=== PATIENT | male | born 1960 | race Caucasian/White ===

== ENCOUNTER → 2017-07-11 | Day surgery (SDC) | payer BC ==
[~2017-07-11] VITALS: Ht 180.3 cm; Wt 152.0 kg
[~2017-07-11] MED LIST: CALC0.25 PO; CALC667T PO; DESFLURANE 61 TO 120 MINUTES IH ONE; DEXAMETHASONE SOD PHOS 20 MG/5 ML VIAL. ONE; FURO40TA4 PO; GLYCOPYRROLATE 1 MG/5 ML VIAL. ONE; HEPARIN SODIUM 1,000 UNIT in IV NORMAL SALINE 100ML 100 ML IRR ONE; HYDROcodone/APAP 5/325MG 1 TAB TABLET PO ONE; HYDROmorphone 2 MG/ML VIAL IV PRN; IV NORMAL SALINE 1000ML BAG 1,000 ML IV SCH; LANS15CA78 PO; LIDOCAINE 1% 1 ML SYRINGE. ID PRN; LIDOCAINE 2% PF Vial for OR 5 ML VIAL. ONE; LISI-334 PO; MORPHINE SULFATE 2 MG/ML DISP.SYRIN. ONE; NEOSTIGMINE 10 MG/10 ML VIAL. ONE; ONDANSETRON PF 4 MG/2 ML VIAL. IV PRN; ONDANSETRON PF 4 MG/2 ML VIAL. ONE; PHENYLEPHRINE in 0.9% NACL PF 1 MG/10 ML DISP.SYRIN. IV ONE; PROAIR HFA8.5 GM INH; PROCHLORPERAZINE 10 MG/2 ML VIAL. IV PRN; PROPOFOL 20 ML IV ONE; SUCCINYLCHOLINE 200 MG/10 ML VIAL. ONE; VIT1TABL57 PO; ePHEDrine PF IN SALINE 50 MG/5 ML DISP.SYRIN IV ONE; fentaNYL PF VIAL 100 MCG/2 ML VIAL IV PRN; fentaNYL PF VIAL 100 MCG/2 ML VIAL ONE
--- NOTE | 2017-07-11 11:00 | PDOC4 ---
Operative Note Operative Note OPERATIVE NOTE: PREOPERATIVE DIAGNOSIS: Renal failure. POSTOPERATIVE DIAGNOSIS: Renal failure. PROCEDURE: Laparoscopic peritoneal dialysis catheter placement. SURGEON: Damon Amin MD ANESTHESIA: General. ESTIMATED BLOOD LOSS: 10 mL. SPECIMENS: None. DRAINS: None. COMPLICATIONS: None. INDICATIONS: The patient is a 56-year-old male who was referred for placement of a peritoneal dialysis catheter due to progressive renal failure. The details and risks of surgery were discussed with the patient. The risks of surgery include bleeding, infection, visceral injury, pain, anesthetic risk, potential need for additional surgery or procedure. In addition, the patient is aware of the potential for catheter malfunction or dysfunction and possibility of needing revision, replacement, or removal of the catheter. The patient understands all this and would like to proceed. DESCRIPTION OF PROCEDURE: The patient was brought to the operating room and placed supine on the operating table. General anesthesia was performed. The abdomen was prepped with ChloraPrep and draped in a standard surgical manner. The abdomen was marked using the placement templates for a planned exit site in the left upper quadrant. A small incision was made in the patient's right upper quadrant through which a visualized 5-mm trocar was inserted. A pneumoperitoneum was then created and the laparoscope was introduced. Initial inspection showed no significant adhesions or any other gross abnormalities. A small incision was made to the left of the patient's midline at the marked location for the exit site of the cuff. An 8-mm trocar was inserted through this location. The coiled portion of the lower catheter was then inserted into the pelvis under direct visualization. The cuff was positioned in the rectus musculature. The coiled portion rested well in the inferior mid pelvis. The pneumoperitoneum was then relieved. The lower and upper catheters were then marked according to the planned dimensions. The catheters were then cut and connected using the metal adapter. 2-0 prolene sutures were used to secure the catheters to the adapter and to each other. A counter incision was made in the left upper quadrant. The combined catheters were then tunnelled just superficial to the facia to the upper incision site. The catheter exit site incision was made in the left upper quadrant. The catheter was then brought out through this incision and the proximal cuff remained in the subcutaneous tissue a few cm away from the exit site. The catheter was then assembled to IV tubing and tested by infusing a liter of saline. The saline passed easily into the abdomen and the bag was placed on the floor. Nearly all of the saline readily was retrieved with prompt flow. The abdominal cavity was then reinsufflated and the laparoscope was reintroduced showing no change in the catheter position and the cuff remained in the rectus. The pneumoperitoneum was relieved and the ports were removed. The catheter was then assembled to the connector tubing as per the dialysis center instructions. All the incision sites were closed with 4-0 Monocryl. Steri-Strips and sterile dressing were then applied. The patient tolerated procedure well and was sent to the recovery room in stable condition. At the end of the case all counts were correct. DAMON AMIN MD Jul 11, 2017 11:00
[2017-07-11] MEDS: fentaNYL PF VIAL 100 MCG/2 ML VIAL IV PRN ×2 (11:02→11:08)
--- NOTE | 2017-07-11 11:03 | DISCH ---
DISCHARGE INSTRUCTIONS Condition on Discharge Condition on Discharge: Stable Activity After Discharge Activity Instructions for Disc: Other, see below (no lifting over 20 lbs X 2 weeks) Diet after Discharge Diet after Discharge: Regular Wound Incision Care Wound/Incision Care: Other, see below (per dialysis center instructions) Follow-Up Follow up with: Dialysis Center MAK AMIN MD Jul 11, 2017 11:02
[2017-07-11] MEDS: MORPHINE SULFATE 2 MG/ML DISP.SYRIN. IV PRN ×2 (11:21→11:31)
[2017-07-11 11:55] VITALS: BP 161/58
== END | disposition home or self-care (01) ==
LOC: SURG 07:47
PROVIDERS: ATTEND Surgery
DX: N19 Unspecified kidney failure (principal); I10 Essential (primary) hypertension; J45.909 Unspecified asthma, uncomplicated; E66.9 Obesity, unspecified; Z68.43 Body mass index [BMI] 50.0-59.9, adult; K21.9 Gastro-esophageal reflux disease without esophagitis; F17.200 Nicotine dependence, unspecified, uncomplicated; Z72.89 Other problems related to lifestyle; Z87.442 Personal history of urinary calculi
CPT/HCPCS: 49324; C1752; J0690; J0780; J1100; J1644; J2270; J2370; J2405; J2704; J2710; J3010; J3490; J7030; J0330; J2001

== ENCOUNTER → 2017-07-11 | Outpatient (CLI) | payer BC ==
[~2017-07-11] MED LIST changes: -DESFLURANE 61 TO 120 MINUTES IH ONE; -DEXAMETHASONE SOD PHOS 20 MG/5 ML VIAL. ONE; -GLYCOPYRROLATE 1 MG/5 ML VIAL. ONE; -HEPARIN SODIUM 1,000 UNIT in IV NORMAL SALINE 100ML 100 ML IRR ONE; -HYDROcodone/APAP 5/325MG 1 TAB TABLET PO ONE; -HYDROmorphone 2 MG/ML VIAL IV PRN; -IV NORMAL SALINE 1000ML BAG 1,000 ML IV SCH; -LIDOCAINE 1% 1 ML SYRINGE. ID PRN; -LIDOCAINE 2% PF Vial for OR 5 ML VIAL. ONE; -MORPHINE SULFATE 2 MG/ML DISP.SYRIN. ONE; -NEOSTIGMINE 10 MG/10 ML VIAL. ONE; -ONDANSETRON PF 4 MG/2 ML VIAL. IV PRN; -ONDANSETRON PF 4 MG/2 ML VIAL. ONE; -PHENYLEPHRINE in 0.9% NACL PF 1 MG/10 ML DISP.SYRIN. IV ONE; -PROCHLORPERAZINE 10 MG/2 ML VIAL. IV PRN; -PROPOFOL 20 ML IV ONE; -SUCCINYLCHOLINE 200 MG/10 ML VIAL. ONE; -ePHEDrine PF IN SALINE 50 MG/5 ML DISP.SYRIN IV ONE; -fentaNYL PF VIAL 100 MCG/2 ML VIAL IV PRN; -fentaNYL PF VIAL 100 MCG/2 ML VIAL ONE
--- NOTE | 2017-07-11 09:34 | RAD ---
Exam performed: 2 views of the chest. Indication: CHRONIC KIDNEY DISEASE. Date of Service:07/11/2017 2:00 AM . Comparison : None available Findings: PA and lateral radiographs of the chest reveal a normal cardiomediastinal contour. The lungs are clear. No pleural fluid is seen. The visualized osseous structures are unremarkable. Impression: Radiographically normal chest.
== END | disposition home or self-care (01) ==
LOC: LAB 07:55
PROVIDERS: ATTEND Internal Medicine Nephrology
DX: N18.9 Chronic kidney disease, unspecified (principal)
CPT/HCPCS: 36415; 71020; 86704; 87340; 87341

== ENCOUNTER → 2018-09-18 | Outpatient (CLI) | payer BC ==
--- NOTE | 2018-09-18 13:49 | CARD ---
MR#: [id number] Date of Study: 09/18/2018 Ordering Physician: EMERITA BARR, Referring Physician: EMERITA BARR, Tech: Arleth Rowell [facility] APPROVED REPORT EXAM: Two-dimensional and M-mode echocardiogram with Doppler and color Doppler. Other Information Quality : Technically LimitedHR: 94bpm Rhythm : NSRTechnically limited study due to body habitus. INDICATION Dyspnea LEFT VENTRICLE The left ventricle is normal size. There is mild to moderate concentric left ventricular hypertrophy. The left ventricular systolic function is normal and the ejection fraction is within normal range. T he Ejection Fraction is 65-70%. There is normal LV segmental wall motion. Transmitral Doppler flow pa ttern is Grade I-abnormal relaxation pattern. RIGHT VENTRICLE The right ventricle is normal size. There is normal right ventricular wall thickness. The right ventr icular systolic function is normal. ATRIA The left atrium is borderline dilated. The right atrium size is normal. The interatrial septum is int act with no evidence for an atrial septal defect or patent foramen ovale as noted on 2-D or Doppler i rylan. AORTIC VALVE The aortic valve is trileaflet. The aortic valve is normal in structure and function. Doppler and Col or Flow revealed no significant aortic regurgitation. There is no significant aortic valvular stenosi s. MITRAL VALVE The mitral valve is normal in structure and function. There is no evidence of mitral valve prolapse. There is no mitral valve stenosis. Doppler and Color Flow revealed no mitral valve regurgitation note d. TRICUSPID VALVE The tricuspid valve is normal in structure and function. Doppler and Color Flow revealed no tricuspid valve regurgitation noted. There is no tricuspid valve prolapse or vegetation. There is no tricuspid valve stenosis. PULMONIC VALVE Pulmonic valve not well visualized. Doppler and Color Flow revealed no pulmonic valvular regurgitatio n. There is no pulmonic valvular stenosis. GREAT VESSELS The aortic root is mildly enlarged. The ascending aorta is Mildly dilated. PERICARDIAL EFFUSION There is no evidence of significant pericardial effusion. Fat pad noted. Critical Notification Critical Value: No <Conclusion> The left ventricular systolic function is normal and the ejection fraction is within normal range. Th e Ejection Fraction is 65-70%. There is normal LV segmental wall motion. Mild diastolic dysfunction. No signficant valvular disease. Signed by : Donte Gutiérrez, Electronically Approved : 09/18/2018 13:48:43
== END | disposition home or self-care (01) ==
LOC: ECHO 13:00
DX: I13.0 Hypertensive heart and chronic kidney disease with heart failure and stage 1 through stage 4 chronic kidney disease, or unspecified chronic kidney disease (principal); I50.31 Acute diastolic (congestive) heart failure; N18.9 Chronic kidney disease, unspecified
CPT/HCPCS: 93306

== ENCOUNTER 2018-11-16 09:11 | Outpatient (CLI) | payer BC ==
[2018-11-16] VITALS (10 sets, daily range): BP systolic 124–167; BP diastolic 72–92
[~2018-11-16] VITALS: Ht 180.3 cm; Wt 158.8 kg
[~2018-11-16 09:11] MED LIST changes: +ALBU2.5V8 INH; -PROAIR HFA8.5 GM INH
[2018-11-16] MEDS ORDERED: GUAI400T63 PO (09:35)
[2018-11-16] MEDS ORDERED: TORS20TA2 PO (09:35)
[2018-11-16] MEDS ORDERED: DOCU-109 PO (09:38)
[2018-11-16] MEDS ORDERED: ASPI-630 PO (09:38)
[2018-11-16] MEDS ORDERED: TAMS0.4C2 PO (09:38)
[2018-11-16] MEDS ORDERED: TRAZ-85 PO (09:38)
[2018-11-16 09:55] LABS: BASO # 0.1 x10^3/uL (0.0-0.2); BASO % 1 % (0-3); EOS # 0.2 x10^3/uL (0.0-0.7); EOS % 2 % (0-3); HEMATOCRIT 34.2 % (39.0-53.0); HEMOGLOBIN 11.7 g/dL (13.0-17.5); LYMPH # 1.3 x10^3/uL (1.0-4.8); LYMPH % 13 % (24-48); MEAN CORPUSCULAR HEMOGLOBIN 32 pg (25-35); MEAN CORPUSCULAR HGB CONC 34 g/dL (31-37); MEAN CORPUSCULAR VOLUME 94 fL (79-100); MONO # 0.7 x10^3/uL (0.0-1.1); MONO % 8 % (0-9); NEUT # 7.5 x10^3uL (1.8-7.7); NEUT % 77 % (31-73); PLATELET COUNT 187 x10^3/uL (140-400); RED BLOOD COUNT 3.62 x10^6/uL (4.30-5.70); RED CELL DISTRIBUTION WIDTH 13.7 % (11.5-14.5); WHITE BLOOD COUNT 9.7 x10^3/uL (4.0-11.0)
[2018-11-16 10:05] LABS: PROTHROMBIN TIME PATIENT 13.6 SEC (11.7-14.0)
[2018-11-16] MEDS ORDERED: IODIXANOL 320 MG/ML 100 ML VIAL. ONE (10:40)
[2018-11-16] MEDS ORDERED: LIDOCAINE 1% PF 2 ML VIAL. ONE (10:40)
[2018-11-16] MEDS ORDERED: HEPARIN for ARTERIAL LINE 1,500 ML ONE (10:40)
[2018-11-16 11:05] LABS: CALCIUM 8.7 mg/dL (8.5-10.1); CREATININE 7.1 mg/dL (0.7-1.3); GFR 8.1; POTASSIUM 3.8 mmol/L (3.5-5.1)
[2018-11-16] MEDS ORDERED: fentaNYL PF VIAL 100 MCG/2 ML VIAL ONE (11:18)
[2018-11-16] MEDS ORDERED: HEPARIN for IV BOLUS 10,000 UNIT/10 ML VIAL. ONE (11:19)
[2018-11-16] MEDS ORDERED: NITROGLYCERIN 200 MCG/2 ML SYRINGE FOR CATH/VASC LAB. ONE (11:19)
[2018-11-16] MEDS ORDERED: VERAPAMIL 5 MG/2 ML VIAL. ONE (11:19)
[2018-11-16] MEDS ORDERED: MIDAZOLAM HCL/PF 2 MG/2 ML VIAL. ONE (11:19)
[2018-11-16] MEDS ORDERED: IODIXANOL 320 MG/ML 100 ML VIAL. IART ONE (12:00)
[2018-11-16] MEDS ORDERED: VERAPAMIL 5 MG/2 ML VIAL. IART ONE (12:00)
[2018-11-16] MEDS ORDERED: LIDOCAINE 1% PF 2 ML VIAL. INJ ONE (12:00)
[2018-11-16] MEDS ORDERED: NITROGLYCERIN 200 MCG/2 ML SYRINGE FOR CATH/VASC LAB. IART ONE (12:00)
[2018-11-16] MEDS ORDERED: MIDAZOLAM HCL/PF 2 MG/2 ML VIAL. IV ONE (12:00)
[2018-11-16] MEDS ORDERED: HEPARIN for IV BOLUS 10,000 UNIT/10 ML VIAL. IART ONE (12:00)
[2018-11-16] MEDS ORDERED: fentaNYL PF VIAL 100 MCG/2 ML VIAL IV ONE (12:00)
[2018-11-16] MEDS ORDERED: ATOR20TA58 PO (12:13)
--- NOTE | 2018-11-16 12:21 | NUR ---
Prescription for Atorvastatin 20 mg 1 tab PO QHS #90 given to pt.
[2018-11-16 12:48] LABS: CHOLESTEROL/HDL RATIO 4.5
--- NOTE | 2018-11-16 12:50 | CARD ---
MR#: [id number] Date of Study: 11/16/2018 Ordering Physician: ELENA GUTIÉRREZ, Referring Physician: ELENA GUTIÉRREZ, Tech: RT Suri (R) SIMEON APPROVED REPORT Technologist: RT Suri (R) SIMEON Nurse: Pretty Drew R.N. Procedure(s) performed: 33 minutes sedation [facility], Coronary angiography, Left ventriculography HISTORY The patient is a 57 year-old male with a history of : hypertension, dyslipidemia. INDICATION The indication(s) include : dyspnea. PROCEDURE NARRATIVE INFORMED CONSENT: After explaining the risks and benefits of the procedure and alternatives, informed consent was obtained. The patient was brought electively to the cardiac catheterization lab. A timeout was performed confi rming the patient's name, date of , procedure, and site of procedure. All necessary personnel w ere wearing the appropriate protective equipment and radiation monitor devices. (See nursing notes for medications administered). ACCESS: The right wrist was sterilely prepped and draped in the usual fashion. The right wrist was infiltrat ed with 1 mL of 2% lidocaine for subcutaneous anesthesia. A 6 Serbian Terumo glide sheath was inserte d into the right radial artery without difficulty. CORONARY ANGIOGRAPHY: Right and left coronary angiography was performed using a 6Fr TIG 4.0 catheter. Left ventricular en d diastolic pressure was obtained with a pigtail catheter and pullback was performed after left ventr iculography. All catheter exchanges and advancements were performed over a guidewire. CLOSURE: At case completion the right radial sheath was removed and a Terumo radial band was applied with 13 m l of air. COMPLICATIONS: The patient tolerated the procedure well and there were no immediate complications. FINDINGS: HEMODYNAMICS: LVEDP 22 mm Hg No gradient on LV to aortic pullback. AO: 128/78 LEFT VENTRICULOGRAM: EF 55% Anterobasal: Normal. Anterolateral: Normal Apical: Normal Diaphragmatic: Normal Posterobasal: Normal CORONARY ANGIOGRAPHY: LM is a large caliber vessel with normal angiographic appearance. LAD is a large caliber vessel with normal angiographic appearance. D1 is a moderate caliber vessel with normal angiographic apeparance. D2 is a large caliber vessel with normal angiographc appearance. LCx is a moderate caliber non-dominant vessel with normal angiographic appearance. OM1 is a moderate caliber vessel with normal angiographic appearance. RCA is a large caliber dominant vessel with proximal 10-20% stenosis. RPDA and RPL are moderate caliber vessels with normal angiographic appearance. *Mild ectatic appearance of the RCA is noted with vessel size greater than 5 mm. Conclusion 1. No significant coronary disease with mild ectasia of the proximal RCA 2. Normal LV systolic function. 3. Mildly elevated left sided filling pressures. Recommendations No clear cardiac source of dyspnea Consider increase in peritoneal dialysis time to help reduce LVEDP and improve dyspnea Weight loss program Start low dose statin therapy. Signed by : Elena Gutiérrez, Electronically Approved : 11/16/2018 12:49:16
--- NOTE | 2018-11-16 14:50 | NUR ---
Discharge Note: [facility] Discharge instructions and discharge home medications reviewed with Patient and a copy given. All questions have been answered and understanding verbalized. The following instructions and handouts were given: radial site care, do not take arm board off for 24 hours and limit right hand use. Discontinued lines and drains: Peripheral IV intact. Patient discharged to Home or Self Care with Spouse via Wheelchair
== END 2018-11-16 14:52 | disposition home or self-care (01) ==
LOC: CCL 09:11
PROVIDERS: ATTEND Internal Medicine Cardiovascular Disease
DX: I25.10 Atherosclerotic heart disease of native coronary artery without angina pectoris (principal); I10 Essential (primary) hypertension; E78.5 Hyperlipidemia, unspecified; Z79.899 Other long term (current) drug therapy
CPT/HCPCS: 36415; 80048; 80061; 85025; 85610; 93458; 99152; 99153; C1769; C1892; J1644; J2250; J3010; J3490; Q9967

== ENCOUNTER → 2019-01-01 | Outpatient (CLI) | payer BC ==
[2018-11-16 14:20] VITALS: BP 138/83
[~2019-01-01] MED LIST changes: +ASPI-630 PO; +ATOR20TA58 PO; -CALC667T PO; +CALC667T4 PO; +DOCU-109 PO; +GUAI400T63 PO; +TAMS0.4C2 PO; +TORS20TA2 PO; +TRAZ-118 PO
--- NOTE | 2019-01-02 11:00 | SLEEP ---
DATE OF STUDY: REFERRING PROVIDER: PATRICK Levy The patient is 58-year-old who weighs 350 pounds with a BMI of 49. The patient underwent sleep study at [facility]. During the night study, the patient spent 423 minutes in bed and slept for 311 minutes with a sleep efficiency of 73%. Sleep latency was prolonged at 42 minutes with a REM latency of 188 minutes. Overall, sleep architecture showed normal stage 1 sleep, increased stage 2 sleep, absent slow wave and normal REM sleep. During the night of the study, the patient had 13 obstructive apneas, 1 mixed apnea and no central apneas and 133 hypopneas. The patient's apnea-hypopnea index was 28 per hour, which worsened to 62 per hour during REM sleep. Supine AHI was 22 per hour. PLMS were seen at index of 6 per hour and none caused EEG arousals. EKG monitoring revealed an average heart rate of 75 beats per minute and no sustained arrhythmias observed. He was in normal sinus rhythm. Nocturnal oximetry study revealed a mean oxygen saturation of 92% with the lowest of 65%. 50% of time oxygen saturation remained between 80% and 89% and 14% of time between 70% and 79%. Nocturnal hypoxia was severe during REM sleep. The patient met the criteria for CPAP initiation; however, he refused all forms of CPAP devices. The patient told the night tar processing technician that he would never wear CPAP. As a result, CPAP was not initiated. IMPRESSION: 1. Moderate sleep apnea-hypopnea syndrome with worsening during REM sleep. Total AHI 28 per hour with a REM AHI of 62 per hour. 2. Tipjrfog-mm-dyeuoo nocturnal hypoxia, especially in REM sleep, related to obstructive sleep apnea. 3. No clinically significant PLMS. RECOMMENDATIONS: 1. The patient met the criteria for CPAP initiation; however, he refused all forms of CPAP devices. If the patient agrees to try CPAP in future, he could be desensitized to the devices. Alternate treatment option would include consideration of an oral appliance as recommended by the dentist. The patient would not be a candidate for hypoglossal nerve stimulation due to high BMI. 2. Weight loss is strongly emphasized. 3. Avoid FORKLIFT WHEEL [employer]ADER depressants. 4. Caution regarding driving until symptoms of sleep apnea has resolved with above recommendations. JULIAN U. TURPIN, MD DR: SATYA/tesfaye JOB#: [id number] / [id number] [facility] EMERITA SANTIAGO
== END | disposition home or self-care (01) ==
LOC: SLPLAB 18:59
PROVIDERS: ATTEND Internal Medicine Critical Care Medicine
DX: G47.33 Obstructive sleep apnea (adult) (pediatric) (principal); G47.34 Idiopathic sleep related nonobstructive alveolar hypoventilation
CPT/HCPCS: 95810

== ENCOUNTER → 2019-07-03 | Outpatient (CLI) | payer BC ==
[2018-11-16 14:20] VITALS: BP 138/83
[~2019-07-03] MED LIST changes: +CONTRAST GIVEN. MC PRN; +IOHEXOL 240 MG/ML 50ML VIAL. PO ONE; +IOHEXOL 300 MG/ML 100ML VIAL. IV ONE
--- NOTE | 2019-07-03 11:25 | RAD ---
PQRS Compliance statement: One or more of the following individualized dose reduction techniques were utilized for this examination: 1. Automated exposure control. 2. Adjustment of the mA and/or kV according to patient size. 3. Use of iterative reconstruction technique. Indication:Polycystic kidney disease. Enlarged prostate. TECHNIQUE: CT abdomen and pelvis with IV contrast with multiplanar reformats. COMPARISON: None FINDINGS: Heart is normal in size. No pericardial or pleural effusion. Consolidation is seen in the left lung base. Liver, spleen, gallbladder, pancreas, adrenals within normal limits. Small amount of perihepatic and perisplenic ascites. Bilateral kidneys are enlarged with multiple low attenuating and high attenuating lesions. The represented to lesion in the right kidney measures 6.8 x 5.5 cm and the employment representative lesion in the left kidney measures 9.2 x 7.5 cm. Partially exophytic enhancing lesion in the left kidney seen measuring 1.5 centimeter (series 2 image 55). No hydronephrosis. Small amount of free pelvic fluid is seen. Peritoneal dialysis catheter is seen with its tip in the left lower quadrant. Small bilateral fat-containing inguinal hernia. No enlarged retroperitoneal or pelvic adenopathy. No bowel obstruction. Trace amount of air in the peritoneum likely from peritoneal dialysis. Prostate is nonenlarged. Urinary bladder demonstrates no radiopaque stones. No suspicious bony lesion. IMPRESSION: 1. Findings of polycystic kidney disease. Evaluation for renal cell carcinoma is difficult on this exam due to single phase contrast CT. The apparently high attenuating lesions may represent minimally complicated cyst although RCC is not entirely ruled out. Triple phase CT abdomen with kidney mass protocol is recommended. 2. Trace volume ascites. 3. Consolidation in the left lung base may be secondary to atelectasis although underlying pneumonia not ruled out. Electronically signed by: Kvng Kiran DO (07/03/2019 11:22 AM) [facility]
== END | disposition home or self-care (01) ==
LOC: CT 08:22
PROVIDERS: ATTEND Internal Medicine Nephrology
DX: K40.90 Unilateral inguinal hernia, without obstruction or gangrene, not specified as recurrent (principal); N40.1 Benign prostatic hyperplasia with lower urinary tract symptoms; Q61.2 Polycystic kidney, adult type; R18.8 Other ascites; N28.9 Disorder of kidney and ureter, unspecified; J45.909 Unspecified asthma, uncomplicated; I10 Essential (primary) hypertension; Z99.2 Dependence on renal dialysis
CPT/HCPCS: 74177; Q9966; Q9967

== ENCOUNTER 2019-09-11 16:29 | Inpatient (IN) | payer BC ==
[~2019-09-11] VITALS: Ht 180.3 cm; Wt 160.3 kg
[~2019-09-11 16:29] MED LIST changes: -CONTRAST GIVEN. MC PRN; -IOHEXOL 240 MG/ML 50ML VIAL. PO ONE; -IOHEXOL 300 MG/ML 100ML VIAL. IV ONE
[2019-09-11 17:16] LABS: BASO # 0.1 x10^3/uL (0.0-0.2); BASO % 1 % (0-3); EOS # 0.4 x10^3/uL (0.0-0.7); EOS % 2 % (0-3); LYMPH # 2.2 x10^3/uL (1.0-4.8); LYMPH % 11 % (24-48); MEAN CORPUSCULAR HEMOGLOBIN 30 pg (25-35); MEAN CORPUSCULAR HGB CONC 33 g/dL (31-37); MEAN CORPUSCULAR VOLUME 93 fL (79-100); MONO # 1.2 x10^3/uL (0.0-1.1); MONO % 6 % (0-9); NEUT # 15.7 x10^3/uL (1.8-7.7); NEUT % 80 % (31-73); PLATELET COUNT 297 x10^3/uL (140-400); RED BLOOD COUNT 4.28 x10^6/uL (4.30-5.70); RED CELL DISTRIBUTION WIDTH 15.3 % (11.5-14.5); WHITE BLOOD COUNT 19.6 x10^3/uL (4.0-11.0)
--- NOTE | 2019-09-11 17:18 | PHYS DOC ---
Adult General Chief Complaint Chief Complaint: DIZZY/LIGHT HEADED HPI HPI Patient is a 58 year old male who presents with dizziness when he stands up from every day today. Patient states he fell face first when he passed out today. Patient lost consciousness but states he remembers hitting the floor and got back up. Patient states he has been worked up for this and recently got a echo, But no stents and a stress test. Patient denies becoming diaphoretic, clammy, shortness of air, chest pain, vision changes, numbness or tingling, weaknesses, headache, nausea, vomiting, diarrhea. Patient states today he did have a frontal lobe headache right before the incident occurred. Patient states he no longer has any pain. Patient does peritoneal dialysis nightly. Patient states he still makes a small amount of urine. Patient's history is renal failure, asthma, hypertension. Review of Systems Review of Systems Neurologic: Dizziness, syncope. Denies headache, focal weakness or sensory changes [] All other systems were reviewed and found to be within normal limits, except as documented in this note. Current Medications Current Medications Current Medications Medications (Trade) Dose Ordered Sig/Tao Start Time Stop Time Status Last Admin Dose Admin Acetaminophen/ Hydrocodone Bitart (Lortab 5/325) 1 tab PRN Q4HRS PRN 09/11/19 18:30 Albuterol Sulfate (Ventolin Neb Soln) 2.5 mg PRN Q4HRS PRN 09/11/19 18:30 Aspirin (Children'S Aspirin) 81 mg DAILY 09/12/19 09:00 UNV Atorvastatin Calcium (Lipitor) 20 mg HS 09/11/19 21:00 UNV Calcium Carbonate/ Glycine (Tums) 500 mg PRN AFTMEALHC PRN 09/11/19 18:30 UNV Clonidine HCl (Catapres) 0.1 mg PRN Q1HR PRN 09/11/19 18:30 UNV Docusate Sodium (Colace) 100 mg DAILY 09/12/19 09:00 UNV Guaifenesin (Robitussin Dm) 10 ml PRN Q6HRS PRN 09/11/19 18:30 UNV Lorazepam (Ativan Inj) 2 mg PRN Q4HRS PRN 09/11/19 18:45 UNV Morphine Sulfate (Morphine Sulfate) 2 mg PRN Q2HR PRN 09/11/19 18:30 Non-Formulary Medication (Calcium Acetate ) 3 cap TIDWMEALS 09/12/19 08:00 UNV Non-Formulary Medication (Guaifenesin ) 400 mg DAILY 09/12/19 09:00 UNV Non-Formulary Medication (Lansoprazole (Prevacid)) 1 cap DAILY 09/12/19 09:00 UNV Ondansetron HCl (Zofran) 4 mg PRN Q6HRS PRN 09/11/19 18:30 Tamsulosin HCl (Flomax) 0.4 mg DAILY 09/12/19 09:00 UNV Torsemide (Demadex) 20 mg DAILY 09/12/19 09:00 UNV Trazodone HCl (Desyrel) 50 mg HS 09/11/19 21:00 UNV Allergies Allergies Allergies Coded Allergies Type Severity Reaction Last Updated Verified No Known Drug Allergies 07/11/17 No Physical Exam Physical Exam Constitutional: Well developed, well nourished, no acute distress, non-toxic appearance. [] HENT: Normocephalic, atraumatic, bilateral external ears normal, oropharynx moist, no oral exudates, nose normal. [] Eyes: PERRLA, EOMI, conjunctiva normal, no discharge. [] Neck: Normal range of motion, no tenderness, supple, no stridor. [] Cardiovascular:Heart rate regular rhythm, no murmur [] Lungs & Thorax: Bilateral breath sounds clear to auscultation [] Abdomen: Bowel sounds normal, soft, no tenderness, no masses, no pulsatile masses. [] Skin: Warm, dry, no erythema, no rash. [] Back: No tenderness, no CVA tenderness. [] Extremities: No tenderness, no cyanosis, no clubbing, ROM intact, no edema. [] Neurologic: Alert and oriented X 3, normal motor function, normal sensory function, no focal deficits noted. [] Psychologic: Affect normal, judgement normal, mood normal. [] Current Patient Data Vital Signs Vital Signs Date Time Temp Pulse Resp B/P (MAP) Pulse Ox O2 Delivery O2 Flow Rate FiO2 09/11/19 17:28 94 18 95 09/11/19 16:38 98.1 142/82 (102) Room Air 98.1 Lab Values Laboratory Tests Test 09/11/19 16:50 White Blood Count 19.6 x10^3/uL (4.0-11.0) H Red Blood Count 4.28 x10^6/uL (4.30-5.70) L Hemoglobin 13.0 g/dL (13.0-17.5) Hematocrit 40.0 % (39.0-53.0) Mean Corpuscular Volume 93 fL (79-100) Mean Corpuscular Hemoglobin 30 pg (25-35) Mean Corpuscular Hemoglobin Concent 33 g/dL (31-37) Red Cell Distribution Width 15.3 % (11.5-14.5) H Platelet Count 297 x10^3/uL (140-400) Neutrophils (%) (Auto) 80 % (31-73) H Lymphocytes (%) (Auto) 11 % (24-48) L Monocytes (%) (Auto) 6 % (0-9) Eosinophils (%) (Auto) 2 % (0-3) Basophils (%) (Auto) 1 % (0-3) Neutrophils # (Auto) 15.7 x10^3/uL (1.8-7.7) H Lymphocytes # (Auto) 2.2 x10^3/uL (1.0-4.8) Monocytes # (Auto) 1.2 x10^3/uL (0.0-1.1) H Eosinophils # (Auto) 0.4 x10^3/uL (0.0-0.7) Basophils # (Auto) 0.1 x10^3/uL (0.0-0.2) Segmented Neutrophils % 78 % (35-66) H Band Neutrophils % 1 % (0-9) Lymphocytes % 12 % (24-48) L Monocytes % 7 % (0-10) Eosinophils % 1 % (0-5) Myelocytes % 1 % (0-0) H Toxic Granulation Slight Platelet Estimate Adequate (ADEQUATE) Platelet Clumps, EDTA Present Sodium Level 139 mmol/L (136-145) Potassium Level 3.4 mmol/L (3.5-5.1) L Chloride Level 96 mmol/L (98-107) L Carbon Dioxide Level 27 mmol/L (21-32) Anion Gap 16 (6-14) H Blood Urea Nitrogen 95 mg/dL (8-26) H Creatinine 13.6 mg/dL (0.7-1.3) H Estimated GFR (Cockcroft-Gault) 3.8 BUN/Creatinine Ratio 7 (6-20) Glucose Level 82 mg/dL (70-99) Calcium Level 9.1 mg/dL (8.5-10.1) Magnesium Level 2.4 mg/dL (1.8-2.4) Total Bilirubin 0.4 mg/dL (0.2-1.0) Aspartate Amino Transferase (AST) 12 U/L (15-37) L Alanine Aminotransferase (ALT) 14 U/L (16-63) L Alkaline Phosphatase 64 U/L (46-116) Troponin I Quantitative < 0.017 ng/mL (0.000-0.055) Total Protein 6.6 g/dL (6.4-8.2) Albumin 2.9 g/dL (3.4-5.0) L Albumin/Globulin Ratio 0.8 (1.0-1.7) L Laboratory Tests 09/11/19 16:50 Laboratory Tests 09/11/19 16:50 EKG EKG Sinus Rhythm and no STEMI[] Interpretation Time: [address] Wong Radiology/Procedures Radiology/Procedures [] Impressions: [address] [address] IMAGING REPORT Signed PATIENT: KURTIS COLLINS LACCOUNT: [id number] : 1960 LOCATION: ER AGE: 58 SEX: M EXAM STATUS: REG ER ORD. PHYSICIAN: TIFFANI PAYTON APRN REASON: syncope PROCEDURE: PORTABLE CHEST 1V Exam: Chest one view INDICATION: Syncope TECHNIQUE: Dental view of the chest Comparisons: 07/11/2017 FINDINGS: The cardiomediastinal silhouette and pulmonary vessels are within normal limits. Linear bandlike opacities noted within the left lower lung. No pleural effusion. IMPRESSION: Left basilar atelectasis. Electronically signed by: Judah West MD (09/11/2019 5:19 PM) [facility] DICTATED and SIGNED BY: JUDAH WEST MD DATE: 09/11/[id number] [address] IMAGING REPORT Signed PATIENT: KURTIS COLLINS LACCOUNT: [id number] : 1960 LOCATION: ER AGE: 58 SEX: M EXAM STATUS: REG ER ORD. PHYSICIAN: TIFFANI PAYTON APRN REASON: DIZZINESS X 1 YEAR, WORST FOR 2 WEEKS. PROCEDURE: CT HEAD WO CONTRAST EXAM: CT HEAD WITHOUT CONTRAST. HISTORY: Dizziness. TECHNIQUE: Computed tomography of the head was performed without intravenous contrast. One or more of the following individualized dose reduction techniques were utilized for this examination: 1. Automated exposure control. 2. Adjustment of the mA and/or kV according to patient size. 3. Use of iterative reconstruction technique. COMPARISON: None. FINDINGS: There is no intracranial hemorrhage. Baig-white differentiation is preserved. The ventricles are normal in size and position. The visualized paranasal sinuses appear clear. There are changes of bilateral cataract surgery. The temporal bones are unremarkable. The calvarium reveals no suspicious lesions. IMPRESSION: 1. No acute intracranial findings. Electronically signed by: Marva Banerjee MD (09/11/2019 5:35 PM) [facility] DICTATED and SIGNED BY: YESSY BANERJEE MD DATE: 09/11/191734 Course & Med Decision Making Course & Med Decision Making Patient denies neck pain, back pain. Patient has no tenderness to the neck or back with palpation. No bruising to the patient's body is seen. No tenderness to the face and head and there are no bruising or bumps. Patient can move all extremities with strong strengths. NIH is 0. PERRLA. Upper Lungs are clear to auscultation and lower are diminished. Alert and oriented. Speaks in full clear sentences. 1+ lower extremity edema. Patient states that redness is incision bend his daughter took his blood pressure and it was normal. Orthostatics are as the following: Laying 140/87, 92; sitting 142/82, 93; standing 139/68, 104. She has not done peritoneal dialysis at this time, but has been doing it daily. Chest xray shows: IMPRESSION: Left basilar atelectasis. I have spoken to Dr Curry concerning patients renal labs and his symptoms. He states to consult him and they will come and do Dialysis. I have spoken to Dr Morales for admission. I have discussed this with the patient and the patients family also. Dragon Disclaimer Dragon Disclaimer This electronic medical record was generated, in whole or in part, using a voice recognition dictation system. NIHSS Stroke Scale NIH Stroke Scale: NIH Stroke Scale Response (Comments) Value Level of Consciousness: 0 Alert/Responsive 0 LOC Questions: 0 Answers both correctly 0 LOC Commands: 0 Performs both tasks 0 Best Gaze: 0 Normal 0 Visual: 0 No visual loss 0 Facial Palsy: 0 Normal, symmetrical 0 Motor - Left Arm 0 No drift 0 Motor - Right Arm 0 No drift 0 Motor - Left Leg 0 No drift 0 Motor: Right Leg 0 No drift 0 Limb Ataxia: 0 Absent 0 Sensory: 0 No loss 0 Best Language: 0 Normal 0 Dysathria: 0 Normal 0 Extinction and Inattention: 0 Normal 0 Total 0 The HEART Score for CP Pts HEART Score for Chest Pain: HEART Score for Chest Pain Response (Comments) Value History Slighlty/Non-Suspicious 0 ECG Normal 0 Age >45 - < 65 1 Risk Factors 1 or 2 Risk Factors 1 Troponin < Normal Limit 0 Total 2 Risk Factors: Risk Factors: DM, Current or recent (<one month) smoker, HTN, HLP, family history of CAD, obesity. Risk Scores: Score 0 - 3: 2.5% MACE over next 6 weeks - Discharge Home Score 4 - 6: 20.3% MACE over next 6 weeks - Admit for Clinical Observation Score 7 - 10: 72.7% MACE over next 6 weeks - Early Invasive Strategies Departure Departure Impression: Primary Impression: Syncopal episodes Disposition: 09 ADMITTED INPATIENT Admitting Physician: MONTRELL Condition: STABLE Referrals: EMERITA BARR (PCP) Problem Qualifiers Primary Impression: Syncopal episodes Syncope type: unspecified Qualified Codes: R55 - Syncope and collapse TIFFANI PAYTON PL SQL PROGRAMMER Sep 11, 2019 17:18
--- NOTE | 2019-09-11 17:21 | RAD ---
Exam: Chest one view INDICATION: Syncope TECHNIQUE: Dental view of the chest Comparisons: 07/11/2017 FINDINGS: The cardiomediastinal silhouette and pulmonary vessels are within normal limits. Linear bandlike opacities noted within the left lower lung. No pleural effusion. IMPRESSION: Left basilar atelectasis. Electronically signed by: Judah Solomon MD (09/11/2019 5:19 PM) [facility]
[2019-09-11 17:26] LABS: CALCIUM 9.1 mg/dL (8.5-10.1); CREATININE 13.6 mg/dL (0.7-1.3); GFR 3.8; POTASSIUM 3.4 mmol/L (3.5-5.1)
[2019-09-11 17:33] LABS: ALBUMIN 2.9 g/dL (3.4-5.0); ALBUMIN/GLOBULIN RATIO 0.8 (1.0-1.7); MAGNESIUM 2.4 mg/dL (1.8-2.4); TOTAL BILIRUBIN 0.4 mg/dL (0.2-1.0); TOTAL PROTEIN 6.6 g/dL (6.4-8.2)
[2019-09-11 17:38] LABS: % BANDS 1 % (0-9); % EOS 1 % (0-5); % LYMPHS 12 % (24-48); % MONOS 7 % (0-10); % MYELOS 1 % (0-0); % SEGS 78 % (35-66); PLATELET CLUMP PRESENT; PLT ESTIMATE ADEQUATE (ADEQUATE)
--- NOTE | 2019-09-11 17:38 | RAD ---
EXAM: CT HEAD WITHOUT CONTRAST. HISTORY: Dizziness. TECHNIQUE: Computed tomography of the head was performed without intravenous contrast. One or more of the following individualized dose reduction techniques were utilized for this examination: 1. Automated exposure control. 2. Adjustment of the mA and/or kV according to patient size. 3. Use of iterative reconstruction technique. COMPARISON: None. FINDINGS: There is no intracranial hemorrhage. Baig-white differentiation is preserved. The ventricles are normal in size and position. The visualized paranasal sinuses appear clear. There are changes of bilateral cataract surgery. The temporal bones are unremarkable. The calvarium reveals no suspicious lesions. IMPRESSION: 1. No acute intracranial findings. Electronically signed by: Marva Banerjee MD (09/11/2019 5:35 PM) [facility]
[2019-09-11 17:39] LABS: TOXIC GRANULATION SLIGHT
[2019-09-11] MEDS ORDERED: cloNIDine HCL 0.1 MG TABLET PO PRN (18:30)
[2019-09-11] MEDS ORDERED: guaiFENesin DM 200MG/20MG 10 ML SYRUP PO PRN (18:30)
[2019-09-11] MEDS ORDERED: MORPHINE SULFATE 2 MG/ML VIAL. IV PRN (18:30)
--- NOTE | 2019-09-11 18:47 | PDOC1 ---
History and Physical Date of Admission Date of Admission DATE: 09/11/19 TIME: 18:40 Identification/Chief Complaint Chief Complaint passed out today x 2 secs Source Source: Caregiver, Chart review, Patient History of Present Illness History of Present Illness 58 heavy set male, hx ESRD on PD, still makes urine, passed out today, NO LOC, HE was fully aware, HE relays an aura to me, knew something "was odd", then whole body felt numb and collapsed with full knowledge he was down but could not do anything about it. LAsted only 2 secs., says he was mildly shaking, no drooling, upward rolling eyeballs or loss of bladder or bowel fcn, He apparently has been worked up before by our cardiology group for "syncope" with echo and LHC with normal results., HE IS NOT orthostatic as checked in ER, HE is watching tv and back to baseline - I see him at ER, FULL CODE., He is compliant with meds His WBC is 19 but he was just on pred for acute bronchitis and his cxr only shows atelectasis and CT head neg, He finished his course abx Betzaida dmit to 6S and neuro consult agreeable to my plan, SZ PREC! Past Medical History Cardiovascular: HTN, Hyperlipidemia Renal/: Chronic renal insuff Past Surgical History Past Surgical History: Other (PD cath) Family History Family History: High Cholestrol, Hypertension Social History Smoke: No ALCOHOL: none Drugs: None Current Medications Current Medications Current Medications Aspirin (Children'S Aspirin) 81 mg DAILY PO ; Start 09/12/19 at 09:00; Status UNV Atorvastatin Calcium (Lipitor) 20 mg HS PO ; Start 09/11/19 at 21:00; Status UNV Docusate Sodium (Colace) 100 mg DAILY PO ; Start 09/12/19 at 09:00; Status UNV Tamsulosin HCl (Flomax) 0.4 mg DAILY PO ; Start 09/12/19 at 09:00; Status UNV Torsemide (Demadex) 20 mg DAILY PO ; Start 09/12/19 at 09:00; Status UNV Trazodone HCl (Desyrel) 50 mg HS PO ; Start 09/11/19 at 21:00; Status UNV Non-Formulary Medication (Calcium Acetate ) 3 cap TIDWMEALS PO ; Start 09/12/19 at 08:00; Status UNV Non-Formulary Medication (Guaifenesin ) 400 mg DAILY PO ; Start 09/12/19 at 09:00; Status UNV Non-Formulary Medication (Lansoprazole (Prevacid)) 1 cap DAILY PO ; Start 09/12/19 at 09:00; Status UNV Acetaminophen/ Hydrocodone Bitart (Lortab 5/325) 1 tab PRN Q4HRS PRN PO PAIN; Start 09/11/19 at 18:30 Morphine Sulfate (Morphine Sulfate) 2 mg PRN Q2HR PRN IV PAIN; Start 09/11/19 at 18:30 Ondansetron HCl (Zofran) 4 mg PRN Q6HRS PRN IVP NAUSEA/VOMITING; Start 09/11/19 at 18:30 Clonidine HCl (Catapres) 0.1 mg PRN Q1HR PRN PO HYPERTENSION; Start 09/11/19 at 18:30; Status UNV Calcium Carbonate/ Glycine (Tums) 500 mg PRN AFTMEALHC PRN PO INDIGESTION; Start 09/11/19 at 18:30; Status UNV Guaifenesin (Robitussin Dm) 10 ml PRN Q6HRS PRN PO COUGH; Start 09/11/19 at 18:30; Status UNV Albuterol Sulfate (Ventolin Neb Soln) 2.5 mg PRN Q4HRS PRN NEB SHORTNESS OF BREATH; Start 09/11/19 at 18:30 Active Scripts Active Reported Atorvastatin Calcium 20 Mg Tablet 20 Mg PO HS Colace (Docusate Sodium) 100 Mg Capsule 100 Mg PO DAILY Aspirin 81 Mg Tab.chew 81 Mg PO DAILY Tamsulosin Hcl 0.4 Mg Cap.er.24h 0.4 Mg PO DAILY Trazodone Hcl 50 Mg Tablet 1-2 Tab PO HS Guaifenesin 400 Mg Tablet 400 Mg PO DAILY Torsemide 20 Mg Tablet 20 Mg PO DAILY Calcium Acetate 667 Mg Tablet 3 Cap PO TIDWMEALS Prevacid (Lansoprazole) 15 Mg Capsule.dr 1 Cap PO DAILY Allergies Allergies: Coded Allergies: No Known Drug Allergies (Unverified , 07/11/17) ROS Review of System as per hpi, otherwise rest 14 pt neg Physical Exam General: Alert, Oriented X3, Cooperative, No acute distress HEENT: Atraumatic, PERRLA, EOMI Lungs: Clear to auscultation, Normal air movement Heart: S1S2, RRR, no thrills, no rubs, no gallops, no murmurs Cardiovascular: S1, S2 Abdomen: Normal bowel sounds, Soft, No tenderness, No hepatosplenomegaly, No masses, Other (obese abdomen with PD cath) Male Genitals Exam: normal genitalia, normal prostate Rectal Exam: not examined PELVIC: Nml ext genitalia Extremities: No clubbing, No cyanosis, No edema, Normal pulses, No tenderness/swelling Skin: No rashes, No breakdown, No significant lesion Neuro: Normal gait, Normal speech, Strength at 5/5 X4 ext, Normal tone, Sensation intact, Cranial nerves 3-12 NL, Reflexes 2+ Psych/Mental Status: Mental status NL, Mood NL Vitals Vitals Vital Signs Date Time Temp Pulse Resp B/P (MAP) Pulse Ox O2 Delivery O2 Flow Rate FiO2 09/11/19 16:38 98.1 93 18 142/82 (102) 96 Room Air 98.1 Labs Labs Laboratory Tests Test 09/11/19 16:50 White Blood Count 19.6 x10^3/uL (4.0-11.0) Red Blood Count 4.28 x10^6/uL (4.30-5.70) Hemoglobin 13.0 g/dL (13.0-17.5) Hematocrit 40.0 % (39.0-53.0) Mean Corpuscular Volume 93 fL (79-100) Mean Corpuscular Hemoglobin 30 pg (25-35) Mean Corpuscular Hemoglobin Concent 33 g/dL (31-37) Red Cell Distribution Width 15.3 % (11.5-14.5) Platelet Count 297 x10^3/uL (140-400) Neutrophils (%) (Auto) 80 % (31-73) Lymphocytes (%) (Auto) 11 % (24-48) Monocytes (%) (Auto) 6 % (0-9) Eosinophils (%) (Auto) 2 % (0-3) Basophils (%) (Auto) 1 % (0-3) Neutrophils # (Auto) 15.7 x10^3/uL (1.8-7.7) Lymphocytes # (Auto) 2.2 x10^3/uL (1.0-4.8) Monocytes # (Auto) 1.2 x10^3/uL (0.0-1.1) Eosinophils # (Auto) 0.4 x10^3/uL (0.0-0.7) Basophils # (Auto) 0.1 x10^3/uL (0.0-0.2) Segmented Neutrophils % 78 % (35-66) Band Neutrophils % 1 % (0-9) Lymphocytes % 12 % (24-48) Monocytes % 7 % (0-10) Eosinophils % 1 % (0-5) Myelocytes % 1 % (0-0) Toxic Granulation Slight Platelet Estimate Adequate (ADEQUATE) Platelet Clumps, EDTA Present Sodium Level 139 mmol/L (136-145) Potassium Level 3.4 mmol/L (3.5-5.1) Chloride Level 96 mmol/L (98-107) Carbon Dioxide Level 27 mmol/L (21-32) Anion Gap 16 (6-14) Blood Urea Nitrogen 95 mg/dL (8-26) Creatinine 13.6 mg/dL (0.7-1.3) Estimated GFR (Cockcroft-Gault) 3.8 BUN/Creatinine Ratio 7 (6-20) Glucose Level 82 mg/dL (70-99) Calcium Level 9.1 mg/dL (8.5-10.1) Magnesium Level 2.4 mg/dL (1.8-2.4) Total Bilirubin 0.4 mg/dL (0.2-1.0) Aspartate Amino Transf (AST/SGOT) 12 U/L (15-37) Alanine Aminotransferase (ALT/SGPT) 14 U/L (16-63) Alkaline Phosphatase 64 U/L (46-116) Troponin I Quantitative < 0.017 ng/mL (0.000-0.055) Total Protein 6.6 g/dL (6.4-8.2) Albumin 2.9 g/dL (3.4-5.0) Albumin/Globulin Ratio 0.8 (1.0-1.7) Laboratory Tests Test 09/11/19 16:50 White Blood Count 19.6 x10^3/uL (4.0-11.0) Red Blood Count 4.28 x10^6/uL (4.30-5.70) Hemoglobin 13.0 g/dL (13.0-17.5) Hematocrit 40.0 % (39.0-53.0) Mean Corpuscular Volume 93 fL (79-100) Mean Corpuscular Hemoglobin 30 pg (25-35) Mean Corpuscular Hemoglobin Concent 33 g/dL (31-37) Red Cell Distribution Width 15.3 % (11.5-14.5) Platelet Count 297 x10^3/uL (140-400) Neutrophils (%) (Auto) 80 % (31-73) Lymphocytes (%) (Auto) 11 % (24-48) Monocytes (%) (Auto) 6 % (0-9) Eosinophils (%) (Auto) 2 % (0-3) Basophils (%) (Auto) 1 % (0-3) Neutrophils # (Auto) 15.7 x10^3/uL (1.8-7.7) Lymphocytes # (Auto) 2.2 x10^3/uL (1.0-4.8) Monocytes # (Auto) 1.2 x10^3/uL (0.0-1.1) Eosinophils # (Auto) 0.4 x10^3/uL (0.0-0.7) Basophils # (Auto) 0.1 x10^3/uL (0.0-0.2) Segmented Neutrophils % 78 % (35-66) Band Neutrophils % 1 % (0-9) Lymphocytes % 12 % (24-48) Monocytes % 7 % (0-10) Eosinophils % 1 % (0-5) Myelocytes % 1 % (0-0) Toxic Granulation Slight Platelet Estimate Adequate (ADEQUATE) Platelet Clumps, EDTA Present Sodium Level 139 mmol/L (136-145) Potassium Level 3.4 mmol/L (3.5-5.1) Chloride Level 96 mmol/L (98-107) Carbon Dioxide Level 27 mmol/L (21-32) Anion Gap 16 (6-14) Blood Urea Nitrogen 95 mg/dL (8-26) Creatinine 13.6 mg/dL (0.7-1.3) Estimated GFR (Cockcroft-Gault) 3.8 BUN/Creatinine Ratio 7 (6-20) Glucose Level 82 mg/dL (70-99) Calcium Level 9.1 mg/dL (8.5-10.1) Magnesium Level 2.4 mg/dL (1.8-2.4) Total Bilirubin 0.4 mg/dL (0.2-1.0) Aspartate Amino Transf (AST/SGOT) 12 U/L (15-37) Alanine Aminotransferase (ALT/SGPT) 14 U/L (16-63) Alkaline Phosphatase 64 U/L (46-116) Troponin I Quantitative < 0.017 ng/mL (0.000-0.055) Total Protein 6.6 g/dL (6.4-8.2) Albumin 2.9 g/dL (3.4-5.0) Albumin/Globulin Ratio 0.8 (1.0-1.7) VTE Prophylaxis Ordered VTE Prophylaxis Devices: Yes VTE Pharmacological Prophylaxi: Yes Assessment/Plan Assessment/Plan SEIZURE like activity based on history, maybe of the complex partial type vs absence? - there is NO LOC but he had loss of muscle tone, there is also an aura, no headache or sxs after the 2 second episode "Syncope" with NEG cardiac work up (normal LHC, echo BY Dr Polk) ESRD on PD Obesity bMI 47.[address]: DOMINICK wells, ativan prn Neuro consult, 6th floor ok to eat renal diet PD daily Renal consult for ESRD 2 MN admit I have recocniled home meds, ok to cont all FUll code SEEn at ER NO NEED FOR CARDS CONSULT dw JAM BRINK MD Sep 11, 2019 18:47
[2019-09-11 19:25] VITALS: BP 126/99
--- NOTE | 2019-09-11 19:25 | NUR ---
The patient, KURTIS COLLINS, 58 y/o, M admitted by JAM BRINK MD, was given written information regarding hospital policies, unit procedures and contact persons. Valuables were checked and left with him.
[2019-09-11 21:25] VITALS: BP 148/82
[2019-09-11] MEDS: ALBUTEROL SULFATE 2.5 MG/3 ML NEBU. NEB PRN (21:53)
[2019-09-11] MEDS: traZODone 50 MG TABLET. PO SCH (23:09)
[2019-09-11] MEDS: ATORVASTATIN CALCIUM 20 MG TABLET PO SCH (23:09)
[2019-09-11 23:56] VITALS: BP 119/75
[2019-09-12] VITALS (11 sets, daily range): BP systolic 101–157; BP diastolic 64–89
[2019-09-12 04:36] LABS: BASO % 0 % (0-3); EOS # 0.3 x10^3/uL (0.0-0.7); EOS % 2 % (0-3); HEMATOCRIT 37.6 % (39.0-53.0); HEMOGLOBIN 12.3 g/dL (13.0-17.5); LYMPH # 1.7 x10^3/uL (1.0-4.8); LYMPH % 11 % (24-48); MEAN CORPUSCULAR HEMOGLOBIN 31 pg (25-35); MEAN CORPUSCULAR HGB CONC 33 g/dL (31-37); MEAN CORPUSCULAR VOLUME 94 fL (79-100); MONO % 6 % (0-9); NEUT # 12.3 x10^3/uL (1.8-7.7); NEUT % 80 % (31-73); PLATELET COUNT 262 x10^3/uL (140-400); RED BLOOD COUNT 4.01 x10^6/uL (4.30-5.70); WHITE BLOOD COUNT 15.4 x10^3/uL (4.0-11.0)
[2019-09-12 04:52] LABS: CALCIUM 8.7 mg/dL (8.5-10.1); CREATININE 14.5 mg/dL (0.7-1.3); GFR 3.5
[2019-09-12 04:53] LABS: POTASSIUM 2.8 mmol/L (3.5-5.1)
[2019-09-12] MEDS ORDERED: POTASSIUM CHLORIDE 20 MEQ TABLET.ER. PO ONE (05:30)
--- NOTE | 2019-09-12 06:46 | EKG ---
[facility] [address] [place] [address] Test Date: 2019-09-11 Test Time: 17:39:39 Pat Name: KURTIS COLLINS Department: Room: Gender: M Collections Rep: : 1960 Requested By: TIFFANI PAYTON Order Number: [id number] Reading MD: Measurements Intervals [place] Rate: 92 P: 59 MO: 188 QRS: -15 QRSD: 78 T: 19 QT: 324 QTc: 405 Interpretive Statements SINUS RHYTHM LEFTWARD AXIS QRS(T) CONTOUR ABNORMALITY CONSISTENT WITH INFERIOR INFARCT PROBABLY OLD ABNORMAL ECG RI6.01 No previous ECG available for comparison
[2019-09-12] MEDS ORDERED: TORSEMIDE 20 MG TABLET. PO SCH (09:00)
[2019-09-12] MEDS: PANTOPRAZOLE 40 MG TABLET.DR. PO SCH (09:45)
[2019-09-12] MEDS: TAMSULOSIN 0.4 MG CAP.ER.24H. PO SCH (09:46)
[2019-09-12] MEDS: ASPIRIN CHEWABLE 81 MG TABLET. PO SCH (09:46)
[2019-09-12] MEDS: CALCIUM ACETATE 667 MG CAPSULE PO SCH ×3 (09:46→18:26)
[2019-09-12] MEDS: DOCUSATE SODIUM 100 MG CAPSULE. PO SCH (09:46)
--- NOTE | 2019-09-12 10:17 | PDOC2 ---
NEUROLOGY CONSULT Date of Admission Date of Admission DATE: 09/12/19 TIME: 10:08 Reason for Consult Reason for Consult: Syncope Referring Physician Referring Physician: Dr. Morales PCP: Mr. Hector Source Source: Caregiver (), Chart review, Patient History of Present Illness History of Present Illness The patient is a 58-year-old right-handed male admitted with presyncope. He describes episodes of feeling lightheaded and tremulous along with shortness of breath whenever he stands up and walks. This does not always happen of course. He never has lost consciousness. There is no tongue biting or incontinence. He is not describing any type of convulsive activity, but rather tremulousness. He has fallen at times. He does have polycystic kidney disease on peritoneal dialysis. He denies diabetes. He denies other autonomic symptoms such as indigestion, trouble with micturition although he is oliguric, lack of sweating, salivation, or lacrimation. There is no history of stroke, seizure, or head injury. He has seen cardiology and pulmonology as outpatient. Past Medical History Cardiovascular: HTN Pulmonary: Bronchitis Renal/: Chronic renal failure (Polycystic kidney disease on peritoneal dialysis) Past Surgical History Past Surgical History: Cataract Removal, Other ( placement of pins and left wrist, then removal, laser eye surgery) Family History Family History: Cancer, CAD, Other ( kidney disease) Social History Social History , lewis, quit smoking 10 years ago, rare alcohol Current Medications Current Medications Current Medications Aspirin (Children'S Aspirin) 81 mg DAILY PO Last administered on 09/12/19at 09:46; Start 09/12/19 at 09:00 Atorvastatin Calcium (Lipitor) 20 mg HS PO Last administered on 09/11/19at 23:0 9; Start 09/11/19 at 21:00 Docusate Sodium (Colace) 100 mg DAILY PO Last administered on 09/12/19at 09:46; Start 09/12/19 at 09:00 Tamsulosin HCl (Flomax) 0.4 mg DAILY PO Last administered on 09/12/19at 09:46; Start 09/12/19 at 09:00 Torsemide (Demadex) 20 mg DAILY PO Last administered on 09/12/19at 09:46; Start 09/12/19 at 09:00 Trazodone HCl (Desyrel) 50 mg HS PO Last administered on 09/11/19at 23:09; Start 09/11/19 at 21:00 Calcium Acetate (Phoslo) 2,001 mg TIDWMEALS PO Last administered on 09/12/19at 09:46; Start 09/12/19 at 08:00 Guaifenesin (Mucinex) 600 mg DAILY PO Last administered on 09/12/19at 09:46; Start 09/12/19 at 09:00 Pantoprazole Sodium (Protonix) 40 mg DAILYAC PO Last administered on 09/12/19at 09:45; Start 09/12/19 at 07:30 Acetaminophen/ Hydrocodone Bitart (Lortab 5/325) 1 tab PRN Q4HRS PRN PO PAIN; Start 09/11/19 at 18:30 Morphine Sulfate (Morphine Sulfate) 2 mg PRN Q2HR PRN IV PAIN; Start 09/11/19 at 18:30 Ondansetron HCl (Zofran) 4 mg PRN Q6HRS PRN IVP NAUSEA/VOMITING; Start 09/11/19 at 18:30 Clonidine HCl (Catapres) 0.1 mg PRN Q1HR PRN PO HYPERTENSION; Start 09/11/19 at 18:30 Calcium Carbonate/ Glycine (Tums) 500 mg PRN AFTMEALHC PRN PO INDIGESTION; Start 09/11/19 at 18:30 Guaifenesin (Robitussin Dm) 10 ml PRN Q6HRS PRN PO COUGH; Start 09/11/19 at 18:30 Albuterol Sulfate (Ventolin Neb Soln) 2.5 mg PRN Q4HRS PRN NEB SHORTNESS OF BREATH Last administered on 09/11/19at 21:53; Start 09/11/19 at 18:30 Lorazepam (Ativan Inj) 2 mg PRN Q4HRS PRN IVP SEIZURE; Start 09/11/19 at 18:45 Potassium Chloride (Klor-Con) 40 meq 1X ONCE PO Last administered on 09/12/19at 05:13; Start 09/12/19 at 05:30; Stop 09/12/19 at 05:31; Status DC Active Scripts Active Reported Atorvastatin Calcium 20 Mg Tablet 20 Mg PO HS Colace (Docusate Sodium) 100 Mg Capsule 100 Mg PO DAILY Aspirin 81 Mg Tab.chew 81 Mg PO DAILY Tamsulosin Hcl 0.4 Mg Cap.er.24h 0.4 Mg PO DAILY Trazodone Hcl 50 Mg Tablet 1-2 Tab PO HS Guaifenesin 400 Mg Tablet 400 Mg PO DAILY Torsemide 20 Mg Tablet 20 Mg PO DAILY Calcium Acetate 667 Mg Tablet 3 Cap PO TIDWMEALS Prevacid (Lansoprazole) 15 Mg Capsule. 1 Cap PO DAILY Allergies Allergies: Coded Allergies: No Known Drug Allergies (Unverified , 07/11/17) ROS Review of System Negative for fever, chills, weight loss, shortness of breath, chest pain, indigestion, hematochezia, melena, and dysuria. Full 14-point review of systems is negative. Physical Exam Physical Examination General: Well-developed, well-nourished white male in no acute distress HEENT: Normocephalic andatraumatic. Temporal arteriespulsatile and nontender. Neck: Supple without bruit, no meningismus Musculoskeletal: Stability:see neurologic. Gait exam:see neurologic. Tone:see neurologic.Strength:see neurologic. Neurological: Mental Status:intact, orientation, memory, attention span/concentration, language, fund of knowledge normal. Cranial Nerves:Pupils equal and reactive to light, extraocular movements areintact, visual hansen are full to confrontation. Facial sensation is normal. There is no facial asymmetry. Vestibulo-ocular reflex is intact. Palate elevates and tongue protrudes in midline. All other cranial related problems are negative except as mentioned before.Reflexes:1+ and symmetric with flexor plantar responses. Motor:5/5 strength with normal tone and bulk. Coordination:Finger-nose finger and mlsx-bl-adem testing are normal. Rapid alternating movements and fine finger movements are intact. Gait: not tested, he was hooked up to his dialysis. Sensory: stocking loss Vitals VITALS Vital Signs Date Time Temp Pulse Resp B/P (MAP) Pulse Ox O2 Delivery O2 Flow Rate FiO2 09/12/19 09:00 105 108/87 (94) 09/12/19 07:00 97.7 18 96 Room Air 97.7 Labs Labs Laboratory Tests Test 09/11/19 16:50 09/11/19 21:20 09/12/19 03:30 09/12/19 09:20 White Blood Count 19.6 x10^3/uL (4.0-11.0) 15.4 x10^3/uL (4.0-11.0) Red Blood Count 4.28 x10^6/uL (4.30-5.70) 4.01 x10^6/uL (4.30-5.70) Hemoglobin 13.0 g/dL (13.0-17.5) 12.3 g/dL (13.0-17.5) Hematocrit 40.0 % (39.0-53.0) 37.6 % (39.0-53.0) Mean Corpuscular Volume 93 fL (79-100) 94 fL (79-100) Mean Corpuscular Hemoglobin 30 pg (25-35) 31 pg (25-35) Mean Corpuscular Hemoglobin Concent 33 g/dL (31-37) 33 g/dL (31-37) Red Cell Distribution Width 15.3 % (11.5-14.5) 15.0 % (11.5-14.5) Platelet Count 297 x10^3/uL (140-400) 262 x10^3/uL (140-400) Neutrophils (%) (Auto) 80 % (31-73) 80 % (31-73) Lymphocytes (%) (Auto) 11 % (24-48) 11 % (24-48) Monocytes (%) (Auto) 6 % (0-9) 6 % (0-9) Eosinophils (%) (Auto) 2 % (0-3) 2 % (0-3) Basophils (%) (Auto) 1 % (0-3) 0 % (0-3) Neutrophils # (Auto) 15.7 x10^3/uL (1.8-7.7) 12.3 x10^3/uL (1.8-7.7) Lymphocytes # (Auto) 2.2 x10^3/uL (1.0-4.8) 1.7 x10^3/uL (1.0-4.8) Monocytes # (Auto) 1.2 x10^3/uL (0.0-1.1) 1.0 x10^3/uL (0.0-1.1) Eosinophils # (Auto) 0.4 x10^3/uL (0.0-0.7) 0.3 x10^3/uL (0.0-0.7) Basophils # (Auto) 0.1 x10^3/uL (0.0-0.2) 0.0 x10^3/uL (0.0-0.2) Segmented Neutrophils % 78 % (35-66) Band Neutrophils % 1 % (0-9) Lymphocytes % 12 % (24-48) Monocytes % 7 % (0-10) Eosinophils % 1 % (0-5) Myelocytes % 1 % (0-0) Toxic Granulation Slight Platelet Estimate Adequate (ADEQUATE) Platelet Clumps, EDTA Present Sodium Level 139 mmol/L (136-145) 139 mmol/L (136-145) Potassium Level 3.4 mmol/L (3.5-5.1) 2.8 mmol/L (3.5-5.1) 3.4 mmol/L (3.5-5.1) Chloride Level 96 mmol/L (98-107) 95 mmol/L (98-107) Carbon Dioxide Level 27 mmol/L (21-32) 27 mmol/L (21-32) Anion Gap 16 (6-14) 17 (6-14) Blood Urea Nitrogen 95 mg/dL (8-26) 96 mg/dL (8-26) Creatinine 13.6 mg/dL (0.7-1.3) 14.5 mg/dL (0.7-1.3) Estimated GFR (Cockcroft-Gault) 3.8 3.5 BUN/Creatinine Ratio 7 (6-20) Glucose Level 82 mg/dL (70-99) 153 mg/dL (70-99) Calcium Level 9.1 mg/dL (8.5-10.1) 8.7 mg/dL (8.5-10.1) Magnesium Level 2.4 mg/dL (1.8-2.4) Total Bilirubin 0.4 mg/dL (0.2-1.0) Aspartate Amino Transf (AST/SGOT) 12 U/L (15-37) Alanine Aminotransferase (ALT/SGPT) 14 U/L (16-63) Alkaline Phosphatase 64 U/L (46-116) Troponin I Quantitative < 0.017 ng/mL (0.000-0.055) < 0.017 ng/mL (0.000-0.055) Total Protein 6.6 g/dL (6.4-8.2) Albumin 2.9 g/dL (3.4-5.0) Albumin/Globulin Ratio 0.8 (1.0-1.7) Thyroid Stimulating Hormone (TSH) 0.821 uIU/mL (0.358-3.74) Laboratory Tests Test 09/11/19 16:50 09/11/19 21:20 09/12/19 03:30 09/12/19 09:20 White Blood Count 19.6 x10^3/uL (4.0-11.0) 15.4 x10^3/uL (4.0-11.0) Red Blood Count 4.28 x10^6/uL (4.30-5.70) 4.01 x10^6/uL (4.30-5.70) Hemoglobin 13.0 g/dL (13.0-17.5) 12.3 g/dL (13.0-17.5) Hematocrit 40.0 % (39.0-53.0) 37.6 % (39.0-53.0) Mean Corpuscular Volume 93 fL (79-100) 94 fL (79-100) Mean Corpuscular Hemoglobin 30 pg (25-35) 31 pg (25-35) Mean Corpuscular Hemoglobin Concent 33 g/dL (31-37) 33 g/dL (31-37) Red Cell Distribution Width 15.3 % (11.5-14.5) 15.0 % (11.5-14.5) Platelet Count 297 x10^3/uL (140-400) 262 x10^3/uL (140-400) Neutrophils (%) (Auto) 80 % (31-73) 80 % (31-73) Lymphocytes (%) (Auto) 11 % (24-48) 11 % (24-48) Monocytes (%) (Auto) 6 % (0-9) 6 % (0-9) Eosinophils (%) (Auto) 2 % (0-3) 2 % (0-3) Basophils (%) (Auto) 1 % (0-3) 0 % (0-3) Neutrophils # (Auto) 15.7 x10^3/uL (1.8-7.7) 12.3 x10^3/uL (1.8-7.7) Lymphocytes # (Auto) 2.2 x10^3/uL (1.0-4.8) 1.7 x10^3/uL (1.0-4.8) Monocytes # (Auto) 1.2 x10^3/uL (0.0-1.1) 1.0 x10^3/uL (0.0-1.1) Eosinophils # (Auto) 0.4 x10^3/uL (0.0-0.7) 0.3 x10^3/uL (0.0-0.7) Basophils # (Auto) 0.1 x10^3/uL (0.0-0.2) 0.0 x10^3/uL (0.0-0.2) Segmented Neutrophils % 78 % (35-66) Band Neutrophils % 1 % (0-9) Lymphocytes % 12 % (24-48) Monocytes % 7 % (0-10) Eosinophils % 1 % (0-5) Myelocytes % 1 % (0-0) Toxic Granulation Slight Platelet Estimate Adequate (ADEQUATE) Platelet Clumps, EDTA Present Sodium Level 139 mmol/L (136-145) 139 mmol/L (136-145) Potassium Level 3.4 mmol/L (3.5-5.1) 2.8 mmol/L (3.5-5.1) 3.4 mmol/L (3.5-5.1) Chloride Level 96 mmol/L (98-107) 95 mmol/L (98-107) Carbon Dioxide Level 27 mmol/L (21-32) 27 mmol/L (21-32) Anion Gap 16 (6-14) 17 (6-14) Blood Urea Nitrogen 95 mg/dL (8-26) 96 mg/dL (8-26) Creatinine 13.6 mg/dL (0.7-1.3) 14.5 mg/dL (0.7-1.3) Estimated GFR (Cockcroft-Gault) 3.8 3.5 BUN/Creatinine Ratio 7 (6-20) Glucose Level 82 mg/dL (70-99) 153 mg/dL (70-99) Calcium Level 9.1 mg/dL (8.5-10.1) 8.7 mg/dL (8.5-10.1) Magnesium Level 2.4 mg/dL (1.8-2.4) Total Bilirubin 0.4 mg/dL (0.2-1.0) Aspartate Amino Transf (AST/SGOT) 12 U/L (15-37) Alanine Aminotransferase (ALT/SGPT) 14 U/L (16-63) Alkaline Phosphatase 64 U/L (46-116) Troponin I Quantitative < 0.017 ng/mL (0.000-0.055) < 0.017 ng/mL (0.000-0.055) Total Protein 6.6 g/dL (6.4-8.2) Albumin 2.9 g/dL (3.4-5.0) Albumin/Globulin Ratio 0.8 (1.0-1.7) Thyroid Stimulating Hormone (TSH) 0.821 uIU/mL (0.358-3.74) Images Images CT HEAD WITHOUT CONTRAST. There is no intracranial hemorrhage. Baig-white differentiation is preserved. The ventricles are normal in size and position. The visualized paranasal sinuses appear clear. There are changes of bilateral cataract surgery. The temporal bones are unremarkable. The calvarium reveals no suspicious lesions. IMPRESSION: 1. No acute intracranial findings. Assessment/Plan Assessment/Plan Impression: Autonomic dysfunction with orthostatic tremor and presyncope, exam does show evidence of peripheral neuropathy as well, cause unknown. He does not have pandysautonomia. I am not getting any flavor for seizures. He does not lose consciousness. There is bilateral tremor. It would be impossible to have bilateral partial seizures without altered consciousness. Consider primary cardiac or pulmonary disease, also consider anxiety attack. Recommendations: I discussed with Dr. Gutiérrez, he will see if patient is not too heavy for a tilt table test. Otherwise check orthostatics Bloodwork regarding common causes of neuropathy Outpatient EMG Consider referral to autonomic neuropathy laboratory at [place], for instance Rehabilitation modalities. Thank you for letting me help with the patient's care. CECI RASHEED MD Sep 12, 2019 10:17
--- NOTE | 2019-09-12 10:30 | PDOC2 ---
ARIA REECE MANAGER RETAIL 09/12/19 1030: CARDIAC CONSULT DATE OF CONSULT Date of Consult DATE: 09/12/19 TIME: 10:10 REASON FOR CONSULT Reason for Consult: Syncope REFERRING PHYSICIAN Referring Physician: Andrew SOURCE Source: Chart review, Patient HISTORY OF PRESENT ILLNESS HISTORY OF PRESENT ILLNESS This is a pleasant 58 yo male admitted for complains of lightheadedness. Reports that this has been his ongoing problem in the last yr and just got worse in the last week and this is mainly with positional changes. He also just getting over bronchitis and his last dose of Zithromax was 3 days ago. He has asthma and untreated DORIS due to CPAP intolerance but has been taking advair and albuterol. Reports that he came home yesterday got out of the vehicle then walked 25 ft when he started feeling dizzy. He then rested and then tried to open the door and he felt lightheaded with no focal symptoms. He just tried to bring himself down but eventually fell but no injuries. Again no focal neuro symptoms. He did not completely lose consciousness and he was aware that he fell. Denies convulsions or any seizure like activity. No chest pain, palpitations, SOA. He does not take any BP meds nor diuretics due to to his low BP. He has been complaint with his PD but admits he has not been hydrating self well. PAST MEDICAL HISTORY Cardiovascular: CAD (mild), HTN, Hyperlipidemia Pulmonary: Asthma, Other (DORIS) Musculoskeletal: Osteoarthritis Renal/: Chronic renal failure, Other (PKD) PAST SURGICAL HISTORY Past Surgical History: Arthroscopy (left wrist repair), Cataract Removal, Other (PD cath placement) FAMILY HISTORY Family History: Heart Disease (father) SOCIAL HISTORY Smoke: Quit ALCOHOL: none Drugs: None Lives: with Family CURRENT MEDICATIONS CURRENT MEDICATIONS Current Medications Medications (Trade) Dose Ordered Sig/Tao Route PRN Reason Start Time Stop Time Status Last Admin Dose Admin Aspirin (Children'S Aspirin) 81 mg DAILY PO 09/12/19 09:00 09/12/19 09:46 Atorvastatin Calcium (Lipitor) 20 mg HS PO 09/11/19 21:00 09/11/19 23:09 Docusate Sodium (Colace) 100 mg DAILY PO 09/12/19 09:00 09/12/19 09:46 Tamsulosin HCl (Flomax) 0.4 mg DAILY PO 09/12/19 09:00 09/12/19 09:46 Torsemide (Demadex) 20 mg DAILY PO 09/12/19 09:00 09/12/19 09:46 Trazodone HCl (Desyrel) 50 mg HS PO 09/11/19 21:00 09/11/19 23:09 Calcium Acetate (Phoslo) 2,001 mg TIDWMEALS PO 09/12/19 08:00 09/12/19 09:46 Guaifenesin (Mucinex) 600 mg DAILY PO 09/12/19 09:00 09/12/19 09:46 Pantoprazole Sodium (Protonix) 40 mg DAILYAC PO 09/12/19 07:30 09/12/19 09:45 Albuterol Sulfate (Ventolin Neb Soln) 2.5 mg PRN Q4HRS PRN NEB SHORTNESS OF BREATH 09/11/19 18:30 09/11/19 21:53 Potassium Chloride (Klor-Con) 40 meq 1X ONCE PO 09/12/19 05:30 09/12/19 05:31 DC 09/12/19 05:13 ALLERGIES ALLERGIES: Coded Allergies: No Known Drug Allergies (Unverified , 07/11/17) ROS Review of System 14 point ROS evaluated with pertinent positives noted per HPI PHYSICAL EXAM General: Alert, Oriented X3, Cooperative, No acute distress HEENT: Atraumatic, Mucous membr. moist/pink Lungs: Clear to auscultation, Normal air movement Heart: Regular rate Abdomen: Soft, Other (obese) Extremities: No cyanosis, Other (2+ bilateral LE pitting edema) Skin: No breakdown, Other (venous dermatitis) Neuro: Normal speech, Sensation intact Psych/Mental Status: Mental status NL, Mood NL MUSCULOSKELETAL: Osteoarthritic changes both hands VITALS/I&O VITALS/I&O: Vital Signs Date Time Temp Pulse Resp B/P (MAP) Pulse Ox O2 Delivery O2 Flow Rate FiO2 09/12/19 09:00 105 108/87 (94) 09/12/19 07:00 97.7 18 96 Room Air 97.7 I & O 09/11/19 09/11/19 09/12/19 15:00 23:00 07:00 Intake Total 100 ml 480 ml Output Total 100 ml Balance 100 ml 380 ml LABS Lab: Laboratory Tests Test 09/11/19 16:50 09/11/19 21:20 09/12/19 03:30 09/12/19 09:20 White Blood Count 19.6 x10^3/uL (4.0-11.0) H 15.4 x10^3/uL (4.0-11.0) H Red Blood Count 4.28 x10^6/uL (4.30-5.70) L 4.01 x10^6/uL (4.30-5.70) L Hemoglobin 13.0 g/dL (13.0-17.5) 12.3 g/dL (13.0-17.5) L Hematocrit 40.0 % (39.0-53.0) 37.6 % (39.0-53.0) L Mean Corpuscular Volume 93 fL (79-100) 94 fL (79-100) Mean Corpuscular Hemoglobin 30 pg (25-35) 31 pg (25-35) Mean Corpuscular Hemoglobin Concent 33 g/dL (31-37) 33 g/dL (31-37) Red Cell Distribution Width 15.3 % (11.5-14.5) H 15.0 % (11.5-14.5) H Platelet Count 297 x10^3/uL (140-400) 262 x10^3/uL (140-400) Neutrophils (%) (Auto) 80 % (31-73) H 80 % (31-73) H Lymphocytes (%) (Auto) 11 % (24-48) L 11 % (24-48) L Monocytes (%) (Auto) 6 % (0-9) 6 % (0-9) Eosinophils (%) (Auto) 2 % (0-3) 2 % (0-3) Basophils (%) (Auto) 1 % (0-3) 0 % (0-3) Neutrophils # (Auto) 15.7 x10^3/uL (1.8-7.7) H 12.3 x10^3/uL (1.8-7.7) H Lymphocytes # (Auto) 2.2 x10^3/uL (1.0-4.8) 1.7 x10^3/uL (1.0-4.8) Monocytes # (Auto) 1.2 x10^3/uL (0.0-1.1) H 1.0 x10^3/uL (0.0-1.1) Eosinophils # (Auto) 0.4 x10^3/uL (0.0-0.7) 0.3 x10^3/uL (0.0-0.7) Basophils # (Auto) 0.1 x10^3/uL (0.0-0.2) 0.0 x10^3/uL (0.0-0.2) Segmented Neutrophils % 78 % (35-66) H Band Neutrophils % 1 % (0-9) Lymphocytes % 12 % (24-48) L Monocytes % 7 % (0-10) Eosinophils % 1 % (0-5) Myelocytes % 1 % (0-0) H Toxic Granulation Slight Platelet Estimate Adequate (ADEQUATE) Platelet Clumps, EDTA Present Sodium Level 139 mmol/L (136-145) 139 mmol/L (136-145) Potassium Level 3.4 mmol/L (3.5-5.1) L 2.8 mmol/L (3.5-5.1) *L 3.4 mmol/L (3.5-5.1) L Chloride Level 96 mmol/L (98-107) L 95 mmol/L (98-107) L Carbon Dioxide Level 27 mmol/L (21-32) 27 mmol/L (21-32) Anion Gap 16 (6-14) H 17 (6-14) H Blood Urea Nitrogen 95 mg/dL (8-26) H 96 mg/dL (8-26) H Creatinine 13.6 mg/dL (0.7-1.3) H 14.5 mg/dL (0.7-1.3) H Estimated GFR (Cockcroft-Gault) 3.8 3.5 BUN/Creatinine Ratio 7 (6-20) Glucose Level 82 mg/dL (70-99) 153 mg/dL (70-99) H Calcium Level 9.1 mg/dL (8.5-10.1) 8.7 mg/dL (8.5-10.1) Magnesium Level 2.4 mg/dL (1.8-2.4) Total Bilirubin 0.4 mg/dL (0.2-1.0) Aspartate Amino Transferase (AST) 12 U/L (15-37) L Alanine Aminotransferase (ALT) 14 U/L (16-63) L Alkaline Phosphatase 64 U/L (46-116) Troponin I Quantitative < 0.017 ng/mL (0.000-0.055) < 0.017 ng/mL (0.000-0.055) Total Protein 6.6 g/dL (6.4-8.2) Albumin 2.9 g/dL (3.4-5.0) L Albumin/Globulin Ratio 0.8 (1.0-1.7) L Thyroid Stimulating Hormone (TSH) 0.821 uIU/mL (0.358-3.74) Laboratory Tests 09/11/19 16:50 09/12/19 03:30 Laboratory Tests 09/11/19 16:50 09/12/19 03:30 09/12/19 09:20 ASSESSMENT/PLAN ASSESSMENT/PLAN 1. Near syncope: due to orthostasis/uremia and potentially from arrhythmia 2. PSVT: in the setting of uremia and hypokalemia 3. ESRD: Utilizes PD 4. DORIS: CPAP intolarant 5. Asthma with recently treated acute bronchitis 6. Hyperglycemia 7. Morbid obesity Recommendations 1. TTE, A1C 2. Discussed hydration adequacy 3. Fluid off loading per PD 4. Replace K. DC torsemide 5. Flomax could be contributing as well. Start midodrine. 6. Will consider for MCOT if none done recently. 7. Continue ASA and home statin ELENA WHITTAKER MD 09/12/19 1709: CARDIAC CONSULT ASSESSMENT/PLAN ASSESSMENT/PLAN Pt. seen and examined. Agree with above MECHANICAL DEVELOPER PROVER note. Discussed with family and pt and neurology service He has orthostatic hypotension. No need for tilt table at this time. Supportive care. Will start midodrine.Thanks ARIA REECE APRN Sep 12, 2019 10:30 ELENA WHITTAKER MD Sep 12, 2019 17:09
[2019-09-12 10:43] LABS: CHOLESTEROL/HDL RATIO 6.9
--- NOTE | 2019-09-12 11:27 | NUR ---
SS following for discharge planning. SS reviewed pt chart. Pt is from home with spouse and is currently on room air. PT/OT ordered. SS will continue to follow for discharge planning.
--- NOTE | 2019-09-12 12:02 | NUR ---
Wound Consult: Consult to eval and treat for abdominal wound. Wound healed on inspection. No other open areas noted on head to toe inspection. No further follow up required at this time. Contact wound care if condition of area changes.
[2019-09-12] MEDS: MIDODRINE 2.5 MG TABLET PO SCH ×2 (12:27→18:26)
--- NOTE | 2019-09-12 12:55 | PDOC2 ---
CONSULT Date of Consult Date of Consult DATE: 09/12/19 TIME: 12:28 Reason for Consult Reason for Consult: ESRD on PD Source Source: Chart review, Patient History of Present Illness Reason for Visit: Pt is 58 yo CM ESRD on PD admitted with c/o chronic dizziness but passed out yesterday- lasted only 2 secs., says he was mildly shaking, no drooling, upward rolling eyeballs or loss of bladder or bowel fcn, He apparently has been worked up before by our cardiology for "syncope" with echo and LHC with normal results. He follows with Pul as well . He was not orthostatic in ER He has been on PD for 2 years under the care of Dr. Varghese . His UOP has declined but has some RRF . His BUN/Cr has been high for some time, changes has been made to PD prescription recently. He has LBF and does manual exchange at home PD fluid is clear, denies any abdominal pain .No Urinary complaints His WBC was 19 at presentation, Pt and report that he has been on prednisone and Zpak and just completed the last dose yesterday Past Medical History Cardiovascular: CAD (mild), HTN, Hyperlipidemia Pulmonary: Asthma, Other (DORIS) Musculoskeletal: Osteoarthritis Renal/: Chronic renal failure, Other (PKD) Past Surgical History Past Surgical History: Arthroscopy (left wrist repair), Cataract Removal, Other (PD cath placement) Family History Family History: Heart Disease (father) Social History Quit ALCOHOL: none Drugs: None Lives: with Family Current Problem List Problem List Problems Medical Problems: (1) Syncopal episodes Status: Acute Current Medications Current Medications Current Medications Aspirin (Children'S Aspirin) 81 mg DAILY PO Last administered on 09/12/19at 09:46; Start 09/12/19 at 09:00 Atorvastatin Calcium (Lipitor) 20 mg HS PO Last administered on 09/11/19at 23:09; Start 09/11/19 at 21:00 Docusate Sodium (Colace) 100 mg DAILY PO Last administered on 09/12/19at 09:46; Start 09/12/19 at 09:00 Tamsulosin HCl (Flomax) 0.4 mg DAILY PO Last administered on 09/12/19at 09:46; Start 09/12/19 at 09:00 Torsemide (Demadex) 20 mg DAILY PO Last administered on 09/12/19at 09:46; Start 09/12/19 at 09:00; Stop 09/12/19 at 10:15; Status DC Trazodone HCl (Desyrel) 50 mg HS PO Last administered on 09/11/19at 23:09; Start 09/11/19 at 21:00 Calcium Acetate (Phoslo) 2,001 mg TIDWMEALS PO Last administered on 09/12/19 09:46; Start 09/12/19 at 08:00 Guaifenesin (Mucinex) 600 mg DAILY PO Last administered on 09/12/19at 09:46; Start 09/12/19 at 09:00 Pantoprazole Sodium (Protonix) 40 mg DAILYAC PO Last administered on 09/12/19at 09:45; Start 09/12/19 at 07:30 Acetaminophen/ Hydrocodone Bitart (Lortab 5/325) 1 tab PRN Q4HRS PRN PO PAIN; Start 09/11/19 at 18:30 Morphine Sulfate (Morphine Sulfate) 2 mg PRN Q2HR PRN IV PAIN; Start 09/11/19 at 18:30 Ondansetron HCl (Zofran) 4 mg PRN Q6HRS PRN IVP NAUSEA/VOMITING; Start 09/11/19 at 18:30 Clonidine HCl (Catapres) 0.1 mg PRN Q1HR PRN PO HYPERTENSION; Start 09/11/19 at 18:30 Calcium Carbonate/ Glycine (Tums) 500 mg PRN AFTMEALHC PRN PO INDIGESTION; Start 09/11/19 at 18:30 Guaifenesin (Robitussin Dm) 10 ml PRN Q6HRS PRN PO COUGH; Start 09/11/19 at 18:30 Albuterol Sulfate (Ventolin Neb Soln) 2.5 mg PRN Q4HRS PRN NEB SHORTNESS OF BREATH Last administered on 09/11/19at 21:53; Start 09/11/19 at 18:30 Lorazepam (Ativan Inj) 2 mg PRN Q4HRS PRN IVP SEIZURE; Start 09/11/19 at 18:45 Potassium Chloride (Klor-Con) 40 meq 1X ONCE PO Last administered on 09/12/19at 05:13; Start 09/12/19 at 05:30; Stop 09/12/19 at 05:31; Status DC Midodrine (Proamatine) 2.5 mg [id number] PO ; Start 09/12/19 at 11:00 Active Scripts Active Reported Atorvastatin Calcium 20 Mg Tablet 20 Mg PO HS Colace (Docusate Sodium) 100 Mg Capsule 100 Mg PO DAILY Aspirin 81 Mg Tab.chew 81 Mg PO DAILY Tamsulosin Hcl 0.4 Mg Cap.er.24h 0.4 Mg PO DAILY Trazodone Hcl 50 Mg Tablet 1-2 Tab PO HS Guaifenesin 400 Mg Tablet 400 Mg PO DAILY Torsemide 20 Mg Tablet 20 Mg PO DAILY Calcium Acetate 667 Mg Tablet 3 Cap PO TIDWMEALS Prevacid (Lansoprazole) 15 Mg Capsule. 1 Cap PO DAILY Allergies Allergies: Coded Allergies: No Known Drug Allergies (Unverified , 07/11/17) ROS Review of System Per HPI Physical Exam Physical Exam General: No acute distress HEENT:OM moist, On RA Neck Supple Lungs: Clear to auscultation, Non labored Cardiovascular: S1, S2 Abdomen: Soft, No tenderness, obese , PD cath prsent, no e/o infection Extremities: No edema Skin: No rashes Neuro: Grossly Normal Psych/Mental Status: Mental status NL, Mood NL No Ruiz Vital Signs Vital Signs Date Time Temp Pulse Resp B/P (MAP) Pulse Ox O2 Delivery O2 Flow Rate FiO2 09/12/19 11:00 98.0 95 18 113/75 (88) 95 Room Air 98.0 Assessment & Plan ESRD- On PD 2/2 PCKD - under Dr. Varghese's care BUN/Cr has gone up since Nov 2018 Clinically no e/o Vol Overload ,recently prescription has been changed by Dr. Varghese, Continue Home Prescription Hypokalemia - On Torsemide as well, has some RRf Replace Near syncope:Chronic dizziness for more than a year w/u including Echo and S/P LHC done per card as OP - Unremarkable Cardiology and Neuro consulted DORIS: CPAP intolerant Asthma with recently treated acute bronchitis Morbid obesity Discussed with Pt and Labs Labs Laboratory Tests Test 09/11/19 16:50 09/11/19 21:20 09/12/19 03:30 09/12/19 09:20 White Blood Count 19.6 x10^3/uL (4.0-11.0) 15.4 x10^3/uL (4.0-11.0) Red Blood Count 4.28 x10^6/uL (4.30-5.70) 4.01 x10^6/uL (4.30-5.70) Hemoglobin 13.0 g/dL (13.0-17.5) 12.3 g/dL (13.0-17.5) Hematocrit 40.0 % (39.0-53.0) 37.6 % (39.0-53.0) Mean Corpuscular Volume 93 fL (79-100) 94 fL (79-100) Mean Corpuscular Hemoglobin 30 pg (25-35) 31 pg (25-35) Mean Corpuscular Hemoglobin Concent 33 g/dL (31-37) 33 g/dL (31-37) Red Cell Distribution Width 15.3 % (11.5-14.5) 15.0 % (11.5-14.5) Platelet Count 297 x10^3/uL (140-400) 262 x10^3/uL (140-400) Neutrophils (%) (Auto) 80 % (31-73) 80 % (31-73) Lymphocytes (%) (Auto) 11 % (24-48) 11 % (24-48) Monocytes (%) (Auto) 6 % (0-9) 6 % (0-9) Eosinophils (%) (Auto) 2 % (0-3) 2 % (0-3) Basophils (%) (Auto) 1 % (0-3) 0 % (0-3) Neutrophils # (Auto) 15.7 x10^3/uL (1.8-7.7) 12.3 x10^3/uL (1.8-7.7) Lymphocytes # (Auto) 2.2 x10^3/uL (1.0-4.8) 1.7 x10^3/uL (1.0-4.8) Monocytes # (Auto) 1.2 x10^3/uL (0.0-1.1) 1.0 x10^3/uL (0.0-1.1) Eosinophils # (Auto) 0.4 x10^3/uL (0.0-0.7) 0.3 x10^3/uL (0.0-0.7) Basophils # (Auto) 0.1 x10^3/uL (0.0-0.2) 0.0 x10^3/uL (0.0-0.2) Segmented Neutrophils % 78 % (35-66) Band Neutrophils % 1 % (0-9) Lymphocytes % 12 % (24-48) Monocytes % 7 % (0-10) Eosinophils % 1 % (0-5) Myelocytes % 1 % (0-0) Toxic Granulation Slight Platelet Estimate Adequate (ADEQUATE) Platelet Clumps, EDTA Present Sodium Level 139 mmol/L (136-145) 139 mmol/L (136-145) Potassium Level 3.4 mmol/L (3.5-5.1) 2.8 mmol/L (3.5-5.1) 3.4 mmol/L (3.5-5.1) Chloride Level 96 mmol/L (98-107) 95 mmol/L (98-107) Carbon Dioxide Level 27 mmol/L (21-32) 27 mmol/L (21-32) Anion Gap 16 (6-14) 17 (6-14) Blood Urea Nitrogen 95 mg/dL (8-26) 96 mg/dL (8-26) Creatinine 13.6 mg/dL (0.7-1.3) 14.5 mg/dL (0.7-1.3) Estimated GFR (Cockcroft-Gault) 3.8 3.5 BUN/Creatinine Ratio 7 (6-20) Glucose Level 82 mg/dL (70-99) 153 mg/dL (70-99) Calcium Level 9.1 mg/dL (8.5-10.1) 8.7 mg/dL (8.5-10.1) Magnesium Level 2.4 mg/dL (1.8-2.4) Total Bilirubin 0.4 mg/dL (0.2-1.0) Aspartate Amino Transf (AST/SGOT) 12 U/L (15-37) Alanine Aminotransferase (ALT/SGPT) 14 U/L (16-63) Alkaline Phosphatase 64 U/L (46-116) Troponin I Quantitative < 0.017 ng/mL (0.000-0.055) < 0.017 ng/mL (0.000-0.055) Total Protein 6.6 g/dL (6.4-8.2) Albumin 2.9 g/dL (3.4-5.0) Albumin/Globulin Ratio 0.8 (1.0-1.7) Thyroid Stimulating Hormone (TSH) 0.821 uIU/mL (0.358-3.74) Triglycerides Level 125 mg/dL (0-150) Cholesterol Level 159 mg/dL (0-200) LDL Cholesterol, Calculated 111 mg/dL (0-100) VLDL Cholesterol, Calculated 25 mg/dL (0-40) Non-HDL Cholesterol Calculated 136 mg/dL (0-129) HDL Cholesterol 23 mg/dL (40-60) Cholesterol/HDL Ratio 6.9 Laboratory Tests Test 09/11/19 16:50 09/11/19 21:20 09/12/19 03:30 09/12/19 09:20 White Blood Count 19.6 x10^3/uL (4.0-11.0) 15.4 x10^3/uL (4.0-11.0) Red Blood Count 4.28 x10^6/uL (4.30-5.70) 4.01 x10^6/uL (4.30-5.70) Hemoglobin 13.0 g/dL (13.0-17.5) 12.3 g/dL (13.0-17.5) Hematocrit 40.0 % (39.0-53.0) 37.6 % (39.0-53.0) Mean Corpuscular Volume 93 fL (79-100) 94 fL (79-100) Mean Corpuscular Hemoglobin 30 pg (25-35) 31 pg (25-35) Mean Corpuscular Hemoglobin Concent 33 g/dL (31-37) 33 g/dL (31-37) Red Cell Distribution Width 15.3 % (11.5-14.5) 15.0 % (11.5-14.5) Platelet Count 297 x10^3/uL (140-400) 262 x10^3/uL (140-400) Neutrophils (%) (Auto) 80 % (31-73) 80 % (31-73) Lymphocytes (%) (Auto) 11 % (24-48) 11 % (24-48) Monocytes (%) (Auto) 6 % (0-9) 6 % (0-9) Eosinophils (%) (Auto) 2 % (0-3) 2 % (0-3) Basophils (%) (Auto) 1 % (0-3) 0 % (0-3) Neutrophils # (Auto) 15.7 x10^3/uL (1.8-7.7) 12.3 x10^3/uL (1.8-7.7) Lymphocytes # (Auto) 2.2 x10^3/uL (1.0-4.8) 1.7 x10^3/uL (1.0-4.8) Monocytes # (Auto) 1.2 x10^3/uL (0.0-1.1) 1.0 x10^3/uL (0.0-1.1) Eosinophils # (Auto) 0.4 x10^3/uL (0.0-0.7) 0.3 x10^3/uL (0.0-0.7) Basophils # (Auto) 0.1 x10^3/uL (0.0-0.2) 0.0 x10^3/uL (0.0-0.2) Segmented Neutrophils % 78 % (35-66) Band Neutrophils % 1 % (0-9) Lymphocytes % 12 % (24-48) Monocytes % 7 % (0-10) Eosinophils % 1 % (0-5) Myelocytes % 1 % (0-0) Toxic Granulation Slight Platelet Estimate Adequate (ADEQUATE) Platelet Clumps, EDTA Present Sodium Level 139 mmol/L (136-145) 139 mmol/L (136-145) Potassium Level 3.4 mmol/L (3.5-5.1) 2.8 mmol/L (3.5-5.1) 3.4 mmol/L (3.5-5.1) Chloride Level 96 mmol/L (98-107) 95 mmol/L (98-107) Carbon Dioxide Level 27 mmol/L (21-32) 27 mmol/L (21-32) Anion Gap 16 (6-14) 17 (6-14) Blood Urea Nitrogen 95 mg/dL (8-26) 96 mg/dL (8-26) Creatinine 13.6 mg/dL (0.7-1.3) 14.5 mg/dL (0.7-1.3) Estimated GFR (Cockcroft-Gault) 3.8 3.5 BUN/Creatinine Ratio 7 (6-20) Glucose Level 82 mg/dL (70-99) 153 mg/dL (70-99) Calcium Level 9.1 mg/dL (8.5-10.1) 8.7 mg/dL (8.5-10.1) Magnesium Level 2.4 mg/dL (1.8-2.4) Total Bilirubin 0.4 mg/dL (0.2-1.0) Aspartate Amino Transf (AST/SGOT) 12 U/L (15-37) Alanine Aminotransferase (ALT/SGPT) 14 U/L (16-63) Alkaline Phosphatase 64 U/L (46-116) Troponin I Quantitative < 0.017 ng/mL (0.000-0.055) < 0.017 ng/mL (0.000-0.055) Total Protein 6.6 g/dL (6.4-8.2) Albumin 2.9 g/dL (3.4-5.0) Albumin/Globulin Ratio 0.8 (1.0-1.7) Thyroid Stimulating Hormone (TSH) 0.821 uIU/mL (0.358-3.74) Triglycerides Level 125 mg/dL (0-150) Cholesterol Level 159 mg/dL (0-200) LDL Cholesterol, Calculated 111 mg/dL (0-100) VLDL Cholesterol, Calculated 25 mg/dL (0-40) Non-HDL Cholesterol Calculated 136 mg/dL (0-129) HDL Cholesterol 23 mg/dL (40-60) Cholesterol/HDL Ratio 6.9 Review All relevant outside records, renal labs, imaging studies, telemetry/EKG's were reviewed. Images Images The cardiomediastinal silhouette and pulmonary vessels are within normal limits. Linear bandlike opacities noted within the left lower lung. No pleural effusion. IMPRESSION: Left basilar atelectasis. CT scan Jun 2019- Ordered by Dr. Varghese 1. Findings of polycystic kidney disease. Evaluation for renal cell carcinoma is difficult on this exam due to single phase contrast CT. The apparently high attenuating lesions may represent minimally complicated cyst although RCC is not entirely ruled out. Triple phase CT abdomen with kidney mass protocol is recommended. 2. Trace volume ascites. 3. Consolidation in the left lung base may be secondary to atelectasis although underlying pneumonia not ruled out. RICYH PINEDA MD Sep 12, 2019 12:54
--- NOTE | 2019-09-12 13:45 | PDOC ---
PROGRESS NOTES Chief Complaint Chief Complaint Near syncope: due to orthostasis/uremia and potentially from arrhythmia PSVT: in the setting of uremia and hypokalemia ESRD: Utilizes PD DORIS: CPAP intolarant Asthma with recently treated acute bronchitis Hyperglycemia Morbid obesity History of Present Illness History of Present Illness Pt is 58 yo CM ESRD on PD admitted with c/o chronic dizziness but passed out yesterday- lasted only 2 secs., says he was mildly shaking, no drooling, upward rolling eyeballs or loss of bladder or bowel fcn, He apparently has been worked up before by our cardiology for "syncope" with echo and LHC with normal results. He follows with Pul as well . He was not orthostatic in ER He has been on PD for 2 years under the care of Dr. Varghese . His UOP has declined but has some RRF . His BUN/Cr has been high for some time, changes has been made to PD prescription recently. He has LBF and does manual exchange at home PD fluid is clear, denies any abdominal pain .No Urinary complaints His WBC was 19 at presentation, Pt and report that he has been on prednisone and Zpak and just completed the last dose yesterday Down for echo, results pending. Discussed positive orthostatics and need for midodrine. Vitals Vitals Vital Signs Date Time Temp Pulse Resp B/P (MAP) Pulse Ox O2 Delivery O2 Flow Rate FiO2 09/12/19 12:27 95 113/75 09/12/19 11:00 98.0 18 95 Room Air 98.0 Physical Exam General: Alert, Oriented X3, Cooperative, No acute distress Heart: Regular rate Abdomen: Soft, Other (obese) Extremities: No cyanosis, Other (2+ bilateral LE pitting edema) Skin: No breakdown, Other (venous dermatitis) Labs LABS Laboratory Tests Test 09/11/19 16:50 09/11/19 21:20 09/12/19 03:30 09/12/19 09:20 White Blood Count 19.6 x10^3/uL (4.0-11.0) 15.4 x10^3/uL (4.0-11.0) Red Blood Count 4.28 x10^6/uL (4.30-5.70) 4.01 x10^6/uL (4.30-5.70) Hemoglobin 13.0 g/dL (13.0-17.5) 12.3 g/dL (13.0-17.5) Hematocrit 40.0 % (39.0-53.0) 37.6 % (39.0-53.0) Mean Corpuscular Volume 93 fL (79-100) 94 fL (79-100) Mean Corpuscular Hemoglobin 30 pg (25-35) 31 pg (25-35) Mean Corpuscular Hemoglobin Concent 33 g/dL (31-37) 33 g/dL (31-37) Red Cell Distribution Width 15.3 % (11.5-14.5) 15.0 % (11.5-14.5) Platelet Count 297 x10^3/uL (140-400) 262 x10^3/uL (140-400) Neutrophils (%) (Auto) 80 % (31-73) 80 % (31-73) Lymphocytes (%) (Auto) 11 % (24-48) 11 % (24-48) Monocytes (%) (Auto) 6 % (0-9) 6 % (0-9) Eosinophils (%) (Auto) 2 % (0-3) 2 % (0-3) Basophils (%) (Auto) 1 % (0-3) 0 % (0-3) Neutrophils # (Auto) 15.7 x10^3/uL (1.8-7.7) 12.3 x10^3/uL (1.8-7.7) Lymphocytes # (Auto) 2.2 x10^3/uL (1.0-4.8) 1.7 x10^3/uL (1.0-4.8) Monocytes # (Auto) 1.2 x10^3/uL (0.0-1.1) 1.0 x10^3/uL (0.0-1.1) Eosinophils # (Auto) 0.4 x10^3/uL (0.0-0.7) 0.3 x10^3/uL (0.0-0.7) Basophils # (Auto) 0.1 x10^3/uL (0.0-0.2) 0.0 x10^3/uL (0.0-0.2) Segmented Neutrophils % 78 % (35-66) Band Neutrophils % 1 % (0-9) Lymphocytes % 12 % (24-48) Monocytes % 7 % (0-10) Eosinophils % 1 % (0-5) Myelocytes % 1 % (0-0) Toxic Granulation Slight Platelet Estimate Adequate (ADEQUATE) Platelet Clumps, EDTA Present Sodium Level 139 mmol/L (136-145) 139 mmol/L (136-145) Potassium Level 3.4 mmol/L (3.5-5.1) 2.8 mmol/L (3.5-5.1) 3.4 mmol/L (3.5-5.1) Chloride Level 96 mmol/L (98-107) 95 mmol/L (98-107) Carbon Dioxide Level 27 mmol/L (21-32) 27 mmol/L (21-32) Anion Gap 16 (6-14) 17 (6-14) Blood Urea Nitrogen 95 mg/dL (8-26) 96 mg/dL (8-26) Creatinine 13.6 mg/dL (0.7-1.3) 14.5 mg/dL (0.7-1.3) Estimated GFR (Cockcroft-Gault) 3.8 3.5 BUN/Creatinine Ratio 7 (6-20) Glucose Level 82 mg/dL (70-99) 153 mg/dL (70-99) Calcium Level 9.1 mg/dL (8.5-10.1) 8.7 mg/dL (8.5-10.1) Magnesium Level 2.4 mg/dL (1.8-2.4) Total Bilirubin 0.4 mg/dL (0.2-1.0) Aspartate Amino Transf (AST/SGOT) 12 U/L (15-37) Alanine Aminotransferase (ALT/SGPT) 14 U/L (16-63) Alkaline Phosphatase 64 U/L (46-116) Troponin I Quantitative < 0.017 ng/mL (0.000-0.055) < 0.017 ng/mL (0.000-0.055) Total Protein 6.6 g/dL (6.4-8.2) Albumin 2.9 g/dL (3.4-5.0) Albumin/Globulin Ratio 0.8 (1.0-1.7) Thyroid Stimulating Hormone (TSH) 0.821 uIU/mL (0.358-3.74) Triglycerides Level 125 mg/dL (0-150) Cholesterol Level 159 mg/dL (0-200) LDL Cholesterol, Calculated 111 mg/dL (0-100) VLDL Cholesterol, Calculated 25 mg/dL (0-40) Non-HDL Cholesterol Calculated 136 mg/dL (0-129) HDL Cholesterol 23 mg/dL (40-60) Cholesterol/HDL Ratio 6.9 Assessment and Plan Assessmemt and Plan Problems Medical Problems: (1) Syncopal episodes Status: Acute Comment Review of Relevant I have reviewed the following items bennie (where applicable) has been applied. Labs Laboratory Tests Test 09/11/19 16:50 09/11/19 21:20 09/12/19 03:30 09/12/19 09:20 White Blood Count 19.6 x10^3/uL (4.0-11.0) 15.4 x10^3/uL (4.0-11.0) Red Blood Count 4.28 x10^6/uL (4.30-5.70) 4.01 x10^6/uL (4.30-5.70) Hemoglobin 13.0 g/dL (13.0-17.5) 12.3 g/dL (13.0-17.5) Hematocrit 40.0 % (39.0-53.0) 37.6 % (39.0-53.0) Mean Corpuscular Volume 93 fL (79-100) 94 fL (79-100) Mean Corpuscular Hemoglobin 30 pg (25-35) 31 pg (25-35) Mean Corpuscular Hemoglobin Concent 33 g/dL (31-37) 33 g/dL (31-37) Red Cell Distribution Width 15.3 % (11.5-14.5) 15.0 % (11.5-14.5) Platelet Count 297 x10^3/uL (140-400) 262 x10^3/uL (140-400) Neutrophils (%) (Auto) 80 % (31-73) 80 % (31-73) Lymphocytes (%) (Auto) 11 % (24-48) 11 % (24-48) Monocytes (%) (Auto) 6 % (0-9) 6 % (0-9) Eosinophils (%) (Auto) 2 % (0-3) 2 % (0-3) Basophils (%) (Auto) 1 % (0-3) 0 % (0-3) Neutrophils # (Auto) 15.7 x10^3/uL (1.8-7.7) 12.3 x10^3/uL (1.8-7.7) Lymphocytes # (Auto) 2.2 x10^3/uL (1.0-4.8) 1.7 x10^3/uL (1.0-4.8) Monocytes # (Auto) 1.2 x10^3/uL (0.0-1.1) 1.0 x10^3/uL (0.0-1.1) Eosinophils # (Auto) 0.4 x10^3/uL (0.0-0.7) 0.3 x10^3/uL (0.0-0.7) Basophils # (Auto) 0.1 x10^3/uL (0.0-0.2) 0.0 x10^3/uL (0.0-0.2) Segmented Neutrophils % 78 % (35-66) Band Neutrophils % 1 % (0-9) Lymphocytes % 12 % (24-48) Monocytes % 7 % (0-10) Eosinophils % 1 % (0-5) Myelocytes % 1 % (0-0) Toxic Granulation Slight Platelet Estimate Adequate (ADEQUATE) Platelet Clumps, EDTA Present Sodium Level 139 mmol/L (136-145) 139 mmol/L (136-145) Potassium Level 3.4 mmol/L (3.5-5.1) 2.8 mmol/L (3.5-5.1) 3.4 mmol/L (3.5-5.1) Chloride Level 96 mmol/L (98-107) 95 mmol/L (98-107) Carbon Dioxide Level 27 mmol/L (21-32) 27 mmol/L (21-32) Anion Gap 16 (6-14) 17 (6-14) Blood Urea Nitrogen 95 mg/dL (8-26) 96 mg/dL (8-26) Creatinine 13.6 mg/dL (0.7-1.3) 14.5 mg/dL (0.7-1.3) Estimated GFR (Cockcroft-Gault) 3.8 3.5 BUN/Creatinine Ratio 7 (6-20) Glucose Level 82 mg/dL (70-99) 153 mg/dL (70-99) Calcium Level 9.1 mg/dL (8.5-10.1) 8.7 mg/dL (8.5-10.1) Magnesium Level 2.4 mg/dL (1.8-2.4) Total Bilirubin 0.4 mg/dL (0.2-1.0) Aspartate Amino Transf (AST/SGOT) 12 U/L (15-37) Alanine Aminotransferase (ALT/SGPT) 14 U/L (16-63) Alkaline Phosphatase 64 U/L (46-116) Troponin I Quantitative < 0.017 ng/mL (0.000-0.055) < 0.017 ng/mL (0.000-0.055) Total Protein 6.6 g/dL (6.4-8.2) Albumin 2.9 g/dL (3.4-5.0) Albumin/Globulin Ratio 0.8 (1.0-1.7) Thyroid Stimulating Hormone (TSH) 0.821 uIU/mL (0.358-3.74) Triglycerides Level 125 mg/dL (0-150) Cholesterol Level 159 mg/dL (0-200) LDL Cholesterol, Calculated 111 mg/dL (0-100) VLDL Cholesterol, Calculated 25 mg/dL (0-40) Non-HDL Cholesterol Calculated 136 mg/dL (0-129) HDL Cholesterol 23 mg/dL (40-60) Cholesterol/HDL Ratio 6.9 Laboratory Tests Test 09/11/19 16:50 09/11/19 21:20 09/12/19 03:30 09/12/19 09:20 White Blood Count 19.6 x10^3/uL (4.0-11.0) 15.4 x10^3/uL (4.0-11.0) Red Blood Count 4.28 x10^6/uL (4.30-5.70) 4.01 x10^6/uL (4.30-5.70) Hemoglobin 13.0 g/dL (13.0-17.5) 12.3 g/dL (13.0-17.5) Hematocrit 40.0 % (39.0-53.0) 37.6 % (39.0-53.0) Mean Corpuscular Volume 93 fL (79-100) 94 fL (79-100) Mean Corpuscular Hemoglobin 30 pg (25-35) 31 pg (25-35) Mean Corpuscular Hemoglobin Concent 33 g/dL (31-37) 33 g/dL (31-37) Red Cell Distribution Width 15.3 % (11.5-14.5) 15.0 % (11.5-14.5) Platelet Count 297 x10^3/uL (140-400) 262 x10^3/uL (140-400) Neutrophils (%) (Auto) 80 % (31-73) 80 % (31-73) Lymphocytes (%) (Auto) 11 % (24-48) 11 % (24-48) Monocytes (%) (Auto) 6 % (0-9) 6 % (0-9) Eosinophils (%) (Auto) 2 % (0-3) 2 % (0-3) Basophils (%) (Auto) 1 % (0-3) 0 % (0-3) Neutrophils # (Auto) 15.7 x10^3/uL (1.8-7.7) 12.3 x10^3/uL (1.8-7.7) Lymphocytes # (Auto) 2.2 x10^3/uL (1.0-4.8) 1.7 x10^3/uL (1.0-4.8) Monocytes # (Auto) 1.2 x10^3/uL (0.0-1.1) 1.0 x10^3/uL (0.0-1.1) Eosinophils # (Auto) 0.4 x10^3/uL (0.0-0.7) 0.3 x10^3/uL (0.0-0.7) Basophils # (Auto) 0.1 x10^3/uL (0.0-0.2) 0.0 x10^3/uL (0.0-0.2) Segmented Neutrophils % 78 % (35-66) Band Neutrophils % 1 % (0-9) Lymphocytes % 12 % (24-48) Monocytes % 7 % (0-10) Eosinophils % 1 % (0-5) Myelocytes % 1 % (0-0) Toxic Granulation Slight Platelet Estimate Adequate (ADEQUATE) Platelet Clumps, EDTA Present Sodium Level 139 mmol/L (136-145) 139 mmol/L (136-145) Potassium Level 3.4 mmol/L (3.5-5.1) 2.8 mmol/L (3.5-5.1) 3.4 mmol/L (3.5-5.1) Chloride Level 96 mmol/L (98-107) 95 mmol/L (98-107) Carbon Dioxide Level 27 mmol/L (21-32) 27 mmol/L (21-32) Anion Gap 16 (6-14) 17 (6-14) Blood Urea Nitrogen 95 mg/dL (8-26) 96 mg/dL (8-26) Creatinine 13.6 mg/dL (0.7-1.3) 14.5 mg/dL (0.7-1.3) Estimated GFR (Cockcroft-Gault) 3.8 3.5 BUN/Creatinine Ratio 7 (6-20) Glucose Level 82 mg/dL (70-99) 153 mg/dL (70-99) Calcium Level 9.1 mg/dL (8.5-10.1) 8.7 mg/dL (8.5-10.1) Magnesium Level 2.4 mg/dL (1.8-2.4) Total Bilirubin 0.4 mg/dL (0.2-1.0) Aspartate Amino Transf (AST/SGOT) 12 U/L (15-37) Alanine Aminotransferase (ALT/SGPT) 14 U/L (16-63) Alkaline Phosphatase 64 U/L (46-116) Troponin I Quantitative < 0.017 ng/mL (0.000-0.055) < 0.017 ng/mL (0.000-0.055) Total Protein 6.6 g/dL (6.4-8.2) Albumin 2.9 g/dL (3.4-5.0) Albumin/Globulin Ratio 0.8 (1.0-1.7) Thyroid Stimulating Hormone (TSH) 0.821 uIU/mL (0.358-3.74) Triglycerides Level 125 mg/dL (0-150) Cholesterol Level 159 mg/dL (0-200) LDL Cholesterol, Calculated 111 mg/dL (0-100) VLDL Cholesterol, Calculated 25 mg/dL (0-40) Non-HDL Cholesterol Calculated 136 mg/dL (0-129) HDL Cholesterol 23 mg/dL (40-60) Cholesterol/HDL Ratio 6.9 Medications Current Medications Aspirin (Children'S Aspirin) 81 mg DAILY PO Last administered on 09/12/19 09:46; Start 09/12/19 at 09:00 Atorvastatin Calcium (Lipitor) 20 mg HS PO Last administered on 09/11/19 23:09; Start 09/11/19 at 21:00 Docusate Sodium (Colace) 100 mg DAILY PO Last administered on 09/12/19 09:46; Start 09/12/19 at 09:00 Tamsulosin HCl (Flomax) 0.4 mg DAILY PO Last administered on 09/12/19 09:46; Start 09/12/19 at 09:00 Torsemide (Demadex) 20 mg DAILY PO Last administered on 09/12/19 09:46; Start 09/12/19 at 09:00; Stop 09/12/19 at 10:15; Status DC Trazodone HCl (Desyrel) 50 mg HS PO Last administered on 09/11/19 23:09; Start 09/11/19 at 21:00 Calcium Acetate (Phoslo) 2,001 mg TIDWMEALS PO Last administered on 09/12/19 12:26; Start 09/12/19 at 08:00 Guaifenesin (Mucinex) 600 mg DAILY PO Last administered on 09/12/19 09:46; Start 09/12/19 at 09:00 Pantoprazole Sodium (Protonix) 40 mg DAILYAC PO Last administered on 09/12/19 09:45; Start 09/12/19 at 07:30 Acetaminophen/ Hydrocodone Bitart (Lortab 5/325) 1 tab PRN Q4HRS PRN PO PAIN; Start 09/11/19 at 18:30 Morphine Sulfate (Morphine Sulfate) 2 mg PRN Q2HR PRN IV PAIN; Start 09/11/19 at 18:30 Ondansetron HCl (Zofran) 4 mg PRN Q6HRS PRN IVP NAUSEA/VOMITING; Start 09/11/19 at 18:30 Clonidine HCl (Catapres) 0.1 mg PRN Q1HR PRN PO HYPERTENSION; Start 09/11/19 at 18:30 Calcium Carbonate/ Glycine (Tums) 500 mg PRN AFTMEALHC PRN PO INDIGESTION; Start 09/11/19 at 18:30 Guaifenesin (Robitussin Dm) 10 ml PRN Q6HRS PRN PO COUGH; Start 09/11/19 at 18:30 Albuterol Sulfate (Ventolin Neb Soln) 2.5 mg PRN Q4HRS PRN NEB SHORTNESS OF BREATH Last administered on 09/11/19at 21:53; Start 09/11/19 at 18:30 Lorazepam (Ativan Inj) 2 mg PRN Q4HRS PRN IVP SEIZURE; Start 09/11/19 at 18:45 Potassium Chloride (Klor-Con) 40 meq 1X ONCE PO Last administered on 09/12/19at 05:13; Start 09/12/19 at 05:30; Stop 09/12/19 at 05:31; Status DC Midodrine (Proamatine) 2.5 mg [id number] PO Last administered on 09/12/19at 12:27; Start 09/12/19 at 11:00 Active Scripts Active Reported Atorvastatin Calcium 20 Mg Tablet 20 Mg PO HS Colace (Docusate Sodium) 100 Mg Capsule 100 Mg PO DAILY Aspirin 81 Mg Tab.chew 81 Mg PO DAILY Tamsulosin Hcl 0.4 Mg Cap.er.24h 0.4 Mg PO DAILY Trazodone Hcl 50 Mg Tablet 1-2 Tab PO HS Guaifenesin 400 Mg Tablet 400 Mg PO DAILY Torsemide 20 Mg Tablet 20 Mg PO DAILY Calcium Acetate 667 Mg Tablet 3 Cap PO TIDWMEALS Prevacid (Lansoprazole) 15 Mg Capsule. 1 Cap PO DAILY Vitals/I & O Vital Sign - Last 24 Hours 09/11/19 09/11/19 09/11/19 09/11/19 16:38 17:13 17:28 18:07 Temp 98.1 98.1 Pulse 93 90 94 88 Resp 18 18 18 18 B/P (MAP) 142/82 (102) Pulse Ox 96 95 95 96 O2 Delivery Room Air 09/11/19 09/11/19 09/11/19 09/11/19 18:37 19:20 19:25 19:25 Temp 97.4 97.4 Pulse 70 94 99 Resp 18 18 18 B/P (MAP) 126/99 (108) Pulse Ox 96 99 95 O2 Delivery Room Air Room Air 09/11/19 09/11/19 09/11/19 09/12/19 21:25 21:53 23:56 03:08 Temp 97.9 97.5 97.6 97.9 97.5 97.6 Pulse 105 94 90 Resp 20 18 18 B/P (MAP) 148/82 (104) 119/75 (90) 109/64 (79) Pulse Ox 97 96 97 91 O2 Delivery Room Air Room Air Room Air Room Air 09/12/19 09/12/19 09/12/19 09/12/19 07:00 08:00 08:45 08:50 Temp 97.7 97.7 Pulse 107 90 94 Resp 18 B/P (MAP) 101/67 (78) 157/79 (105) 133/87 (102) Pulse Ox 96 O2 Delivery Room Air Room Air 09/12/19 09/12/19 09/12/19 09:00 11:00 12:27 Temp 98.0 98.0 Pulse 105 95 95 Resp 18 B/P (MAP) 108/87 (94) 113/75 (88) 113/75 Pulse Ox 95 O2 Delivery Room Air Intake and Output 09/11/19 09/11/19 09/12/19 15:00 23:00 07:00 Intake Total 100 ml 480 ml Output Total 100 ml Balance 100 ml 380 ml HILDA SMILEY MD Sep 12, 2019 13:45
--- NOTE | 2019-09-12 14:26 | CARD ---
MR#: [id number] Date of Study: 09/12/2019 Ordering Physician: ARIA REECE, Referring Physician: ARIA REECE, Carson: roz APPROVED REPORT EXAM: Two-dimensional and M-mode echocardiogram with Doppler and color Doppler. Other Information Quality : AverageHR: 341bpm INDICATION Syncope 2D DIMENSIONS RVDd3.3 (2.9-3.5cm)Left Atrium(2D)4.0 (1.6-4.0cm) IVSd1.2 (0.7-1.1cm)Aortic Root(2D)3.5 (2.0-3.7cm) LVDd5.8 (3.9-5.9cm)LVOT Diameter2.9 (1.8-2.4cm) PWd0.8 (0.7-1.1cm)LVDs2.9 (2.5-4.0cm) FS (%) 49.7 %SV134.1 ml LVEF(%)80.3 (>50%) Aortic Valve AoV Peak Siva.118.6cm/sAoV VTI18.0cm AO Peak GR.5.6mmHgLVOT Peak Siva.106.0cm/s LVOT VTI 15.97cmAO Mean GR.3mmHg DELLA (VMAX)3.46km5QWT (VTI)5.69cm2 Mitral Valve MV E Nqiopjkf86.8cm/sMV DECEL [id number] MV A Mavnbqqh56.6cm/sMV MEK20vq E/A Ratio0.9MVA (PHT)4.11cm2 TDI E/Lateral E'12.6E/Medial E'19.0 Pulmonary Valve PV Peak Zzjeecoz36.1cm/sPV Peak Grad.4mmHg Tricuspid Valve RAP [id number] Pulmonary Vein S1 Bpcmjsbx48.4cm/sD2 Qplbgsmo68.7cm/s PVa [id number] LEFT VENTRICLE The left ventricle is normal size. There is borderline to mild septal left ventricular hypertrophy. T he left ventricular systolic function is normal. The Ejection Fraction is 60-65%. There is normal LV segmental wall motion. Transmitral Doppler flow pattern is Grade I-abnormal relaxation pattern. RIGHT VENTRICLE The right ventricle is normal size. There is normal right ventricular wall thickness. The right ventr icular systolic function is normal. ATRIA The left atrium size is normal. The right atrium size is normal. The interatrial septum is intact wit h no evidence for an atrial septal defect or patent foramen ovale as noted on 2-D or Doppler imaging. AORTIC VALVE The aortic valve is mildly thickened but opens well. Doppler and Color Flow revealed no significant a ortic regurgitation. There is no significant aortic valvular stenosis. MITRAL VALVE The mitral valve is normal in structure and function. There is no mitral valve stenosis. Doppler and Color-flow revealed trace mitral regurgitation. TRICUSPID VALVE The tricuspid valve is not well visualized. Doppler and Color Flow revealed trace tricuspid regurgita tion. There is no tricuspid valve stenosis. PULMONIC VALVE The pulmonic valve is not well visualized. Doppler and Color Flow revealed no pulmonic valvular regur gitation. GREAT VESSELS The aortic root is normal in size. The ascending aorta is normal in size. The IVC is normal in size a nd collapses >50% with inspiration. PERICARDIAL EFFUSION There is no pleural effusion. There is no evidence of significant pericardial effusion. Critical Notification Critical Value: No <Conclusion> The left ventricular systolic function is normal. The Ejection Fraction is 60-65%. There is normal LV segmental wall motion. Transmitral Doppler flow pattern is Grade I-abnormal relaxation pattern. Trace mitral regurgitation. Trace tricuspid regurgitation. There is no evidence of significant pericardial effusion. Signed by : Josr Lawrence, Electronically Approved : 09/12/2019 14:25:50
[2019-09-12] MEDS: CALCIUM CARBONATE 500 MG TAB.CHEW PO PRN (16:27)
[2019-09-12] MEDS: ATORVASTATIN CALCIUM 20 MG TABLET PO SCH (20:32)
[2019-09-12] MEDS: traZODone 50 MG TABLET. PO SCH (20:32)
--- NOTE | 2019-09-13 00:16 | NUR ---
02 sat at 78, patient refusing to wear supplemental oxygen. o2 sat does not stay in the 70's and climbs back up to 90's. Will continue to monitor.
[2019-09-13 02:47] VITALS: BP 110/81
[2019-09-13] MEDS: MIDODRINE 2.5 MG TABLET PO SCH ×3 (06:06→18:18)
[2019-09-13 07:00] VITALS: BP 136/76
[2019-09-13] MEDS: CALCIUM CARBONATE 500 MG TAB.CHEW PO PRN (07:00)
[2019-09-13] MEDS: HYDROcodone/APAP 5/325MG 1 TAB TABLET PO PRN ×2 (07:00→19:18)
[2019-09-13] MEDS: PANTOPRAZOLE 40 MG TABLET.DR. PO SCH (07:34)
[2019-09-13] MEDS: CALCIUM ACETATE 667 MG CAPSULE PO SCH ×4 (08:00→18:18)
--- NOTE | 2019-09-13 08:19 | PDOC ---
PROGRESS NOTES Chief Complaint Chief Complaint Syncope - due to orthostasis/uremia and potentially from arrhythmia. Midodrine therapy started based on positive orthostatics PSVT - in the setting of uremia and hypokalemia ESRD - Utilizes PD DORIS - CPAP intolerant, he won't even wear nocturnal NCO2 Asthma with recently treated acute bronchitis Hyperglycemia Morbid obesity Polycystic kidney disease - may have abnormal CT and need nephrectomy History of Present Illness History of Present Illness Pt is 58 yo CM ESRD on PD admitted with c/o chronic dizziness but passed out yesterday- lasted only 2 secs., says he was mildly shaking, no drooling, upward rolling eyeballs or loss of bladder or bowel fcn, He apparently has been worked up before by our cardiology for "syncope" with echo and LHC with normal results. He follows with Pul as well . He was not orthostatic in ER He has been on PD for 2 years under the care of Dr. Varghese . His UOP has declined but has some RRF . His BUN/Cr has been high for some time, changes has been made to PD prescription recently. He has LBF and does manual exchange at home PD fluid is clear, denies any abdominal pain .No Urinary complaints His WBC was 19 at presentation, Pt and report that he has been on prednisone and Zpak and just completed the last dose yesterday Echo, results normal. Discussed positive orthostatics and need for midodrine. This morning vomited up green beans and adalberto steak that was visible. He did not sleep great. Desaturated into the 70s, states he cannot wear O2 and is intolerant of CPAP. After d/w nephrology he will convert to HD tomorrow morning with plans for outpatient nephrectomy. echo - The left ventricular systolic function is normal. The Ejection Fraction is 60-65%. There is normal LV segmental wall motion. Transmitral Doppler flow pattern is Grade I-abnormal relaxation pattern. Trace mitral regurgitation. Trace tricuspid regurgitation. There is no evidence of significant pericardial effusion. Vitals Vitals Vital Signs Date Time Temp Pulse Resp B/P (MAP) Pulse Ox O2 Delivery O2 Flow Rate FiO2 09/13/19 07:00 Room Air 09/13/19 06:06 102 112/72 09/13/19 02:47 97.8 16 98 97.8 Physical Exam General: Alert, Oriented X3, Cooperative, No acute distress Heart: Regular rate Abdomen: Soft, Other (obese) Extremities: No cyanosis, Other (2+ bilateral LE pitting edema) Skin: No breakdown, Other (venous dermatitis) Labs LABS Laboratory Tests Test 09/12/19 09:20 Potassium Level 3.4 mmol/L (3.5-5.1) Assessment and Plan Assessmemt and Plan Problems Medical Problems: (1) Asthma Status: Chronic (2) ESRD on peritoneal dialysis Status: Chronic (3) Hyperglycemia Status: Acute (4) Obesity Status: Chronic (5) DORIS (obstructive sleep apnea) Status: Chronic (6) PSVT (paroxysmal supraventricular tachycardia) Status: Chronic (7) Syncopal episodes Status: Acute Comment Review of Relevant I have reviewed the following items bennie (where applicable) has been applied. Labs Laboratory Tests Test 09/11/19 16:50 09/11/19 21:20 09/12/19 03:30 09/12/19 09:20 White Blood Count 19.6 x10^3/uL (4.0-11.0) 15.4 x10^3/uL (4.0-11.0) Red Blood Count 4.28 x10^6/uL (4.30-5.70) 4.01 x10^6/uL (4.30-5.70) Hemoglobin 13.0 g/dL (13.0-17.5) 12.3 g/dL (13.0-17.5) Hematocrit 40.0 % (39.0-53.0) 37.6 % (39.0-53.0) Mean Corpuscular Volume 93 fL (79-100) 94 fL (79-100) Mean Corpuscular Hemoglobin 30 pg (25-35) 31 pg (25-35) Mean Corpuscular Hemoglobin Concent 33 g/dL (31-37) 33 g/dL (31-37) Red Cell Distribution Width 15.3 % (11.5-14.5) 15.0 % (11.5-14.5) Platelet Count 297 x10^3/uL (140-400) 262 x10^3/uL (140-400) Neutrophils (%) (Auto) 80 % (31-73) 80 % (31-73) Lymphocytes (%) (Auto) 11 % (24-48) 11 % (24-48) Monocytes (%) (Auto) 6 % (0-9) 6 % (0-9) Eosinophils (%) (Auto) 2 % (0-3) 2 % (0-3) Basophils (%) (Auto) 1 % (0-3) 0 % (0-3) Neutrophils # (Auto) 15.7 x10^3/uL (1.8-7.7) 12.3 x10^3/uL (1.8-7.7) Lymphocytes # (Auto) 2.2 x10^3/uL (1.0-4.8) 1.7 x10^3/uL (1.0-4.8) Monocytes # (Auto) 1.2 x10^3/uL (0.0-1.1) 1.0 x10^3/uL (0.0-1.1) Eosinophils # (Auto) 0.4 x10^3/uL (0.0-0.7) 0.3 x10^3/uL (0.0-0.7) Basophils # (Auto) 0.1 x10^3/uL (0.0-0.2) 0.0 x10^3/uL (0.0-0.2) Segmented Neutrophils % 78 % (35-66) Band Neutrophils % 1 % (0-9) Lymphocytes % 12 % (24-48) Monocytes % 7 % (0-10) Eosinophils % 1 % (0-5) Myelocytes % 1 % (0-0) Toxic Granulation Slight Platelet Estimate Adequate (ADEQUATE) Platelet Clumps, EDTA Present Sodium Level 139 mmol/L (136-145) 139 mmol/L (136-145) Potassium Level 3.4 mmol/L (3.5-5.1) 2.8 mmol/L (3.5-5.1) 3.4 mmol/L (3.5-5.1) Chloride Level 96 mmol/L (98-107) 95 mmol/L (98-107) Carbon Dioxide Level 27 mmol/L (21-32) 27 mmol/L (21-32) Anion Gap 16 (6-14) 17 (6-14) Blood Urea Nitrogen 95 mg/dL (8-26) 96 mg/dL (8-26) Creatinine 13.6 mg/dL (0.7-1.3) 14.5 mg/dL (0.7-1.3) Estimated GFR (Cockcroft-Gault) 3.8 3.5 BUN/Creatinine Ratio 7 (6-20) Glucose Level 82 mg/dL (70-99) 153 mg/dL (70-99) Calcium Level 9.1 mg/dL (8.5-10.1) 8.7 mg/dL (8.5-10.1) Magnesium Level 2.4 mg/dL (1.8-2.4) Total Bilirubin 0.4 mg/dL (0.2-1.0) Aspartate Amino Transf (AST/SGOT) 12 U/L (15-37) Alanine Aminotransferase (ALT/SGPT) 14 U/L (16-63) Alkaline Phosphatase 64 U/L (46-116) Troponin I Quantitative < 0.017 ng/mL (0.000-0.055) < 0.017 ng/mL (0.000-0.055) Total Protein 6.6 g/dL (6.4-8.2) Albumin 2.9 g/dL (3.4-5.0) Albumin/Globulin Ratio 0.8 (1.0-1.7) Thyroid Stimulating Hormone (TSH) 0.821 uIU/mL (0.358-3.74) Triglycerides Level 125 mg/dL (0-150) Cholesterol Level 159 mg/dL (0-200) LDL Cholesterol, Calculated 111 mg/dL (0-100) VLDL Cholesterol, Calculated 25 mg/dL (0-40) Non-HDL Cholesterol Calculated 136 mg/dL (0-129) HDL Cholesterol 23 mg/dL (40-60) Cholesterol/HDL Ratio 6.9 Laboratory Tests Test 09/12/19 09:20 Potassium Level 3.4 mmol/L (3.5-5.1) Medications Current Medications Aspirin (Children'S Aspirin) 81 mg DAILY PO Last administered on 09/12/19at 09:46; Start 09/12/19 at 09:00 Atorvastatin Calcium (Lipitor) 20 mg HS PO Last administered on 09/12/19at 20:32; Start 09/11/19 at 21:00 Docusate Sodium (Colace) 100 mg DAILY PO Last administered on 09/12/19at 09:46; Start 09/12/19 at 09:00 Tamsulosin HCl (Flomax) 0.4 mg DAILY PO Last administered on 09/12/19 09:46; Start 09/12/19 at 09:00 Torsemide (Demadex) 20 mg DAILY PO Last administered on 09/12/19 09:46; Start 09/12/19 at 09:00; Stop 09/12/19 at 10:15; Status DC Trazodone HCl (Desyrel) 50 mg HS PO Last administered on 09/12/19 20:32; Start 09/11/19 at 21:00 Calcium Acetate (Phoslo) 2,001 mg TIDWMEALS PO Last administered on 09/12/19 18:26; Start 09/12/19 at 08:00 Guaifenesin (Mucinex) 600 mg DAILY PO Last administered on 09/12/19 09:46; Start 09/12/19 at 09:00 Pantoprazole Sodium (Protonix) 40 mg DAILYAC PO Last administered on 09/13/19 07:34; Start 09/12/19 at 07:30 Acetaminophen/ Hydrocodone Bitart (Lortab 5/325) 1 tab PRN Q4HRS PRN PO PAIN Last administered on 09/13/19 07:00; Start 09/11/19 at 18:30 Morphine Sulfate (Morphine Sulfate) 2 mg PRN Q2HR PRN IV PAIN; Start 09/11/19 at 18:30 Ondansetron HCl (Zofran) 4 mg PRN Q6HRS PRN IVP NAUSEA/VOMITING; Start 09/11/19 at 18:30 Clonidine HCl (Catapres) 0.1 mg PRN Q1HR PRN PO HYPERTENSION; Start 09/11/19 at 18:30 Calcium Carbonate/ Glycine (Tums) 500 mg PRN AFTMEALHC PRN PO INDIGESTION Last administered on 09/13/19 07:00; Start 09/11/19 at 18:30 Guaifenesin (Robitussin Dm) 10 ml PRN Q6HRS PRN PO COUGH; Start 09/11/19 at 18:30 Albuterol Sulfate (Ventolin Neb Soln) 2.5 mg PRN Q4HRS PRN NEB SHORTNESS OF BREATH Last administered on 09/11/19at 21:53; Start 09/11/19 at 18:30 Lorazepam (Ativan Inj) 2 mg PRN Q4HRS PRN IVP SEIZURE; Start 09/11/19 at 18:45 Potassium Chloride (Klor-Con) 40 meq 1X ONCE PO Last administered on 08/16 at 05:13; Start 09/12/19 at 05:30; Stop 09/12/19 at 05:31; Status DC Midodrine (Proamatine) 2.5 mg [id number] PO Last administered on 09/13/19at 06:06; Start 09/12/19 at 11:00 Active Scripts Active Reported Atorvastatin Calcium 20 Mg Tablet 20 Mg PO HS Colace (Docusate Sodium) 100 Mg Capsule 100 Mg PO DAILY Aspirin 81 Mg Tab.chew 81 Mg PO DAILY Tamsulosin Hcl 0.4 Mg Cap.er.24h 0.4 Mg PO DAILY Trazodone Hcl 50 Mg Tablet 1-2 Tab PO HS Guaifenesin 400 Mg Tablet 400 Mg PO DAILY Torsemide 20 Mg Tablet 20 Mg PO DAILY Calcium Acetate 667 Mg Tablet 3 Cap PO TIDWMEALS Prevacid (Lansoprazole) 15 Mg Capsule. 1 Cap PO DAILY Vitals/I & O Vital Sign - Last 24 Hours 09/12/19 09/12/19 09/12/19 09/12/19 08:45 08:50 09:00 11:00 Temp 98.0 98.0 Pulse 90 94 105 95 Resp 18 B/P (MAP) 157/79 (105) 133/87 (102) 108/87 (94) 113/75 (88) Pulse Ox 95 O2 Delivery Room Air 09/12/19 09/12/19 09/12/19 09/12/19 12:27 15:00 18:26 19:38 Temp 97.8 97.9 97.8 97.9 Pulse 95 100 100 104 Resp 18 20 B/P (MAP) 113/75 106/77 (87) 106/77 126/84 (98) Pulse Ox 97 96 O2 Delivery Room Air Room Air 09/12/19 09/12/19 09/12/19 09/12/19 19:40 19:41 20:00 22:14 Temp 97.5 97.5 Pulse 98 104 95 Resp 16 B/P (MAP) 107/87 (94) 113/75 (88) 140/89 (106) Pulse Ox 96 O2 Delivery Room Air Room Air 09/13/19 09/13/19 09/13/19 02:47 06:06 07:00 Temp 97.8 97.8 Pulse 92 102 Resp 16 B/P (MAP) 110/81 (91) 112/72 Pulse Ox 98 O2 Delivery Room Air Room Air Intake and Output 09/12/19 09/12/19 09/13/19 15:00 23:00 07:00 Intake Total 500 ml 180 ml 500 ml Balance 500 ml 180 ml 500 ml Images 07/03/19 - CT abdomen - Heart is normal in size. No pericardial or pleural effusion. Consolidation is seen in the left lung base. Liver, spleen, gallbladder, pancreas, adrenals within normal limits. Small amount of perihepatic and perisplenic ascites. Bilateral kidneys are enlarged with multiple low attenuating and high attenuating lesions. The represented to lesion in the right kidney measures 6.8 x 5.5 cm and the financial foundations representative lesion in the left kidney measures 9.2 x 7.5 cm. Partially exophytic enhancing lesion in the left kidney seen measuring 1.5 centimeter (series 2 image 55). No hydronephrosis. Small amount of free pelvic fluid is seen. Peritoneal dialysis catheter is seen with its tip in the left lower quadrant. Small bilateral fat- containing inguinal hernia. No enlarged retroperitoneal or pelvic adenopathy. No bowel obstruction. Trace amount of air in the peritoneum likely from peritoneal dialysis. Prostate is nonenlarged. Urinary bladder demonstrates no radiopaque stones. No suspicious bony lesion. IMPRESSION: 1. Findings of polycystic kidney disease. Evaluation for renal cell carcinoma is difficult on this exam due to single phase contrast CT. The apparently high attenuating lesions may represent minimally complicated cyst although RCC is not entirely ruled out. Triple phase CT abdomen with kidney mass protocol is recommended. 2. Trace volume ascites. 3. Consolidation in the left lung base may be secondary to atelectasis although underlying pneumonia not ruled out. HILDA SMILEY MD Sep 13, 2019 08:19
[2019-09-13] MEDS: ONDANSETRON PF 4 MG/2 ML VIAL. IVP PRN ×2 (08:37→17:23)
--- NOTE | 2019-09-13 08:45 | NUR ---
Ruddy LICEAlinseed cake trimmer here to disconnect patient from PD. Patient with nausea and emesis just now after disconnection, cloudy green liquid and partially digested green beans from evening meal per patient and . Patient received Zofran IV, resting in bed now, at bedside.
--- NOTE | 2019-09-13 09:51 | PDOC ---
OBJECTIVE Vital Signs Vital Signs Date Time Temp Pulse Resp B/P (MAP) Pulse Ox O2 Delivery O2 Flow Rate FiO2 09/13/19 08:00 Room Air 09/13/19 08:00 18 09/13/19 07:00 97.9 103 136/76 (96) 96 97.9 I & 0 Intake and Output 09/13/19 07:00 Intake Total 1180 ml Balance 1180 ml Intake Oral 1180 ml PHYSICAL EXAM Physical Exam General: No acute distress HEENT:OM moist, On RA Neck Supple Lungs: Clear to auscultation, Non labored Cardiovascular: S1, S2 Abdomen: Soft, No tenderness, obese , PD cath prsent, no e/o infection Extremities: No edema Skin: No rashes Neuro: Grossly Normal Psych/Mental Status: Mental status NL, Mood NL No Ruiz DIAGNOSIS/ASSESSMENT Assessment & Plan ESRD- On PD 2/2 PCKD - under Dr. Varghese's care BUN/Cr has gone up since Nov 2018 Clinically no e/o Vol Overload ,recently prescription has been changed by Dr. Varghese, Continue Home Prescription Hypokalemia - On Torsemide as well, has some RRf Replace , no labs this am Near syncope:Chronic dizziness for more than a year w/u including Echo and S/P LHC done per card as OP - Unremarkable Cardiology and Neuro consulted DORIS: CPAP intolerant Asthma with recently treated acute bronchitis Morbid obesity COMMENT/RELEVANT DATA Meds Current Medications Medications (Trade) Dose Ordered Sig/Tao Start Time Stop Time Status Last Admin Dose Admin Acetaminophen/ Hydrocodone Bitart (Lortab 5/325) 1 tab PRN Q4HRS PRN 09/11/19 18:30 09/13/19 07:00 1 TAB Albuterol Sulfate (Ventolin Neb Soln) 2.5 mg PRN Q4HRS PRN 09/11/19 18:30 09/11/19 21:53 2.5 MG Aspirin (Children'S Aspirin) 81 mg DAILY 09/12/19 09:00 09/12/19 09:46 81 MG Atorvastatin Calcium (Lipitor) 20 mg HS 09/11/19 21:00 09/12/19 20:32 20 MG Calcium Acetate (Phoslo) 2,001 mg TIDWMEALS 09/12/19 08:00 09/13/19 08:34 2,001 MG Calcium Carbonate/ Glycine (Tums) 500 mg PRN AFTMEALHC PRN 09/11/19 18:30 09/13/19 07:00 500 MG Clonidine HCl (Catapres) 0.1 mg PRN Q1HR PRN 09/11/19 18:30 Docusate Sodium (Colace) 100 mg DAILY 09/12/19 09:00 09/12/19 09:46 100 MG Guaifenesin (Mucinex) 600 mg DAILY 09/12/19 09:00 09/12/19 09:46 600 MG Guaifenesin (Robitussin Dm) 10 ml PRN Q6HRS PRN 09/11/19 18:30 Lorazepam (Ativan Inj) 2 mg PRN Q4HRS PRN 09/11/19 18:45 Midodrine (Proamatine) 2.5 mg [id number] 09/12/19 11:00 09/13/19 06:06 2.5 MG Morphine Sulfate (Morphine Sulfate) 2 mg PRN Q2HR PRN 09/11/19 18:30 Ondansetron HCl (Zofran) 4 mg PRN Q6HRS PRN 09/11/19 18:30 09/13/19 08:37 4 MG Pantoprazole Sodium (Protonix) 40 mg DAILYAC 09/12/19 07:30 09/13/19 07:34 40 MG Potassium Chloride (Klor-Con) 40 meq 1X ONCE 09/12/19 05:30 09/12/19 05:31 DC 09/12/19 05:13 40 MEQ Tamsulosin HCl (Flomax) 0.4 mg DAILY 09/12/19 09:00 09/12/19 09:46 0.4 MG Torsemide (Demadex) 20 mg DAILY 09/12/19 09:00 09/12/19 10:15 DC 09/12/19 09:46 20 MG Trazodone HCl (Desyrel) 50 mg HS 09/11/19 21:00 09/12/19 20:32 50 MG Lab Laboratory Tests Test 09/13/19 06:10 Erythrocyte Sedimentation Rate 85 (0-15) Results All relevant outside records, renal labs, imaging studies, telemetry/EKG's were reviewed. RICHY PINEDA MD Sep 13, 2019 09:51
--- NOTE | 2019-09-13 09:56 | NUR ---
Nausea improved, but still not eating, will hold morning medications until patient able to take diet.
--- NOTE | 2019-09-13 10:30 | PDOC ---
PROGRESS NOTES Assessment Problems Medical Problems: (1) Asthma Status: Chronic (2) ESRD on peritoneal dialysis Status: Chronic (3) Hyperglycemia Status: Acute (4) Obesity Status: Chronic (5) DORIS (obstructive sleep apnea) Status: Chronic (6) PSVT (paroxysmal supraventricular tachycardia) Status: Chronic (7) Syncopal episodes Status: Acute Autonomic dysfunction with orthostatic tremor and presyncope, orthostatic blood pressures positive Plan ? tilt table test. Bloodwork regarding common causes of neuropathy negative or pending Outpatient EMG I discussed use of compression stockings and abdominal binders, we will see what cardiology comes up with. He is not a good candidate for midodrine because of supine hypertension. Rehabilitation modalities. Subjective feels better Objective Vital Signs Date Time Temp Pulse Resp B/P (MAP) Pulse Ox O2 Delivery O2 Flow Rate FiO2 09/13/19 08:00 Room Air 09/13/19 08:00 18 09/13/19 07:00 97.9 103 136/76 (96) 96 97.9 Intake and Output 09/13/19 07:00 Intake Total 1180 ml Balance 1180 ml Intake Oral 1180 ml PHYSICAL EXAM Alert. Oriented to time, place and person. PERRL. EOMI. CN: no focal findings. Muscle tone: normal. Muscle strength: 5/5 DTR: 1+ Plantar reflex: flexor Gait: not examined in bed. Sensory exam: stocking loss No cerebellar signs elicited. Review of Relevant I have reviewed the following items bennie (where applicable) has been applied. Labs Laboratory Tests Test 09/11/19 16:50 09/11/19 21:20 09/12/19 03:30 09/12/19 09:20 White Blood Count 19.6 x10^3/uL (4.0-11.0) 15.4 x10^3/uL (4.0-11.0) Red Blood Count 4.28 x10^6/uL (4.30-5.70) 4.01 x10^6/uL (4.30-5.70) Hemoglobin 13.0 g/dL (13.0-17.5) 12.3 g/dL (13.0-17.5) Hematocrit 40.0 % (39.0-53.0) 37.6 % (39.0-53.0) Mean Corpuscular Volume 93 fL (79-100) 94 fL (79-100) Mean Corpuscular Hemoglobin 30 pg (25-35) 31 pg (25-35) Mean Corpuscular Hemoglobin Concent 33 g/dL (31-37) 33 g/dL (31-37) Red Cell Distribution Width 15.3 % (11.5-14.5) 15.0 % (11.5-14.5) Platelet Count 297 x10^3/uL (140-400) 262 x10^3/uL (140-400) Neutrophils (%) (Auto) 80 % (31-73) 80 % (31-73) Lymphocytes (%) (Auto) 11 % (24-48) 11 % (24-48) Monocytes (%) (Auto) 6 % (0-9) 6 % (0-9) Eosinophils (%) (Auto) 2 % (0-3) 2 % (0-3) Basophils (%) (Auto) 1 % (0-3) 0 % (0-3) Neutrophils # (Auto) 15.7 x10^3/uL (1.8-7.7) 12.3 x10^3/uL (1.8-7.7) Lymphocytes # (Auto) 2.2 x10^3/uL (1.0-4.8) 1.7 x10^3/uL (1.0-4.8) Monocytes # (Auto) 1.2 x10^3/uL (0.0-1.1) 1.0 x10^3/uL (0.0-1.1) Eosinophils # (Auto) 0.4 x10^3/uL (0.0-0.7) 0.3 x10^3/uL (0.0-0.7) Basophils # (Auto) 0.1 x10^3/uL (0.0-0.2) 0.0 x10^3/uL (0.0-0.2) Segmented Neutrophils % 78 % (35-66) Band Neutrophils % 1 % (0-9) Lymphocytes % 12 % (24-48) Monocytes % 7 % (0-10) Eosinophils % 1 % (0-5) Myelocytes % 1 % (0-0) Toxic Granulation Slight Platelet Estimate Adequate (ADEQUATE) Platelet Clumps, EDTA Present Sodium Level 139 mmol/L (136-145) 139 mmol/L (136-145) Potassium Level 3.4 mmol/L (3.5-5.1) 2.8 mmol/L (3.5-5.1) 3.4 mmol/L (3.5-5.1) Chloride Level 96 mmol/L (98-107) 95 mmol/L (98-107) Carbon Dioxide Level 27 mmol/L (21-32) 27 mmol/L (21-32) Anion Gap 16 (6-14) 17 (6-14) Blood Urea Nitrogen 95 mg/dL (8-26) 96 mg/dL (8-26) Creatinine 13.6 mg/dL (0.7-1.3) 14.5 mg/dL (0.7-1.3) Estimated GFR (Cockcroft-Gault) 3.8 3.5 BUN/Creatinine Ratio 7 (6-20) Glucose Level 82 mg/dL (70-99) 153 mg/dL (70-99) Calcium Level 9.1 mg/dL (8.5-10.1) 8.7 mg/dL (8.5-10.1) Magnesium Level 2.4 mg/dL (1.8-2.4) Total Bilirubin 0.4 mg/dL (0.2-1.0) Aspartate Amino Transf (AST/SGOT) 12 U/L (15-37) Alanine Aminotransferase (ALT/SGPT) 14 U/L (16-63) Alkaline Phosphatase 64 U/L (46-116) Troponin I Quantitative < 0.017 ng/mL (0.000-0.055) < 0.017 ng/mL (0.000-0.055) Total Protein 6.6 g/dL (6.4-8.2) Albumin 2.9 g/dL (3.4-5.0) Albumin/Globulin Ratio 0.8 (1.0-1.7) Thyroid Stimulating Hormone (TSH) 0.821 uIU/mL (0.358-3.74) Triglycerides Level 125 mg/dL (0-150) Cholesterol Level 159 mg/dL (0-200) LDL Cholesterol, Calculated 111 mg/dL (0-100) VLDL Cholesterol, Calculated 25 mg/dL (0-40) Non-HDL Cholesterol Calculated 136 mg/dL (0-129) HDL Cholesterol 23 mg/dL (40-60) Cholesterol/HDL Ratio 6.9 Test 09/13/19 06:10 Erythrocyte Sedimentation Rate 85 (0-15) Laboratory Tests Test 09/13/19 06:10 Erythrocyte Sedimentation Rate 85 (0-15) Medications Current Medications Aspirin (Children'S Aspirin) 81 mg DAILY PO Last administered on 09/12/19 09:46; Start 09/12/19 at 09:00 Atorvastatin Calcium (Lipitor) 20 mg HS PO Last administered on 09/12/19 20:32; Start 09/11/19 at 21:00 Docusate Sodium (Colace) 100 mg DAILY PO Last administered on 09/12/19 09:46; Start 09/12/19 at 09:00 Tamsulosin HCl (Flomax) 0.4 mg DAILY PO Last administered on 09/12/19 09:46; Start 09/12/19 at 09:00 Torsemide (Demadex) 20 mg DAILY PO Last administered on 09/12/19 09:46; Start 09/12/19 at 09:00; Stop 09/12/19 at 10:15; Status DC Trazodone HCl (Desyrel) 50 mg HS PO Last administered on 09/12/19 20:32; Start 09/11/19 at 21:00 Calcium Acetate (Phoslo) 2,001 mg TIDWMEALS PO Last administered on 09/13/19 08:34; Start 09/12/19 at 08:00 Guaifenesin (Mucinex) 600 mg DAILY PO Last administered on 09/12/19 09:46; Start 09/12/19 at 09:00 Pantoprazole Sodium (Protonix) 40 mg DAILYAC PO Last administered on 09/13/19 07:34; Start 09/12/19 at 07:30 Acetaminophen/ Hydrocodone Bitart (Lortab 5/325) 1 tab PRN Q4HRS PRN PO PAIN Last administered on 09/13/19 07:00; Start 09/11/19 at 18:30 Morphine Sulfate (Morphine Sulfate) 2 mg PRN Q2HR PRN IV PAIN; Start 09/11/19 at 18:30 Ondansetron HCl (Zofran) 4 mg PRN Q6HRS PRN IVP NAUSEA/VOMITING Last administered on 10/31/19at 08:37; Start 09/11/19 at 18:30 Clonidine HCl (Catapres) 0.1 mg PRN Q1HR PRN PO HYPERTENSION; Start 09/11/19 at 18:30 Calcium Carbonate/ Glycine (Tums) 500 mg PRN AFTMEALHC PRN PO INDIGESTION Last administered on 09/13/19at 07:00; Start 09/11/19 at 18:30 Guaifenesin (Robitussin Dm) 10 ml PRN Q6HRS PRN PO COUGH; Start 09/11/19 at 18:30 Albuterol Sulfate (Ventolin Neb Soln) 2.5 mg PRN Q4HRS PRN NEB SHORTNESS OF BREATH Last administered on 09/11/19at 21:53; Start 09/11/19 at 18:30 Lorazepam (Ativan Inj) 2 mg PRN Q4HRS PRN IVP SEIZURE; Start 09/11/19 at 18:45 Potassium Chloride (Klor-Con) 40 meq 1X ONCE PO Last administered on 09/12/19at 05:13; Start 09/12/19 at 05:30; Stop 09/12/19 at 05:31; Status DC Midodrine (Proamatine) 2.5 mg [id number] PO Last administered on 09/13/19at 06:06; Start 09/12/19 at 11:00 Active Scripts Active Reported Atorvastatin Calcium 20 Mg Tablet 20 Mg PO HS Colace (Docusate Sodium) 100 Mg Capsule 100 Mg PO DAILY Aspirin 81 Mg Tab.chew 81 Mg PO DAILY Tamsulosin Hcl 0.4 Mg Cap.er.24h 0.4 Mg PO DAILY Trazodone Hcl 50 Mg Tablet 1-2 Tab PO HS Guaifenesin 400 Mg Tablet 400 Mg PO DAILY Torsemide 20 Mg Tablet 20 Mg PO DAILY Calcium Acetate 667 Mg Tablet 3 Cap PO TIDWMEALS Prevacid (Lansoprazole) 15 Mg Capsule. 1 Cap PO DAILY Vitals/I & O Vital Sign - Last 24 Hours 09/12/19 09/12/19 09/12/19 09/12/19 11:00 12:27 15:00 18:26 Temp 98.0 97.8 98.0 97.8 Pulse 95 95 100 100 Resp 18 18 B/P (MAP) 113/75 (88) 113/75 106/77 (87) 106/77 Pulse Ox 95 97 O2 Delivery Room Air Room Air 09/12/19 09/12/19 09/12/19 09/12/19 19:38 19:40 19:41 20:00 Temp 97.9 97.9 Pulse 104 98 104 Resp 20 B/P (MAP) 126/84 (98) 107/87 (94) 113/75 (88) Pulse Ox 96 O2 Delivery Room Air Room Air 09/12/19 09/13/19 09/13/19 09/13/19 22:14 02:47 06:06 07:00 Temp 97.5 97.8 97.5 97.8 Pulse 95 92 102 Resp 16 16 B/P (MAP) 140/89 (106) 110/81 (91) 112/72 Pulse Ox 96 98 O2 Delivery Room Air Room Air Room Air 09/13/19 09/13/19 09/13/19 07:00 08:00 08:00 Temp 97.9 97.9 Pulse 103 Resp 18 18 B/P (MAP) 136/76 (96) Pulse Ox 96 O2 Delivery Room Air Room Air Intake and Output 09/12/19 09/12/19 09/13/19 15:00 23:00 07:00 Intake Total 500 ml 180 ml 500 ml Balance 500 ml 180 ml 500 ml CECI RASHEED MD Sep 13, 2019 10:29
[2019-09-13 11:03] VITALS: BP 100/64
--- NOTE | 2019-09-13 11:53 | PDOC ---
SUBJECTIVE ROS C/O vomiting OBJECTIVE Vital Signs Vital Signs Date Time Temp Pulse Resp B/P (MAP) Pulse Ox O2 Delivery O2 Flow Rate FiO2 09/13/19 11:03 98.1 110 22 100/64 (76) 92 Room Air 98.1 I & 0 Intake and Output 09/13/19 07:00 Intake Total 1180 ml Balance 1180 ml Intake Oral 1180 ml PHYSICAL EXAM Physical Exam General: No acute distress HEENT:OM moist, On RA Neck Supple Lungs: Clear to auscultation, Non labored Cardiovascular: S1, S2 Abdomen: Soft, No tenderness, obese , PD cath prsent, no e/o infection Extremities: No edema Skin: No rashes Neuro: Grossly Normal Psych/Mental Status: Mental status NL, Mood NL No Ruiz DIAGNOSIS/ASSESSMENT Assessment & Plan ESRD- On PD 2/2 PCKD - under Dr. Varghese's care BUN/Cr has gone up since Nov 2018 Clinically no e/o Vol Overload ,recently prescription has been changed by Dr. Varghese, Continue Home Prescription May need to switch to HD Hypokalemia - On Torsemide as well, has some RRf Replace , no labs this am Near syncope:Chronic dizziness for more than a year w/u including Echo and S/P LHC done per card as OP - Unremarkable Cardiology and Neuro consulted DORIS: CPAP intolerant Asthma with recently treated acute bronchitis Morbid obesity COMMENT/RELEVANT DATA Meds Current Medications Medications (Trade) Dose Ordered Sig/Tao Start Time Stop Time Status Last Admin Dose Admin Acetaminophen/ Hydrocodone Bitart (Lortab 5/325) 1 tab PRN Q4HRS PRN 09/11/19 18:30 09/13/19 07:00 1 TAB Albuterol Sulfate (Ventolin Neb Soln) 2.5 mg PRN Q4HRS PRN 09/11/19 18:30 09/11/19 21:53 2.5 MG Aspirin (Children'S Aspirin) 81 mg DAILY 09/12/19 09:00 09/12/19 09:46 81 MG Atorvastatin Calcium (Lipitor) 20 mg HS 09/11/19 21:00 09/12/19 20:32 20 MG Calcium Acetate (Phoslo) 2,001 mg TIDWMEALS 09/12/19 08:00 09/12/19 18:26 2,001 MG Calcium Carbonate/ Glycine (Tums) 500 mg PRN AFTMEALHC PRN 09/11/19 18:30 09/13/19 07:00 500 MG Clonidine HCl (Catapres) 0.1 mg PRN Q1HR PRN 09/11/19 18:30 Docusate Sodium (Colace) 100 mg DAILY 09/12/19 09:00 09/12/19 09:46 100 MG Guaifenesin (Mucinex) 600 mg DAILY 09/12/19 09:00 09/12/19 09:46 600 MG Guaifenesin (Robitussin Dm) 10 ml PRN Q6HRS PRN 09/11/19 18:30 Lorazepam (Ativan Inj) 2 mg PRN Q4HRS PRN 09/11/19 18:45 Midodrine (Proamatine) 2.5 mg [id number] 09/12/19 11:00 09/13/19 06:06 2.5 MG Morphine Sulfate (Morphine Sulfate) 2 mg PRN Q2HR PRN 09/11/19 18:30 Ondansetron HCl (Zofran) 4 mg PRN Q6HRS PRN 09/11/19 18:30 09/13/19 08:37 4 MG Pantoprazole Sodium (Protonix) 40 mg DAILYAC 09/12/19 07:30 09/13/19 07:34 40 MG Potassium Chloride (Klor-Con) 40 meq 1X ONCE 09/12/19 05:30 09/12/19 05:31 DC 09/12/19 05:13 40 MEQ Tamsulosin HCl (Flomax) 0.4 mg DAILY 09/12/19 09:00 09/12/19 09:46 0.4 MG Torsemide (Demadex) 20 mg DAILY 09/12/19 09:00 09/12/19 10:15 DC 09/12/19 09:46 20 MG Trazodone HCl (Desyrel) 50 mg HS 09/11/19 21:00 09/12/19 20:32 50 MG Lab Laboratory Tests Test 09/13/19 06:10 Erythrocyte Sedimentation Rate 85 (0-15) Vitamin B12 Level 366 pg/mL (247-911) Results All relevant outside records, renal labs, imaging studies, telemetry/EKG's were reviewed. RICHY PINEDA MD Sep 13, 2019 11:53
--- NOTE | 2019-09-13 11:54 | NUR ---
SS following up with discharge planning. OT recommended home independent. SS will continue to follow for discharge planning.
[2019-09-13] MEDS: TAMSULOSIN 0.4 MG CAP.ER.24H. PO SCH (12:25)
[2019-09-13] MEDS: DOCUSATE SODIUM 100 MG CAPSULE. PO SCH (12:25)
[2019-09-13] MEDS: ASPIRIN CHEWABLE 81 MG TABLET. PO SCH (12:25)
--- NOTE | 2019-09-13 14:44 | NUR ---
Consents witnessed, see orders. Patient and verb. understanding POC and NPO after MN.
[2019-09-13 15:00] VITALS: BP 106/79
[2019-09-13 15:07] LABS: PROTHROMBIN TIME PATIENT 14.5 SEC (11.7-14.0)
--- NOTE | 2019-09-13 17:26 | NUR ---
Patient nauseated again, prn zofran given, patient to let RN know if he eats diet and will give evening medications.
[2019-09-13 19:00] VITALS: BP 94/61
[2019-09-13] MEDS: ATORVASTATIN CALCIUM 20 MG TABLET PO SCH (21:09)
[2019-09-13] MEDS: traZODone 50 MG TABLET. PO SCH (21:09)
--- NOTE | 2019-09-13 21:59 | PDOC ---
CARDIOLOGY PROGRESS NOTE SUBJECTIVE: Patient has had some nausea/vomiting PD dialysis catheter to be changed tomorrow at bedside. Patient sleeping when seeb OBJECTIVE: Vital Signs/I&O: Vital Signs Date Time Temp Pulse Resp B/P (MAP) Pulse Ox O2 Delivery O2 Flow Rate FiO2 09/13/19 20:18 90 Room Air 09/13/19 19:00 98.0 102 12 94/61 (72) 98.0 I & O 09/12/19 09/12/19 09/13/19 15:00 23:00 07:00 Intake Total 500 ml 180 ml 500 ml Balance 500 ml 180 ml 500 ml Objective: resting comfortably No acute distress edema persists DIAGNOSTIC TESTING: Labs: Laboratory Tests Test 09/13/19 06:10 09/13/19 14:45 Erythrocyte Sedimentation Rate 85 (0-15) H Vitamin B12 Level 366 pg/mL (247-911) Prothrombin Time 14.5 SEC (11.7-14.0) H Prothromb Time International Ratio 1.2 (0.8-1.1) H Activated Partial Thromboplast Time 33 SEC (24-38) ASSESSMENT: 1. Orthostatic hypotension - likely due to autonomic dysfunction 2. Diastolic HF- No prior coronary disease. PLAN: 1. Supportive care. Will increase midodrine tomorrow and monitor BP ELENA WHITTAKER MD Sep 13, 2019 21:59
[2019-09-13 23:00] VITALS: BP 91/65
[2019-09-14] VITALS (10 sets, daily range): BP systolic 69–133; BP diastolic 42–93
[2019-09-14 01:12] LABS: HEMOGLOBIN A1C 5.7 % (4.8-5.6)
[2019-09-14 04:55] LABS: ALBUMIN 2.4 g/dL (3.4-5.0); CALCIUM 8.8 mg/dL (8.5-10.1); GFR 3.4; PHOSPHORUS 8.6 mg/dL (2.6-4.7); POTASSIUM 3.9 mmol/L (3.5-5.1)
[2019-09-14] MEDS: MIDODRINE 2.5 MG TABLET PO SCH ×3 (06:10→18:30)
[2019-09-14] MEDS: HYDROcodone/APAP 5/325MG 1 TAB TABLET PO PRN (07:47)
--- NOTE | 2019-09-14 08:29 | PDOC ---
PROGRESS NOTES Chief Complaint Chief Complaint Syncope - due to orthostasis/uremia and potentially from arrhythmia. Midodrine therapy started based on positive orthostatics PSVT - in the setting of uremia and hypokalemia ESRD - Utilizes PD DORIS - CPAP intolerant, he won't even wear nocturnal NCO2 Asthma with recently treated acute bronchitis Hyperglycemia Morbid obesity Polycystic kidney disease - may have abnormal CT and need nephrectomy History of Present Illness History of Present Illness Pt is 58 yo CM ESRD on PD admitted with c/o chronic dizziness but passed out yesterday- lasted only 2 secs., says he was mildly shaking, no drooling, upward rolling eyeballs or loss of bladder or bowel fcn, He apparently has been worked up before by our cardiology for "syncope" with echo and LHC with normal results. He follows with Pul as well . He was not orthostatic in ER He has been on PD for 2 years under the care of Dr. Varghese . His UOP has declined but has some RRF . His BUN/Cr has been high for some time, changes has been made to PD prescription recently. He has LBF and does manual exchange at home PD fluid is clear, denies any abdominal pain .No Urinary complaints His WBC was 19 at presentation, Pt and report that he has been on prednisone and Zpak and just completed the last dose yesterday Echo, results normal. Discussed positive orthostatics and need for midodrine. The left ventricular systolic function is normal. The Ejection Fraction is 60-65%. There is normal LV segmental wall motion. Transmitral Doppler flow pattern is Grade I-abnormal relaxation pattern. Trace mitral regurgitation. Trace tricuspid regurgitation. There is no evidence of significant pericardial effusion. 09/12: This morning vomited up green beans and adalberto steak that was visible. He did not sleep great. Desaturated into the 70s, states he cannot wear O2 and is intolerant of CPAP. After d/w nephrology he will convert to HD tomorrow morning with plans for outpatient nephrectomy. To IR this morning for HD cath and initiate HD today. Still with nausea. Vitals Vitals Vital Signs Date Time Temp Pulse Resp B/P (MAP) Pulse Ox O2 Delivery O2 Flow Rate FiO2 09/14/19 07:19 97.3 97 16 119/84 (96) 91 Room Air 97.3 Physical Exam General: Alert, Oriented X3, Cooperative, No acute distress Heart: Regular rate Abdomen: Soft, Other (obese) Extremities: No cyanosis, Other (2+ bilateral LE pitting edema) Skin: No breakdown, Other (venous dermatitis) Labs LABS Laboratory Tests Test 09/13/19 14:45 09/14/19 04:15 Prothrombin Time 14.5 SEC (11.7-14.0) Prothromb Time International Ratio 1.2 (0.8-1.1) Activated Partial Thromboplast Time 33 SEC (24-38) Sodium Level 134 mmol/L (136-145) Potassium Level 3.9 mmol/L (3.5-5.1) Chloride Level 94 mmol/L (98-107) Carbon Dioxide Level 27 mmol/L (21-32) Anion Gap 13 (6-14) Blood Urea Nitrogen 100 mg/dL (8-26) Creatinine 15.0 mg/dL (0.7-1.3) Estimated GFR (Cockcroft-Gault) 3.4 Glucose Level 94 mg/dL (70-99) Calcium Level 8.8 mg/dL (8.5-10.1) Phosphorus Level 8.6 mg/dL (2.6-4.7) Albumin 2.4 g/dL (3.4-5.0) Assessment and Plan Assessmemt and Plan Problems Medical Problems: (1) Asthma Status: Chronic (2) ESRD on peritoneal dialysis Status: Chronic (3) Hyperglycemia Status: Acute (4) Obesity Status: Chronic (5) DORIS (obstructive sleep apnea) Status: Chronic (6) PSVT (paroxysmal supraventricular tachycardia) Status: Chronic (7) Syncopal episodes Status: Acute Comment Review of Relevant I have reviewed the following items bennie (where applicable) has been applied. Labs Laboratory Tests Test 09/12/19 09:20 09/13/19 06:10 09/13/19 14:45 09/14/19 04:15 Potassium Level 3.4 mmol/L (3.5-5.1) 3.9 mmol/L (3.5-5.1) Erythrocyte Sedimentation Rate 85 (0-15) Hemoglobin A1c 5.7 % (4.8-5.6) Vitamin B12 Level 366 pg/mL (247-911) Prothrombin Time 14.5 SEC (11.7-14.0) Prothromb Time International Ratio 1.2 (0.8-1.1) Activated Partial Thromboplast Time 33 SEC (24-38) Sodium Level 134 mmol/L (136-145) Chloride Level 94 mmol/L (98-107) Carbon Dioxide Level 27 mmol/L (21-32) Anion Gap 13 (6-14) Blood Urea Nitrogen 100 mg/dL (8-26) Creatinine 15.0 mg/dL (0.7-1.3) Estimated GFR (Cockcroft-Gault) 3.4 Glucose Level 94 mg/dL (70-99) Calcium Level 8.8 mg/dL (8.5-10.1) Phosphorus Level 8.6 mg/dL (2.6-4.7) Albumin 2.4 g/dL (3.4-5.0) Laboratory Tests Test 09/13/19 14:45 09/14/19 04:15 Prothrombin Time 14.5 SEC (11.7-14.0) Prothromb Time International Ratio 1.2 (0.8-1.1) Activated Partial Thromboplast Time 33 SEC (24-38) Sodium Level 134 mmol/L (136-145) Potassium Level 3.9 mmol/L (3.5-5.1) Chloride Level 94 mmol/L (98-107) Carbon Dioxide Level 27 mmol/L (21-32) Anion Gap 13 (6-14) Blood Urea Nitrogen 100 mg/dL (8-26) Creatinine 15.0 mg/dL (0.7-1.3) Estimated GFR (Cockcroft-Gault) 3.4 Glucose Level 94 mg/dL (70-99) Calcium Level 8.8 mg/dL (8.5-10.1) Phosphorus Level 8.6 mg/dL (2.6-4.7) Albumin 2.4 g/dL (3.4-5.0) Microbiology 09/11/19 Aerobic Culture, Resulted Pending 09/11/19 Aerobic Culture Result 1 (SOFIA), Resulted Pending 09/11/19 Gram Stain - Final, Resulted 09/11/19 Gram Stain Result 1 (SOFIA) - Final, Resulted 09/11/19 Gram Stain Result 2 (SOFIA) - Final, Resulted Medications Current Medications Aspirin (Children'S Aspirin) 81 mg DAILY PO Last administered on 09/13/19at 12:25; Start 09/12/19 at 09:00 Atorvastatin Calcium (Lipitor) 20 mg HS PO Last administered on 09/13/19 21:09; Start 09/11/19 at 21:00 Docusate Sodium (Colace) 100 mg DAILY PO Last administered on 09/13/19 12:25; Start 09/12/19 at 09:00 Tamsulosin HCl (Flomax) 0.4 mg DAILY PO Last administered on 09/13/19 12:25; Start 09/12/19 at 09:00 Torsemide (Demadex) 20 mg DAILY PO Last administered on 09/12/19 09:46; Start 09/12/19 at 09:00; Stop 09/12/19 at 10:15; Status DC Trazodone HCl (Desyrel) 50 mg HS PO Last administered on 09/13/19 21:09; Start 09/11/19 at 21:00 Calcium Acetate (Phoslo) 2,001 mg TIDWMEALS PO Last administered on 09/13/19 18:18; Start 09/12/19 at 08:00 Guaifenesin (Mucinex) 600 mg DAILY PO Last administered on 09/13/19 12:25; Start 09/12/19 at 09:00 Pantoprazole Sodium (Protonix) 40 mg DAILYAC PO Last administered on 09/13/19 07:34; Start 09/12/19 at 07:30 Acetaminophen/ Hydrocodone Bitart (Lortab 5/325) 1 tab PRN Q4HRS PRN PO PAIN Last administered on 09/14/19 07:47; Start 09/11/19 at 18:30 Morphine Sulfate (Morphine Sulfate) 2 mg PRN Q2HR PRN IV PAIN; Start 09/11/19 at 18:30 Ondansetron HCl (Zofran) 4 mg PRN Q6HRS PRN IVP NAUSEA/VOMITING Last administered on 09/13/19 17:23; Start 09/11/19 at 18:30 Clonidine HCl (Catapres) 0.1 mg PRN Q1HR PRN PO HYPERTENSION; Start 09/11/19 at 18:30 Calcium Carbonate/ Glycine (Tums) 500 mg PRN AFTMEALHC PRN PO INDIGESTION Last administered on 09/13/19 07:00; Start 09/11/19 at 18:30 Guaifenesin (Robitussin Dm) 10 ml PRN Q6HRS PRN PO COUGH; Start 09/11/19 at 18:30 Albuterol Sulfate (Ventolin Neb Soln) 2.5 mg PRN Q4HRS PRN NEB SHORTNESS OF BREATH Last administered on 09/11/19at 21:53; Start 09/11/19 at 18:30 Lorazepam (Ativan Inj) 2 mg PRN Q4HRS PRN IVP SEIZURE; Start 09/11/19 at 18:45 Potassium Chloride (Klor-Con) 40 meq 1X ONCE PO Last administered on 09/12/19at 05:13; Start 09/12/19 at 05:30; Stop 09/12/19 at 05:31; Status DC Midodrine (Proamatine) 2.5 mg [id number] PO Last administered on 09/14/19at 06:10; Start 09/12/19 at 11:00 Active Scripts Active Reported Atorvastatin Calcium 20 Mg Tablet 20 Mg PO HS Colace (Docusate Sodium) 100 Mg Capsule 100 Mg PO DAILY Aspirin 81 Mg Tab.chew 81 Mg PO DAILY Tamsulosin Hcl 0.4 Mg Cap.er.24h 0.4 Mg PO DAILY Trazodone Hcl 50 Mg Tablet 1-2 Tab PO HS Guaifenesin 400 Mg Tablet 400 Mg PO DAILY Torsemide 20 Mg Tablet 20 Mg PO DAILY Calcium Acetate 667 Mg Tablet 3 Cap PO TIDWMEALS Prevacid (Lansoprazole) 15 Mg Capsule. 1 Cap PO DAILY Vitals/I & O Vital Sign - Last 24 Hours 09/13/19 09/13/19 09/13/19 09/13/19 11:03 12:25 15:00 18:18 Temp 98.1 98.4 98.1 98.4 Pulse 110 110 105 105 Resp 22 20 B/P (MAP) 100/64 (76) 100/64 106/79 (88) 106/79 Pulse Ox 92 90 O2 Delivery Room Air Room Air 09/13/19 09/13/19 09/13/19 09/13/19 19:00 19:18 20:00 20:18 Temp 98.0 98.0 Pulse 102 Resp 12 B/P (MAP) 94/61 (72) Pulse Ox 92 90 90 O2 Delivery Room Air Room Air Room Air Room Air 09/13/19 09/14/19 09/14/19 09/14/19 23:00 03:00 06:10 07:19 Temp 97.9 97.7 97.3 97.9 97.7 97.3 Pulse 90 90 90 97 Resp 16 16 16 B/P (MAP) 91/65 (74) 80/47 (58) 80/47 119/84 (96) Pulse Ox 91 91 91 O2 Delivery Room Air Room Air Room Air Intake and Output 09/13/19 09/13/19 09/14/19 15:00 23:00 07:00 Intake Total 200 ml 600 ml 0 ml Output Total 250 ml Balance -50 ml 600 ml 0 ml HILDA SMILEY MD Sep 14, 2019 08:29
[2019-09-14] MEDS ORDERED: LIDOCAINE 1%/EPI 1:100,000 20 ML VIAL. ONE (09:07)
[2019-09-14] MEDS ORDERED: HEPARIN for IV BOLUS 10,000 UNIT/10 ML VIAL. ONE (09:07)
[2019-09-14] MEDS ORDERED: ceFAZolin SODIUM 3 GM in IV DEXTROSE 5% 100ML 100 ML IV ONE (09:15)
[2019-09-14] MEDS ORDERED: MIDAZOLAM HCL/PF 5 MG/5 ML VIAL. ONE (09:24)
[2019-09-14] MEDS ORDERED: fentaNYL PF VIAL 100 MCG/2 ML VIAL ONE (09:24)
[2019-09-14] MEDS ORDERED: fentaNYL PF VIAL 100 MCG/2 ML VIAL IV ONE (09:45)
[2019-09-14] MEDS ORDERED: MIDAZOLAM HCL/PF 5 MG/5 ML VIAL. IV ONE (09:45)
[2019-09-14] MEDS ORDERED: LIDOCAINE 1%/EPI 1:100,000 20 ML VIAL. INJ ONE (09:45)
[2019-09-14] MEDS ORDERED: IV NORMAL SALINE 1000ML BAG 1,000 ML IV PRN ×2 (10:09)
--- NOTE | 2019-09-14 10:13 | PDOC ---
PROGRESS NOTES Assessment Problems Medical Problems: (1) Asthma Status: Chronic (2) ESRD on peritoneal dialysis Status: Chronic (3) Hyperglycemia Status: Acute (4) Obesity Status: Chronic (5) DORIS (obstructive sleep apnea) Status: Chronic (6) PSVT (paroxysmal supraventricular tachycardia) Status: Chronic (7) Syncopal episodes Status: Acute Autonomic dysfunction with orthostatic tremor and presyncope, orthostatic blood pressures positive Peripheral neuropathy Note elevated hemoglobin A-1 C, 5.7, but sugars here in the hospital have been fine Plan Cardiology is adjusting midodrine Bloodwork regarding common causes of neuropathy negative or pending Outpatient [facility] Rehabilitation modalities. He is getting a new peritoneal dialysis catheter placed today I told the patient to watch his sugars along with his primary physician Subjective no complaints Objective Vital Signs Date Time Temp Pulse Resp B/P (MAP) Pulse Ox O2 Delivery O2 Flow Rate FiO2 09/14/19 09:54 106 17 95 Nasal Cannula 2.0 09/14/19 07:19 97.3 119/84 (96) 97.3 Intake and Output 09/14/19 06:59 Intake Total 800 ml Output Total 250 ml Balance 550 ml Intake Oral 800 ml Emesis 250 ml # Voids 3 # Bowel Movements 1 PHYSICAL EXAM Alert. Oriented to time, place and person. PERRL. EOMI. CN: no focal findings. Muscle tone: normal. Muscle strength: 5/5 DTR: 1+ Plantar reflex: flexor Gait: not examined in bed. Sensory exam: stocking loss No cerebellar signs elicited. Review of Relevant I have reviewed the following items bennie (where applicable) has been applied. Labs Laboratory Tests Test 09/13/19 06:10 09/13/19 14:45 09/14/19 04:15 Erythrocyte Sedimentation Rate 85 (0-15) Hemoglobin A1c 5.7 % (4.8-5.6) Vitamin B12 Level 366 pg/mL (247-911) Prothrombin Time 14.5 SEC (11.7-14.0) Prothromb Time International Ratio 1.2 (0.8-1.1) Activated Partial Thromboplast Time 33 SEC (24-38) Sodium Level 134 mmol/L (136-145) Potassium Level 3.9 mmol/L (3.5-5.1) Chloride Level 94 mmol/L (98-107) Carbon Dioxide Level 27 mmol/L (21-32) Anion Gap 13 (6-14) Blood Urea Nitrogen 100 mg/dL (8-26) Creatinine 15.0 mg/dL (0.7-1.3) Estimated GFR (Cockcroft-Gault) 3.4 Glucose Level 94 mg/dL (70-99) Calcium Level 8.8 mg/dL (8.5-10.1) Phosphorus Level 8.6 mg/dL (2.6-4.7) Albumin 2.4 g/dL (3.4-5.0) Laboratory Tests Test 09/13/19 14:45 09/14/19 04:15 Prothrombin Time 14.5 SEC (11.7-14.0) Prothromb Time International Ratio 1.2 (0.8-1.1) Activated Partial Thromboplast Time 33 SEC (24-38) Sodium Level 134 mmol/L (136-145) Potassium Level 3.9 mmol/L (3.5-5.1) Chloride Level 94 mmol/L (98-107) Carbon Dioxide Level 27 mmol/L (21-32) Anion Gap 13 (6-14) Blood Urea Nitrogen 100 mg/dL (8-26) Creatinine 15.0 mg/dL (0.7-1.3) Estimated GFR (Cockcroft-Gault) 3.4 Glucose Level 94 mg/dL (70-99) Calcium Level 8.8 mg/dL (8.5-10.1) Phosphorus Level 8.6 mg/dL (2.6-4.7) Albumin 2.4 g/dL (3.4-5.0) Microbiology 09/11/19 Aerobic Culture, Resulted Pending 09/11/19 Aerobic Culture Result 1 (SOFIA), Resulted Pending 09/11/19 Gram Stain - Final, Resulted 09/11/19 Gram Stain Result 1 (SOFIA) - Final, Resulted 09/11/19 Gram Stain Result 2 (SOFIA) - Final, Resulted Medications Current Medications Aspirin (Children'S Aspirin) 81 mg DAILY PO Last administered on 09/13/19at 12:25; Start 09/12/19 at 09:00 Atorvastatin Calcium (Lipitor) 20 mg HS PO Last administered on 09/13/19at 21:09; Start 09/11/19 at 21:00 Docusate Sodium (Colace) 100 mg DAILY PO Last administered on 09/13/19at 12:25; Start 09/12/19 at 09:00 Tamsulosin HCl (Flomax) 0.4 mg DAILY PO Last administered on 09/13/19 12:25; Start 09/12/19 at 09:00 Torsemide (Demadex) 20 mg DAILY PO Last administered on 09/12/19 09:46; Start 09/12/19 at 09:00; Stop 09/12/19 at 10:15; Status DC Trazodone HCl (Desyrel) 50 mg HS PO Last administered on 09/13/19 21:09; Start 09/11/19 at 21:00 Calcium Acetate (Phoslo) 2,001 mg TIDWMEALS PO Last administered on 09/13/19 18:18; Start 09/12/19 at 08:00 Guaifenesin (Mucinex) 600 mg DAILY PO Last administered on 09/13/19 12:25; S tart 09/12/19 at 09:00 Pantoprazole Sodium (Protonix) 40 mg DAILYAC PO Last administered on 09/13/19 07:34; Start 09/12/19 at 07:30 Acetaminophen/ Hydrocodone Bitart (Lortab 5/325) 1 tab PRN Q4HRS PRN PO PAIN Last administered on 09/14/19 07:47; Start 09/11/19 at 18:30 Morphine Sulfate (Morphine Sulfate) 2 mg PRN Q2HR PRN IV PAIN; Start 09/11/19 at 18:30 Ondansetron HCl (Zofran) 4 mg PRN Q6HRS PRN IVP NAUSEA/VOMITING Last administered on 09/13/19 17:23; Start 09/11/19 at 18:30 Clonidine HCl (Catapres) 0.1 mg PRN Q1HR PRN PO HYPERTENSION; Start 09/11/19 at 18:30 Calcium Carbonate/ Glycine (Tums) 500 mg PRN AFTMEALHC PRN PO INDIGESTION Last administered on 09/13/19 07:00; Start 09/11/19 at 18:30 Guaifenesin (Robitussin Dm) 10 ml PRN Q6HRS PRN PO COUGH; Start 09/11/19 at 18:30 Albuterol Sulfate (Ventolin Neb Soln) 2.5 mg PRN Q4HRS PRN NEB SHORTNESS OF BREATH Last administered on 09/11/19at 21:53; Start 09/11/19 at 18:30 Lorazepam (Ativan Inj) 2 mg PRN Q4HRS PRN IVP SEIZURE; Start 09/11/19 at 18:45 Potassium Chloride (Klor-Con) 40 meq 1X ONCE PO Last administered on 09/12/19at 05:13; Start 09/12/19 at 05:30; Stop 09/12/19 at 05:31; Status DC Midodrine (Proamatine) 2.5 mg [id number] PO Last administered on 09/14/19at 06:10; Start 09/12/19 at 11:00 Lidocaine/ Epinephrine (LIDOCAINE 1%-EPI 1:100,000 Multi-Dose) 20 ml STK-MED ONCE .ROUTE ; Start 09/14/19 at 09:07; Stop 09/14/19 at 09:07; Status DC Heparin Sodium (Porcine) (Heparin Sodium) 10,000 unit STK-MED ONCE .ROUTE ; Start 09/14/19 at 09:07; Stop 09/14/19 at 09:07; Status DC Cefazolin Sodium 3 gm/Dextrose 100 ml @ 200 mls/hr 1X ONCE IV Last administered on 09/14/19at 09:53; Start 09/14/19 at 09:15; Stop 09/14/19 at 09:44; Status DC Midazolam HCl (Versed) 5 mg STK-MED ONCE .ROUTE ; Start 09/14/19 at 09:24; Stop 09/14/19 at 09:24; Status DC Fentanyl Citrate (Fentanyl 2ml Vial) 100 mcg STK-MED ONCE .ROUTE ; Start 09/14/19 at 09:24; Stop 09/14/19 at 09:24; Status DC Midazolam HCl (Versed) 5 mg 1X ONCE IV Last administered on 09/14/19at 09:51; Start 09/14/19 at 09:45; Stop 09/14/19 at 09:46; Status DC Fentanyl Citrate (Fentanyl 2ml Vial) 100 mcg 1X ONCE IV Last administered on 09/14/19at 09:51; Start 09/14/19 at 09:45; Stop 09/14/19 at 09:46; Status DC Lidocaine/ Epinephrine (LIDOCAINE 1%-EPI 1:100,000 Multi-Dose) 20 ml 1X ONCE INJ Last administered on 09/14/19at 09:50; Start 09/14/19 at 09:45; Stop 09/14/19 at 09:46; Status DC Active Scripts Active Reported Atorvastatin Calcium 20 Mg Tablet 20 Mg PO HS Colace (Docusate Sodium) 100 Mg Capsule 100 Mg PO DAILY Aspirin 81 Mg Tab.chew 81 Mg PO DAILY Tamsulosin Hcl 0.4 Mg Cap.er.24h 0.4 Mg PO DAILY Trazodone Hcl 50 Mg Tablet 1-2 Tab PO HS Guaifenesin 400 Mg Tablet 400 Mg PO DAILY Torsemide 20 Mg Tablet 20 Mg PO DAILY Calcium Acetate 667 Mg Tablet 3 Cap PO TIDWMEALS Prevacid (Lansoprazole) 15 Mg Capsule. 1 Cap PO DAILY Vitals/I & O Vital Sign - Last 24 Hours 09/13/19 09/13/19 09/13/19 09/13/19 11:03 12:25 15:00 18:18 Temp 98.1 98.4 98.1 98.4 Pulse 110 110 105 105 Resp 22 20 B/P (MAP) 100/64 (76) 100/64 106/79 (88) 106/79 Pulse Ox 92 90 O2 Delivery Room Air Room Air 09/13/19 09/13/19 09/13/19 09/13/19 19:00 19:18 20:00 20:18 Temp 98.0 98.0 Pulse 102 Resp 12 B/P (MAP) 94/61 (72) Pulse Ox 92 90 90 O2 Delivery Room Air Room Air Room Air Room Air 09/13/19 09/14/19 09/14/19 09/14/19 23:00 03:00 06:10 07:19 Temp 97.9 97.7 97.3 97.9 97.7 97.3 Pulse 90 90 90 97 Resp 16 16 16 B/P (MAP) 91/65 (74) 80/47 (58) 80/47 119/84 (96) Pulse Ox 91 91 91 O2 Delivery Room Air Room Air Room Air 09/14/19 09/14/19 09:51 09:54 Pulse 106 Resp 19 17 Pulse Ox 95 95 O2 Delivery Nasal Cannula Nasal Cannula O2 Flow Rate 2.0 2.0 Intake and Output 09/13/19 09/13/19 09/14/19 14:59 22:59 06:59 Intake Total 200 ml 600 ml 0 ml Output Total 250 ml Balance -50 ml 600 ml 0 ml CECI RASHEED MD Sep 14, 2019 10:13
[2019-09-14] MEDS ORDERED: ALBUMIN HUMAN 25% 200 ML IV PRN (10:15)
[2019-09-14] MEDS ORDERED: DIALYSIS PATIENT. MC PRN ×2 (10:15)
[2019-09-14] MEDS ORDERED: 0.9 % SODIUM CHLORIDE 10 ML DISP.SYRIN. IV PRN ×2 (10:15)
--- NOTE | 2019-09-14 10:15 | PDOC ---
MODERATE SEDATION ASSESSMENT RISKS/ALTERNATIVES Risks/Alternatives Risks and alternatives of this type of sedation and procedure discussed with: RISK/ALTERNATIVES: Patient H & P ON CHART H & P H & P on chart and reviewed for co-morbid conditions and appropriate labs. H&P ON CHART: Yes STATUS PREG STATUS ASSESSED: Yes MEDS/ALLERGIES REVIEWED Meds/Allergies Reviewed Medications and Allergies including time and route of recently administered narcotics and sedatives. MEDS/ALLERGIES REVIEWED: Yes ASA RATING ASA RATING: II AIRWAY ASSESSMENT Airway Assessment Airway patency, oral function limitations, presence of caps, crowns, dentures, partials, and ability to extend neck assessed. AIRWAY ASSESSMENT: Yes MALLAMPATI SCORE MALLAMPATI SCORE: II PRE-SEDATION ASSESSMENT PRE-SEDATION ASSESSMENT: Yes NINA HEREDIA MD Sep 14, 2019 10:15
--- NOTE | 2019-09-14 10:15 | PDOC ---
BRIEF OPERATIVE NOTE Pre-Op Diagnosis CRF Post-Op Diagnosis same Procedure Performed Tunnelled HD catheter placement Surgeon Ramana Anesthesia Type: Conscious Sedation Findings 23cm Palindrome with excellent manual flows Complications No immediate NINA HEREDIA MD Sep 14, 2019 10:15
[2019-09-14] MEDS: PANTOPRAZOLE 40 MG TABLET.DR. PO SCH (10:20)
[2019-09-14] MEDS: DOCUSATE SODIUM 100 MG CAPSULE. PO SCH (10:21)
[2019-09-14] MEDS: ASPIRIN CHEWABLE 81 MG TABLET. PO SCH (10:21)
[2019-09-14] MEDS: TAMSULOSIN 0.4 MG CAP.ER.24H. PO SCH (10:21)
[2019-09-14] MEDS: CALCIUM ACETATE 667 MG CAPSULE PO SCH ×3 (10:22→17:53)
--- NOTE | 2019-09-14 11:06 | RAD ---
Procedure: Tunneled hemodialysis catheter placement Clinical Indication: 58-year-old requiring hemodialysis Sedation: Conscious sedation was administered for 33 minutes. The patient was monitored by a qualified independent observer throughout the time of sedation. Please refer to the medical record for exact doses of medications utilized to achieve moderate sedation. Antibiotics: Antibiotic was administered intravenously within 1 hour of the procedure start time. Fluoro Time: 1.4 minutes. Images: 1 Contrast: None Sterility: All elements of maximal sterile barrier technique including the use of a cap, mask, sterile gown, sterile gloves, large sterile sheet, appropriate hand hygiene, and 2% chlorhexidine for cutaneous antisepsis (or acceptable alternative antiseptic per current guidelines) were followed for this procedure. Consent: The procedure was explained in its entirety to the patient or the patients designated resources representative by a member of the treatment team, including a discussion of the risks, benefits and commonly accepted alternatives to the procedure, as well as the expected consequences of no therapy whatsoever. Discussion of the risks included, but was not limited to, those that are most frequent and those that are rare but possibly severe or life-threatening, as well as the possibility of unforeseen complications. Technique and Findings: Following informed consent, the patient was prepped and draped in the usual sterile fashion. Ultrasound interrogation of the right neck revealed patency and compressibility of the right internal jugular vein. A 21-gauge micropuncture was then used to gain access to this vein under ultrasound guidance. A hard copy ultrasound image was recorded. The needle was exchanged over a wire for a 4 Mont[place]gr[place] sheath which was used to guide an Amplatz wire into the IVC. The skin over the right anterior chest wall was copiously anesthetized with 1% Lidocaine plus Epinephrine and a small dermatotomy was made. A 23 cm palindrome tunneled hemodialysis catheter was then tunneled subcutaneously towards the neck dermatotomy and deployed through a large caliber peel-away sheath under fluoroscopic guidance such that the distal tip resided in the mid right atrium. Manual flow rates were assessed and found to be excellent. The catheter was then flushed, packed with Heparin, capped, and sutured to the skin. The neck dermatotomy was closed with Dermabond. Complications: No immediate Impression: 1. Tunneled hemodialysis catheter placement as described. This catheter demonstrates excellent manual flow rates and is suitable for use immediately.
--- NOTE | 2019-09-14 13:31 | PDOC ---
ARIA REECE TRACTOR OPERATOR HELPER 09/14/19 1331: CARDIO Progress Notes Date and Time Date of Service 09/14/2019 Time of Evaluation 1310 Subjective Subjective: No Chest Pain, No shortness of breath, No Palpitations Vitals Vitals Vital Signs Date Time Temp Pulse Resp B/P (MAP) Pulse Ox O2 Delivery O2 Flow Rate FiO2 09/14/19 10:12 97.8 94 16 122/70 (87) 94 Room Air 97.8 09/14/19 09:54 2.0 Weight Weight [ ] Input and Output Intake and Output Intake and Output 09/14/19 07:00 Intake Total 800 ml Output Total 250 ml Balance 550 ml Intake Oral 800 ml Emesis 250 ml # Voids 3 # Bowel Movements 1 Laboratory Labs Laboratory Tests Test 09/13/19 14:45 09/14/19 04:15 Prothrombin Time 14.5 SEC (11.7-14.0) Prothromb Time International Ratio 1.2 (0.8-1.1) Activated Partial Thromboplast Time 33 SEC (24-38) Sodium Level 134 mmol/L (136-145) Potassium Level 3.9 mmol/L (3.5-5.1) Chloride Level 94 mmol/L (98-107) Carbon Dioxide Level 27 mmol/L (21-32) Anion Gap 13 (6-14) Blood Urea Nitrogen 100 mg/dL (8-26) Creatinine 15.0 mg/dL (0.7-1.3) Estimated GFR (Cockcroft-Gault) 3.4 Glucose Level 94 mg/dL (70-99) Calcium Level 8.8 mg/dL (8.5-10.1) Phosphorus Level 8.6 mg/dL (2.6-4.7) Albumin 2.4 g/dL (3.4-5.0) Hepatitis B Surface Antigen Nonreactive (Nonreactive) Hepatitis B Surface Antibody Nonreactive Hepatitis B Core Total Antibody Nonreactive (Nonreactive) Microbiology Micro Microbiology 09/11/19 Aerobic Culture, Resulted Pending 09/11/19 Aerobic Culture Result 1 (SOFIA), Resulted Pending 09/11/19 Gram Stain - Final, Resulted 09/11/19 Gram Stain Result 1 (SOFIA) - Final, Resulted 09/11/19 Gram Stain Result 2 (SOFIA) - Final, Resulted Physical Exam HEENT: Neck Supple W Full Motion Chest: Symmetric LUNGS: Clear to Auscultation Heart: S1S2, RRR (SR) Abdomen: Soft N/T, Other (obese) Extremities: No Calf Tenderness Neurology: alert, oriented, follow commands Assessment Assessment 1. Near syncope: due to orthostasis/uremia 2. PSVT: brief episodes in the setting of uremia. EF and WM nml 3. ESRD: was on PD, now converted to HD 4. DORIS: CPAP intolarant 5. Asthma with recently treated acute bronchitis 6. Metabolic syndrome 7. Morbid obesity Recommendations 1. Fluid off loading per HD 2. Discussed with RN for orthostatic readings recheck. Continue midodrine 3. Continue ASA and statin. ELENA WHITTAKER MD 09/15/19 0744: CARDIO Progress Notes Plan Plan Late entry for 09/14/2019 Patient seen and examined. Agree with above nurse practitioner note. Discussed with patient and his regarding management of orthostatic hypotension in the setting of labile blood pressures and hemodialysis. I certainly think he will continue to have labile blood pressures and orthostasis issues. He will just need to closely monitor her blood pressures and take midodrine on an as-needed basis. ARIA REECE APRN Sep 14, 2019 13:31 ELENA WHITTAKER MD Sep 15, 2019 07:44
--- NOTE | 2019-09-14 14:07 | NUR ---
SS following up with discharge planning. Pt has Peritoneal Dialysis at home. SS notified that pt needs to switch to outpatient hemodialysis. SS phoned and faxed [facility], ; fax [phone]. SS will await further communication and chair time and will proceed accordingly with discharge planning.
--- NOTE | 2019-09-14 14:08 | PDOC ---
SUBJECTIVE ROS States feeling better, having mild headache Tunneled HDC placed, tolerating HD OBJECTIVE Vital Signs Vital Signs Date Time Temp Pulse Resp B/P (MAP) Pulse Ox O2 Delivery O2 Flow Rate FiO2 09/14/19 10:12 97.8 94 16 122/70 (87) 94 Room Air 97.8 09/14/19 09:54 2.0 I & 0 Intake and Output 09/14/19 07:00 Intake Total 800 ml Output Total 250 ml Balance 550 ml Intake Oral 800 ml Emesis 250 ml # Voids 3 # Bowel Movements 1 PHYSICAL EXAM Physical Exam General: No acute distress HEENT:OM moist, On RA Neck Supple Lungs: Clear to auscultation, Non labored Cardiovascular: S1, S2 Abdomen: Soft, No tenderness, obese , PD cath prsent, no e/o infection Extremities: No edema Skin: No rashes Neuro: Grossly Normal Psych/Mental Status: Mental status NL, Mood NL No Ruiz DIAGNOSIS/ASSESSMENT Assessment & Plan ESRD- On PD 2/ PCKD - under Dr. Varghese's care BUN/Cr has gone up since Nov 2018 Switched to hemo 1st treatment today, seen on HD, tolerating well, continue as ordered , Ozzie Landaverde Access TDC 09/14/19 Hypokalemia - On Torsemide as well, has some RRf Normal HyperPhoshatemia - suspect sec to Poor Clearance with PD (decrease in RRF) PCKD- Pt states he is agreeable for Nephrectomy Near syncope:Chronic dizziness for more than a year w/u including Echo and S/P LHC done per card as OP - Unremarkable Cardiology and Neuro consulted DORIS: CPAP intolerant Asthma with recently treated acute bronchitis Morbid obesity COMMENT/RELEVANT DATA Meds Current Medications Medications (Trade) Dose Ordered Sig/Tao Start Time Stop Time Status Last Admin Dose Admin Acetaminophen/ Hydrocodone Bitart (Lortab 5/325) 1 tab PRN Q4HRS PRN 09/11/19 18:30 09/14/19 07:47 1 TAB Albumin Human 200 ml @ 200 mls/hr 1X PRN PRN 09/14/19 10:15 09/14/19 16:14 Albuterol Sulfate (Ventolin Neb Soln) 2.5 mg PRN Q4HRS PRN 09/11/19 18:30 09/11/19 21:53 2.5 MG Aspirin (Children'S Aspirin) 81 mg DAILY 09/12/19 09:00 09/14/19 10:21 81 MG Atorvastatin Calcium (Lipitor) 40 mg HS 09/14/19 21:00 Calcium Acetate (Phoslo) 2,001 mg TIDWMEALS 09/12/19 08:00 09/14/19 10:22 2,001 MG Calcium Carbonate/ Glycine (Tums) 500 mg PRN AFTMEALHC PRN 09/11/19 18:30 09/13/19 07:00 500 MG Cefazolin Sodium 3 gm/Dextrose 100 ml @ 200 mls/hr 1X ONCE 09/14/19 09:15 09/14/19 09:44 DC 09/14/19 09:53 200 MLS/HR Clonidine HCl (Catapres) 0.1 mg PRN Q1HR PRN 09/11/19 18:30 Docusate Sodium (Colace) 100 mg DAILY 09/12/19 09:00 09/14/19 10:21 100 MG Fentanyl Citrate (Fentanyl 2ml Vial) 100 mcg 1X ONCE 09/14/19 09:45 09/14/19 09:46 DC 09/14/19 09:51 75 MCG Guaifenesin (Mucinex) 600 mg DAILY 09/12/19 09:00 09/14/19 10:21 600 MG Guaifenesin (Robitussin Dm) 10 ml PRN Q6HRS PRN 09/11/19 18:30 Heparin Sodium (Porcine) (Heparin Sodium) 10,000 unit STK-MED ONCE 09/14/19 09:07 09/14/19 09:07 DC Info (PHARMACY MONITORING -- do not chart) 1 each PRN DAILY PRN 09/14/19 10:15 UNV Lidocaine/ Epinephrine (LIDOCAINE 1%-EPI 1:100,000 Multi-Dose) 20 ml 1X ONCE 09/14/19 09:45 09/14/19 09:46 DC 09/14/19 09:50 10 ML Lorazepam (Ativan Inj) 2 mg PRN Q4HRS PRN 09/11/19 18:45 Midazolam HCl (Versed) 5 mg 1X ONCE 09/14/19 09:45 09/14/19 09:46 DC 09/14/19 09:51 2.5 MG Midodrine (Proamatine) 2.5 mg [id number] 09/12/19 11:00 09/14/19 06:10 2.5 MG Morphine Sulfate (Morphine Sulfate) 2 mg PRN Q2HR PRN 09/11/19 18:30 Ondansetron HCl (Zofran) 4 mg PRN Q6HRS PRN 09/11/19 18:30 09/13/19 17:23 4 MG Pantoprazole Sodium (Protonix) 40 mg DAILYAC 09/12/19 07:30 09/14/19 10:20 40 MG Potassium Chloride (Klor-Con) 40 meq 1X ONCE 09/12/19 05:30 09/12/19 05:31 DC 09/12/19 05:13 40 MEQ Sodium Chloride 1,000 ml @ 400 mls/hr Q2H30M PRN 09/14/19 10:09 09/14/19 22:08 Sodium Chloride (Normal Saline Flush) 10 ml 1X PRN PRN 09/14/19 10:15 09/15/19 10:14 Tamsulosin HCl (Flomax) 0.4 mg DAILY 09/12/19 09:00 09/14/19 10:21 0.4 MG Torsemide (Demadex) 20 mg DAILY 09/12/19 09:00 09/12/19 10:15 DC 09/12/19 09:46 20 MG Trazodone HCl (Desyrel) 50 mg HS 09/11/19 21:00 09/13/19 21:09 50 MG Lab Laboratory Tests Test 09/13/19 14:45 09/14/19 04:15 Prothrombin Time 14.5 SEC (11.7-14.0) Prothromb Time International Ratio 1.2 (0.8-1.1) Activated Partial Thromboplast Time 33 SEC (24-38) Sodium Level 134 mmol/L (136-145) Potassium Level 3.9 mmol/L (3.5-5.1) Chloride Level 94 mmol/L (98-107) Carbon Dioxide Level 27 mmol/L (21-32) Anion Gap 13 (6-14) Blood Urea Nitrogen 100 mg/dL (8-26) Creatinine 15.0 mg/dL (0.7-1.3) Estimated GFR (Cockcroft-Gault) 3.4 Glucose Level 94 mg/dL (70-99) Calcium Level 8.8 mg/dL (8.5-10.1) Phosphorus Level 8.6 mg/dL (2.6-4.7) Albumin 2.4 g/dL (3.4-5.0) Hepatitis B Surface Antigen Nonreactive (Nonreactive) Hepatitis B Surface Antibody Nonreactive Hepatitis B Core Total Antibody Nonreactive (Nonreactive) Results All relevant outside records, renal labs, imaging studies, telemetry/EKG's were reviewed. RICHY PINEDA MD Sep 14, 2019 14:08
[2019-09-14] MEDS: traZODone 50 MG TABLET. PO SCH (21:35)
[2019-09-14] MEDS: ATORVASTATIN CALCIUM 40 MG TABLET. PO SCH (21:35)
[2019-09-15 03:00] VITALS: BP 111/79
[2019-09-15] MEDS: HYDROcodone/APAP 5/325MG 1 TAB TABLET PO PRN (05:13)
[2019-09-15] MEDS ORDERED: IV NORMAL SALINE 1000ML BAG 1,000 ML IV PRN ×2 (07:00)
[2019-09-15] MEDS: MIDODRINE 2.5 MG TABLET PO SCH ×3 (07:00→17:18)
[2019-09-15] MEDS ORDERED: DIALYSIS PATIENT. MC PRN ×2 (07:00)
[2019-09-15 07:10] VITALS: BP 119/69
[2019-09-15] MEDS: CALCIUM ACETATE 667 MG CAPSULE PO SCH ×3 (08:00→17:17)
[2019-09-15] MEDS: TAMSULOSIN 0.4 MG CAP.ER.24H. PO SCH (12:47)
[2019-09-15] MEDS: DOCUSATE SODIUM 100 MG CAPSULE. PO SCH (12:48)
[2019-09-15] MEDS: PANTOPRAZOLE 40 MG TABLET.DR. PO SCH (12:48)
[2019-09-15] MEDS: ASPIRIN CHEWABLE 81 MG TABLET. PO SCH (12:48)
--- NOTE | 2019-09-15 14:18 | PDOC ---
PROGRESS NOTES Chief Complaint Chief Complaint Syncope - due to orthostasis/uremia and potentially from arrhythmia. Midodrine therapy started based on positive orthostatics PSVT - in the setting of uremia and hypokalemia ESRD - Utilizes PD DORIS - CPAP intolerant, he won't even wear nocturnal NCO2 Asthma with recently treated acute bronchitis Hyperglycemia Morbid obesity Polycystic kidney disease - may have abnormal CT and need nephrectomy History of Present Illness History of Present Illness Pt is 58 yo CM ESRD on PD admitted with c/o chronic dizziness but passed out yesterday- lasted only 2 secs., says he was mildly shaking, no drooling, upward rolling eyeballs or loss of bladder or bowel fcn, He apparently has been worked up before by our cardiology for "syncope" with echo and LHC with normal results. He follows with Pul as well . He was not orthostatic in ER He has been on PD for 2 years under the care of Dr. Varghese . His UOP has declined but has some RRF . His BUN/Cr has been high for some time, changes has been made to PD prescription recently. He has LBF and does manual exchange at home PD fluid is clear, denies any abdominal pain .No Urinary complaints His WBC was 19 at presentation, Pt and report that he has been on prednisone and Zpak and just completed the last dose yesterday Echo, results normal. Discussed positive orthostatics and need for midodrine. The left ventricular systolic function is normal. The Ejection Fraction is 60-65%. There is normal LV segmental wall motion. Transmitral Doppler flow pattern is Grade I-abnormal relaxation pattern. Trace mitral regurgitation. Trace tricuspid regurgitation. There is no evidence of significant pericardial effusion. 09/12: This morning vomited up green beans and adalberto steak that was visible. He did not sleep great. Desaturated into the 70s, states he cannot wear O2 and is intolerant of CPAP. After d/w nephrology he will convert to HD tomorrow morning with plans for outpatient nephrectomy. 09/14: To IR this morning for HD cath and initiate HD today. Still with nausea. Has been getting headaches with midodrine administration, finds this bothersome. Still with some nausea, no vomiting. Vitals Vitals Vital Signs Date Time Temp Pulse Resp B/P (MAP) Pulse Ox O2 Delivery O2 Flow Rate FiO2 09/15/19 12:51 103 97/75 09/15/19 08:00 Room Air 09/15/19 07:10 98.0 16 92 98.0 09/14/19 09:54 2.0 Physical Exam General: Alert, Oriented X3, Cooperative, No acute distress Heart: Regular rate Abdomen: Soft, Other (obese) Extremities: No cyanosis, Other (2+ bilateral LE pitting edema) Skin: No breakdown, Other (venous dermatitis) Assessment and Plan Assessmemt and Plan Problems Medical Problems: (1) Asthma Status: Chronic (2) ESRD on peritoneal dialysis Status: Chronic (3) Hyperglycemia Status: Acute (4) Obesity Status: Chronic (5) DORIS (obstructive sleep apnea) Status: Chronic (6) PSVT (paroxysmal supraventricular tachycardia) Status: Chronic (7) Syncopal episodes Status: Acute Comment Review of Relevant I have reviewed the following items bennie (where applicable) has been applied. Labs Laboratory Tests Test 09/13/19 14:45 09/14/19 04:15 Prothrombin Time 14.5 SEC (11.7-14.0) Prothromb Time International Ratio 1.2 (0.8-1.1) Activated Partial Thromboplast Time 33 SEC (24-38) Sodium Level 134 mmol/L (136-145) Potassium Level 3.9 mmol/L (3.5-5.1) Chloride Level 94 mmol/L (98-107) Carbon Dioxide Level 27 mmol/L (21-32) Anion Gap 13 (6-14) Blood Urea Nitrogen 100 mg/dL (8-26) Creatinine 15.0 mg/dL (0.7-1.3) Estimated GFR (Cockcroft-Gault) 3.4 Glucose Level 94 mg/dL (70-99) Calcium Level 8.8 mg/dL (8.5-10.1) Phosphorus Level 8.6 mg/dL (2.6-4.7) Albumin 2.4 g/dL (3.4-5.0) Hepatitis B Surface Antigen Nonreactive (Nonreactive) Hepatitis B Surface Antibody Nonreactive Hepatitis B Core Total Antibody Nonreactive (Nonreactive) Microbiology 09/11/19 Aerobic Culture - Final, Complete 09/11/19 Aerobic Culture Result 1 (SOFIA) - Final, Complete 09/11/19 Gram Stain - Final, Complete 09/11/19 Gram Stain Result 1 (SOFIA) - Final, Complete 09/11/19 Gram Stain Result 2 (SOFIA) - Final, Complete Medications Current Medications Aspirin (Children'S Aspirin) 81 mg DAILY PO Last administered on 09/15/19 12:48; Start 09/12/19 at 09:00 Atorvastatin Calcium (Lipitor) 20 mg HS PO Last administered on 09/13/19 21:09; Start 09/11/19 at 21:00; Stop 09/14/19 at 13:30; Status DC Docusate Sodium (Colace) 100 mg DAILY PO Last administered on 09/15/19 12:48; Start 09/12/19 at 09:00 Tamsulosin HCl (Flomax) 0.4 mg DAILY PO Last administered on 09/15/19 12:47; Start 09/12/19 at 09:00 Torsemide (Demadex) 20 mg DAILY PO Last administered on 09/12/19 09:46; Start 09/12/19 at 09:00; Stop 09/12/19 at 10:15; Status DC Trazodone HCl (Desyrel) 50 mg HS PO Last administered on 09/14/19 21:35; Start 09/11/19 at 21:00 Calcium Acetate (Phoslo) 2,001 mg TIDWMEALS PO Last administered on 09/15/19 12:49; Start 09/12/19 at 08:00 Guaifenesin (Mucinex) 600 mg DAILY PO Last administered on 09/15/19 12:47; Start 09/12/19 at 09:00 Pantoprazole Sodium (Protonix) 40 mg DAILYAC PO Last administered on 09/15/19 12:48; Start 09/12/19 at 07:30 Acetaminophen/ Hydrocodone Bitart (Lortab 5/325) 1 tab PRN Q4HRS PRN PO PAIN Last administered on 09/15/19 05:13; Start 09/11/19 at 18:30 Morphine Sulfate (Morphine Sulfate) 2 mg PRN Q2HR PRN IV PAIN; Start 09/11/19 at 18:30 Ondansetron HCl (Zofran) 4 mg PRN Q6HRS PRN IVP NAUSEA/VOMITING Last administered on 09/13/19 17:23; Start 09/11/19 at 18:30 Clonidine HCl (Catapres) 0.1 mg PRN Q1HR PRN PO HYPERTENSION; Start 09/11/19 at 18:30 Calcium Carbonate/ Glycine (Tums) 500 mg PRN AFTMEALHC PRN PO INDIGESTION Last administered on 09/13/19at 07:00; Start 09/11/19 at 18:30 Guaifenesin (Robitussin Dm) 10 ml PRN Q6HRS PRN PO COUGH; Start 09/11/19 at 18:30 Albuterol Sulfate (Ventolin Neb Soln) 2.5 mg PRN Q4HRS PRN NEB SHORTNESS OF BREATH Last administered on 09/11/19at 21:53; Start 09/11/19 at 18:30 Lorazepam (Ativan Inj) 2 mg PRN Q4HRS PRN IVP SEIZURE; Start 09/11/19 at 18:45 Potassium Chloride (Klor-Con) 40 meq 1X ONCE PO Last administered on 09/12/19at 05:13; Start 09/12/19 at 05:30; Stop 09/12/19 at 05:31; Status DC Midodrine (Proamatine) 2.5 mg [id number] PO Last administered on 09/15/19at 12:51; Start 09/12/19 at 11:00 Lidocaine/ Epinephrine (LIDOCAINE 1%-EPI 1:100,000 Multi-Dose) 20 ml STK-MED ONCE .ROUTE ; Start 09/14/19 at 09:07; Stop 09/14/19 at 09:07; Status DC Heparin Sodium (Porcine) (Heparin Sodium) 10,000 unit STK-MED ONCE .ROUTE ; Start 09/14/19 at 09:07; Stop 09/14/19 at 09:07; Status DC Cefazolin Sodium 3 gm/Dextrose 100 ml @ 200 mls/hr 1X ONCE IV Last administered on 09/14/19at 09:53; Start 09/14/19 at 09:15; Stop 09/14/19 at 09:44; Status DC Midazolam HCl (Versed) 5 mg STK-MED ONCE .ROUTE ; Start 09/14/19 at 09:24; Stop 09/14/19 at 09:24; Status DC Fentanyl Citrate (Fentanyl 2ml Vial) 100 mcg STK-MED ONCE .ROUTE ; Start 09/14/19 at 09:24; Stop 09/14/19 at 09:24; Status DC Midazolam HCl (Versed) 5 mg 1X ONCE IV Last administered on 09/14/19at 09:51; Start 09/14/19 at 09:45; Stop 09/14/19 at 09:46; Status DC Fentanyl Citrate (Fentanyl 2ml Vial) 100 mcg 1X ONCE IV Last administered on 09/14/19at 09:51; Start 09/14/19 at 09:45; Stop 09/14/19 at 09:46; Status DC Lidocaine/ Epinephrine (LIDOCAINE 1%-EPI 1:100,000 Multi-Dose) 20 ml 1X ONCE INJ Last administered on 09/14/19at 09:50; Start 09/14/19 at 09:45; Stop 09/14/19 at 09:46; Status DC Sodium Chloride 1,000 ml @ 1,000 mls/hr Q1H PRN IV hypotension; Start 09/14/19 at 10:09; Stop 09/14/19 at 16:08; Status DC Albumin Human 200 ml @ 200 mls/hr 1X PRN PRN IV Hypotension; Start 09/14/19 at 10:15; Stop 09/14/19 at 16:14; Status DC Sodium Chloride (Normal Saline Flush) 10 ml 1X PRN PRN IV AP catheter pack; Start 09/14/19 at 10:15; Stop 09/15/19 at 10:14; Status DC Sodium Chloride (Normal Saline Flush) 10 ml 1X PRN PRN IV JBOSS ARCHITECT catheter pack; Start 09/14/19 at 10:15; Stop 09/15/19 at 10:14; Status DC Sodium Chloride 1,000 ml @ 400 mls/hr Q2H30M PRN IV PATENCY; Start 09/14/19 at 10:09; Stop 09/14/19 at 22:08; Status DC Info (PHARMACY MONITORING -- do not chart) 1 each PRN DAILY PRN MC SEE COMMENTS; Start 09/14/19 at 10:15 Info (PHARMACY MONITORING -- do not chart) 1 each PRN DAILY PRN MC SEE COM MENTS; Start 09/14/19 at 10:15; Status UNV Atorvastatin Calcium (Lipitor) 40 mg HS PO Last administered on 09/14/19at 21:35; Start 09/14/19 at 21:00 Sodium Chloride 1,000 ml @ 1,000 mls/hr Q1H PRN IV hypotension; Start 09/15/19 at 07:00; Stop 09/15/19 at 19:00 Sodium Chloride 1,000 ml @ 400 mls/hr Q2H30M PRN IV PATENCY; Start 09/15/19 at 07:00; Stop 09/15/19 at 19:00 Info (PHARMACY MONITORING -- do not chart) 1 each PRN DAILY PRN MC SEE COMMENTS; Start 09/15/19 at 07:00; Status UNV Info (PHARMACY MONITORING -- do not chart) 1 each PRN DAILY PRN MC SEE COMMENTS; Start 09/15/19 at 07:00; Status UNV Active Scripts Active Reported Atorvastatin Calcium 20 Mg Tablet 20 Mg PO HS Colace (Docusate Sodium) 100 Mg Capsule 100 Mg PO DAILY Aspirin 81 Mg Tab.chew 81 Mg PO DAILY Tamsulosin Hcl 0.4 Mg Cap.er.24h 0.4 Mg PO DAILY Trazodone Hcl 50 Mg Tablet 1-2 Tab PO HS Guaifenesin 400 Mg Tablet 400 Mg PO DAILY Torsemide 20 Mg Tablet 20 Mg PO DAILY Calcium Acetate 667 Mg Tablet 3 Cap PO TIDWMEALS Prevacid (Lansoprazole) 15 Mg Capsule. 1 Cap PO DAILY Vitals/I & O Vital Sign - Last 24 Hours 09/14/19 09/14/19 09/14/19 09/14/19 14:25 17:24 17:24 17:25 Temp 98.2 98.2 Pulse 94 102 96 100 Resp 16 B/P (MAP) 133/69 (90) 121/93 (102) 119/79 (92) 128/74 (92) Pulse Ox 92 O2 Delivery Room Air 09/14/19 09/14/19 09/14/19 09/14/19 18:30 18:31 19:00 19:00 Temp 97.8 97.8 Pulse 101 100 106 116 Resp 16 16 B/P (MAP) 90/63 90/63 (72) 90/63 (72) 69/42 (51) Pulse Ox 93 96 O2 Delivery Room Air 09/14/19 09/14/19 09/14/19 09/15/19 19:00 20:00 23:00 03:00 Temp 97.8 97.9 97.8 97.9 Pulse 114 88 90 Resp 16 20 16 B/P (MAP) 114/63 (80) 97/68 (78) 111/79 (90) Pulse Ox 92 91 91 O2 Delivery Room Air Room Air Room Air Room Air 09/15/19 09/15/19 09/15/19 09/15/19 05:13 06:13 07:10 08:00 Temp 98.0 98.0 Pulse 90 Resp 16 B/P (MAP) 119/69 (86) Pulse Ox 91 92 O2 Delivery Room Air Room Air Room Air Room Air 09/15/19 12:51 Pulse 103 B/P (MAP) 97/75 Intake and Output 09/14/19 09/14/19 09/15/19 15:00 23:00 07:00 Intake Total 600 ml 650 ml Balance 600 ml 650 ml HILDA SMILEY MD Sep 15, 2019 14:18
[2019-09-15 14:20] VITALS: BP 131/99
--- NOTE | 2019-09-15 15:37 | PDOC ---
Renal-Progress Notes Subjective Notes Notes NO NEW COMPLAINTS History of Present Illness Hx of present illness STABLE Vitals Vitals Vital Signs Date Time Temp Pulse Resp B/P (MAP) Pulse Ox O2 Delivery O2 Flow Rate FiO2 09/15/19 14:20 98.7 120 16 131/99 (110) 95 Room Air 98.7 09/14/19 09:54 2.0 Weight Weight [ ] I.O. Intake and Output Intake and Output 09/15/19 07:00 Intake Total 1250 ml Balance 1250 ml Intake Oral 1250 ml # Voids 3 Micro Micro Microbiology 09/11/19 Aerobic Culture - Final, Complete 09/11/19 Aerobic Culture Result 1 (SOFIA) - Final, Complete 09/11/19 Gram Stain - Final, Complete 09/11/19 Gram Stain Result 1 (SOFIA) - Final, Complete 09/11/19 Gram Stain Result 2 (SOFIA) - Final, Complete Review of Systems Constitutional: yes: alert, oriented Ears/Nose/Throat: Yes: no symptom reported Eyes: Yes: no symptom reported Pulmonary: Yes dyspnea Cardiovascular: Yes no symptom reported Gastrointestional: Yes: abdominal pain Genitourinary: Yes: no symptom reported Musculoskeletal: Yes: no symptom reported Skin: Yes no symptom reported Psychiatric/Neurological: Yes: no symptom reported Endocrine: Yes: no symptom reported Physical Exam General Appearance: no apparent distress Skin: warm Respiratory: decreased breath sounds Heart: S1S2 Abdomen: soft, rectal tube Genitourinary: bladder flat Neurology: alert, oriented, follow commands Assessment Assessment IMP SYNCOPE ESRD ANEMIA ADPKD PLAN NEPHRECTOMY OP HD TODAY UF TO DW CONT MIDODRINE WILL FOLLOW NORIS JAMES MD Sep 15, 2019 15:36
[2019-09-15 19:55] VITALS: BP 117/68
[2019-09-15] MEDS: ATORVASTATIN CALCIUM 40 MG TABLET. PO SCH (20:10)
[2019-09-15] MEDS: traZODone 50 MG TABLET. PO SCH (20:10)
[2019-09-15 22:57] VITALS: BP 111/69
[2019-09-16 03:50] VITALS: BP 128/65
[2019-09-16] MEDS: MIDODRINE 2.5 MG TABLET PO SCH ×3 (07:00→17:44)
[2019-09-16 07:02] VITALS: BP 108/75
[2019-09-16] MEDS: PANTOPRAZOLE 40 MG TABLET.DR. PO SCH (08:37)
[2019-09-16] MEDS: TAMSULOSIN 0.4 MG CAP.ER.24H. PO SCH (08:38)
[2019-09-16] MEDS: CALCIUM ACETATE 667 MG CAPSULE PO SCH ×3 (08:38→17:39)
[2019-09-16] MEDS: DOCUSATE SODIUM 100 MG CAPSULE. PO SCH (08:38)
[2019-09-16] MEDS: ASPIRIN CHEWABLE 81 MG TABLET. PO SCH (08:39)
[2019-09-16 10:28] VITALS: BP 124/84
--- NOTE | 2019-09-16 10:48 | PDOC ---
PROGRESS NOTES Chief Complaint Chief Complaint Syncope - due to orthostasis/uremia and potentially from arrhythmia. Midodrine therapy started based on positive orthostatics PSVT - in the setting of uremia and hypokalemia ESRD - Utilizes PD DORIS - CPAP intolerant, he won't even wear nocturnal NCO2 Asthma with recently treated acute bronchitis Hyperglycemia Morbid obesity Polycystic kidney disease - may have abnormal CT and need nephrectomy History of Present Illness History of Present Illness Pt is 58 yo CM ESRD on PD admitted with c/o chronic dizziness but passed out yesterday- lasted only 2 secs., says he was mildly shaking, no drooling, upward rolling eyeballs or loss of bladder or bowel fcn, He apparently has been worked up before by our cardiology for "syncope" with echo and LHC with normal results. He follows with Pul as well . He was not orthostatic in ER He has been on PD for 2 years under the care of Dr. Varghese . His UOP has declined but has some RRF . His BUN/Cr has been high for some time, changes has been made to PD prescription recently. He has LBF and does manual exchange at home PD fluid is clear, denies any abdominal pain .No Urinary complaints His WBC was 19 at presentation, Pt and report that he has been on prednisone and Zpak and just completed the last dose yesterday Echo, results normal. Discussed positive orthostatics and need for midodrine. The left ventricular systolic function is normal. The Ejection Fraction is 60-65%. There is normal LV segmental wall motion. Transmitral Doppler flow pattern is Grade I-abnormal relaxation pattern. Trace mitral regurgitation. Trace tricuspid regurgitation. There is no evidence of significant pericardial effusion. 09/12: This morning vomited up green beans and adalberto steak that was visible. He did not sleep great. Desaturated into the 70s, states he cannot wear O2 and is intolerant of CPAP. After d/w nephrology he will convert to HD tomorrow morning with plans for outpatient nephrectomy. 09/14: To IR this morning for HD cath and initiate HD today. Still with nausea. 09/15: Has been getting headaches with midodrine administration, finds this bothersome. Still with some nausea, no vomiting. Last midodrind dose did not get a headache. BP better. LE edema is significant today. Denies CP or SOB. Plan: Will need outpatient HD placement now that he has converted from PD and plan for outpatient urology referral for renal mass Vitals Vitals Vital Signs Date Time Temp Pulse Resp B/P (MAP) Pulse Ox O2 Delivery O2 Flow Rate FiO2 09/16/19 10:28 98.1 98 16 124/84 (97) 95 Room Air 98.1 Physical Exam General: Alert, Oriented X3, Cooperative, No acute distress Heart: Regular rate Abdomen: Soft, Other (obese) Extremities: No cyanosis, Other (2+ bilateral LE pitting edema) Skin: No breakdown, Other (venous dermatitis) Assessment and Plan Assessmemt and Plan Problems Medical Problems: (1) Asthma Status: Chronic (2) ESRD on peritoneal dialysis Status: Chronic (3) Hyperglycemia Status: Acute (4) Obesity Status: Chronic (5) DORIS (obstructive sleep apnea) Status: Chronic (6) PSVT (paroxysmal supraventricular tachycardia) Status: Chronic (7) Syncopal episodes Status: Acute Comment Review of Relevant I have reviewed the following items bennie (where applicable) has been applied. Labs Microbiology 09/11/19 Aerobic Culture - Final, Complete 09/11/19 Aerobic Culture Result 1 (SOFIA) - Final, Complete 09/11/19 Gram Stain - Final, Complete 09/11/19 Gram Stain Result 1 (SOFIA) - Final, Complete 09/11/19 Gram Stain Result 2 (SOFIA) - Final, Complete Medications Current Medications Aspirin (Children'S Aspirin) 81 mg DAILY PO Last administered on 09/16/19at 08:39; Start 09/12/19 at 09:00 Atorvastatin Calcium (Lipitor) 20 mg HS PO Last administered on 09/13/19at 21:09; Start 09/11/19 at 21:00; Stop 09/14/19 at 13:30; Status DC Docusate Sodium (Colace) 100 mg DAILY PO Last administered on 09/16/19at 08:38; Start 09/12/19 at 09:00 Tamsulosin HCl (Flomax) 0.4 mg DAILY PO Last administered on 09/16/19at 08:38; Start 09/12/19 at 09:00 Torsemide (Demadex) 20 mg DAILY PO Last administered on 09/12/19at 09:46; Start 09/12/19 at 09:00; Stop 09/12/19 at 10:15; Status DC Trazodone HCl (Desyrel) 50 mg HS PO Last administered on 09/15/19 20:10; Start 09/11/19 at 21:00 Calcium Acetate (Phoslo) 2,001 mg TIDWMEALS PO Last administered on 09/16/19 08:38; Start 09/12/19 at 08:00 Guaifenesin (Mucinex) 600 mg DAILY PO Last administered on 09/16/19 08:38; Start 09/12/19 at 09:00 Pantoprazole Sodium (Protonix) 40 mg DAILYAC PO Last administered on 09/16/19 08:37; Start 09/12/19 at 07:30 Acetaminophen/ Hydrocodone Bitart (Lortab 5/325) 1 tab PRN Q4HRS PRN PO PAIN Last administered on 09/15/19 05:13; Start 09/11/19 at 18:30 Morphine Sulfate (Morphine Sulfate) 2 mg PRN Q2HR PRN IV PAIN; Start 09/11/19 at 18:30 Ondansetron HCl (Zofran) 4 mg PRN Q6HRS PRN IVP NAUSEA/VOMITING Last administered on 09/13/19 17:23; Start 09/11/19 at 18:30 Clonidine HCl (Catapres) 0.1 mg PRN Q1HR PRN PO HYPERTENSION; Start 09/11/19 at 18:30 Calcium Carbonate/ Glycine (Tums) 500 mg PRN AFTMEALHC PRN PO INDIGESTION Last administered on 09/13/19 07:00; Start 09/11/19 at 18:30 Guaifenesin (Robitussin Dm) 10 ml PRN Q6HRS PRN PO COUGH; Start 09/11/19 at 18:30 Albuterol Sulfate (Ventolin Neb Soln) 2.5 mg PRN Q4HRS PRN NEB SHORTNESS OF BREATH Last administered on 09/11/19 21:53; Start 09/11/19 at 18:30 Lorazepam (Ativan Inj) 2 mg PRN Q4HRS PRN IVP SEIZURE; Start 09/11/19 at 18:45 Potassium Chloride (Klor-Con) 40 meq 1X ONCE PO Last administered on 09/12/19 05:13; Start 09/12/19 at 05:30; Stop 09/12/19 at 05:31; Status DC Midodrine (Proamatine) 2.5 mg [id number] PO Last administered on 09/15/19at 12:51; Start 09/12/19 at 11:00 Lidocaine/ Epinephrine (LIDOCAINE 1%-EPI 1:100,000 Multi-Dose) 20 ml STK-MED ONCE .ROUTE ; Start 09/14/19 at 09:07; Stop 09/14/19 at 09:07; Status DC Heparin Sodium (Porcine) (Heparin Sodium) 10,000 unit STK-MED ONCE .ROUTE ; Start 09/14/19 at 09:07; Stop 09/14/19 at 09:07; Status DC Cefazolin Sodium 3 gm/Dextrose 100 ml @ 200 mls/hr 1X ONCE IV Last administered on 09/14/19at 09:53; Start 09/14/19 at 09:15; Stop 09/14/19 at 09:44; Status DC Midazolam HCl (Versed) 5 mg STK-MED ONCE .ROUTE ; Start 09/14/19 at 09:24; Stop 09/14/19 at 09:24; Status DC Fentanyl Citrate (Fentanyl 2ml Vial) 100 mcg STK-MED ONCE .ROUTE ; Start 09/14/19 at 09:24; Stop 09/14/19 at 09:24; Status DC Midazolam HCl (Versed) 5 mg 1X ONCE IV Last administered on 09/14/19at 09:51; Start 09/14/19 at 09:45; Stop 09/14/19 at 09:46; Status DC Fentanyl Citrate (Fentanyl 2ml Vial) 100 mcg 1X ONCE IV Last administered on 09/14/19at 09:51; Start 09/14/19 at 09:45; Stop 09/14/19 at 09:46; Status DC Lidocaine/ Epinephrine (LIDOCAINE 1%-EPI 1:100,000 Multi-Dose) 20 ml 1X ONCE INJ Last administered on 09/14/19at 09:50; Start 09/14/19 at 09:45; Stop 09/14/19 at 09:46; Status DC Sodium Chloride 1,000 ml @ 1,000 mls/hr Q1H PRN IV hypotension; Start 09/14/19 at 10:09; Stop 09/14/19 at 16:08; Status DC Albumin Human 200 ml @ 200 mls/hr 1X PRN PRN IV Hypotension; Start 09/14/19 at 10:15; Stop 09/14/19 at 16:14; Status DC Sodium Chloride (Normal Saline Flush) 10 ml 1X PRN PRN IV AP catheter pack; St art 09/14/19 at 10:15; Stop 09/15/19 at 10:14; Status DC Sodium Chloride (Normal Saline Flush) 10 ml 1X PRN PRN IV EMPLOYEE RELATIONS ASSISTANT catheter pack; Start 09/14/19 at 10:15; Stop 09/15/19 at 10:14; Status DC Sodium Chloride 1,000 ml @ 400 mls/hr Q2H30M PRN IV PATENCY; Start 09/14/19 at 10:09; Stop 09/14/19 at 22:08; Status DC Info (PHARMACY MONITORING -- do not chart) 1 each PRN DAILY PRN MC SEE COMMENTS; Start 09/14/19 at 10:15 Info (PHARMACY MONITORING -- do not chart) 1 each PRN DAILY PRN MC SEE COMMENTS; Start 09/14/19 at 10:15; Status UNV Atorvastatin Calcium (Lipitor) 40 mg HS PO Last administered on 09/15/19at 20:10; Start 09/14/19 at 21:00 Sodium Chloride 1,000 ml @ 1,000 mls/hr Q1H PRN IV hypotension; Start 09/15/19 at 07:00; Stop 09/15/19 at 19:00; Status DC Sodium Chloride 1,000 ml @ 400 mls/hr Q2H30M PRN IV PATENCY; Start 09/15/19 at 07:00; Stop 09/15/19 at 19:00; Status DC Info (PHARMACY MONITORING -- do not chart) 1 each PRN DAILY PRN MC SEE COMMENTS; Start 09/15/19 at 07:00; Status UNV Info (PHARMACY MONITORING -- do not chart) 1 each PRN DAILY PRN MC SEE COMMENTS; Start 09/15/19 at 07:00; Status UNV Active Scripts Active Reported Atorvastatin Calcium 20 Mg Tablet 20 Mg PO HS Colace (Docusate Sodium) 100 Mg Capsule 100 Mg PO DAILY Aspirin 81 Mg Tab.chew 81 Mg PO DAILY Tamsulosin Hcl 0.4 Mg Cap.er.24h 0.4 Mg PO DAILY Trazodone Hcl 50 Mg Tablet 1-2 Tab PO HS Guaifenesin 400 Mg Tablet 400 Mg PO DAILY Torsemide 20 Mg Tablet 20 Mg PO DAILY Calcium Acetate 667 Mg Tablet 3 Cap PO TIDWMEALS Prevacid (Lansoprazole) 15 Mg Capsule. 1 Cap PO DAILY Vitals/I & O Vital Sign - Last 24 Hours 09/15/19 09/15/19 09/15/19 09/15/19 12:51 14:20 17:18 19:31 Temp 98.7 98.7 Pulse 103 120 96 Resp 16 B/P (MAP) 97/75 131/99 (110) 120/70 Pulse Ox 95 O2 Delivery Room Air Room Air 09/15/19 09/15/19 09/16/19 09/16/19 19:55 22:57 03:50 07:00 Temp 97.4 98.1 97.1 97.4 98.1 97.1 Pulse 82 89 90 Resp 16 16 16 B/P (MAP) 117/68 (84) 111/69 (83) 128/65 (86) 123/90 Pulse Ox 96 96 96 O2 Delivery Room Air Room Air Room Air 09/16/19 09/16/19 09/16/19 07:02 08:00 10:28 Temp 97.3 98.1 97.3 98.1 Pulse 86 98 Resp 16 16 B/P (MAP) 108/75 (86) 124/84 (97) Pulse Ox 93 95 O2 Delivery Room Air Room Air Room Air Intake and Output 09/15/19 09/15/19 09/16/19 15:00 23:00 07:00 Intake Total 900 ml 700 ml Balance 900 ml 700 ml HILDA SMILEY MD Sep 16, 2019 10:47
--- NOTE | 2019-09-16 11:36 | PDOC ---
Renal-Progress Notes Subjective Notes Notes NO NEW COMPLAINTS History of Present Illness Hx of present illness STABLE Vitals Vitals Vital Signs Date Time Temp Pulse Resp B/P (MAP) Pulse Ox O2 Delivery O2 Flow Rate FiO2 09/16/19 10:28 98.1 98 16 124/84 (97) 95 Room Air 98.1 Weight Weight [ ] I.O. Intake and Output Intake and Output 09/16/19 06:59 Intake Total 1600 ml Balance 1600 ml Intake Oral 1600 ml # Bowel Movements 1 Micro Micro Microbiology 09/11/19 Aerobic Culture - Final, Complete 09/11/19 Aerobic Culture Result 1 (SOFIA) - Final, Complete 09/11/19 Gram Stain - Final, Complete 09/11/19 Gram Stain Result 1 (SOFIA) - Final, Complete 09/11/19 Gram Stain Result 2 (SOFIA) - Final, Complete Review of Systems Constitutional: yes: alert, oriented Ears/Nose/Throat: Yes: no symptom reported Eyes: Yes: no symptom reported Pulmonary: Yes dyspnea Cardiovascular: Yes no symptom reported Gastrointestional: Yes: abdominal pain Genitourinary: Yes: no symptom reported Musculoskeletal: Yes: no symptom reported Skin: Yes no symptom reported Psychiatric/Neurological: Yes: no symptom reported Endocrine: Yes: no symptom reported Physical Exam General Appearance: no apparent distress Skin: warm Respiratory: decreased breath sounds Heart: S1S2 Abdomen: soft, rectal tube Genitourinary: bladder flat Neurology: alert, oriented, follow commands Assessment Assessment IMP SYNCOPE ORTHOSTASIS-BETTER ESRD ANEMIA ADPKD PLAN NEPHRECTOMY OP HD TTS CONT MIDODRINE WILL FOLLOW NORIS JAMES MD Sep 16, 2019 11:36
[2019-09-16 14:15] VITALS: BP_SYST 114; BP_SYST 131; BP_DIAS 84
[2019-09-16 19:27] VITALS: BP 133/91
[2019-09-16] MEDS: ATORVASTATIN CALCIUM 40 MG TABLET. PO SCH (19:59)
[2019-09-16] MEDS: traZODone 50 MG TABLET. PO SCH (19:59)
[2019-09-16] MEDS: HYDROcodone/APAP 5/325MG 1 TAB TABLET PO PRN (21:44)
[2019-09-16 22:30] VITALS: BP 145/101
[2019-09-17] VITALS (10 sets, daily range): BP systolic 96–157; BP diastolic 59–103
[2019-09-17] MEDS ORDERED: IV NORMAL SALINE 1000ML BAG 1,000 ML IV PRN ×2 (07:58)
[2019-09-17] MEDS ORDERED: 0.9 % SODIUM CHLORIDE 10 ML DISP.SYRIN. IV PRN ×2 (08:00)
[2019-09-17] MEDS ORDERED: ALBUMIN HUMAN 25% 200 ML IV PRN (08:00)
[2019-09-17] MEDS ORDERED: DIALYSIS PATIENT. MC PRN ×2 (08:00)
[2019-09-17] MEDS: HYDROcodone/APAP 5/325MG 1 TAB TABLET PO PRN ×2 (08:19→15:27)
[2019-09-17] MEDS: MIDODRINE 2.5 MG TABLET PO SCH ×3 (08:19→17:58)
[2019-09-17] MEDS: PANTOPRAZOLE 40 MG TABLET.DR. PO SCH (08:19)
[2019-09-17] MEDS: CALCIUM ACETATE 667 MG CAPSULE PO SCH ×3 (08:22→17:58)
--- NOTE | 2019-09-17 10:22 | PDOC ---
Dialysis Progress Note Dialysis Note Dialysis Note Seen on Hemodialysis, tolerating treatment Well so far Vitals on Hemodialysis: 131/65 94 afeb General Appearance: morbidly obese Awake: Alert Oriented x 3 Neck: No JVD or JVP Chest: CTA [place] Heart: S1 S2 Abdomen - Soft NTND, morbidly obese Extremities - + Edema ESRD : Dialysis as below F 180 NR 3.5 Hrs 4 K 2.5 Ca 140 Na 35 HC03 Qb 350 + Qd 500+ Heparin 0 Units Uf 0 Kgs or to dry weight as tolerated May give 25-50 gms of 25% Albumin if needed to maintain Hemodynamic stability Treatment plan reviewed and discussed with electrical assembler Vitals Vital Signs Vital Signs Date Time Temp Pulse Resp B/P (MAP) Pulse Ox O2 Delivery O2 Flow Rate FiO2 09/17/19 08:35 104 117/79 (92) 09/17/19 08:19 93 Room Air 09/17/19 07:00 97.6 18 97.6 09/16/19 22:44 2.0 Assessment Assessment Problems Medical Problems: (1) Asthma Status: Chronic (2) ESRD on peritoneal dialysis Status: Chronic (3) Hyperglycemia Status: Acute (4) Obesity Status: Chronic (5) DORIS (obstructive sleep apnea) Status: Chronic (6) PSVT (paroxysmal supraventricular tachycardia) Status: Chronic (7) Syncopal episodes Status: Acute Plan Plan of Care Problems Medical Problems: (1) Asthma Status: Chronic (2) ESRD on peritoneal dialysis Status: Chronic (3) Hyperglycemia Status: Acute (4) Obesity Status: Chronic (5) DORIS (obstructive sleep apnea) Status: Chronic (6) PSVT (paroxysmal supraventricular tachycardia) Status: Chronic (7) Syncopal episodes Status: Acute CHUCKY YU MD Sep 17, 2019 10:22
--- NOTE | 2019-09-17 10:57 | PDOC ---
PROGRESS NOTES Chief Complaint Chief Complaint Syncope - due to orthostasis/uremia and potentially from arrhythmia. Midodrine therapy started based on positive orthostatics PSVT - in the setting of uremia and hypokalemia ESRD - Utilizes PD DORIS - CPAP intolerant, he won't even wear nocturnal NCO2 Asthma with recently treated acute bronchitis Hyperglycemia Morbid obesity Polycystic kidney disease - may have abnormal CT and need nephrectomy History of Present Illness History of Present Illness Pt is 58 yo CM ESRD on PD admitted with c/o chronic dizziness but passed out yesterday- lasted only 2 secs., says he was mildly shaking, no drooling, upward rolling eyeballs or loss of bladder or bowel fcn, He apparently has been worked up before by our cardiology for "syncope" with echo and LHC with normal results. He follows with Pul as well . He was not orthostatic in ER He has been on PD for 2 years under the care of Dr. Varghese . His UOP has declined but has some RRF . His BUN/Cr has been high for some time, changes has been made to PD prescription recently. He has LBF and does manual exchange at home PD fluid is clear, denies any abdominal pain .No Urinary complaints His WBC was 19 at presentation, Pt and report that he has been on prednisone and Zpak and just completed the last dose yesterday Echo, results normal. Discussed positive orthostatics and need for midodrine. The left ventricular systolic function is normal. The Ejection Fraction is 60-65%. There is normal LV segmental wall motion. Transmitral Doppler flow pattern is Grade I-abnormal relaxation pattern. Trace mitral regurgitation. Trace tricuspid regurgitation. There is no evidence of significant pericardial effusion. 09/12: This morning vomited up green beans and adalberto steak that was visible. He did not sleep great. Desaturated into the 70s, states he cannot wear O2 and is intolerant of CPAP. After d/w nephrology he will convert to HD tomorrow morning with plans for outpatient nephrectomy. 09/14: To IR this morning for HD cath and initiate HD today. Still with nausea. 09/15: Has been getting headaches with midodrine administration, finds this bothersome. Still with some nausea, no vomiting. Last midodrind dose did not get a headache. BP better. LE edema is significant today. Denies CP or SOB. Plan: Will need outpatient HD placement now that he has converted from PD and plan for outpatient urology referral for renal mass Vitals Vitals Vital Signs Date Time Temp Pulse Resp B/P (MAP) Pulse Ox O2 Delivery O2 Flow Rate FiO2 09/17/19 08:35 104 117/79 (92) 09/17/19 08:19 93 Room Air 09/17/19 07:00 97.6 18 97.6 09/16/19 22:44 2.0 Physical Exam General: Alert, Oriented X3, Cooperative, No acute distress Heart: Regular rate Abdomen: Soft, Other (obese) Extremities: No cyanosis, Other (2+ bilateral LE pitting edema) Skin: No breakdown, Other (venous dermatitis) Assessment and Plan Assessmemt and Plan Problems Medical Problems: (1) Asthma Status: Chronic (2) ESRD on peritoneal dialysis Status: Chronic (3) Hyperglycemia Status: Acute (4) Obesity Status: Chronic (5) DORIS (obstructive sleep apnea) Status: Chronic (6) PSVT (paroxysmal supraventricular tachycardia) Status: Chronic (7) Syncopal episodes Status: Acute Comment Review of Relevant I have reviewed the following items bennie (where applicable) has been applied. Labs Microbiology 09/11/19 Aerobic Culture - Final, Complete 09/11/19 Aerobic Culture Result 1 (SOFIA) - Final, Complete 09/11/19 Gram Stain - Final, Complete 09/11/19 Gram Stain Result 1 (SOFIA) - Final, Complete 09/11/19 Gram Stain Result 2 (SOFIA) - Final, Complete Medications Current Medications Aspirin (Children'S Aspirin) 81 mg DAILY PO Last administered on 09/16/19at 08:39; Start 09/12/19 at 09:00 Atorvastatin Calcium (Lipitor) 20 mg HS PO Last administered on 09/13/19at 21:09; Start 09/11/19 at 21:00; Stop 09/14/19 at 13:30; Status DC Docusate Sodium (Colace) 100 mg DAILY PO Last administered on 09/16/19at 08:38; Start 09/12/19 at 09:00 Tamsulosin HCl (Flomax) 0.4 mg DAILY PO Last administered on 09/16/19 08:38; Start 09/12/19 at 09:00; Stop 09/17/19 at 10:24; Status DC Torsemide (Demadex) 20 mg DAILY PO Last administered on 09/12/19 09:46; Start 09/12/19 at 09:00; Stop 09/12/19 at 10:15; Status DC Trazodone HCl (Desyrel) 50 mg HS PO Last administered on 09/16/19 19:59; Start 09/11/19 at 21:00 Calcium Acetate (Phoslo) 2,001 mg TIDWMEALS PO Last administered on 09/17/19 08:22; Start 09/12/19 at 08:00 Guaifenesin (Mucinex) 600 mg DAILY PO Last administered on 09/16/19 08:38; Start 09/12/19 at 09:00 Pantoprazole Sodium (Protonix) 40 mg DAILYAC PO Last administered on 09/17/19 08:19; Start 09/12/19 at 07:30 Acetaminophen/ Hydrocodone Bitart (Lortab 5/325) 1 tab PRN Q4HRS PRN PO PAIN Last administered on 09/17/19 08:19; Start 09/11/19 at 18:30 Morphine Sulfate (Morphine Sulfate) 2 mg PRN Q2HR PRN IV PAIN; Start 09/11/19 at 18:30 Ondansetron HCl (Zofran) 4 mg PRN Q6HRS PRN IVP NAUSEA/VOMITING Last administered on 09/13/19 17:23; Start 09/11/19 at 18:30 Clonidine HCl (Catapres) 0.1 mg PRN Q1HR PRN PO HYPERTENSION; Start 09/11/19 at 18:30 Calcium Carbonate/ Glycine (Tums) 500 mg PRN AFTMEALHC PRN PO INDIGESTION Last administered on 09/13/19 07:00; Start 09/11/19 at 18:30 Guaifenesin (Robitussin Dm) 10 ml PRN Q6HRS PRN PO COUGH; Start 09/11/19 at 18:30 Albuterol Sulfate (Ventolin Neb Soln) 2.5 mg PRN Q4HRS PRN NEB SHORTNESS OF BREATH Last administered on 09/11/19 21:53; Start 09/11/19 at 18:30 Lorazepam (Ativan Inj) 2 mg PRN Q4HRS PRN IVP SEIZURE; Start 09/11/19 at 18:45 Potassium Chloride (Klor-Con) 40 meq 1X ONCE PO Last administered on 09/12/19at 05:13; Start 09/12/19 at 05:30; Stop 09/12/19 at 05:31; Status DC Midodrine (Proamatine) 2.5 mg [id number] PO Last administered on 09/17/19at 08:19; Start 09/12/19 at 11:00 Lidocaine/ Epinephrine (LIDOCAINE 1%-EPI 1:100,000 Multi-Dose) 20 ml STK-MED ONCE .ROUTE ; Start 09/14/19 at 09:07; Stop 09/14/19 at 09:07; Status DC Heparin Sodium (Porcine) (Heparin Sodium) 10,000 unit STK-MED ONCE .ROUTE ; Start 09/14/19 at 09:07; Stop 09/14/19 at 09:07; Status DC Cefazolin Sodium 3 gm/Dextrose 100 ml @ 200 mls/hr 1X ONCE IV Last administered on 09/14/19at 09:53; Start 09/14/19 at 09:15; Stop 09/14/19 at 09:44; Status DC Midazolam HCl (Versed) 5 mg STK-MED ONCE .ROUTE ; Start 09/14/19 at 09:24; Stop 09/14/19 at 09:24; Status DC Fentanyl Citrate (Fentanyl 2ml Vial) 100 mcg STK-MED ONCE .ROUTE ; Start 09/14/19 at 09:24; Stop 09/14/19 at 09:24; Status DC Midazolam HCl (Versed) 5 mg 1X ONCE IV Last administered on 09/14/19at 09:51; Start 09/14/19 at 09:45; Stop 09/14/19 at 09:46; Status DC Fentanyl Citrate (Fentanyl 2ml Vial) 100 mcg 1X ONCE IV Last administered on 09/14/19at 09:51; Start 09/14/19 at 09:45; Stop 09/14/19 at 09:46; Status DC Lidocaine/ Epinephrine (LIDOCAINE 1%-EPI 1:100,000 Multi-Dose) 20 ml 1X ONCE INJ Last administered on 09/14/19at 09:50; Start 09/14/19 at 09:45; Stop 09/14/19 at 09:46; Status DC Sodium Chloride 1,000 ml @ 1,000 mls/hr Q1H PRN IV hypotension; Start 09/14/19 at 10:09; Stop 09/14/19 at 16:08; Status DC Albumin Human 200 ml @ 200 mls/hr 1X PRN PRN IV Hypotension; Start 09/14/19 at 10:15; Stop 09/14/19 at 16:14; Status DC Sodium Chloride (Normal Saline Flush) 10 ml 1X PRN PRN IV AP catheter pack; Start 09/14/19 at 10:15; Stop 09/15/19 at 10:14; Status DC Sodium Chloride (Normal Saline Flush) 10 ml 1X PRN PRN IV PROFESSOR OF MEDICINE catheter pack; Start 09/14/19 at 10:15; Stop 09/15/19 at 10:14; Status DC Sodium Chloride 1,000 ml @ 400 mls/hr Q2H30M PRN IV PATENCY; Start 09/14/19 at 10:09; Stop 09/14/19 at 22:08; Status DC Info (PHARMACY MONITORING -- do not chart) 1 each PRN DAILY PRN MC SEE COMMENTS; Start 09/14/19 at 10:15; Status Cancel Info (PHARMACY MONITORING -- do not chart) 1 each PRN DAILY PRN MC SEE COMMENTS; Start 09/14/19 at 10:15; Status UNV Atorvastatin Calcium (Lipitor) 40 mg HS PO Last administered on 09/16/19at 19:59; Start 09/14/19 at 21:00 Sodium Chloride 1,000 ml @ 1,000 mls/hr Q1H PRN IV hypotension; Start 09/15/19 at 07:00; Stop 09/15/19 at 19:00; Status DC Sodium Chloride 1,000 ml @ 400 mls/hr Q2H30M PRN IV PATENCY; Start 09/15/19 at 07:00; Stop 09/15/19 at 19:00; Status DC Info (PHARMACY MONITORING -- do not chart) 1 each PRN DAILY PRN MC SEE COMMENTS; Start 09/15/19 at 07:00; Status UNV Info (PHARMACY MONITORING -- do not chart) 1 each PRN DAILY PRN MC SEE COMMENTS; Start 09/15/19 at 07:00; Status UNV Sodium Chloride 1,000 ml @ 1,000 mls/hr Q1H PRN IV hypotension; Start 09/17/19 at 07:58; Stop 09/17/19 at 13:57 Albumin Human 200 ml @ 200 mls/hr 1X PRN PRN IV Hypotension; Start 09/17/19 at 08:00; Stop 09/17/19 at 13:59 Sodium Chloride (Normal Saline Flush) 10 ml 1X PRN PRN IV AP catheter pack; Start 09/17/19 at 08:00; Stop 09/18/19 at 07:59 Sodium Chloride (Normal Saline Flush) 10 ml 1X PRN PRN IV PROFESSOR OF MEDICINE catheter pack; Start 09/17/19 at 08:00; Stop 09/18/19 at 07:59 Sodium Chloride 1,000 ml @ 400 mls/hr Q2H30M PRN IV PATENCY; Start 09/17/19 at 07:58; Stop 09/17/19 at 19:57 Info (PHARMACY MONITORING -- do not chart) 1 each PRN DAILY PRN MC SEE COMM ENTS; Start 09/17/19 at 08:00; Status UNV Info (PHARMACY MONITORING -- do not chart) 1 each PRN DAILY PRN MC SEE COMMENTS; Start 09/17/19 at 08:00 Active Scripts Active Reported Atorvastatin Calcium 20 Mg Tablet 20 Mg PO HS Colace (Docusate Sodium) 100 Mg Capsule 100 Mg PO DAILY Aspirin 81 Mg Tab.chew 81 Mg PO DAILY Tamsulosin Hcl 0.4 Mg Cap.er.24h 0.4 Mg PO DAILY Trazodone Hcl 50 Mg Tablet 1-2 Tab PO HS Guaifenesin 400 Mg Tablet 400 Mg PO DAILY Torsemide 20 Mg Tablet 20 Mg PO DAILY Calcium Acetate 667 Mg Tablet 3 Cap PO TIDWMEALS Prevacid (Lansoprazole) 15 Mg Capsule. 1 Cap PO DAILY Vitals/I & O Vital Sign - Last 24 Hours 09/16/19 09/16/19 09/16/19 09/16/19 12:44 14:15 17:44 19:27 Temp 97.9 98.2 97.9 98.2 Pulse 101 95 94 80 Resp 16 16 B/P (MAP) 131/84 114/84 (94) 133/91 133/91 (105) Pulse Ox 95 96 O2 Delivery Room Air Room Air 09/16/19 09/16/19 09/16/19 09/16/19 19:31 21:44 22:30 22:44 Temp 97.7 97.7 Pulse 92 Resp 18 18 B/P (MAP) 145/101 (116) Pulse Ox 96 93 93 O2 Delivery Room Air Room Air Room Air Room Air O2 Flow Rate 2.0 09/17/19 09/17/19 09/17/19 09/17/19 02:42 07:00 08:00 08:19 Temp 97.4 97.6 97.4 97.6 Pulse 90 94 Resp 18 18 B/P (MAP) 96/74 (81) 149/67 (94) Pulse Ox 93 96 93 O2 Delivery Room Air Room Air Room Air Room Air 09/17/19 09/17/19 09/17/19 08:19 08:30 08:35 Pulse 98 97 104 B/P (MAP) 149/67 157/94 (115) 117/79 (92) Intake and Output 09/16/19 09/16/19 09/17/19 15:00 23:00 07:00 Intake Total 480 ml 1200 ml 400 ml Balance 480 ml 1200 ml 400 ml HILDA SMILEY MD Sep 17, 2019 10:57
--- NOTE | 2019-09-17 12:24 | NUR ---
SS following up with discharge planning. SS phoned and faxed updated clinical to [facility], ; [phone]. SS contacted [facility] admissions requesting chair time. [facility] requested that SS refax clinical and stated that they would contact SS once chair time has been confirmed. SS re-faxed clinical per request. SS will continue to follow for discharge planning.
[2019-09-17 14:27] LABS: BASO # 0.1 x10^3/uL (0.0-0.2); BASO % 1 % (0-3); EOS # 0.5 x10^3/uL (0.0-0.7); EOS % 5 % (0-3); HEMATOCRIT 35.5 % (39.0-53.0); HEMOGLOBIN 11.7 g/dL (13.0-17.5); LYMPH # 0.8 x10^3/uL (1.0-4.8); LYMPH % 7 % (24-48); MEAN CORPUSCULAR HEMOGLOBIN 31 pg (25-35); MEAN CORPUSCULAR HGB CONC 33 g/dL (31-37); MEAN CORPUSCULAR VOLUME 93 fL (79-100); MONO # 1.2 x10^3/uL (0.0-1.1); MONO % 11 % (0-9); NEUT # 8.3 x10^3/uL (1.8-7.7); NEUT % 77 % (31-73); PLATELET COUNT 158 x10^3/uL (140-400); RED CELL DISTRIBUTION WIDTH 14.6 % (11.5-14.5); WHITE BLOOD COUNT 10.9 x10^3/uL (4.0-11.0)
[2019-09-17 14:46] LABS: ALBUMIN 2.3 g/dL (3.4-5.0); CALCIUM 8.4 mg/dL (8.5-10.1); CREATININE 6.4 mg/dL (0.7-1.3); PHOSPHORUS 3.6 mg/dL (2.6-4.7); POTASSIUM 4.2 mmol/L (3.5-5.1)
[2019-09-17] MEDS: ASPIRIN CHEWABLE 81 MG TABLET. PO SCH (15:24)
[2019-09-17] MEDS: DOCUSATE SODIUM 100 MG CAPSULE. PO SCH (15:24)
--- NOTE | 2019-09-17 15:45 | PDOC ---
PROGRESS NOTES Assessment Assessment IMPRESSION: Orthostatic hypotension. Syncope. ESRD on dialysis. PSVT events. DM. HTN. HLD. DORIS Peripheral neuropathy? Polycystic kidney disease. Obesity. RECOMMENDATIONS/PLAN: Continue Midodrine. Continue Lipitor HS. Continue ASA daily. Treat medical diseases. Weight reduction. FU with PCP. FU with Cardiology. FU with Dr. Ceja in Neurology Clinic for EMG/NCS. SUBJECTIVE: Dizziness and orthostatic hypotension improved. Past Medical History Cardiovascular: HTN Pulmonary: Bronchitis Renal/: Chronic renal failure (Polycystic kidney disease on peritoneal dialysis) Past Surgical History Cataract Removal, Other ( placement of pins and left wrist, then removal, laser eye surgery) Family History Cancer, CAD, Other ( kidney disease) Social History , lewis, quit smoking 10 years ago, rare alcohol Allergies No Known Drug Allergies (Unverified , 07/11/17) ROS Negative for fever, chills, weight loss, shortness of breath, chest pain, indigestion, hematochezia, melena, and dysuria. Full 14-point review of systems is negative. MEDICATIONS: Refer to [facility] PHYSICAL EXAMINATION: General appearance in no acute distress. HEENT: Normocephalic and nontraumatic. Eyes, nose, ears, and throat are unremarkable. Neck is supple. No lymphadenopathy. No Crepitus. Cardiovascular: S1, S2, regular rate and rhythm. Pulmonary: Clear to auscultation bilaterally. Abdomen: Bowel sounds are positive. Abdomen is soft, nontender, and nondistended. Extremities: No rash, lesions, or edema. No restriction of range of motion NEUROLOGICAL EXAMINATION: Alert. Oriented to time, place and person. PERRL. EOMI. CN: no focal findings. Muscle tone: within normal. Muscle strength: 5 DTR: 2 Plantar reflex: Flexor response bilaterally Gait: not examined in bed. Sensory exam: no abnormal findings. No cerebellar signs elicited. F-T-N test accurate. Objective Objective Vital Signs Date Time Temp Pulse Resp B/P (MAP) Pulse Ox O2 Delivery O2 Flow Rate FiO2 09/17/19 08:35 104 117/79 (92) 09/17/19 08:19 93 Room Air 09/17/19 07:00 97.6 18 97.6 09/16/19 22:44 2.0 Intake and Output 09/17/19 07:00 Intake Total 2080 ml Balance 2080 ml Intake Oral 2080 ml # Bowel Movements 1 Vitals Signs Vitals VS - Last 72 Hours, by Label Date Time Temp Pulse Resp B/P (MAP) Pulse Ox O2 Delivery O2 Flow Rate FiO2 09/17/19 08:35 104 117/79 (92) 09/17/19 08:30 97 157/94 (115) 09/17/19 08:19 98 149/67 09/17/19 08:19 93 Room Air 09/17/19 08:00 Room Air 09/17/19 07:00 97.6 94 18 149/67 (94) 96 Room Air 97.6 09/17/19 02:42 97.4 90 18 96/74 (81) 93 Room Air 97.4 09/16/19 22:44 93 Room Air 2.0 09/16/19 22:30 97.7 92 18 145/101 (116) 93 Room Air 97.7 09/16/19 21:44 18 96 Room Air 09/16/19 19:31 Room Air 09/16/19 19:27 98.2 80 16 133/91 (105) 96 Room Air 98.2 09/16/19 17:44 94 133/91 09/16/19 14:15 97.9 95 16 114/84 (94) 95 Room Air 97.9 09/16/19 12:44 101 131/84 09/16/19 10:28 98.1 98 16 124/84 (97) 95 Room Air 98.1 09/16/19 08:00 Room Air 09/16/19 07:02 97.3 86 16 108/75 (86) 93 Room Air 97.3 09/16/19 07:00 123/90 Laboratory Laboratory Laboratory Tests Test 09/17/19 14:15 White Blood Count 10.9 x10^3/uL (4.0-11.0) Red Blood Count 3.80 x10^6/uL (4.30-5.70) Hemoglobin 11.7 g/dL (13.0-17.5) Hematocrit 35.5 % (39.0-53.0) Mean Corpuscular Volume 93 fL (79-100) Mean Corpuscular Hemoglobin 31 pg (25-35) Mean Corpuscular Hemoglobin Concent 33 g/dL (31-37) Red Cell Distribution Width 14.6 % (11.5-14.5) Platelet Count 158 x10^3/uL (140-400) Neutrophils (%) (Auto) 77 % (31-73) Lymphocytes (%) (Auto) 7 % (24-48) Monocytes (%) (Auto) 11 % (0-9) Eosinophils (%) (Auto) 5 % (0-3) Basophils (%) (Auto) 1 % (0-3) Neutrophils # (Auto) 8.3 x10^3/uL (1.8-7.7) Lymphocytes # (Auto) 0.8 x10^3/uL (1.0-4.8) Monocytes # (Auto) 1.2 x10^3/uL (0.0-1.1) Eosinophils # (Auto) 0.5 x10^3/uL (0.0-0.7) Basophils # (Auto) 0.1 x10^3/uL (0.0-0.2) Sodium Level 139 mmol/L (136-145) Potassium Level 4.2 mmol/L (3.5-5.1) Chloride Level 100 mmol/L (98-107) Carbon Dioxide Level 32 mmol/L (21-32) Anion Gap 7 (6-14) Blood Urea Nitrogen 31 mg/dL (8-26) Creatinine 6.4 mg/dL (0.7-1.3) Estimated GFR (Cockcroft-Gault) 9.0 Glucose Level 86 mg/dL (70-99) Calcium Level 8.4 mg/dL (8.5-10.1) Phosphorus Level 3.6 mg/dL (2.6-4.7) Albumin 2.3 g/dL (3.4-5.0) Microbiology 09/11/19 Aerobic Culture - Final, Complete 09/11/19 Aerobic Culture Result 1 (SOFIA) - Final, Complete 09/11/19 Gram Stain - Final, Complete 09/11/19 Gram Stain Result 1 (SOFIA) - Final, Complete 09/11/19 Gram Stain Result 2 (SOFIA) - Final, Complete Medication Medications Current Medications Albumin Human 200 ml @ 200 mls/hr 1X PRN PRN IV Hypotension; Start 09/17/19 at 08:00; Stop 09/17/19 at 13:59; Status DC Info (PHARMACY MONITORING -- do not chart) 1 each PRN DAILY PRN MC SEE COMMENTS; Start 09/17/19 at 08:00 Info (PHARMACY MONITORING -- do not chart) 1 each PRN DAILY PRN MC SEE COMMENTS; Start 09/17/19 at 08:00; Status UNV Sodium Chloride 1,000 ml @ 400 mls/hr Q2H30M PRN IV PATENCY; Start 09/17/19 at 07:58; Stop 09/17/19 at 19:57 Sodium Chloride 1,000 ml @ 1,000 mls/hr Q1H PRN IV hypotension; Start 09/17/19 at 07:58; Stop 09/17/19 at 13:57; Status DC Sodium Chloride (Normal Saline Flush) 10 ml 1X PRN PRN IV AP catheter pack; Start 09/17/19 at 08:00; Stop 09/18/19 at 07:59 Sodium Chloride (Normal Saline Flush) 10 ml 1X PRN PRN IV PRODUCTION COOK catheter pack; Start 09/17/19 at 08:00; Stop 09/18/19 at 07:59 Comment Review of Relevant I have reviewed the following items bennie (where applicable) has been applied. ROBERTO ALCANTARA MD Sep 17, 2019 15:45
--- NOTE | 2019-09-17 16:21 | RAD ---
EXAM: Carotid Doppler sonogram. HISTORY: Dizziness. TECHNIQUE: Baig scale and color Doppler sonographic evaluation of the neck with spectral waveform analysis was performed and static images are submitted for review. FINDINGS: There is mild atherosclerotic plaque within the carotid bifurcations. The peak systolic velocity within the right common carotid artery is 70 cm/sec. The peak systolic velocity within the right internal carotid artery is 100 cm/sec and the end diastolic velocity within the right internal carotid artery is 36 cm/sec. The right ICA/CCA ratio is 1.6. The peak systolic velocity within the left common carotid artery is 139 cm/sec. The peak systolic velocity within the left internal carotid artery is 101 cm/sec and the end diastolic velocity within the left internal carotid artery is 39 cm/sec. The left ICA/CCA ratio is 1.17. There is normal antegrade flow within both vertebral arteries. IMPRESSION: No Doppler evidence of hemodynamically significant stenosis within the carotid or vertebral arteries. PQRS Compliance Statement - Stenosis calculations for CT, MR and conventional angiography are based upon measurement of the distal ICA diameter in accordance with the NASCET methodology. Stenosis calculations for carotid ultrasound studies are derived from validated velocity criteria which are known to correlate with the NASCET methodology. Electronically signed by: Salina Henson MD (09/17/2019 4:18 PM) [facility]
[2019-09-17 18:13] LABS: ALBUM 2.8 g/dL (2.9-4.4); ALPHA 1 0.3 g/dL (0.0-0.4); ALPHA 2 0.9 g/dL (0.4-1.0); BETA 0.8 g/dL (0.7-1.3); GAMMA 1.3 g/dL (0.4-1.8); PROTEIN TOTAL 6.1 g/dL (6.0-8.5); SPEP AG RATIO 0.8 (0.7-1.7)
--- NOTE | 2019-09-17 19:30 | NUR ---
pulse on right wrist is intermentint. used doppler. + for pulse. arm is cold.cleaned area after removing tr band. placed transparent dressing. placed under covers to warm arm. lcrn Addendum: 09/17/19 at 2212 by Lynette Lockett RN wrong patient
--- NOTE | 2019-09-17 20:00 | NUR ---
urine was taken from pt's 24 hour urine, and pt is incontinent. expalined to anna patrick to place foley. barrios Addendum: 09/17/19 at 2212 by Lynette Lockett RN wrong patient
[2019-09-17] MEDS: traZODone 50 MG TABLET. PO SCH (23:04)
[2019-09-17] MEDS: ATORVASTATIN CALCIUM 40 MG TABLET. PO SCH (23:04)
[2019-09-18] MEDS: HYDROcodone/APAP 5/325MG 1 TAB TABLET PO PRN ×3 (00:16→23:09)
[2019-09-18 03:15] VITALS: BP 96/62
[2019-09-18 07:00] VITALS: BP 119/90
[2019-09-18] MEDS: DOCUSATE SODIUM 100 MG CAPSULE. PO SCH (09:07)
[2019-09-18] MEDS: CALCIUM CARBONATE 500 MG TAB.CHEW PO PRN (09:07)
[2019-09-18] MEDS: PANTOPRAZOLE 40 MG TABLET.DR. PO SCH (09:07)
[2019-09-18] MEDS: CALCIUM ACETATE 667 MG CAPSULE PO SCH ×3 (09:07→18:19)
[2019-09-18] MEDS: MIDODRINE 2.5 MG TABLET PO SCH ×3 (09:07→18:20)
[2019-09-18] MEDS: ASPIRIN CHEWABLE 81 MG TABLET. PO SCH (09:07)
[2019-09-18] MEDS ORDERED: IV NORMAL SALINE 1000ML BAG 1,000 ML IV PRN ×2 (09:10)
[2019-09-18] MEDS ORDERED: DIALYSIS PATIENT. MC PRN ×2 (09:15)
[2019-09-18] MEDS ORDERED: ALBUMIN HUMAN 25% 200 ML IV PRN (09:15)
--- NOTE | 2019-09-18 10:19 | PDOC ---
Dialysis Progress Note Dialysis Note Dialysis Note Seen on Hemodialysis, tolerating treatment Well so far Vitals on Hemodialysis: 122/73 88 afeb General Appearance: morbidly obese Awake: Alert Oriented x 3 Neck: No JVD or JVP Chest: CTA [place] Heart: S1 S2 Abdomen - Soft NTND, morbidly obese Extremities - + Edema ESRD : Dialysis as below F 180 NR 3.5 Hrs 3 K 2.5 Ca 140 Na 35 HC03 Qb 350 + Qd 500+ Heparin 0 Units Uf 0 Kgs or to dry weight as tolerated May give 25-50 gms of 25% Albumin if needed to maintain Hemodynamic stability Treatment plan reviewed and discussed with platen grinder Vitals Vital Signs Vital Signs Date Time Temp Pulse Resp B/P (MAP) Pulse Ox O2 Delivery O2 Flow Rate FiO2 09/18/19 09:08 94 Room Air 09/18/19 09:07 91 119/90 09/18/19 08:00 2.0 09/18/19 07:00 98.1 18 98.1 Labs Last Labs Laboratory Tests Test 09/17/19 14:15 White Blood Count 10.9 x10^3/uL (4.0-11.0) Red Blood Count 3.80 x10^6/uL (4.30-5.70) Hemoglobin 11.7 g/dL (13.0-17.5) Hematocrit 35.5 % (39.0-53.0) Mean Corpuscular Volume 93 fL (79-100) Mean Corpuscular Hemoglobin 31 pg (25-35) Mean Corpuscular Hemoglobin Concent 33 g/dL (31-37) Red Cell Distribution Width 14.6 % (11.5-14.5) Platelet Count 158 x10^3/uL (140-400) Neutrophils (%) (Auto) 77 % (31-73) Lymphocytes (%) (Auto) 7 % (24-48) Monocytes (%) (Auto) 11 % (0-9) Eosinophils (%) (Auto) 5 % (0-3) Basophils (%) (Auto) 1 % (0-3) Neutrophils # (Auto) 8.3 x10^3/uL (1.8-7.7) Lymphocytes # (Auto) 0.8 x10^3/uL (1.0-4.8) Monocytes # (Auto) 1.2 x10^3/uL (0.0-1.1) Eosinophils # (Auto) 0.5 x10^3/uL (0.0-0.7) Basophils # (Auto) 0.1 x10^3/uL (0.0-0.2) Sodium Level 139 mmol/L (136-145) Potassium Level 4.2 mmol/L (3.5-5.1) Chloride Level 100 mmol/L (98-107) Carbon Dioxide Level 32 mmol/L (21-32) Anion Gap 7 (6-14) Blood Urea Nitrogen 31 mg/dL (8-26) Creatinine 6.4 mg/dL (0.7-1.3) Estimated GFR (Cockcroft-Gault) 9.0 Glucose Level 86 mg/dL (70-99) Calcium Level 8.4 mg/dL (8.5-10.1) Phosphorus Level 3.6 mg/dL (2.6-4.7) Albumin 2.3 g/dL (3.4-5.0) Laboratory Tests Test 09/17/19 14:15 White Blood Count 10.9 x10^3/uL (4.0-11.0) Red Blood Count 3.80 x10^6/uL (4.30-5.70) Hemoglobin 11.7 g/dL (13.0-17.5) Hematocrit 35.5 % (39.0-53.0) Mean Corpuscular Volume 93 fL (79-100) Mean Corpuscular Hemoglobin 31 pg (25-35) Mean Corpuscular Hemoglobin Concent 33 g/dL (31-37) Red Cell Distribution Width 14.6 % (11.5-14.5) Platelet Count 158 x10^3/uL (140-400) Neutrophils (%) (Auto) 77 % (31-73) Lymphocytes (%) (Auto) 7 % (24-48) Monocytes (%) (Auto) 11 % (0-9) Eosinophils (%) (Auto) 5 % (0-3) Basophils (%) (Auto) 1 % (0-3) Neutrophils # (Auto) 8.3 x10^3/uL (1.8-7.7) Lymphocytes # (Auto) 0.8 x10^3/uL (1.0-4.8) Monocytes # (Auto) 1.2 x10^3/uL (0.0-1.1) Eosinophils # (Auto) 0.5 x10^3/uL (0.0-0.7) Basophils # (Auto) 0.1 x10^3/uL (0.0-0.2) Sodium Level 139 mmol/L (136-145) Potassium Level 4.2 mmol/L (3.5-5.1) Chloride Level 100 mmol/L (98-107) Carbon Dioxide Level 32 mmol/L (21-32) Anion Gap 7 (6-14) Blood Urea Nitrogen 31 mg/dL (8-26) Creatinine 6.4 mg/dL (0.7-1.3) Estimated GFR (Cockcroft-Gault) 9.0 Glucose Level 86 mg/dL (70-99) Calcium Level 8.4 mg/dL (8.5-10.1) Phosphorus Level 3.6 mg/dL (2.6-4.7) Albumin 2.3 g/dL (3.4-5.0) Assessment Assessment Problems Medical Problems: (1) Asthma Status: Chronic (2) ESRD on peritoneal dialysis Status: Chronic (3) Hyperglycemia Status: Acute (4) Obesity Status: Chronic (5) DORIS (obstructive sleep apnea) Status: Chronic (6) PSVT (paroxysmal supraventricular tachycardia) Status: Chronic (7) Syncopal episodes Status: Acute Plan Plan of Care Problems Medical Problems: (1) Asthma Status: Chronic (2) ESRD on peritoneal dialysis Status: Chronic (3) Hyperglycemia Status: Acute (4) Obesity Status: Chronic (5) DORIS (obstructive sleep apnea) Status: Chronic (6) PSVT (paroxysmal supraventricular tachycardia) Status: Chronic (7) Syncopal episodes Status: Acute CHUCKY YU MD Sep 18, 2019 10:19
[2019-09-18 11:11] LABS: ANA INTERP Negative (.)
--- NOTE | 2019-09-18 11:50 | NUR ---
SS following up with discharge planning. Dialysis chair time received from [facility]. SS was notified that [facility] in [place] was at capacity and had no chairs at this time. SS was notified that pt was placed at [address] [address], ; fax [phone], Tuesday, , Tuesday, at 1030am. Pt's first chair time is scheduled for 09/20/2019 at 1015. Pt's RN provided with chair time and information. Pt currently in dialysis. SS will continue to follow for discharge planning.
--- NOTE | 2019-09-18 13:20 | PDOC ---
[employer] PROGRESS NOTE Chief Complaint Chief Complaint Syncope - due to orthostasis/uremia and potentially from arrhythmia. Midodrine therapy started based on positive orthostatics PSVT - in the setting of uremia and hypokalemia ESRD - Utilizes PD DORIS - CPAP intolerant, he won't even wear nocturnal NCO2 Asthma with recently treated acute bronchitis Hyperglycemia Morbid obesity Polycystic kidney disease - may have abnormal CT and need nephrectomy History of Present Illness History of Present Illness 09/18/19 Pt seen and examined while on dialysis on 5th floor. Pt tolerating dialysis well with no distress. Still trying to arrange chair time at outpatient dialysis clinic. Discussed with nurse. 09/17/19 Pt is 58 yo CM ESRD on PD admitted with c/o chronic dizziness but passed out yesterday- lasted only 2 secs., says he was mildly shaking, no drooling, upward rolling eyeballs or loss of bladder or bowel fcn, He apparently has been worked up before by our cardiology for "syncope" with echo and LHC with normal results. He follows with Pul as well . He was not orthostatic in ER He has been on PD for 2 years under the care of Dr. Varghese . His UOP has declined but has some RRF . His BUN/Cr has been high for some time, changes has been made to PD prescription recently. He has LBF and does manual exchange at h ome PD fluid is clear, denies any abdominal pain .No Urinary complaints His WBC was 19 at presentation, Pt and report that he has been on prednisone and Zpak and just completed the last dose yesterday Echo, results normal. Discussed positive orthostatics and need for midodrine. The left ventricular systolic function is normal. The Ejection Fraction is 60-65%. There is normal LV segmental wall motion. Transmitral Doppler flow pattern is Grade I-abnormal relaxation pattern. Trace mitral regurgitation. Trace tricuspid regurgitation. There is no evidence of significant pericardial effusion. 09/12: This morning vomited up green beans and adalberto steak that was visible. He did not sleep great. Desaturated into the 70s, states he cannot wear O2 and is intolerant of CPAP. After d/w nephrology he will convert to HD tomorrow morning with plans for outpatient nephrectomy. 09/14: To IR this morning for HD cath and initiate HD today. Still with nausea. 09/15: Has been getting headaches with midodrine administration, finds this bothersome. Still with some nausea, no vomiting. Last midodrind dose did not get a headache. BP better. LE edema is significant today. Denies CP or SOB. Plan: Will need outpatient HD placement now that he has converted from PD and plan for outpatient urology referral for renal mass Vitals/I&O Vitals/I&O: Vital Signs Date Time Temp Pulse Resp B/P (MAP) Pulse Ox O2 Delivery O2 Flow Rate FiO2 09/18/19 09:08 94 Room Air 09/18/19 09:07 91 119/90 09/18/19 08:00 2.0 09/18/19 07:00 98.1 18 98.1 I & O 09/17/19 09/17/19 09/18/19 15:00 23:00 07:00 Intake Total 240 ml 300 ml 400 ml Balance 240 ml 300 ml 400 ml Physical Exam General: Alert, Oriented X3, Cooperative, No acute distress Heart: Regular rate Lungs: Clear Abdomen: Soft, Other (obese) Extremities: No cyanosis, Other (2+ bilateral LE pitting edema) Skin: No breakdown, Other (venous dermatitis; tunneled dialysis catheter site non-edematous, non-erythematous) Labs Labs: Laboratory Tests Test 09/17/19 14:15 09/18/19 08:05 White Blood Count 10.9 x10^3/uL (4.0-11.0) Red Blood Count 3.80 x10^6/uL (4.30-5.70) Hemoglobin 11.7 g/dL (13.0-17.5) Hematocrit 35.5 % (39.0-53.0) Mean Corpuscular Volume 93 fL (79-100) Mean Corpuscular Hemoglobin 31 pg (25-35) Mean Corpuscular Hemoglobin Concent 33 g/dL (31-37) Red Cell Distribution Width 14.6 % (11.5-14.5) Platelet Count 158 x10^3/uL (140-400) Neutrophils (%) (Auto) 77 % (31-73) Lymphocytes (%) (Auto) 7 % (24-48) Monocytes (%) (Auto) 11 % (0-9) Eosinophils (%) (Auto) 5 % (0-3) Basophils (%) (Auto) 1 % (0-3) Neutrophils # (Auto) 8.3 x10^3/uL (1.8-7.7) Lymphocytes # (Auto) 0.8 x10^3/uL (1.0-4.8) Monocytes # (Auto) 1.2 x10^3/uL (0.0-1.1) Eosinophils # (Auto) 0.5 x10^3/uL (0.0-0.7) Basophils # (Auto) 0.1 x10^3/uL (0.0-0.2) Sodium Level 139 mmol/L (136-145) Potassium Level 4.2 mmol/L (3.5-5.1) Chloride Level 100 mmol/L (98-107) Carbon Dioxide Level 32 mmol/L (21-32) Anion Gap 7 (6-14) Blood Urea Nitrogen 31 mg/dL (8-26) Creatinine 6.4 mg/dL (0.7-1.3) Estimated GFR (Cockcroft-Gault) 9.0 Glucose Level 86 mg/dL (70-99) Calcium Level 8.4 mg/dL (8.5-10.1) Phosphorus Level 3.6 mg/dL (2.6-4.7) Albumin 2.3 g/dL (3.4-5.0) Cortisol AM Sample 12.0 ug/dL (4.3-22.4) Review of Systems Review of Systems: No syncope No N/V Assessment and Plan Assessmemt and Plan Problems Medical Problems: (1) Asthma Status: Chronic (2) ESRD on peritoneal dialysis Status: Chronic (3) Hyperglycemia Status: Acute (4) Obesity Status: Chronic (5) DORIS (obstructive sleep apnea) Status: Chronic (6) PSVT (paroxysmal supraventricular tachycardia) Status: Chronic (7) Syncopal episodes Status: Acute A/P ESRD on dialysis was on peritoneal dialysis and switching to hemodialysis Discharge when we can arrange chair time at outpatient dialysis clinic. CBC, CMP PT/OT DVT ppx home meds Full code Comment Review of Relevant I have reviewed the following items bennie (where applicable) has been applied. LEXIE TRUJILLO III, DO Sep 18, 2019 13:20
[2019-09-18] MEDS ORDERED: MIDAZOLAM HCL/PF 2 MG/2 ML VIAL. ONE (14:24)
[2019-09-18] MEDS ORDERED: fentaNYL PF VIAL 100 MCG/2 ML VIAL ONE (14:25)
[2019-09-18 15:25] VITALS: BP 134/80
--- NOTE | 2019-09-18 15:41 | PDOC ---
PROGRESS NOTES Assessment Assessment Orthostatic hypotension. Syncope. ESRD on dialysis. PSVT events. DM. HTN. HLD. DORIS Peripheral neuropathy. Polycystic kidney disease. Obesity. RECOMMENDATIONS/PLAN: Continue Midodrine. Continue Lipitor HS. Continue ASA daily. Treat medical diseases. Weight reduction. FU with PCP. FU with Cardiology. FU with Dr. Ceja in Neurology Clinic for EMG/NCS. SUBJECTIVE: Dizziness and orthostatic hypotension improved. Past Medical History Cardiovascular: HTN Pulmonary: Bronchitis Renal/: Chronic renal failure (Polycystic kidney disease on peritoneal dialysis) Past Surgical History Cataract Removal, Other ( placement of pins and left wrist, then removal, laser eye surgery) Family History Cancer, CAD, Other ( kidney disease) Social History , lewis, quit smoking 10 years ago, rare alcohol Allergies No Known Drug Allergies (Unverified , 07/11/17) ROS Negative for fever, chills, weight loss, shortness of breath, chest pain, indigestion, hematochezia, melena, and dysuria. Full 14-point review of systems is negative. MEDICATIONS: Refer to [facility] PHYSICAL EXAMINATION: General appearance in no acute distress. HEENT: Normocephalic and nontraumatic. Eyes, nose, ears, and throat are unremarkable. Neck is supple. No lymphadenopathy. No Crepitus. Cardiovascular: S1, S2, regular rate and rhythm. Pulmonary: Clear to auscultation bilaterally. Abdomen: Bowel sounds are positive. Abdomen is soft, nontender, and nondistended. Extremities: No rash, lesions, or edema. No restriction of range of motion NEUROLOGICAL EXAMINATION: Alert. Oriented to time, place and person. PERRL. EOMI. CN: no focal findings. Muscle tone: within normal. Muscle strength: 5 DTR: 2 Plantar reflex: Flexor response bilaterally Gait: not examined in bed. Sensory exam: no abnormal findings. No cerebellar signs elicited. F-T-N test accurate. Objective Objective Vital Signs Date Time Temp Pulse Resp B/P (MAP) Pulse Ox O2 Delivery O2 Flow Rate FiO2 09/18/19 15:10 91 145/74 09/18/19 09:08 94 Room Air 09/18/19 08:00 2.0 09/18/19 07:00 98.1 18 98.1 Intake and Output 09/18/19 07:00 Intake Total 940 ml Balance 940 ml Intake Oral 940 ml # Bowel Movements 2 Vitals Signs Vitals VS - Last 72 Hours, by Label Date Time Temp Pulse Resp B/P (MAP) Pulse Ox O2 Delivery O2 Flow Rate FiO2 09/18/19 15:10 91 145/74 09/18/19 09:08 94 Room Air 09/18/19 09:07 91 119/90 09/18/19 08:00 Room Air 2.0 09/18/19 07:00 98.1 91 18 119/90 (100) 94 Room Air 98.1 09/18/19 03:15 97.6 97 20 96/62 (73) 92 Room Air 97.6 09/18/19 01:16 93 Room Air 2.0 09/17/19 22:50 99.1 99 20 113/76 (88) 93 Room Air 99.1 09/17/19 20:00 Room Air 09/17/19 19:40 98.3 92 20 119/85 (96) 93 Room Air 98.3 09/17/19 17:58 105 135/99 09/17/19 16:27 93 Room Air 09/17/19 15:27 93 Room Air 09/17/19 15:24 105 135/99 09/17/19 15:00 97.2 100 18 140/93 (109) 95 Room Air 97.2 09/17/19 14:02 97 134/99 (111) 09/17/19 13:59 94 134/103 (113) 09/17/19 13:57 90 132/72 (92) 09/17/19 08:35 104 117/79 (92) 09/17/19 08:30 97 157/94 (115) 09/17/19 08:19 98 149/67 09/17/19 08:19 93 Room Air 09/17/19 08:00 Room Air 09/17/19 07:00 97.6 94 18 149/67 (94) 96 Room Air 97.6 Laboratory Laboratory Laboratory Tests Test 09/18/19 08:05 Cortisol AM Sample 12.0 ug/dL (4.3-22.4) Microbiology 09/11/19 Aerobic Culture - Final, Complete 09/11/19 Aerobic Culture Result 1 (SOFIA) - Final, Complete 09/11/19 Gram Stain - Final, Complete 09/11/19 Gram Stain Result 1 (SOFIA) - Final, Complete 09/11/19 Gram Stain Result 2 (SOFIA) - Final, Complete Medication Medications Current Medications Albumin Human 200 ml @ 200 mls/hr 1X PRN PRN IV Hypotension; Start 09/18/19 at 09:15; Stop 09/18/19 at 15:14; Status DC Fentanyl Citrate (Fentanyl 2ml Vial) 100 mcg STK-MED ONCE .ROUTE ; Start 09/18/19 at 14:25; Stop 09/18/19 at 14:25; Status DC Heparin Sodium (Porcine) (Heparin Sodium) 1,250 unit 1X PRN PRN INT CAT DIALYSIS; Start 09/18/19 at 09:15; Stop 09/19/19 at 09:14 Heparin Sodium (Porcine) (Heparin Sodium) 1,250 unit 1X PRN PRN INT CAT DIALYSIS; Start 09/18/19 at 09:15; Stop 09/19/19 at 09:14 Info (PHARMACY MONITORING -- do not chart) 1 each PRN DAILY PRN MC SEE COMMENTS; Start 09/18/19 at 09:15; Status UNV Info (PHARMACY MONITORING -- do not chart) 1 each PRN DAILY PRN MC SEE COMMENTS; Start 09/18/19 at 09:15; Status UNV Midazolam HCl (Versed) 2 mg STK-MED ONCE .ROUTE ; Start 09/18/19 at 14:24; Stop 09/18/19 at 14:24; Status DC Sodium Chloride 1,000 ml @ 400 mls/hr Q2H30M PRN IV PATENCY; Start 09/18/19 at 09:10; Stop 09/18/19 at 21:09 Sodium Chloride 1,000 ml @ 1,000 mls/hr Q1H PRN IV hypotension; Start 09/18/19 at 09:10; Stop 09/18/19 at 15:09; Status DC Comment Review of Relevant I have reviewed the following items bennie (where applicable) has been applied. ROBERTO ALCANTARA MD Sep 18, 2019 15:41
--- NOTE | 2019-09-18 16:50 | RAD ---
EXAM: Chest, 2 views. HISTORY: Shortness of breath. COMPARISON: 09/11/2019. FINDINGS: 2 views of the chest are obtained. There is bilateral infrahilar atelectasis or interstitial infiltrate. There is no consolidation, pleural effusion or pneumothorax. There is a stable prominent cardiac silhouette. There is a right central venous catheter with the tip in the superior vena cava or superior cavoatrial junction. There are few calcified granulomas. IMPRESSION: Bilateral infrahilar atelectasis or interstitial infiltrate. Electronically signed by: Salina Henson MD (09/18/2019 4:47 PM) [place] [id number]
[2019-09-18] MEDS: ALBUTEROL SULFATE 2.5 MG/3 ML NEBU. NEB PRN (18:51)
[2019-09-18 19:50] VITALS: BP 143/87
[2019-09-18] MEDS: ATORVASTATIN CALCIUM 40 MG TABLET. PO SCH (20:57)
[2019-09-18] MEDS: traZODone 50 MG TABLET. PO SCH (20:57)
[2019-09-18 23:02] VITALS: BP 150/87
[2019-09-19] VITALS (12 sets, daily range): BP systolic 115–159; BP diastolic 66–100
[2019-09-19 05:11] LABS: BASO # 0.1 x10^3/uL (0.0-0.2); BASO % 1 % (0-3); EOS # 0.6 x10^3/uL (0.0-0.7); EOS % 7 % (0-3); HEMATOCRIT 31.5 % (39.0-53.0); HEMOGLOBIN 10.2 g/dL (13.0-17.5); LYMPH # 1.2 x10^3/uL (1.0-4.8); LYMPH % 13 % (24-48); MEAN CORPUSCULAR HEMOGLOBIN 30 pg (25-35); MEAN CORPUSCULAR HGB CONC 32 g/dL (31-37); MEAN CORPUSCULAR VOLUME 94 fL (79-100); MONO # 1.2 x10^3/uL (0.0-1.1); MONO % 13 % (0-9); NEUT # 6.1 x10^3/uL (1.8-7.7); NEUT % 67 % (31-73); PLATELET COUNT 146 x10^3/uL (140-400); RED BLOOD COUNT 3.36 x10^6/uL (4.30-5.70); RED CELL DISTRIBUTION WIDTH 14.8 % (11.5-14.5); WHITE BLOOD COUNT 9.2 x10^3/uL (4.0-11.0)
[2019-09-19 06:07] LABS: ALBUMIN 2.2 g/dL (3.4-5.0); ALBUMIN/GLOBULIN RATIO 0.6 (1.0-1.7); CALCIUM 8.6 mg/dL (8.5-10.1); CREATININE 7.9 mg/dL (0.7-1.3); GFR 7.1; TOTAL BILIRUBIN 0.3 mg/dL (0.2-1.0); TOTAL PROTEIN 6.1 g/dL (6.4-8.2)
[2019-09-19] MEDS: MIDODRINE 2.5 MG TABLET PO SCH ×2 (06:40→12:24)
[2019-09-19] MEDS: PANTOPRAZOLE 40 MG TABLET.DR. PO SCH (06:40)
[2019-09-19] MEDS: CALCIUM ACETATE 667 MG CAPSULE PO SCH ×2 (08:00→12:24)
[2019-09-19] MEDS ORDERED: MIDAZOLAM HCL/PF 2 MG/2 ML VIAL. ONE (10:07)
[2019-09-19] MEDS ORDERED: fentaNYL PF VIAL 100 MCG/2 ML VIAL ONE (10:07)
[2019-09-19] MEDS ORDERED: LIDOCAINE 1%/EPI 1:100,000 20 ML VIAL. ONE (10:11)
--- NOTE | 2019-09-19 10:22 | NUR ---
Patient taken off unit to IR for tunneled dialysis catheter placement
[2019-09-19] MEDS ORDERED: MIDAZOLAM HCL/PF 2 MG/2 ML VIAL. IV ONE (10:30)
[2019-09-19] MEDS ORDERED: LIDOCAINE 1%/EPI 1:100,000 20 ML VIAL. INJ ONE (10:30)
[2019-09-19] MEDS ORDERED: IV NORMAL SALINE 250ML 250 ML IV ONE (10:30)
[2019-09-19] MEDS ORDERED: fentaNYL PF VIAL 100 MCG/2 ML VIAL IV ONE (10:30)
--- NOTE | 2019-09-19 12:22 | PDOC ---
SUBJECTIVE ROS Follow-up for ESRD, transition from PD to HD Patient claims he is feeling well today. Denies any new complaints. CVS: no Orthopnea, no CP RESP: no SOB, no MALONE + edema GI: no Nausea, no Vomiting : no Dysuria, no Urgency OBJECTIVE Vital Signs Vital Signs Date Time Temp Pulse Resp B/P (MAP) Pulse Ox O2 Delivery O2 Flow Rate FiO2 09/19/19 11:06 98.1 91 20 115/85 (95) 95 Room Air 98.1 09/19/19 10:41 2.0 I & 0 Intake and Output 09/19/19 07:00 Intake Total 950 ml Output Total 455 ml Balance 495 ml Intake Oral 950 ml Output Urine Total 455 ml # Bowel Movements 2 PHYSICAL EXAM Physical Exam GEN: Awake, Oriented x 3 , In no distress; morbidly obese gentleman EYES: Vision Unchanged, Conjunctiva Normal EN: No EN Drainage, Mucous Membranes no NECK: no JVD, no JVP, Supple, no Thyromegaly CVS: S1S2, soft Murmur, No Gallop, No Rub,tr Edema RESP: no Rales, no Rhonchi,no Acc. Muscle Use GI: BS + ve, NO Bruit, Non Tender, Non Distended obese abdomen : no CVA tenderness, no Suprapubic Tenderness DIAGNOSIS/ASSESSMENT Assessment & Plan ESRD: Current fluid and E-lyte status does not necessitate emergent need fo r dialysis. Will re-evaluate for dialysis in the am and continue on TTSat schedule. Lower extremity edema: Suspect due to hypoalbuminemia. May need a right heart catheter as outpatient Hypoalbuminemia: Partially due to recent nausea vomiting him a poor by mouth intake due to uremia as well as previous peritoneal dialysis-related losses. Previous orthostasis: Suspect associated with intravascular volume depletion. Appears to be much improved currently. May need endocrine as outpatient. ANEMIA; Ct [place] as ordered, Transfuse with next HD as needed BONE & MINERAL: Phosphorus much improved on last check. Watch as oral intake improves Poorly functioning hemodialysis catheter: Now changed out Discussed Plan of Care with family () at bedside COMMENT/RELEVANT DATA Meds Current Medications Medications (Trade) Dose Ordered Sig/Tao Start Time Stop Time Status Last Admin Dose Admin Acetaminophen/ Hydrocodone Bitart (Lortab 5/325) 1 tab PRN Q4HRS PRN 09/11/19 18:30 09/18/19 23:09 1 TAB Albumin Human 200 ml @ 200 mls/hr 1X PRN PRN 09/18/19 09:15 09/18/19 15:14 DC Albuterol Sulfate (Ventolin Neb Soln) 2.5 mg PRN Q4HRS PRN 09/11/19 18:30 09/18/19 18:51 2.5 MG Aspirin (Children'S Aspirin) 81 mg DAILY 09/12/19 09:00 09/18/19 09:07 81 MG Atorvastatin Calcium (Lipitor) 40 mg HS 09/14/19 21:00 09/18/19 20:57 40 MG Calcium Acetate (Phoslo) 2,001 mg TIDWMEALS 09/12/19 08:00 09/18/19 18:19 2,001 MG Calcium Carbonate/ Glycine (Tums) 500 mg PRN AFTMEALHC PRN 09/11/19 18:30 09/18/19 09:07 500 MG Cefazolin Sodium 3 gm/Dextrose 100 ml @ 200 mls/hr 1X ONCE 09/14/19 09:15 09/14/19 09:44 DC 09/14/19 09:53 200 MLS/HR Cefazolin Sodium/ Dextrose 50 ml @ 100 mls/hr 1X ONCE 09/19/19 10:15 09/19/19 10:44 DC 09/19/19 10:25 100 MLS/HR Clonidine HCl (Catapres) 0.1 mg PRN Q1HR PRN 09/11/19 18:30 Docusate Sodium (Colace) 100 mg DAILY 09/12/19 09:00 09/18/19 09:07 100 MG Fentanyl Citrate (Fentanyl 2ml Vial) 100 mcg 1X ONCE 09/19/19 10:30 09/19/19 10:33 DC 09/19/19 10:30 50 MCG Guaifenesin (Mucinex) 600 mg DAILY 09/12/19 09:00 09/18/19 09:00 600 MG Guaifenesin (Robitussin Dm) 10 ml PRN Q6HRS PRN 09/11/19 18:30 09/18/19 00:16 10 ML Heparin Sodium (Porcine) (Heparin Sodium) 1,250 unit 1X PRN PRN 09/18/19 09:15 09/19/19 09:14 DC Info (PHARMACY MONITORING -- do not chart) 1 each PRN DAILY PRN 09/18/19 09:15 UNV Lidocaine/ Epinephrine (LIDOCAINE 1%-EPI 1:100,000 Multi-Dose) 20 ml 1X ONCE 09/19/19 10:30 09/19/19 10:33 DC 09/19/19 10:30 1 ML Lorazepam (Ativan Inj) 2 mg PRN Q4HRS PRN 09/11/19 18:45 09/19/19 08:51 2 MG Midazolam HCl (Versed) 2 mg 1X ONCE 09/19/19 10:30 09/19/19 10:33 DC 09/19/19 10:30 1 MG Midodrine (Proamatine) 2.5 mg [id number] 09/12/19 11:00 09/19/19 06:40 2.5 MG Morphine Sulfate (Morphine Sulfate) 2 mg PRN Q2HR PRN 09/11/19 18:30 Ondansetron HCl (Zofran) 4 mg PRN Q6HRS PRN 09/11/19 18:30 09/13/19 17:23 4 MG Pantoprazole Sodium (Protonix) 40 mg DAILYAC 09/12/19 07:30 09/19/19 06:40 40 MG Potassium Chloride (Klor-Con) 40 meq 1X ONCE 09/12/19 05:30 09/12/19 05:31 DC 09/12/19 05:13 40 MEQ Sodium Chloride 250 ml @ 250 mls/hr 1X ONCE 09/19/19 10:30 09/19/19 11:29 DC 09/19/19 10:30 250 MLS/HR Sodium Chloride (Normal Saline Flush) 10 ml 1X PRN PRN 09/17/19 08:00 09/18/19 07:59 DC Tamsulosin HCl (Flomax) 0.4 mg DAILY 09/12/19 09:00 09/17/19 10:24 DC 09/16/19 08:38 0.4 MG Torsemide (Demadex) 20 mg DAILY 09/12/19 09:00 09/12/19 10:15 DC 09/12/19 09:46 20 MG Trazodone HCl (Desyrel) 50 mg HS 09/11/19 21:00 09/18/19 20:57 50 MG Lab Laboratory Tests Test 09/19/19 04:40 White Blood Count 9.2 x10^3/uL (4.0-11.0) Red Blood Count 3.36 x10^6/uL (4.30-5.70) Hemoglobin 10.2 g/dL (13.0-17.5) Hematocrit 31.5 % (39.0-53.0) Mean Corpuscular Volume 94 fL (79-100) Mean Corpuscular Hemoglobin 30 pg (25-35) Mean Corpuscular Hemoglobin Concent 32 g/dL (31-37) Red Cell Distribution Width 14.8 % (11.5-14.5) Platelet Count 146 x10^3/uL (140-400) Neutrophils (%) (Auto) 67 % (31-73) Lymphocytes (%) (Auto) 13 % (24-48) Monocytes (%) (Auto) 13 % (0-9) Eosinophils (%) (Auto) 7 % (0-3) Basophils (%) (Auto) 1 % (0-3) Neutrophils # (Auto) 6.1 x10^3/uL (1.8-7.7) Lymphocytes # (Auto) 1.2 x10^3/uL (1.0-4.8) Monocytes # (Auto) 1.2 x10^3/uL (0.0-1.1) Eosinophils # (Auto) 0.6 x10^3/uL (0.0-0.7) Basophils # (Auto) 0.1 x10^3/uL (0.0-0.2) Sodium Level 137 mmol/L (136-145) Potassium Level 4.0 mmol/L (3.5-5.1) Chloride Level 101 mmol/L (98-107) Carbon Dioxide Level 28 mmol/L (21-32) Anion Gap 8 (6-14) Blood Urea Nitrogen 37 mg/dL (8-26) Creatinine 7.9 mg/dL (0.7-1.3) Estimated GFR (Cockcroft-Gault) 7.1 BUN/Creatinine Ratio 5 (6-20) Glucose Level 94 mg/dL (70-99) Calcium Level 8.6 mg/dL (8.5-10.1) Total Bilirubin 0.3 mg/dL (0.2-1.0) Aspartate Amino Transf (AST/SGOT) 14 U/L (15-37) Alanine Aminotransferase (ALT/SGPT) 8 U/L (16-63) Alkaline Phosphatase 52 U/L (46-116) Total Protein 6.1 g/dL (6.4-8.2) Albumin 2.2 g/dL (3.4-5.0) Albumin/Globulin Ratio 0.6 (1.0-1.7) Results All relevant outside records, renal labs, imaging studies, telemetry/EKG's were reviewed. CHUCKY YU MD Sep 19, 2019 12:22
[2019-09-19] MEDS: DOCUSATE SODIUM 100 MG CAPSULE. PO SCH (12:24)
[2019-09-19] MEDS: ASPIRIN CHEWABLE 81 MG TABLET. PO SCH (12:24)
--- NOTE | 2019-09-19 14:21 | PDOC ---
PROGRESS NOTES Assessment Assessment Orthostatic hypotension. Syncope. ESRD on dialysis. PSVT events. DM. HTN. HLD. DORIS Peripheral neuropathy. Polycystic kidney disease. Obesity. RECOMMENDATIONS/PLAN: Continue Midodrine. Continue Lipitor HS. Continue ASA daily. Treat medical diseases. Weight reduction. FU with PCP. FU with Cardiology. FU with Dr. Ceja in [facility]rology [facility] for EMG/NCS. Discussed with his at bedside on 09/19/19. SUBJECTIVE: Dizziness and orthostatic hypotension improved. Past Medical History Cardiovascular: HTN Pulmonary: Bronchitis Renal/: Chronic renal failure (Polycystic kidney disease on peritoneal dialysis) Past Surgical History Cataract Removal, Other ( placement of pins and left wrist, then removal, laser eye surgery) Family History Cancer, CAD, Other ( kidney disease) Social History , lewis, quit smoking 10 years ago, rare alcohol Allergies No Known Drug Allergies (Unverified , 07/11/17) ROS Negative for fever, chills, weight loss, shortness of breath, chest pain, indigestion, hematochezia, melena, and dysuria. Full 14-point review of systems is negative. MEDICATIONS: Refer to MAR PHYSICAL EXAMINATION: General appearance in no acute distress. HEENT: Normocephalic and nontraumatic. Eyes, nose, ears, and throat are unremarkable. Neck is supple. No lymphadenopathy. No Crepitus. Cardiovascular: S1, S2, regular rate and rhythm. Pulmonary: Clear to auscultation bilaterally. Abdomen: Bowel sounds are positive. Abdomen is soft, nontender, and nondistended. Extremities: No rash, lesions, or edema. No restriction of range of motion NEUROLOGICAL EXAMINATION: Alert. Oriented to time, place and person. PERRL. EOMI. CN: no focal findings. Muscle tone: within normal. Muscle strength: 5 DTR: 2 Plantar reflex: Flexor response bilaterally Gait: Able to walk. Sensory exam: no abnormal findings. No cerebellar signs elicited. F-T-N test accurate. Objective Objective Vital Signs Date Time Temp Pulse Resp B/P (MAP) Pulse Ox O2 Delivery O2 Flow Rate FiO2 09/19/19 12:24 141/81 09/19/19 11:06 98.1 91 20 95 Room Air 98.1 09/19/19 10:41 2.0 Intake and Output 09/19/19 07:00 Intake Total 950 ml Output Total 455 ml Balance 495 ml Intake Oral 950 ml Output Urine Total 455 ml # Bowel Movements 2 Vitals Signs Vitals VS - Last 72 Hours, by Label Date Time Temp Pulse Resp B/P (MAP) Pulse Ox O2 Delivery O2 Flow Rate FiO2 09/19/19 12:24 141/81 09/19/19 11:06 98.1 91 20 115/85 (95) 95 Room Air 98.1 09/19/19 11:00 Room Air 09/19/19 10:41 84 20 99 Nasal Cannula 2.0 09/19/19 10:30 20 99 Nasal Cannula 2.0 09/19/19 08:00 Room Air 09/19/19 07:25 97.7 80 20 123/79 (94) 93 Room Air 97.7 09/19/19 06:40 78 145/72 09/19/19 03:15 98.2 92 18 128/94 (105) 91 Room Air 98.2 09/19/19 00:09 Room Air 09/18/19 23:09 Room Air 09/18/19 23:02 98.1 94 18 150/87 (108) 94 Room Air 98.1 09/18/19 19:50 Room Air 09/18/19 19:50 97.6 92 16 143/87 (105) 96 Room Air 97.6 09/18/19 18:50 96 Room Air 09/18/19 18:20 92 134/80 09/18/19 15:25 98.7 92 18 134/80 (98) 95 Room Air 98.7 09/18/19 15:10 91 145/74 09/18/19 09:08 94 Room Air 09/18/19 09:07 91 119/90 09/18/19 08:00 Room Air 2.0 09/18/19 07:00 98.1 91 18 119/90 (100) 94 Room Air 98.1 Laboratory Laboratory Laboratory Tests Test 09/19/19 04:40 White Blood Count 9.2 x10^3/uL (4.0-11.0) Red Blood Count 3.36 x10^6/uL (4.30-5.70) Hemoglobin 10.2 g/dL (13.0-17.5) Hematocrit 31.5 % (39.0-53.0) Mean Corpuscular Volume 94 fL (79-100) Mean Corpuscular Hemoglobin 30 pg (25-35) Mean Corpuscular Hemoglobin Concent 32 g/dL (31-37) Red Cell Distribution Width 14.8 % (11.5-14.5) Platelet Count 146 x10^3/uL (140-400) Neutrophils (%) (Auto) 67 % (31-73) Lymphocytes (%) (Auto) 13 % (24-48) Monocytes (%) (Auto) 13 % (0-9) Eosinophils (%) (Auto) 7 % (0-3) Basophils (%) (Auto) 1 % (0-3) Neutrophils # (Auto) 6.1 x10^3/uL (1.8-7.7) Lymphocytes # (Auto) 1.2 x10^3/uL (1.0-4.8) Monocytes # (Auto) 1.2 x10^3/uL (0.0-1.1) Eosinophils # (Auto) 0.6 x10^3/uL (0.0-0.7) Basophils # (Auto) 0.1 x10^3/uL (0.0-0.2) Sodium Level 137 mmol/L (136-145) Potassium Level 4.0 mmol/L (3.5-5.1) Chloride Level 101 mmol/L (98-107) Carbon Dioxide Level 28 mmol/L (21-32) Anion Gap 8 (6-14) Blood Urea Nitrogen 37 mg/dL (8-26) Creatinine 7.9 mg/dL (0.7-1.3) Estimated GFR (Cockcroft-Gault) 7.1 BUN/Creatinine Ratio 5 (6-20) Glucose Level 94 mg/dL (70-99) Calcium Level 8.6 mg/dL (8.5-10.1) Total Bilirubin 0.3 mg/dL (0.2-1.0) Aspartate Amino Transf (AST/SGOT) 14 U/L (15-37) Alanine Aminotransferase (ALT/SGPT) 8 U/L (16-63) Alkaline Phosphatase 52 U/L (46-116) Total Protein 6.1 g/dL (6.4-8.2) Albumin 2.2 g/dL (3.4-5.0) Albumin/Globulin Ratio 0.6 (1.0-1.7) Microbiology 09/11/19 Aerobic Culture - Final, Complete 09/11/19 Aerobic Culture Result 1 (SOFIA) - Final, Complete 09/11/19 Gram Stain - Final, Complete 09/11/19 Gram Stain Result 1 (SOFIA) - Final, Complete 09/11/19 Gram Stain Result 2 (SOFIA) - Final, Complete Medication Medications Current Medications Cefazolin Sodium/ Dextrose 50 ml @ 100 mls/hr 1X ONCE IV Last administered on 09/19/19at 10:25; Start 09/19/19 at 10:15; Stop 09/19/19 at 10:44; Status DC Fentanyl Citrate (Fentanyl 2ml Vial) 100 mcg 1X ONCE IV Last administered on 09/19/19at 10:30; Start 09/19/19 at 10:30; Stop 09/19/19 at 10:33; Status DC Fentanyl Citrate (Fentanyl 2ml Vial) 100 mcg STK-MED ONCE .ROUTE ; Start 09/18/19 at 14:25; Stop 09/18/19 at 14:25; Status DC Fentanyl Citrate (Fentanyl 2ml Vial) 100 mcg STK-MED ONCE .ROUTE ; Start 09/19/19 at 10:07; Stop 09/19/19 at 10:08; Status DC Lidocaine/ Epinephrine (LIDOCAINE 1%-EPI 1:100,000 Multi-Dose) 20 ml 1X ONCE INJ Last administered on 09/19/19at 10:30; Start 09/19/19 at 10:30; Stop 09/19/19 at 10:33; Status DC Lidocaine/ Epinephrine (LIDOCAINE 1%-EPI 1:100,000 Multi-Dose) 20 ml STK-MED ONCE .ROUTE ; Start 09/19/19 at 10:11; Stop 09/19/19 at 10:11; Status DC Midazolam HCl (Versed) 2 mg 1X ONCE IV Last administered on 09/19/19at 10:30; Start 09/19/19 at 10:30; Stop 09/19/19 at 10:33; Status DC Midazolam HCl (Versed) 2 mg STK-MED ONCE .ROUTE ; Start 09/18/19 at 14:24; Stop 09/18/19 at 14:24; Status DC Midazolam HCl (Versed) 2 mg STK-MED ONCE .ROUTE ; Start 09/19/19 at 10:07; Stop 09/19/19 at 10:07; Status DC Sodium Chloride 250 ml @ 250 mls/hr 1X ONCE IV Last administered on 09/19/19at 10:30; Start 09/19/19 at 10:30; Stop 09/19/19 at 11:29; Status DC Comment Review of Relevant I have reviewed the following items bennie (where applicable) has been applied. ROBERTO ALCANTARA MD Sep 19, 2019 14:21
--- NOTE | 2019-09-19 14:22 | PDOC ---
[facility] [facility] PROGRESS NOTE Chief Complaint Chief Complaint Syncope - due to orthostasis/uremia and potentially from arrhythmia. Midodrine therapy started based on positive orthostatics PSVT - in the setting of uremia and hypokalemia ESRD - Utilizes PD DORIS - CPAP intolerant, he won't even wear nocturnal NCO2 Asthma with recently treated acute bronchitis Hyperglycemia Morbid obesity Renal Cyst seen on CT Abd History of Present Illness History of Present Illness 09/19/19 Pt seen and examined in room. Pt resting comfortably in bed. He has chair time for outpatient dialysis starting tomorrow. Will discharge today. 09/18/19 Pt seen and examined while on dialysis on 5th floor. Pt tolerating dialysis well with no distress. Still trying to arrange chair time at outpatient dialysis clinic. Discussed with nurse. 09/17/19 Pt is 58 yo CM ESRD on PD admitted with c/o chronic dizziness but passed out yesterday- lasted only 2 secs., says he was mildly shaking, no drooling, upward rolling eyeballs or loss of bladder or bowel fcn, He apparently has been worked up before by our cardiology for "syncope" with echo and LHC with normal results. He follows with Pul as well . He was not orthostatic in ER He has been on PD for 2 years under the care of Dr. Varghese . His UOP has declined but has some RRF . His BUN/Cr has been high for some time, changes has been made to PD prescription recently. He has LBF and does manual exchange at home PD fluid is clear, denies any abdominal pain .No Urinary complaints His WBC was 19 at presentation, Pt and report that he has been on prednisone and Zpak and just completed the last dose yesterday Echo, results normal. Discussed positive orthostatics and need for midodrine. The left ventricular systolic function is normal. The Ejection Fraction is 60-65%. There is normal LV segmental wall motion. Transmitral Doppler flow pattern is Grade I-abnormal relaxation pattern. Trace mitral regurgitation. Trace tricuspid regurgitation. There is no evidence of significant pericardial effusion. 09/12: This morning vomited up green beans and adalberto steak that was visible. He did not sleep great. Desaturated into the 70s, states he cannot wear O2 and is intolerant of CPAP. After d/w nephrology he will convert to HD tomorrow morning with plans for outpatient nephrectomy. 09/14: To IR this morning for HD cath and initiate HD today. Still with nausea. 09/15: Has been getting headaches with midodrine administration, finds this bot hersome. Still with some nausea, no vomiting. Last midodrind dose did not get a headache. BP better. LE edema is significant today. Denies CP or SOB. Plan: Will need outpatient HD placement now that he has converted from PD and plan for outpatient urology referral for renal mass Vitals/I&O Vitals/I&O: Vital Signs Date Time Temp Pulse Resp B/P (MAP) Pulse Ox O2 Delivery O2 Flow Rate FiO2 09/19/19 12:24 141/81 09/19/19 11:06 98.1 91 20 95 Room Air 98.1 09/19/19 10:41 2.0 I & O 09/18/19 09/18/19 09/19/19 15:00 23:00 07:00 Intake Total 250 ml 200 ml 500 ml Output Total 150 ml 180 ml 125 ml Balance 100 ml 20 ml 375 ml Physical Exam General: Cooperative, No acute distress, Other (Resting in bed) Heart: Regular rate, Normal S1, Normal S2 Lungs: Clear Abdomen: Soft, Other (obese) Extremities: No cyanosis, Other (2+ bilateral LE pitting edema) Skin: No breakdown, Other (venous dermatitis; tunneled dialysis catheter site non-edematous, non-erythematous) Labs Labs: Laboratory Tests Test 09/19/19 04:40 White Blood Count 9.2 x10^3/uL (4.0-11.0) Red Blood Count 3.36 x10^6/uL (4.30-5.70) Hemoglobin 10.2 g/dL (13.0-17.5) Hematocrit 31.5 % (39.0-53.0) Mean Corpuscular Volume 94 fL (79-100) Mean Corpuscular Hemoglobin 30 pg (25-35) Mean Corpuscular Hemoglobin Concent 32 g/dL (31-37) Red Cell Distribution Width 14.8 % (11.5-14.5) Platelet Count 146 x10^3/uL (140-400) Neutrophils (%) (Auto) 67 % (31-73) Lymphocytes (%) (Auto) 13 % (24-48) Monocytes (%) (Auto) 13 % (0-9) Eosinophils (%) (Auto) 7 % (0-3) Basophils (%) (Auto) 1 % (0-3) Neutrophils # (Auto) 6.1 x10^3/uL (1.8-7.7) Lymphocytes # (Auto) 1.2 x10^3/uL (1.0-4.8) Monocytes # (Auto) 1.2 x10^3/uL (0.0-1.1) Eosinophils # (Auto) 0.6 x10^3/uL (0.0-0.7) Basophils # (Auto) 0.1 x10^3/uL (0.0-0.2) Sodium Level 137 mmol/L (136-145) Potassium Level 4.0 mmol/L (3.5-5.1) Chloride Level 101 mmol/L (98-107) Carbon Dioxide Level 28 mmol/L (21-32) Anion Gap 8 (6-14) Blood Urea Nitrogen 37 mg/dL (8-26) Creatinine 7.9 mg/dL (0.7-1.3) Estimated GFR (Cockcroft-Gault) 7.1 BUN/Creatinine Ratio 5 (6-20) Glucose Level 94 mg/dL (70-99) Calcium Level 8.6 mg/dL (8.5-10.1) Total Bilirubin 0.3 mg/dL (0.2-1.0) Aspartate Amino Transf (AST/SGOT) 14 U/L (15-37) Alanine Aminotransferase (ALT/SGPT) 8 U/L (16-63) Alkaline Phosphatase 52 U/L (46-116) Total Protein 6.1 g/dL (6.4-8.2) Albumin 2.2 g/dL (3.4-5.0) Albumin/Globulin Ratio 0.6 (1.0-1.7) Review of Systems Review of Systems: No headache No chest pain Assessment and Plan Assessmemt and Plan Problems Medical Problems: (1) Asthma Status: Chronic (2) ESRD on peritoneal dialysis Status: Chronic (3) Hyperglycemia Status: Acute (4) Obesity Status: Chronic (5) DORIS (obstructive sleep apnea) Status: Chronic (6) PSVT (paroxysmal supraventricular tachycardia) Status: Chronic (7) Syncopal episodes Status: Acute A/P ESRD on dialysis was on peritoneal dialysis and switching to hemodialysis Chair time at outpatient dialysis clinic has been arranged. Pt is scheduled for tomorrow. Discharge home today. O2 per nasal cannula DVT ppx home meds Full code Comment Review of Relevant I have reviewed the following items bennie (where applicable) has been applied. Medications: Current Medications Medications (Trade) Dose Ordered Sig/Tao Route PRN Reason Start Time Stop Time Status Last Admin Dose Admin Cefazolin Sodium/ Dextrose 50 ml @ 100 mls/hr 1X ONCE IV 09/19/19 10:15 09/19/19 10:44 DC 09/19/19 10:25 Midazolam HCl (Versed) 2 mg 1X ONCE IV 09/19/19 10:30 09/19/19 10:33 DC 09/19/19 10:30 Fentanyl Citrate (Fentanyl 2ml Vial) 100 mcg 1X ONCE IV 09/19/19 10:30 09/19/19 10:33 DC 09/19/19 10:30 Lidocaine/ Epinephrine (LIDOCAINE 1%-EPI 1:100,000 Multi-Dose) 20 ml 1X ONCE INJ 09/19/19 10:30 09/19/19 10:33 DC 09/19/19 10:30 Sodium Chloride 250 ml @ 250 mls/hr 1X ONCE IV 09/19/19 10:30 09/19/19 11:29 DC 09/19/19 10:30 LEXIE TRUJILLO III DO Sep 19, 2019 14:22
--- NOTE | 2019-09-19 16:10 | PDOC ---
CARDIO Progress Notes Date and Time Date of Service 09/19/2019 Time of Evaluation 1300 Subjective Subjective: No Chest Pain, No shortness of breath, No Palpitations, Other (feels much better today and has bee able to sleep well) Vitals Vitals Vital Signs Date Time Temp Pulse Resp B/P (MAP) Pulse Ox O2 Delivery O2 Flow Rate FiO2 09/19/19 15:00 82 20 136/66 (89) 91 Room Air 09/19/19 11:06 98.1 98.1 09/19/19 10:41 2.0 Weight Weight [ ] Input and Output Intake and Output Intake and Output 09/19/19 07:00 Intake Total 950 ml Output Total 455 ml Balance 495 ml Intake Oral 950 ml Output Urine Total 455 ml # Bowel Movements 2 Laboratory Labs Laboratory Tests Test 09/19/19 04:40 White Blood Count 9.2 x10^3/uL (4.0-11.0) Red Blood Count 3.36 x10^6/uL (4.30-5.70) Hemoglobin 10.2 g/dL (13.0-17.5) Hematocrit 31.5 % (39.0-53.0) Mean Corpuscular Volume 94 fL (79-100) Mean Corpuscular Hemoglobin 30 pg (25-35) Mean Corpuscular Hemoglobin Concent 32 g/dL (31-37) Red Cell Distribution Width 14.8 % (11.5-14.5) Platelet Count 146 x10^3/uL (140-400) Neutrophils (%) (Auto) 67 % (31-73) Lymphocytes (%) (Auto) 13 % (24-48) Monocytes (%) (Auto) 13 % (0-9) Eosinophils (%) (Auto) 7 % (0-3) Basophils (%) (Auto) 1 % (0-3) Neutrophils # (Auto) 6.1 x10^3/uL (1.8-7.7) Lymphocytes # (Auto) 1.2 x10^3/uL (1.0-4.8) Monocytes # (Auto) 1.2 x10^3/uL (0.0-1.1) Eosinophils # (Auto) 0.6 x10^3/uL (0.0-0.7) Basophils # (Auto) 0.1 x10^3/uL (0.0-0.2) Sodium Level 137 mmol/L (136-145) Potassium Level 4.0 mmol/L (3.5-5.1) Chloride Level 101 mmol/L (98-107) Carbon Dioxide Level 28 mmol/L (21-32) Anion Gap 8 (6-14) Blood Urea Nitrogen 37 mg/dL (8-26) Creatinine 7.9 mg/dL (0.7-1.3) Estimated GFR (Cockcroft-Gault) 7.1 BUN/Creatinine Ratio 5 (6-20) Glucose Level 94 mg/dL (70-99) Calcium Level 8.6 mg/dL (8.5-10.1) Total Bilirubin 0.3 mg/dL (0.2-1.0) Aspartate Amino Transf (AST/SGOT) 14 U/L (15-37) Alanine Aminotransferase (ALT/SGPT) 8 U/L (16-63) Alkaline Phosphatase 52 U/L (46-116) Total Protein 6.1 g/dL (6.4-8.2) Albumin 2.2 g/dL (3.4-5.0) Albumin/Globulin Ratio 0.6 (1.0-1.7) Microbiology Micro Microbiology 09/11/19 Aerobic Culture - Final, Complete 09/11/19 Aerobic Culture Result 1 (SOFIA) - Final, Complete 09/11/19 Gram Stain - Final, Complete 09/11/19 Gram Stain Result 1 (SOFIA) - Final, Complete 09/11/19 Gram Stain Result 2 (SOFIA) - Final, Complete Review of Systems Constitutional: yes: alert, oriented Ears/Nose/Throat: Yes: no symptom reported Eyes: Yes: no symptom reported Pulmonary: Yes dyspnea Cardiovascular: Yes no symptom reported Gastrointestional: Yes: abdominal pain Genitourinary: Yes: no symptom reported Musculoskeletal: Yes: no symptom reported Skin: Yes no symptom reported Psychiatric/Neurological: Yes: no symptom reported Endocrine: Yes: no symptom reported Physical Exam HEENT: Neck Supple W Full Motion Chest: Symmetric LUNGS: Other (basilar crackles) Heart: S1S2, RRR (SR) Abdomen: Soft N/T, Other (obese) Extremities: Other (LE pitting edema) Neurology: alert, oriented, follow commands Assessment Assessment 1. Near syncope: due to orthostasis/uremia 2. PSVT: brief episodes in the setting of uremia. None further EF and WM nml 3. ESRD: was on PD, now converted to HD 4. DORIS: CPAP intolerant 5. Asthma with recently treated acute bronchitis 6. Metabolic syndrome 7. Morbid obesity 8. Orthostasis: better with midodrine 9. Chronic diastolic CHF: compensated Recommendations 1. Fluid off loading per HD 2. Continue midodrine 3. Continue ASA and statin. 4. Remains with third spacing despite HD. Stable OK to DC today. Needing further delineation of intracardiac gradients for further treatment adjustment. Plan for outpt [facility] next week, discussed with pt and and agreeable to proceed. ARIA REECE RECRUITING ADMINISTRATOR Sep 19, 2019 16:10
--- NOTE | 2019-09-19 17:21 | NUR ---
Discharge Note: KURTIS COLLINS Discharge instructions and discharge home medications reviewed with Patient and a copy given. All questions have been answered and understanding verbalized. The following instructions and handouts were given: medication education, follow up appointments, dialysis appointment/instructions Discontinued lines and drains: discontinued IV, tunneled dialysis catheter intact. Patient discharged to home with spouse via wheelchair
--- NOTE | 2019-09-20 20:22 | DS ---
DATE OF DISCHARGE: 09/19/2019 ADMISSION DIAGNOSIS: Syncope. DISCHARGE DIAGNOSES: End-stage renal disease, now on dialysis. Resolving syncope. HOSPITAL COURSE: The patient is a pleasant 58-year-old male who presented with syncopal episode. He was admitted. We consulted Neurology and Cardiology. Did a full workup. It turned out he had end-stage renal disease. We have started him on dialysis. He now has a chair time. We discharged to home with close outpatient followup. DISPOSITION: Home. ACTIVITY: As tolerated. DIET: Low sodium. MEDICATIONS: Please see the MRAD. TOTAL TIME: 32 minutes. NIAL Jam TRUJILLO DO DR: Stephanie JOB#: [id number] / [id number]
--- NOTE | 2019-09-24 09:55 | RAD ---
Replacement of right internal jugular tunnel dialysis catheter over guidewire 09/24/2019 INDICATION: Poorly functioning catheter Discussion: The procedure was explained in its entirety to the patient or the patients designated service center representative by a member of the treatment team, including a discussion of the risks, benefits and commonly accepted alternatives to the procedure, as well as the expected consequences of no therapy whatsoever. Discussion of the risks included, but was not limited to, those that are most frequent and those that are rare but possibly severe or life-threatening, as well as the possibility of unforeseen complications. All elements of maximal sterile barrier technique including the use of a cap, mask, sterile gown, sterile gloves, large sterile sheet, appropriate hand hygiene, and 2% chlorhexidine for cutaneous antisepsis (or acceptable alternative antiseptic per current guidelines) were followed for this procedure. A guidewire was advanced into the IVC. The pre-existing catheter was removed over this wire and replaced with new 23 cm tip to cuff palindrome dialysis catheter with tip in the proximal right atrium with the patient supine position. New catheter found to flush and aspirate normally. The catheter was secured in place. No immediate complications were identified. Total fluoroscopy time: 2.7 min Dose area product: 23 Gycm2 Impression: Replacement of right internal jugular tunnel dialysis catheter
== END 2019-09-19 17:23 | disposition home or self-care (01) | DRG 291 ==
LOC: ER 16:29 → 2 NORTH 18:15
PROVIDERS: ADMIT Internal Medicine; ATTEND Internal Medicine
PROC: 0JH63XZ Insertion of Tunneled Vascular Access Device into Chest Subcutaneous Tissue and Fascia, Percutaneous Approach (ICD-10-PCS; principal; 2019-09-14)
PROC: 02H633Z Insertion of Infusion Device into Right Atrium, Percutaneous Approach (ICD-10-PCS; 2019-09-14)
PROC: B5181ZA Fluoroscopy of Superior Vena Cava using Low Osmolar Contrast, Guidance (ICD-10-PCS; 2019-09-14)
PROC: 5A1D70Z Performance of Urinary Filtration, Intermittent, Less than 6 Hours Per Day (ICD-10-PCS; 2019-09-14)
PROC: 5A1D70Z Performance of Urinary Filtration, Intermittent, Less than 6 Hours Per Day (ICD-10-PCS; 2019-09-17)
PROC: 3E1M39Z Irrigation of Peritoneal Cavity using Dialysate, Percutaneous Approach (ICD-10-PCS; 2019-09-18)
DX: I13.2 Hypertensive heart and chronic kidney disease with heart failure and with stage 5 chronic kidney disease, or end stage renal disease (principal); N18.6 End stage renal disease; G40.89 Other seizures; I47.1 Supraventricular tachycardia; I50.32 Chronic diastolic (congestive) heart failure; J98.11 Atelectasis; Q61.2 Polycystic kidney, adult type; Z68.42 Body mass index [BMI] 45.0-49.9, adult; G90.8 Other disorders of autonomic nervous system; D63.8 Anemia in other chronic diseases classified elsewhere; E11.22 Type 2 diabetes mellitus with diabetic chronic kidney disease; E11.43 Type 2 diabetes mellitus with diabetic autonomic (poly)neuropathy; E66.01 Morbid (severe) obesity due to excess calories; E78.5 Hyperlipidemia, unspecified; E87.6 Hypokalemia; E88.81 Metabolic syndrome and other insulin resistance; G47.33 Obstructive sleep apnea (adult) (pediatric); I25.10 Atherosclerotic heart disease of native coronary artery without angina pectoris; M19.90 Unspecified osteoarthritis, unspecified site; I95.1 Orthostatic hypotension; J20.9 Acute bronchitis, unspecified; J45.909 Unspecified asthma, uncomplicated; Z79.82 Long term (current) use of aspirin; Z82.49 Family history of ischemic heart disease and other diseases of the circulatory system; Z87.891 Personal history of nicotine dependence; Z99.2 Dependence on renal dialysis
CPT/HCPCS: 36415; 36558; 36581; 70450; 71045; 71046; 76937; 77001; 80048; 80053; 80061; 80069; 82533; 82607; 83036; 83735; 84132; 84165; 84443; 84484; 85007; 85025; 85610; 85651; 85730; 86038; 86704; 86706; 87070; 87340; 93005; 93306; 93880; 94640; 94760; 99152; 99153; A4215; C1750; C1769; C1892; J0690; J0696; J2060; J2250; J2405; J3010; J3490; J7050; J7613; 99285-25; G0378; J7030

== ENCOUNTER 2019-09-25 10:59 | Outpatient (CLI) | payer MEDICARE, BC ==
[~2019-09-25] VITALS: Ht 180.3 cm; Wt 156.5 kg
[2019-09-25 11:24] VITALS: BP 158/98
[2019-09-25 11:39] LABS: HEMOGLOBIN 10.6 g/dL (13.0-17.5); RED BLOOD COUNT 3.41 x10^6/uL (4.30-5.70); RED CELL DISTRIBUTION WIDTH 14.6 % (11.5-14.5); WHITE BLOOD COUNT 7.7 x10^3/uL (4.0-11.0)
[2019-09-25] MEDS ORDERED: ALPR0.5T PO (11:42)
[2019-09-25 11:49] LABS: PROTHROMBIN TIME PATIENT 14.3 SEC (11.7-14.0)
[2019-09-25 11:52] LABS: CALCIUM 8.6 mg/dL (8.5-10.1); CREATININE 10.8 mg/dL (0.7-1.3); GFR 4.9; POTASSIUM 4.8 mmol/L (3.5-5.1)
[2019-09-25] MEDS ORDERED: LIDOCAINE 1% Multi-Dose 20 ML VIAL. ONE (12:36)
[2019-09-25] MEDS ORDERED: fentaNYL PF VIAL 100 MCG/2 ML VIAL ONE (12:39)
[2019-09-25] MEDS ORDERED: MIDAZOLAM HCL/PF 2 MG/2 ML VIAL. ONE (12:39)
--- NOTE | 2019-09-25 12:56 | CONS ---
DATE OF H&P: 09/25/2019 REASON FOR PREOPERATIVE EVALUATION: Planned right heart catheterization, elective. HISTORY OF PRESENT ILLNESS: The patient is a pleasant 58-year-old man with past medical history as noted below, who presents to the outpatient mechanical laboratory technician suite for a planned right heart catheterization for evaluation of volume status. He was admitted to the hospital approximately 2 weeks ago in the setting of persistent dizziness and volume overload. He was diagnosed with orthostatic hypotension and he did have a trial of midodrine, which did not significantly change his symptomatology and therefore he was discharged after changing from peritoneal dialysis to hemodialysis due to difficulty maintaining an adequate volume status over the course of the last several months since he has been initiated on dialysis therapy. After discussion with his primary cathead operator, a decision was made to plan for a right heart catheterization to determine his fluid goals given his persistent orthostatic hypotension. PAST MEDICAL HISTORY: 1. Hypertension. 2. Nonischemic cardiomyopathy and dyspnea. 3. Polycystic kidney disease. ALLERGIES: No known drug allergies. CURRENT CARDIOVASCULAR MEDICATIONS: See medication record. PHYSICAL EXAMINATION: VITAL SIGNS: Stable. GENERAL: He is morbidly obese, in no acute distress. HEAD AND NECK: Unremarkable. CARDIAC: Regular rate and rhythm without any murmurs, rubs or gallops. LUNGS: Clear to auscultation. ABDOMEN: Obese, protuberant, nontender. EXTREMITIES: With 1+ pitting edema. NEUROLOGIC: No focal deficits. DIAGNOSTIC STUDIES: Right heart catheterization is pending. IMPRESSION: Severe morbid obesity with difficult to ascertain volume status in the setting of diastolic heart failure. PLAN: For a right heart catheterization today for delineation of his volume status. ELENA WHITTAKER MD DR: JOLIE/tesfaye JOB#: [id number] / [id number] AYE
[2019-09-25] MEDS ORDERED: fentaNYL PF VIAL 100 MCG/2 ML VIAL IV ONE (13:15)
[2019-09-25] MEDS ORDERED: MIDAZOLAM HCL/PF 2 MG/2 ML VIAL. IV ONE (13:15)
[2019-09-25] MEDS ORDERED: LIDOCAINE 1% Multi-Dose 20 ML VIAL. INJ ONE (13:15)
[2019-09-25 13:24] VITALS: BP 111/77
[2019-09-25 13:35] VITALS: BP 147/97
[2019-09-25 13:50] VITALS: BP 124/81
--- NOTE | 2019-09-25 13:57 | NUR ---
Orthostatic Blood pressures taken= sittin/81, layin/88, and standin/90. Patient's food arrived and is eating lunch.
[2019-09-25 14:05] VITALS: BP 161/100
[2019-09-25 14:20] VITALS: BP 165/111
--- NOTE | 2019-09-25 14:35 | NUR ---
Discharge Note: KURTIS COLLINS [facility] Discharge instructions and discharge home medications reviewed with Patient and a copy given. All questions have been answered and understanding verbalized. The following instructions and handouts were given: moderate sedation and incision care Discontinued lines and drains: Peripheral IV intact. Patient discharged to Home or Self Care withSpousevia Wheelchair
--- NOTE | 2019-09-26 16:32 | CARD ---
MR#: [id number] Date of Study: 09/25/2019 Ordering Physician: ELENA GUTIÉRREZ, Referring Physician: ELEAN GUTIÉRREZ, Tech: RT Gregory (R) APPROVED REPORT Technologist: RT Gregory (R) Nurse: Pretty Drew R.N. Procedure(s) performed: Sedation Time: 29 Minutes Dose: 3.4 Gycm2 Fluoro Time: 1.7 Minutes HISTORY The patient is a 58 year-old male with a history of : renal failure with dialysis, hypertension, dysl ipidemia. INDICATION The indication(s) include : dyspnea. PROCEDURE NARRATIVE After appropriate informed consent the patient was brought to the catheterization lab. The left neck was prepped and draped in usual sterile fashion. Next, under 1% lidocaine local anesthesia an ultraso und guidance a 5 Polish sheath was placed in the left internal jugular vein. Next, a 5 Polish pulmona ry artery catheter was advanced to the right heart chambers and pressures and saturations were obtain ed. The catheter was then withdrawn and manual compression was used to achieve hemostasis of the left neck entry site Findings: Right Atrium: 5 mmHg Right ventricle: 30/5/14 PA: 30/14/18 PCWP: 6 Jm CO: 9.8 L/min Conclusion 1. Normal biventricular filling pressures. 2. No significant pulmonary hypertension 3. Normal cardiac output. Recommendations Aggressive Medical Therapy Signed by : Elena Gutiérrez, Electronically Approved : 09/25/2019 14:15:26
== END 2019-09-25 14:54 | disposition home or self-care (01) ==
LOC: CCL 10:59
PROVIDERS: ATTEND Internal Medicine Cardiovascular Disease
DX: R06.00 Dyspnea, unspecified (principal); I25.10 Atherosclerotic heart disease of native coronary artery without angina pectoris; I10 Essential (primary) hypertension; E78.5 Hyperlipidemia, unspecified; I42.8 Other cardiomyopathies; Q61.3 Polycystic kidney, unspecified; E66.01 Morbid (severe) obesity due to excess calories; Z68.42 Body mass index [BMI] 45.0-49.9, adult; Z79.82 Long term (current) use of aspirin; Z79.899 Other long term (current) drug therapy
CPT/HCPCS: 36415; 80048; 85027; 85610; 93451; C1773; C1892; J1644; J2250; J3010; 99152; 99153

== ENCOUNTER → 2019-10-10 | Day surgery (SDC) | payer BC, MEDICARE ==
[~2019-10-10] MED LIST changes: +ALPR0.5T PO; +IV NORMAL SALINE 1000ML BAG 1,000 ML IV ONE; +IV RINGERS,LACTATED 1000ML 1,000 ML IV ONE; +IV RINGERS,LACTATED 1000ML 1,000 ML IV SCH; +LIDOCAINE 2% PF 5 ML VIAL. ONE; +PROPOFOL 20 ML IV ONE
[2019-10-10 09:17] VITALS: BP 165/94
--- NOTE | 2019-10-10 10:46 | HP ---
ADMIT DATE: 10/10/2019 REASON: Nausea and vomiting. HISTORY OF PRESENT ILLNESS: A 58-year-old male with past medical history significant for end-stage renal disease and polycystic kidney's, on hemodialysis now, is seen with intractable nausea and vomiting, which has been improving since he has been on hemodialysis. HIDA scan did reveal delayed filling of the gallbladder. No small bowel activity, Prevacid 30 mg has been tolerated here today to rule out ulcers, gastroparesis, additional pathology. PAST MEDICAL HISTORY: Chronic reflux, hypertension and anemia. FAMILY HISTORY: Significant for Crohn's, diabetes, hypertension and MS. SOCIAL HISTORY: He is a social drinker, nonsmoker. PAST SURGICAL HISTORY: Significant for eye surgery. REVIEW OF SYSTEMS: Per records. MEDICATIONS: Include alprazolam, calcium docusate, guanfacine, Prevacid and ____. PHYSICAL EXAMINATION: GENERAL: Reveals a well-nourished, well-developed male who is alert, cooperative, in no acute distress. VITAL SIGNS: Temperature 98.3, pulse 76, respirations 20. HEENT: Normocephalic, atraumatic head. Pupils and extraocular muscles are not tested. Sclerae anicteric. NECK: Supple. LUNGS: Clear. CARDIOVASCULAR: Reveals an S1, S2 without S3, S4 or appreciable murmur. ABDOMEN: Soft abdomen, normal bowel sounds, without appreciable hepatosplenomegaly. EXTREMITIES: Reveals no cyanosis, clubbing or edema. IMPRESSION: Nausea and vomiting, etiology is to be determined. Differential includes no dialysis, disequilibrium, gastroparesis, peptic ulcer disease, hiatal hernia. We will therefore recommend upper endoscopy to further assess. If this is unrevealing and the patient have recurrent symptoms, then a gastric emptying study may be pursued. MAK WALTON MD DR: ALEYDA/tesfaye JOB#: [id number] / [id number]
== END | disposition home or self-care (01) ==
LOC: ENDOS 06:19
PROVIDERS: ATTEND Internal Medicine Gastroenterology
DX: R11.2 Nausea with vomiting, unspecified (principal); K29.50 Unspecified chronic gastritis without bleeding; K21.9 Gastro-esophageal reflux disease without esophagitis; I10 Essential (primary) hypertension; D64.9 Anemia, unspecified; Z82.49 Family history of ischemic heart disease and other diseases of the circulatory system; Z83.3 Family history of diabetes mellitus; Z83.79 Family history of other diseases of the digestive system; Z79.899 Other long term (current) drug therapy; Z72.89 Other problems related to lifestyle
CPT/HCPCS: 43235; J2001; J2704

== ENCOUNTER → 2019-12-05 | Outpatient (CLI) | payer BC, MEDICARE ==
[~2019-12-05] MED LIST changes: +ACET325T9 PO; +ESCITALOPRAM OX10 MG PO; -GUAI400T63 PO; +GUAI400T78 PO; +HYDR-3164 PO; -IV NORMAL SALINE 1000ML BAG 1,000 ML IV ONE; -IV RINGERS,LACTATED 1000ML 1,000 ML IV ONE; -IV RINGERS,LACTATED 1000ML 1,000 ML IV SCH; +LEVO500T59 PO; -LIDOCAINE 2% PF 5 ML VIAL. ONE; +LIDOCAINE WITH 8.4% SOD BICARB 3 ML DISP.SYRIN. INJ ONE; +METO25TA4 PO; -PROPOFOL 20 ML IV ONE; +TAMS0.4C97 PO
[2019-12-05 10:40] VITALS: BP 130/74
[2019-12-05 10:55] VITALS: BP 134/75
--- NOTE | 2019-12-05 11:07 | RAD ---
Examination: LUMBAR PUNCTURE History: Lyme disease serology, papilledema, positive KRISTAN Comparison/Correlation: 07/03/2019 CT abdomen and pelvis with contrast Findings: Risks and benefits of fluoroscopically guided lumbar puncture were discussed with patient and informed consent was obtained. Fluoroscopy was utilized for 2.7 minutes. 6 images were obtained. Tubing or other linear density is present overlying the pelvis on fluoroscopic imaging. Cleansing was performed at the L4-5 and L5-S1 levels with Betadine. Sterile drape was placed. The L5-S1 level was selected for needle placement. Patient was in the LYRIC position. 3 cc 1 percent lidocaine was initially administered. 18-gauge needle was placed. 25-gauge spinal needles were placed via the 18-gauge needle. CSF could not be withdrawn. 22-gauge needle was then utilized but CSF was not successfully withdrawn. 20-gauge 6 inch needle was then utilized and CSF was successfully withdrawn. Opening pressure of 26 mmHg was obtained with the patient in the left lateral decubitus position. 23 cc clear CSF was withdrawn and sent within 3 separate vials. Closing pressure of 12 mmHg was noted. Patient tolerated procedure well without immediate complications. Impression: Successful lumbar puncture with decrease in CSF pressure. Specimens sent to the lab. PQRS Compliance Statement: One or more of the following individualized dose reduction techniques were utilized for this examination: 1. Automated exposure control 2. Adjustment of the mA and/or kV according to patient size 3. Use of iterative reconstruction technique Electronically signed by: Win Arellano MD (12/05/2019 11:04 AM) [facility]
[2019-12-05 11:10] VITALS: BP 120/79
[2019-12-05 11:45] VITALS: BP 133/77
[2019-12-05 12:21] VITALS: BP 126/72
--- NOTE | 2019-12-05 12:22 | NUR ---
Discharge Note: KURTIS COLLINS Discharge instructions and discharge home medications reviewed with Patient and a copy given. All questions have been answered and understanding verbalized. The following instructions and handouts were given: Lumbar Puncture, Care After. Discontinued lines and drains: Not lines to dc. Patient discharged to home with via car.
[2019-12-05 12:43] LABS: CSF CLARITY CLEAR; CSF COLOR COLORLESS; CSF RBC COUNT 3 /cmm (Not Established); CSF WBC COUNT 0 /cmm (Not Established)
[2019-12-05 12:45] LABS: CSF PROTEIN 44.9 mg/dL (15.0-45.0)
--- NOTE | 2019-12-05 13:59 | RAD ---
BRAIN W/O CONTRAST Date: 12/05/2019 8:15 AM Indication: Papilledema, positive antinuclear antibody, positive Lyme disease serology Comparison: None. Technique: Multiplanar multisequence MRI of the brain was performed without intravenous contras. Findings: Extensive patient motion degrades image quality. No acute infarct. No acute or chronic hemorrhage. The ventricles are normal in size and configuration without hydrocephalus. Optic nerves are poorly evaluated due to extensive motion artifact, but are grossly normal in size. The scalp and calvarium are normal. The pituitary and sella are normal. No Chiari malformation. The visualized upper cervical spine is normal. The visualized orbits and globes are normal. The visualized paranasal sinuses are clear. The mastoid air cells are clear. Normal flow voids within the vertebral, basilar, and internal carotid arteries indicating patency. IMPRESSION: No acute infarct, hemorrhage, mass, or hydrocephalus. Electronically signed by: Paco Tavarez MD (12/05/2019 1:56 PM) [id number]
== END | disposition home or self-care (01) ==
LOC: MRI 08:06
PROVIDERS: ATTEND Psychiatry & Neurology Neurology with Special Qualifications in Child Neurology
DX: A69.20 Lyme disease, unspecified (principal); H47.10 Unspecified papilledema
CPT/HCPCS: 36415; 62270; 62328; 70551; 82945; 83916; 84157; 86618; 87071; 87075; 87102; 87252; 89051

== ENCOUNTER 2019-12-25 05:59 | Day surgery (SDC) | payer BC, MEDICARE ==
[~2019-12-25] VITALS: Ht 180.3 cm; Wt 157.0 kg
[~2019-12-25 05:59] MED LIST changes: -ACET325T9 PO; -ESCITALOPRAM OX10 MG PO; -HYDR-3164 PO; -LIDOCAINE WITH 8.4% SOD BICARB 3 ML DISP.SYRIN. INJ ONE; -TAMS0.4C97 PO
[2019-12-25] MEDS ORDERED: ceFAZolin SODIUM 3 GM in IV DEXTROSE 5% 100ML 100 ML IV PRN (06:00)
[2019-12-25] MEDS ORDERED: ACET325T9 PO (06:32)
[2019-12-25] MEDS ORDERED: ESCITALOPRAM OX10 MG PO (06:32)
[2019-12-25] MEDS ORDERED: TAMS0.4C97 PO (06:32)
[2019-12-25 07:00] LABS: CALCIUM 8.4 mg/dL (8.5-10.1); CREATININE 7.7 mg/dL (0.7-1.3); GFR 7.3; POTASSIUM 3.9 mmol/L (3.5-5.1)
[2019-12-25] MEDS ORDERED: HYDROmorphone 2 MG/ML VIAL IV PRN (07:00)
[2019-12-25] MEDS ORDERED: IV NORMAL SALINE 1000ML BAG 1,000 ML IV SCH (07:00)
[2019-12-25] MEDS ORDERED: ONDANSETRON PF 4 MG/2 ML VIAL. ONE (07:00)
[2019-12-25] MEDS ORDERED: ROCURONIUM 50 MG/5 ML VIAL. ONE (07:00)
[2019-12-25] MEDS ORDERED: PROPOFOL 20 ML IV ONE (07:00)
[2019-12-25] MEDS ORDERED: MORPHINE SULFATE 2 MG/ML VIAL. IV PRN (07:00)
[2019-12-25] MEDS ORDERED: fentaNYL PF VIAL 100 MCG/2 ML VIAL IV PRN ×2 (07:00)
[2019-12-25] MEDS ORDERED: DEXAMETHASONE SOD PHOS 4 MG/ML VIAL ONE (07:00)
[2019-12-25] MEDS ORDERED: LIDOCAINE 2% PF 5 ML VIAL. ONE (07:00)
[2019-12-25] MEDS ORDERED: PROCHLORPERAZINE 10 MG/2 ML VIAL. IV PRN (07:00)
[2019-12-25 07:05] LABS: ALBUMIN 3.2 g/dL (3.4-5.0); TOTAL BILIRUBIN 0.2 mg/dL (0.2-1.0); TOTAL PROTEIN 6.3 g/dL (6.4-8.2)
[2019-12-25] MEDS ORDERED: fentaNYL PF VIAL 100 MCG/2 ML VIAL ONE (07:07)
[2019-12-25] MEDS ORDERED: BUPIVACAINE-EPI 0.5%-1:200000 MPF 30 ML VIAL. ONE (07:19)
[2019-12-25] MEDS ORDERED: NEOSTIGMINE METHYLSULFATE 5 MG/5 ML SYRINGE. ONE (07:32)
[2019-12-25] MEDS ORDERED: GLYCOPYRROLATE 1 MG/5 ML VIAL. ONE (07:32)
[2019-12-25] MEDS ORDERED: ePHEDrine PF IN SALINE 50 MG/10 ML SYRINGE. IV ONE (08:00)
[2019-12-25] MEDS ORDERED: VASOPRESSIN 20 UNIT/ML VIAL. ONE (08:04)
--- NOTE | 2019-12-25 08:46 | PDOC4 ---
Operative Note Operative Note Operative Note: Preoperative Diagnosis: Renal failure Postoperative Diagnosis: Same Procedure: Removal of peritoneal dialysis catheter Surgeon: Reginald Anesthesia: Gen. EBL: 10 mL Specimen: None Drains: None Complications: None Indication: The patient is a 59-year-old male who has a history of renal failure. He had a peritoneal dialysis catheter placed which initially worked well. The catheter is continued to function normally however the peritoneal approach no longer is able to dialyze him sufficiently. He has been converted to hemodialysis and he was referred for removal of the catheter. The risks of surgery were discussed which include bleeding, infection, anesthetic risk, pain, potential need for additional surgery or procedure. He understands and would like to proceed. Description: The patient was taken to the operating room and placed supine on the operating table. Gen. anesthesia was performed. The abdomen was prepped with ChloraPrep and draped in a standard surgical manner. The patient had an extended tunneled catheter which exited the left upper quadrant. An initial incision was made at the location of the distal cuff. Cautery dissection was carried down subcutaneous tissue. The catheter and cuff were readily identified and mobilized from the surrounding tissue. The distal coiled portion of the catheter was retrieved without difficulty. The small fascial defect was closed with 0 Vicryl. More proximally we were able to identify the metallic connector. This was also mobilized from the subcutaneous tissues. A second small incision was made at the location of the proximal cuff. Cautery dissection was carried into the subcutaneous tissue and the cuff and catheter were readily identified. The proximal cuff was readily freed up from the surrounding tissues. The catheter was cut allowing for removal of all portions of the catheter. Hemostasis was achieved with cautery. The skin was approximated with 4-0 Monocryl sutures. Both incisions were infiltrated with half percent Marcaine with epinephrine. Steri- Strips and sterile dressings were applied. The patient tolerated the procedure well and was sent to the recovery room in stable condition. At the end of the case all counts were correct. MAK AMIN MD Dec 25, 2019 08:46
--- NOTE | 2019-12-25 08:48 | DISCH ---
DISCHARGE INSTRUCTIONS Condition on Discharge Condition on Discharge: Stable Activity After Discharge Activity Instructions for Disc: Activity as tolerated Driving Instructions after Dis: Other, see below (no driving while taking pain meds) Diet after Discharge Diet after Discharge: Renal Dialysis Wound Incision Care Wound/Incision Care: Other, see below (keep dressings clean and dry X 72 hours, may then remove and shower; steristrips fall off on their own) Follow-Up Follow up with: Dr Amin in 2 weeks in office, call for appt [phone] MAK AMIN MD Dec 25, 2019 08:48
[2019-12-25] MEDS ORDERED: HYDR-3164 PO (08:53)
[2019-12-25] MEDS ORDERED: HYDROcodone/APAP 5/325MG 1 TAB TABLET PO ONE (09:00)
[2019-12-25] MEDS ORDERED: NALOXONE 0.4 MG/ML VIAL. ONE (09:05)
[2019-12-25] MEDS ORDERED: IPRATRPIUM/ALBUTEROL 0.5/2.5MG 3 ML NEBU. ONE (10:42)
[2019-12-25] MEDS ORDERED: IPRATRPIUM/ALBUTEROL 0.5/2.5MG 3 ML NEBU. NEB ONE (10:45)
[2019-12-25 10:50] VITALS: BP 128/64
== END 2019-12-25 11:25 | disposition home or self-care (01) ==
LOC: SURG 05:59
PROVIDERS: ATTEND Surgery
DX: I12.9 Hypertensive chronic kidney disease with stage 1 through stage 4 chronic kidney disease, or unspecified chronic kidney disease (principal); N18.6 End stage renal disease; E78.00 Pure hypercholesterolemia, unspecified; I10 Essential (primary) hypertension; J45.909 Unspecified asthma, uncomplicated; G47.30 Sleep apnea, unspecified; D64.9 Anemia, unspecified; F41.9 Anxiety disorder, unspecified; F32.9 Major depressive disorder, single episode, unspecified; Z68.42 Body mass index [BMI] 45.0-49.9, adult; E66.9 Obesity, unspecified; Z86.73 Personal history of transient ischemic attack (TIA), and cerebral infarction without residual deficits; Z87.442 Personal history of urinary calculi; Z98.42 Cataract extraction status, left eye; Z98.41 Cataract extraction status, right eye; Z72.89 Other problems related to lifestyle
CPT/HCPCS: 36415; 49422; 80053; 94002; 94760; A7015; J0171; J1100; J2001; J2310; J2405; J2704; J2710; J3010; J3490; J7620

== ENCOUNTER → 2020-01-21 | Outpatient (CLI) | payer BC, MEDICARE ==
[2019-12-25 10:50] VITALS: BP 128/64
[~2020-01-21] MED LIST changes: +ACET325T9 PO; +ESCITALOPRAM OX10 MG PO; +HYDR-3164 PO; +TAMS0.4C97 PO
--- NOTE | 2020-01-22 10:01 | SLEEP ---
DATE OF STUDY: 01/21/2020 SLEEP STUDY REFERRING PHYSICIAN: PATRICK Levy The patient is 59 years old who weighs 365 pounds with a BMI of 50. The patient's Greenfield score was 14. The patient underwent split night study at [facility]. During the night study, the patient spent 139 minutes in bed and slept for 41 minutes with a sleep efficiency of 58%. Sleep latency was 7 minutes with an absent REM sleep. Sleep architecture showed increased stage 1 and stage 2 sleep, but absent slow wave and absent REM sleep. During the diagnostic portion of the study, the patient slept for 76 minutes. During that time, there were no obstructive or central apneas. There was 1 mixed apnea and 40 hypopneas. The patient's AHI was 33 per hour with a supine AHI of 33 per hour as well. No REM sleep observed. EKG monitoring revealed normal sinus rhythm with occasional sinus tachycardia. Average heart rate was 86 beats per minute. No significant PLM seen. Nocturnal oximetry study revealed mean oxygen saturation of 92% with the lowest of 79%. 31% of time oxygen saturation remained between 80% and 89%. The patient did met the criteria for CPAP initiation. It was started at 7 cm water; however, the patient states that he could not continue CPAP anymore as he had a clot in his eye and would come at a later date. His AHI was 48 per hour at 7 cm water. IMPRESSION: 1. Severe obstructive sleep apnea at an apnea-hypopnea index of 33 per hour. 2. Nocturnal hypoxia secondary to obstructive sleep apnea. 3. No clinically significant periodic limb movements of sleep. RECOMMENDATIONS: 1. Optimum CPAP pressure was not achieved on this split night study as the patient could not continue to stay on CPAP due to his ocular condition. 2. It is recommended that once patient's ocular condition is resolved, then he should return for full night of CPAP titration study. 3. Weight loss is strongly advised. 4. Avoid POWDER NIPPER depressants. 5. Cautioned regarding driving until symptoms of sleep apnea resolve with CPAP. JULIAN TURPIN MD DR: SATYA/tesfaye JOB#: [id number] / [id number] ecc EMERITA BARR
== END | disposition home or self-care (01) ==
LOC: SLPLAB 18:51
PROVIDERS: ATTEND Internal Medicine Critical Care Medicine
DX: G47.33 Obstructive sleep apnea (adult) (pediatric) (principal); G47.34 Idiopathic sleep related nonobstructive alveolar hypoventilation
CPT/HCPCS: 95810

== ENCOUNTER → 2020-02-12 | Outpatient (CLI) | payer MEDICARE, BC ==
--- NOTE | 2020-02-13 07:30 | SLEEP ---
DATE OF STUDY: 02/12/2020 SLEEP STUDY REFERRED BY: PATRICK Levy The patient is 59 years old who weighs 356 pounds with a BMI of 50. The patient underwent CPAP titration study performed at [facility].The patient had a previous diagnosis of sleep apnea. The patient's previous sleep study had shown an AHI of 33 per hour. An optimum CPAP pressure was not achieved on split night study. As a result, the patient was referred back for a full night titration study. During the night of the study, the patient spent 424 minutes in bed and slept for 364 minutes with a sleep efficiency of 86%. Sleep latency was 5 minutes with a REM latency of 83 minutes. Sleep architecture showed normal stage 1 sleep, increased stage 2 sleep, reduced slow wave and normal REM sleep. The patient was started on CPAP at a pressure of 7 cm water and titrated up to maximum of 20 cm water. Due to persistent respiratory events, the patient was switched to BiPAP starting at 22/18. However, only 23 minutes were spent at that pressure then the patient was changed to 26/20. The patient slept for 163 minutes. AHI was reduced to 1.1 per hour. The patient had a long REM sleep, which was lateral REM sleep and did desaturate during REM sleep to lowest of 80%. However, the patient's saturations came up when the patient came out of REM sleep. I would recommend that the patient could be safely placed on BiPAP at 25/20 with 2 liters of supplemental oxygen. EKG monitoring revealed normal sinus rhythm, no sustained arrhythmias observed. PLMs were seen at index of 5 per hour and only 1 per hour caused EEG arousals. IMPRESSION: 1. Severe obstructive sleep apnea, diagnosed by previous sleep study. 2. No clinically significant periodic limb movements. 3. Persistent nocturnal hypoxia despite therapeutic BIPAP RECOMMENDATIONS: 1. BiPAP at a pressure of 25/20 should be used on a nightly basis along with 2 liters of supplemental oxygen. 2. Follow up in 4-6 weeks to assess compliance with BiPAP and to document clinical improvement. 3. Weight loss is strongly advised. 4. Avoid [employer] depressants. 5. Cautioned regarding driving until symptoms of sleep apnea resolve with the use of BiPAP. JULIAN TURPIN MD DR: SATYA/tesfaye JOB#: [id number] / [id number] EMERITA Ortiz
== END ==
LOC: RT 19:21
PROVIDERS: ATTEND Internal Medicine Critical Care Medicine
DX: G47.33 Obstructive sleep apnea (adult) (pediatric) (principal)
CPT/HCPCS: 95811

== ENCOUNTER 2020-05-31 22:16 | Inpatient (IN) | payer MEDICARE, OTHER ==
[~2020-05-31] VITALS: Ht 180.3 cm; Wt 154.8 kg
--- NOTE | 2020-05-31 22:37 | PHYS DOC ---
Past Medical History Past Medical History: Asthma, Other Additional Past Medical Histor: RENAL FAILURE, ASTHMA, PERTONEAL DIALYSIS Past Surgical History: Other Additional Past Surgical Histo: PERMACATH DIALYSIS CATHETER, PD CATH Smoking Status: Never Smoker Alcohol Use: None Drug Use: None General Adult EDM: Chief Complaint: NAUSEA/VOMITING/DIARRHA HPI: HPI: Patient is a 59 year old two days of fever diarrhea minimal cough fever of 101 today earleir in the day. pui is concerned about coronavirus. has proven covid works at [employer]. went up to the floor upstairs they had three patients not wearing masks. Patient has body aches just does not feel well overall. Review of Systems: Review of Systems: Constitutional: Denies fever or chills. [] Eyes: Denies change in visual acuity. [] HENT: Denies nasal congestion or sore throat. [] Respiratory: breathing pretty normal. Cardiovascular: Denies chest pain or edema. [] GI: pos for vomiting earlier no dysuria. Heart Score: Risk Factors: Risk Factors: DM, Current or recent (<one month) smoker, HTN, HLP, family history of CAD, obesity. Risk Scores: Score 0 - 3: 2.5% MACE over next 6 weeks - Discharge Home Score 4 - 6: 20.3% MACE over next 6 weeks - Admit for Clinical Observation Score 7 - 10: 72.7% MACE over next 6 weeks - Early Invasive Strategies Allergies: Allergies: Allergies Coded Allergies Type Severity Reaction Last Updated Verified No Known Drug Allergies 12/25/19 No Physical Exam: PE: Constitutional: Well developed, well nourished, no acute distress, non-toxic appearance. [] HENT: Normocephalic, atraumatic, bilateral external ears normal, oropharynx moist, no oral exudates, nose normal. [] Eyes: PERRLA, EOMI, conjunctiva normal, no discharge. [] Neck: Normal range of motion, no tenderness, supple, no stridor. [] Cardiovascular:Heart rate regular rhythm, Lungs & Thorax: Decreased breath sounds left lung base Abdomen: Bowel sounds normal, soft, no tenderness, no masses, no pulsatile masses. [] Skin: Warm, dry, no erythema, no rash. [] Back: No tenderness, no CVA tenderness. [] Extremities: No tenderness, no cyanosis, no clubbing, ROM intact, 1+ edema Neurologic: Alert and oriented X 3, normal motor function, normal sensory function, no focal deficits noted. [] Psychologic: Affect normal, judgement normal, mood normal. [] Current Patient Data: Vital Signs: BP 105/57 temp 99.1 but it was 101 earlier EKG: EKG: [] EKG shows a normal sinus rhythm with a rate of 90 no STEMI no obvious ischemia was identified Radiology/Procedures: Radiology/Procedures: [] Impression: PRESSION: Cardiomegaly and volume loss in the left lung with airspace opacities in the posterior lower lobe. Cannot exclude pneumonia. Electronically signed by: Lam Butler MD (06/01/2020 1:40 AM) [facility] [place] DICTATED and SIGNED BY: LAM BUTLER MD DATE: 06/01/20 0140 Course & Med Decision Making: Course & Med Decision Making Pertinent Labs and Imaging studies reviewed. (See chart for details) [59-year-old male with a history of end-stage renal disease on hemodialysis asthma presenting with fever diarrhea cough body aches has coronavirus patient is a person under investigation also chest x-ray shows a left basilar pneumonia so given the dialysis status I think it warrants admission for observation. Banken Zosyn was ordered in the emergency room lactic acid was added on. COVID test was ordered as well to the service of Dr. Dario Jones Disclaimer: Robert Disclaimer: This electronic medical record was generated, in whole or in part, using a voice recognition dictation system. Departure Departure Impression: Primary Impression: ESRD (end stage renal disease) Additional Impression: Pneumonia Disposition: 09 ADMITTED INPATIENT Admitting Physician: MONTRELL Condition: STABLE Referrals: EMERITA BARR (PCP) Justicifation of Admission Dx: Justifications for Admission: Justification of Admission Dx: Yes Comminuty Aquired Pneumonia: Med-High Risk Pt AKANKSHA BRONSON MD May 31, 2020 22:37
[2020-05-31] MEDS ORDERED: ACETAMINOPHEN 500 MG TABLET PO ONE (23:30)
[2020-05-31 23:47] LABS: BASO % 1 % (0-3); EOS % 0 % (0-3); HEMATOCRIT 35.9 % (39.0-53.0); LYMPH # 0.8 x10^3/uL (1.0-4.8); LYMPH % 11 % (24-48); MEAN CORPUSCULAR HEMOGLOBIN 32 pg (25-35); MEAN CORPUSCULAR HGB CONC 33 g/dL (31-37); MEAN CORPUSCULAR VOLUME 94 fL (79-100); MONO # 0.4 x10^3/uL (0.0-1.1); MONO % 5 % (0-9); NEUT % 84 % (31-73); PLATELET COUNT 118 x10^3/uL (140-400); RED BLOOD COUNT 3.81 x10^6/uL (4.30-5.70); RED CELL DISTRIBUTION WIDTH 15.4 % (11.5-14.5); WHITE BLOOD COUNT 7.1 x10^3/uL (4.0-11.0)
[2020-05-31 23:59] LABS: CALCIUM 7.8 mg/dL (8.5-10.1); CREATININE 9.3 mg/dL (0.7-1.3); GFR 5.9; POTASSIUM 3.4 mmol/L (3.5-5.1)
[2020-06-01 00:05] LABS: ALBUMIN 3.1 g/dL (3.4-5.0); ALBUMIN/GLOBULIN RATIO 0.8 (1.0-1.7); TOTAL BILIRUBIN 0.3 mg/dL (0.2-1.0); TOTAL PROTEIN 7.1 g/dL (6.4-8.2)
--- NOTE | 2020-06-01 00:17 | RAD ---
EXAM: PORTABLE CHEST 1V INDICATION: Reason: sob / Spl. Instructions: / History: . TECHNIQUE: Single view COMPARISON: 09/18/2019 FINDINGS: The right jugular approach dual-lumen central venous catheter has since been removed. Unchanged moderate cardiomegaly. The great vessels appear unremarkable. There is no hilar or mediastinal mass. Lungs show left basilar atelectatic changes. There is no pleural effusion or pneumothorax. There are no significant osseous abnormalities. IMPRESSION: Cardiomegaly with left basilar atelectasis. Electronically signed by: Sean Butler MD (06/01/2020 12:15 AM) [facility] [place]
--- NOTE | 2020-06-01 01:43 | RAD ---
EXAM: CHEST PA LATERAL INDICATION: Reason: ATELECTASIS, R/O PNA. / Spl. Instructions: / History: . TECHNIQUE: PA and lateral views COMPARISON: 05/31/2020 chest x-ray FINDINGS: Moderate cardiomegaly redemonstrated. The great vessels appear unremarkable. There is no hilar or mediastinal mass. Lungs show elevated left diaphragm and airspace opacities in the posterior left costophrenic angle. There is no pleural effusion or pneumothorax. There are no significant osseous abnormalities. IMPRESSION: Cardiomegaly and volume loss in the left lung with airspace opacities in the posterior lower lobe. Cannot exclude pneumonia. Electronically signed by: Sean Butler MD (06/01/2020 1:40 AM) [facility] – [place]
[2020-06-01] MEDS ORDERED: PIP/TAZO PER PHARMACY MC PRN (02:00)
[2020-06-01] MEDS ORDERED: VANCOMYCIN 2 GM in IV NORMAL SALINE 500ML BAG 500 ML IV ONE (03:00)
[2020-06-01] MEDS: PIPERACILLIN/TAZOBACTAM 2.25 GM in IV NORMAL SALINE 50ML 50 ML IV SCH ×3 (03:30→21:02)
--- NOTE | 2020-06-01 10:16 | CONS ---
DATE OF CONSULTATION: 06/01/2020 I was asked to see this 59-year-old gentleman for COVID-19 PUI. HISTORY OF PRESENT ILLNESS: The patient is a lifelong nonsmoker. He does have history of asthma, is on albuterol as p.r.n. basis. He has obstructive sleep apnea-hypopnea syndrome, is on CPAP. His was diagnosed with COVID-19 yesterday. She works at [employer]. He has had fever, chills, headache, and diarrhea for the past 2-3 days. He denies shortness of breath or cough. He is on hemodialysis Tuesday, Tuesday and Tuesday. PAST MEDICAL HISTORY: End-stage renal disease, on hemodialysis; asthma, obstructive sleep apnea-hypopnea syndrome. He was on peritoneal dialysis for 2 years, but for the past year, he has been on hemodialysis. He has hypertension. ALLERGIES: No known drug allergies. MEDICATIONS: He is on Zosyn and vancomycin. SOCIAL HISTORY: Nonsmoker. FAMILY HISTORY: Hypertension. REVIEW OF SYSTEMS: As mentioned as above, other systems otherwise negative. PHYSICAL EXAMINATION: GENERAL: This is an obese gentleman. VITAL SIGNS: His O2 saturation on room air is 94%, respiratory rate 21, heart rate 80, blood pressure 147/85, and temperature 98.3. HEENT: Normocephalic, atraumatic. NECK: Short and thick. CARDIOVASCULAR: Regular rate and rhythm on Monitor. LUNGS: There are no paradoxical abdominal motion. There is no audible wheezing. ABDOMEN: Obese. EXTREMITIES: There is no edema. NEUROLOGIC: Alert. SKIN: No rash. LABORATORY DATA: I reviewed the following lab data. Chest x-ray shows questionable infiltrate/atelectasis on the left side. COVID-19 testing is pending. WBC 7.1, hemoglobin 12, platelets 118, lymphocytes is 0.8, which is low. Sodium 135, potassium 3.5, chloride 95, CO2 of 27, BUN 38, creatinine 9.3, total bilirubin 0.3, AST 32, ALT 21. IMPRESSION: 1. Febrile illness, rule out COVID-19. 2. Abnormal chest x-ray, rule out pneumonia. 3. Asthma. 4. Obstructive sleep apnea-hypopnea syndrome. 5. End-stage renal disease, on hemodialysis. 6. Hypertension. 7. Electrolyte abnormality. PLAN AND RECOMMENDATIONS: 1. Titrate FiO2 to keep O2 saturation 92%. 2. Follow up COVID-19 testing. The patient is airborne isolation. 3. Lovenox for DVT prophylaxis. 4. Agree with antibiotic. 5. Hemodialysis per Nephrology. 6. Monitor respiratory status very closely. 7. The findings and recommendations were discussed with the patient. Thank you very much for allowing me to participate in care of this very nice gentleman. NIKKI HILL M.D. DR: Tri JOB#: [id number] / [id number]
--- NOTE | 2020-06-01 10:27 | PDOC1 ---
History and Physical Date of Admission Date of Admission DATE: 06/01/20 TIME: 10:25 Identification/Chief Complaint Chief Complaint seen in er , Patient is a 59 year old male two days of fever diarrhea cough fever of 101 / pui is concerned about coronavirus. has proven covid works at [employer]. went up to the floor upstairs they had three patients not wearing masks. Patient has body aches just does not feel well overall. Past Medical History Past Medical History Past Medical History Past Medical History Past Medical History: Asthma, Other Additional Past Medical Histor: RENAL FAILURE, ASTHMA, PERTONEAL DIALYSIS Past Surgical History: Other Additional Past Surgical Histo: PERMACATH DIALYSIS CATHETER, PD CATH Smoking Status: Never Smoker Alcohol Use: None Drug Use: None SLEEP STUDY REFERRED BY: PATRICK Levy The patient is 59 years old who weighs 356 pounds with a BMI of 50. The patient underwent CPAP titration study performed at [facility].The patient had a previous diagnosis of sleep apnea. The patient's previous sleep study had shown an AHI of 33 per hour. An optimum CPAP pressure was not achieved on split night study. As a result, the patient was referred back for a full night titration study. During the night of the study, the patient spent 424 minutes in bed and slept for 364 minutes with a sleep efficiency of 86%. Sleep latency was 5 minutes with a REM latency of 83 minutes. Sleep architecture showed normal stage 1 sleep, increased stage 2 sleep, reduced slow wave and normal REM sleep. The patient was started on CPAP at a pressure of 7 cm water and titrated up to maximum of 20 cm water. Due to persistent respiratory events, the patient was switched to BiPAP starting at 22/18. However, only 23 minutes were spent at that pressure then the patient was changed to 26/20. The patient slept for 163 minutes. AHI was reduced to 1.1 per hour. The patient had a long REM sleep, which was lateral REM sleep and did desaturate during REM sleep to lowest of 80%. However, the patient's saturations came up when the patient came out of REM sleep. I would recommend that the patient could be safely placed on BiPAP at 25/20 with 2 liters of supplemental oxygen. EKG monitoring revealed normal sinus rhythm, no sustained arrhythmias observed. PLMs were seen at index of 5 per hour and only 1 per hour caused EEG arousals. IMPRESSION: 1. Severe obstructive sleep apnea, diagnosed by previous sleep study. 2. No clinically significant periodic limb movements. 3. Persistent nocturnal hypoxia despite therapeutic BIPAP RECOMMENDATIONS: 1. BiPAP at a pressure of 25/20 should be used on a nightly basis along with 2 liters of supplemental oxygen. 2. Follow up in 4-6 weeks to assess compliance with BiPAP and to document clinical improvement. 3. Weight loss is strongly advised. 4. Avoid [employer] depressants. 5. Cautioned regarding driving until symptoms of sleep apnea resolve with the use of BiPAP. JULIAN TURPIN MD DR: SATYA/tesfaye JOB#: [id number] / [id number] EMERITA Ortiz Past Medical History Past Medical History Past Medical History: Asthma, Other Additional Past Medical Histor: RENAL FAILURE, ASTHMA, PERTONEAL DIALYSIS Past Surgical History: Other Additional Past Surgical Histo: PERMACATH DIALYSIS CATHETER, PD CATH Smoking Status: Never Smoker Alcohol Use: None Drug Use: None fhx obesity Cardiovascular: CAD, HTN, Hyperlipidemia Pulmonary: Asthma, Other Renal/: Chronic renal failure, Other Past Surgical History Past Surgical History: Arthroscopy, Cataract Removal, Other Family History Family History: Heart Disease, Hypertension Social History Smoke: No ALCOHOL: none Drugs: None Current Medications Current Medications Current Medications Acetaminophen (Tylenol) 1,000 mg 1X ONCE PO Last administered on 06/01/20at 01:15; Start 05/31/20 at 23:30; Stop 05/31/20 at 23:31; Status DC Vancomycin HCl (Vanco Per Pharmacy) 1 each PRN DAILY PRN [facility] SEE COMMENTS; Start 06/01/20 at 02:00 Piperacillin Sod/ Tazobactam Sod (Zosyn Per Pharmacy) 1 each PRN DAILY PRN MC SEE COMMENTS; Start 06/01/20 at 02:00 Piperacillin Sod/ Tazobactam Sod 2.25 gm/Sodium Chloride 50 ml @ 100 mls/hr Q8 HRS IV Last administered on 06/01/20at 03:30; Start 06/01/20 at 02:30 Vancomycin HCl 2 gm/Sodium Chloride 500 ml @ 250 mls/hr 1X ONCE IV Last administered on 06/01/20at 04:08; Start 06/01/20 at 03:00; Stop 06/01/20 at 04:59; Status DC Enoxaparin Sodium (Lovenox 40mg Syringe) 40 mg Q24H SQ ; Start 06/01/20 at 11:00 Pantoprazole Sodium (Protonix) 40 mg DAILYAC PO ; Start 06/01/20 at 11:30 Active Scripts Active Reported [place] 5-325 Tablet (Acetaminophen/Hydrocodone Bitart) 1 Each Tablet 1 Tab PO PRN Q6HRS PRN Tylenol (Acetaminophen) 325 Mg Tablet 1 Tab PO PRN Q4HRS Escitalopram Oxalate 10 Mg Tablet 1 Tab PO DAILY Flomax (Tamsulosin Hcl) 0.4 Mg Cap.er.24h 1 Cap PO DAILY Xanax (Alprazolam) 0.5 Mg Tablet 0.5 Mg PO PRN Q6HRS PRN Colace (Docusate Sodium) 100 Mg Capsule 100 Mg PO DAILY Trazodone Hcl 50 Mg Tablet 1-2 Tab PO HS Calcium Acetate 667 Mg Tablet 3 Cap PO TIDWMEALS Prevacid (Lansoprazole) 15 Mg Capsule.dr 1 Cap PO DAILY Allergies Allergies: Coded Allergies: No Known Drug Allergies (Unverified , 12/25/19) ROS Review of System Review of Systems: Review of Systems: Constitutional: Denies fever or chills. [] Eyes: Denies change in visual acuity. [] HENT: Denies nasal congestion or sore throat. [] Respiratory: breathing pretty normal. Cardiovascular: Denies chest pain or edema. [] GI: pos for vomiting earlier no dysuria. 14 pt ros neg, otherwise General: YES: Fatigue PSYCHOLOGICAL ROS: YES: Disorientation Respiratory: YES: Cough Physical Exam Physical Exam Constitutional: Well developed, well nourished, no acute distress, non-toxic appearance. [] HENT: Normocephalic, atraumatic, bilateral external ears normal, oropharynx moist, no oral exudates, nose normal. [] Eyes: PERRLA, EOMI, conjunctiva normal, no discharge. [] Neck: Normal range of motion, no tenderness, supple, no stridor. [] Cardiovascular:Heart rate regular rhythm, Lungs & Thorax: Decreased breath sounds left lung base Abdomen: Bowel sounds normal, soft, no tenderness, no masses, no pulsatile masses. [] Skin: Warm, dry, no erythema, no rash. [] Back: No tenderness, no CVA tenderness. [] Extremities: No tenderness, no cyanosis, no clubbing, ROM intact, 1+ edema Neurologic: Alert and oriented X 3, normal motor function, normal sensory function, no focal deficits noted. [] Psychologic: Affect normal, judgement normal, mood normal. [] General: Cooperative Heart: RRR, no thrills Abdomen: Soft Rectal Exam: not examined PELVIC: Examination not indicated Extremities: No cyanosis, No edema Skin: No significant lesion Neuro: Normal speech, Cranial nerves 3-12 NL Vitals Vitals Vital Signs Date Time Temp Pulse Resp B/P (MAP) Pulse Ox O2 Delivery O2 Flow Rate FiO2 06/01/20 09:27 74 143/78 (99) 96 Room Air 06/01/20 07:15 98.3 98.3 06/01/20 06:30 26 Labs Labs Laboratory Tests Test 05/31/20 23:30 06/01/20 06:00 White Blood Count 7.1 x10^3/uL (4.0-11.0) Red Blood Count 3.81 x10^6/uL (4.30-5.70) Hemoglobin 12.0 g/dL (13.0-17.5) Hematocrit 35.9 % (39.0-53.0) Mean Corpuscular Volume 94 fL (79-100) Mean Corpuscular Hemoglobin 32 pg (25-35) Mean Corpuscular Hemoglobin Concent 33 g/dL (31-37) Red Cell Distribution Width 15.4 % (11.5-14.5) Platelet Count 118 x10^3/uL (140-400) Neutrophils (%) (Auto) 84 % (31-73) Lymphocytes (%) (Auto) 11 % (24-48) Monocytes (%) (Auto) 5 % (0-9) Eosinophils (%) (Auto) 0 % (0-3) Basophils (%) (Auto) 1 % (0-3) Neutrophils # (Auto) 6.0 x10^3/uL (1.8-7.7) Lymphocytes # (Auto) 0.8 x10^3/uL (1.0-4.8) Monocytes # (Auto) 0.4 x10^3/uL (0.0-1.1) Eosinophils # (Auto) 0.0 x10^3/uL (0.0-0.7) Basophils # (Auto) 0.0 x10^3/uL (0.0-0.2) Sodium Level 135 mmol/L (136-145) Potassium Level 3.4 mmol/L (3.5-5.1) Chloride Level 95 mmol/L (98-107) Carbon Dioxide Level 27 mmol/L (21-32) Anion Gap 13 (6-14) Blood Urea Nitrogen 38 mg/dL (8-26) Creatinine 9.3 mg/dL (0.7-1.3) Estimated GFR (Cockcroft-Gault) 5.9 BUN/Creatinine Ratio 4 (6-20) Glucose Level 97 mg/dL (70-99) Calcium Level 7.8 mg/dL (8.5-10.1) Total Bilirubin 0.3 mg/dL (0.2-1.0) Aspartate Amino Transf (AST/SGOT) 32 U/L (15-37) Alanine Aminotransferase (ALT/SGPT) 21 U/L (16-63) Alkaline Phosphatase 64 U/L (46-116) Total Protein 7.1 g/dL (6.4-8.2) Albumin 3.1 g/dL (3.4-5.0) Albumin/Globulin Ratio 0.8 (1.0-1.7) Lactic Acid Level 0.7 mmol/L (0.4-2.0) Laboratory Tests Test 05/31/20 23:30 06/01/20 06:00 White Blood Count 7.1 x10^3/uL (4.0-11.0) Red Blood Count 3.81 x10^6/uL (4.30-5.70) Hemoglobin 12.0 g/dL (13.0-17.5) Hematocrit 35.9 % (39.0-53.0) Mean Corpuscular Volume 94 fL (79-100) Mean Corpuscular Hemoglobin 32 pg (25-35) Mean Corpuscular Hemoglobin Concent 33 g/dL (31-37) Red Cell Distribution Width 15.4 % (11.5-14.5) Platelet Count 118 x10^3/uL (140-400) Neutrophils (%) (Auto) 84 % (31-73) Lymphocytes (%) (Auto) 11 % (24-48) Monocytes (%) (Auto) 5 % (0-9) Eosinophils (%) (Auto) 0 % (0-3) Basophils (%) (Auto) 1 % (0-3) Neutrophils # (Auto) 6.0 x10^3/uL (1.8-7.7) Lymphocytes # (Auto) 0.8 x10^3/uL (1.0-4.8) Monocytes # (Auto) 0.4 x10^3/uL (0.0-1.1) Eosinophils # (Auto) 0.0 x10^3/uL (0.0-0.7) Basophils # (Auto) 0.0 x10^3/uL (0.0-0.2) Sodium Level 135 mmol/L (136-145) Potassium Level 3.4 mmol/L (3.5-5.1) Chloride Level 95 mmol/L (98-107) Carbon Dioxide Level 27 mmol/L (21-32) Anion Gap 13 (6-14) Blood Urea Nitrogen 38 mg/dL (8-26) Creatinine 9.3 mg/dL (0.7-1.3) Estimated GFR (Cockcroft-Gault) 5.9 BUN/Creatinine Ratio 4 (6-20) Glucose Level 97 mg/dL (70-99) Calcium Level 7.8 mg/dL (8.5-10.1) Total Bilirubin 0.3 mg/dL (0.2-1.0) Aspartate Amino Transf (AST/SGOT) 32 U/L (15-37) Alanine Aminotransferase (ALT/SGPT) 21 U/L (16-63) Alkaline Phosphatase 64 U/L (46-116) Total Protein 7.1 g/dL (6.4-8.2) Albumin 3.1 g/dL (3.4-5.0) Albumin/Globulin Ratio 0.8 (1.0-1.7) Lactic Acid Level 0.7 mmol/L (0.4-2.0) VTE Prophylaxis Ordered VTE Prophylaxis Devices: No VTE Pharmacological Prophylaxi: Yes Assessment/Plan Assessment/Plan IMPRESSION: 1. Fever and cough c/w covid-19 respiratory syndrome 2. Severe obstructive sleep apnea, diagnosed by previous sleep study. 3. No clinically significant periodic limb movements. 4. significant covid-19 exposure /// was diagnosed with COVID-19 05/31.//works at [employer]. 5. END-STAGE RENAL DISEASE ON DIALYSIS 6. morbid obesity 7. hypertension 8. electrolyte imbalance plan ADMIT CONSULT PULM O2 SUPPORT CONSULT NEPHROLOGY DVT PROPHYLAXIS, SQ HEPARIN resp isolation 76 MIN PT EXAM, CHART REVIEW, > 50% OF TIME SPENT WITH EXAM, CHART REVIEW, PT CARE coordination Justicifation of Admission Dx: Justifications for Admission: Justification of Admission Dx: Yes Comminuty Aquired Pneumonia: Med-High Risk Pt LAURA HAGEN MD Jun 01, 2020 10:27
[2020-06-01] MEDS ORDERED: ALPRAZolam 0.5 MG TABLET PO PRN (10:30)
[2020-06-01] MEDS ORDERED: ACETAMINOPHEN 325 MG TABLET. PO SCH (10:30)
[2020-06-01] MEDS ORDERED: HYDROcodone/APAP 5/325MG 1 TAB TABLET PO PRN (10:30)
[2020-06-01] MEDS ORDERED: ALBUTEROL SULFATE 2.5 MG/3 ML NEBU. NEB PRN ×2 (10:30→19:15)
[2020-06-01] MEDS: DOCUSATE SODIUM 100 MG CAPSULE. PO SCH (10:58)
[2020-06-01] MEDS: TAMSULOSIN 0.4 MG CAP.ER.24H. PO SCH (10:58)
[2020-06-01] MEDS: PANTOPRAZOLE 40 MG TABLET.DR. PO SCH (10:58)
[2020-06-01] MEDS ORDERED: ENOXAPARIN 40 MG/0.4 ML SYRINGE. SQ SCH (11:00)
[2020-06-01] MEDS: CITALOPRAM 20 MG TABLET. PO SCH (11:00)
[2020-06-01] MEDS ORDERED: PANTOPRAZOLE 40 MG TABLET.DR. PO SCH (11:30)
--- NOTE | 2020-06-01 14:30 | CONS ---
DATE OF CONSULTATION: 06/01/2020 REQUESTING PHYSICIAN: Hospitalist. REASON FOR CONSULTATION: End-stage renal disease, hemodialysis dependent. HISTORY OF PRESENT ILLNESS: This is a 59-year-old gentleman who presents to the hospital with concerns for COVID-19 infection. The patient has history of hypertension and end-stage renal disease, for which currently hemodialysis dependent, Tuesday, Tuesday, Tuesday schedule. He previously was peritoneal dialysis dependent. He also has history of obstructive sleep apnea and asthma. His was diagnosed with COVID-19 the day prior to this consultation. She works at [employer]. He now has fever, chills, headache, diarrhea for 2-3 days' duration. There is no shortness of breath or cough. Due to PUI COVID-19 status, bedside evaluation was not pursued. PAST MEDICAL HISTORY: 1. Hypertension. 2. End-stage renal disease, hemodialysis dependent. 3. Obstructive sleep apnea. 4. Asthma. 5. Anemia of chronic kidney disease. 6. Secondary hyperparathyroidism. 7. Renal disease. 8. Previous peritoneal dialysis dependent. 9. Peritoneal dialysis catheter placement and removal. 10. Vascular access placement. ALLERGIES: None. MEDICATIONS: Reviewed per medication list. FAMILY HISTORY: Noncontributory. SOCIAL HISTORY: The patient is , resides with . She is COVID-19 positive. REVIEW OF SYSTEMS: Not obtained from the patient. PHYSICAL EXAMINATION: Exam not pursued due to PUI COVID-19 status. LABORATORY DATA: Sodium 135, potassium 3.4, chloride 95, CO2 of 27, BUN 38, creatinine 9.3, GFR 5.9, total bilirubin 0.3, albumin 3.1. White count 7.1, hemoglobin 12, hematocrit 35.9, platelets 118. IMPRESSION: 1. End-stage renal disease secondary to hypertensive nephrosclerosis, hemodialysis dependent, Tuesday, Tuesday, Tuesday. 2. Person under investigation COVID-19. 3. Anemia of chronic kidney disease, well controlled. RECOMMENDATIONS: 1. Ongoing dialysis on Tuesday, Tuesday and Tuesday. 2. Hold Epogen due to level of hemoglobin. We will follow. KURTIS KEITH MD DR: KESHAWN/tesfaye JOB#: [id number] / [id number]
[2020-06-01] MEDS: CALCIUM ACETATE 667 MG CAPSULE PO SCH ×2 (14:48→17:00)
[2020-06-01] MEDS: VANCOMYCIN PER PHARMACY MC PRN (15:40)
--- NOTE | 2020-06-01 15:41 | NUR ---
Pharmacy Vancomycin Dosing Note S:Consulted to monitor and dose vancomycin started 06/01/20. O:KURTIS COLLINS is a 59 year old M with Pneumonia . Height: 5 feet, 11 inches Weight: 159.0 kg [place] Body Weight: 75.30 Adjusted Body Weight: 108.78 Dosing Weight: Actual Other Antibiotics: ZOSYN LABS: Last BUN: 38 Last Creatinine: 9.3 Creatinine Clearance: HD MWF mL/min Last WBC: 7.1 Last Procalcitonin: - Tmax (past 24 hours): 99.1 Microbiology: 06/01 PENDING I/O: - Drug Levels: Last level: on at Last dose given 06/01/20 at 0408 Vancomycin Dosing: Loading Dose: x1 Dosing Weight: Actual Target Trough: 15-20 A: Based on: WEIGHT, HD STATUS, P: 1. GIVE Vancomycin 2000 mg IV One Time 2. Follow up Random level on 06/02/20 at 0600 3. Pharmacy will continue to monitor, follow and adjust therapy as needed. KAMARI MASSEY [facility], 06/01/20 [id number]
[2020-06-01 17:32] VITALS: BP 140/72
[2020-06-01 19:00] VITALS: BP 154/92
[2020-06-01 19:03] LABS: BASO % 0 % (0-3); EOS % 0 % (0-3); HEMATOCRIT 37.4 % (39.0-53.0); HEMOGLOBIN 12.5 g/dL (13.0-17.5); LYMPH # 0.6 x10^3/uL (1.0-4.8); LYMPH % 9 % (24-48); MEAN CORPUSCULAR HEMOGLOBIN 31 pg (25-35); MEAN CORPUSCULAR HGB CONC 33 g/dL (31-37); MEAN CORPUSCULAR VOLUME 94 fL (79-100); MONO # 0.4 x10^3/uL (0.0-1.1); MONO % 6 % (0-9); NEUT # 6.2 x10^3/uL (1.8-7.7); NEUT % 85 % (31-73); PLATELET COUNT 132 x10^3/uL (140-400); RED BLOOD COUNT 3.99 x10^6/uL (4.30-5.70); RED CELL DISTRIBUTION WIDTH 15.6 % (11.5-14.5); WHITE BLOOD COUNT 7.3 x10^3/uL (4.0-11.0)
[2020-06-01 19:11] LABS: CALCIUM 7.6 mg/dL (8.5-10.1); CREATININE 10.8 mg/dL (0.7-1.3); GFR 4.9; POTASSIUM 3.6 mmol/L (3.5-5.1)
[2020-06-01] MEDS ORDERED: DOCUSATE SODIUM 100 MG CAPSULE. PO PRN (19:15)
[2020-06-01] MEDS ORDERED: guaiFENesin ORAL 200 MG/10 ML LIQUID. PO PRN (19:15)
[2020-06-01] MEDS ORDERED: 0.9 % SODIUM CHLORIDE 10 ML DISP.SYRIN. IV PRN (19:15)
[2020-06-01] MEDS ORDERED: ACETAMINOPHEN 650 MG SUPP.RECT. PR PRN (19:15)
[2020-06-01] MEDS ORDERED: LORazepam 0.5 MG TABLET PO PRN (19:15)
[2020-06-01] MEDS ORDERED: ONDANSETRON PF 4 MG/2 ML VIAL. IV PRN (19:15)
[2020-06-01 19:32] LABS: % BANDS 29 % (0-9); % EOS 2 % (0-5); % LYMPHS 10 % (24-48); % METAS 1 % (0-0); % MONOS 3 % (0-10); % SEGS 55 % (35-66); PLT ESTIMATE ADEQUATE (ADEQUATE)
[2020-06-01] MEDS ORDERED: traZODone 50 MG TABLET. PO SCH ×2 (21:00)
[2020-06-01] MEDS: ACETAMINOPHEN 325 MG TABLET. PO PRN (21:01)
[2020-06-01 23:00] VITALS: BP 129/83
--- NOTE | 2020-06-02 00:05 | NUR ---
50 mg tablet trazodone not administered at scheduled at 2100. Second entry for 100 mg trazodone, however, was given. Two amounts not consistent with pt's home meds. Indicates that he only takes trazodone when he need to
[2020-06-02 03:00] VITALS: BP 134/74
[2020-06-02] MEDS: ACETAMINOPHEN 325 MG TABLET. PO PRN ×2 (03:09→16:52)
[2020-06-02] MEDS: PIPERACILLIN/TAZOBACTAM 2.25 GM in IV NORMAL SALINE 50ML 50 ML IV SCH ×3 (05:48→22:24)
[2020-06-02] MEDS ORDERED: VANCOMYCIN RANDOM LEVEL. MC ONE (06:00)
[2020-06-02 07:30] VITALS: BP 163/78
[2020-06-02] MEDS: CITALOPRAM 20 MG TABLET. PO SCH (09:24)
[2020-06-02] MEDS: PANTOPRAZOLE 40 MG TABLET.DR. PO SCH (09:24)
[2020-06-02] MEDS: CALCIUM ACETATE 667 MG CAPSULE PO SCH ×3 (09:24→16:37)
[2020-06-02] MEDS: TAMSULOSIN 0.4 MG CAP.ER.24H. PO SCH (09:24)
[2020-06-02] MEDS: DOCUSATE SODIUM 100 MG CAPSULE. PO SCH ×2 (09:24→09:44)
[2020-06-02] MEDS ORDERED: IV NORMAL SALINE 1000ML BAG 1,000 ML IV PRN ×2 (09:36)
[2020-06-02] MEDS ORDERED: DIALYSIS PATIENT. MC PRN (09:45)
[2020-06-02] MEDS ORDERED: diphenhydrAMINE 50 MG/ML VIAL IV PRN ×2 (09:45)
--- NOTE | 2020-06-02 11:11 | PDOC ---
PROGRESS NOTES Chief Complaint Chief Complaint A/P: Abnormal chest x-ray, rule out pneumonia. Febrile illness, rule out COVID-19. Asthma. Obstructive sleep apnea-hypopnea syndrome - on BIPAP at home End-stage renal disease, on hemodialysis. Hypertension. Electrolyte abnormality. 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 difficile History of Present Illness History of Present Illness Mr Jack is a 59 year old male w/ PMHx DORIS on BIPAP (), ESRD on PD who p/w two days of fever diarrhea cough fever of 101 05/31 pui is concerned about coronavirus. has proven covid works at [facility]. went up t o the floor upstairs they had three patients not wearing masks. Patient has body aches just does not feel well overall. Temp 100.3 overnight. He is still having loose bowels. Notes he soiled his underwear. Tolerated dialysis well. Vitals Vitals Vital Signs Date Time Temp Pulse Resp B/P (MAP) Pulse Ox O2 Delivery O2 Flow Rate FiO2 06/02/20 08:00 Room Air 06/02/20 07:30 100.0 97 16 163/78 (106) 97 100.0 Physical Exam General: Cooperative Lungs: Clear Abdomen: Soft Extremities: No cyanosis, No edema Skin: No significant lesion Labs LABS Laboratory Tests Test 06/01/20 18:42 White Blood Count 7.3 x10^3/uL (4.0-11.0) Red Blood Count 3.99 x10^6/uL (4.30-5.70) Hemoglobin 12.5 g/dL (13.0-17.5) Hematocrit 37.4 % (39.0-53.0) Mean Corpuscular Volume 94 fL (79-100) Mean Corpuscular Hemoglobin 31 pg (25-35) Mean Corpuscular Hemoglobin Concent 33 g/dL (31-37) Red Cell Distribution Width 15.6 % (11.5-14.5) Platelet Count 132 x10^3/uL (140-400) Neutrophils (%) (Auto) 85 % (31-73) Lymphocytes (%) (Auto) 9 % (24-48) Monocytes (%) (Auto) 6 % (0-9) Eosinophils (%) (Auto) 0 % (0-3) Basophils (%) (Auto) 0 % (0-3) Neutrophils # (Auto) 6.2 x10^3/uL (1.8-7.7) Lymphocytes # (Auto) 0.6 x10^3/uL (1.0-4.8) Monocytes # (Auto) 0.4 x10^3/uL (0.0-1.1) Eosinophils # (Auto) 0.0 x10^3/uL (0.0-0.7) Basophils # (Auto) 0.0 x10^3/uL (0.0-0.2) Segmented Neutrophils % 55 % (35-66) Band Neutrophils % 29 % (0-9) Lymphocytes % 10 % (24-48) Monocytes % 3 % (0-10) Eosinophils % 2 % (0-5) Metamyelocytes % 1 % (0-0) Platelet Estimate Adequate (ADEQUATE) Sodium Level 133 mmol/L (136-145) Potassium Level 3.6 mmol/L (3.5-5.1) Chloride Level 95 mmol/L (98-107) Carbon Dioxide Level 26 mmol/L (21-32) Anion Gap 12 (6-14) Blood Urea Nitrogen 49 mg/dL (8-26) Creatinine 10.8 mg/dL (0.7-1.3) Estimated GFR (Cockcroft-Gault) 4.9 Glucose Level 106 mg/dL (70-99) Calcium Level 7.6 mg/dL (8.5-10.1) Comment Review of Relevant I have reviewed the following items bennie (where applicable) has been applied. Labs Laboratory Tests Test 05/31/20 23:30 06/01/20 06:00 06/01/20 18:42 White Blood Count 7.1 x10^3/uL (4.0-11.0) 7.3 x10^3/uL (4.0-11.0) Red Blood Count 3.81 x10^6/uL (4.30-5.70) 3.99 x10^6/uL (4.30-5.70) Hemoglobin 12.0 g/dL (13.0-17.5) 12.5 g/dL (13.0-17.5) Hematocrit 35.9 % (39.0-53.0) 37.4 % (39.0-53.0) Mean Corpuscular Volume 94 fL (79-100) 94 fL (79-100) Mean Corpuscular Hemoglobin 32 pg (25-35) 31 pg (25-35) Mean Corpuscular Hemoglobin Concent 33 g/dL (31-37) 33 g/dL (31-37) Red Cell Distribution Width 15.4 % (11.5-14.5) 15.6 % (11.5-14.5) Platelet Count 118 x10^3/uL (140-400) 132 x10^3/uL (140-400) Neutrophils (%) (Auto) 84 % (31-73) 85 % (31-73) Lymphocytes (%) (Auto) 11 % (24-48) 9 % (24-48) Monocytes (%) (Auto) 5 % (0-9) 6 % (0-9) Eosinophils (%) (Auto) 0 % (0-3) 0 % (0-3) Basophils (%) (Auto) 1 % (0-3) 0 % (0-3) Neutrophils # (Auto) 6.0 x10^3/uL (1.8-7.7) 6.2 x10^3/uL (1.8-7.7) Lymphocytes # (Auto) 0.8 x10^3/uL (1.0-4.8) 0.6 x10^3/uL (1.0-4.8) Monocytes # (Auto) 0.4 x10^3/uL (0.0-1.1) 0.4 x10^3/uL (0.0-1.1) Eosinophils # (Auto) 0.0 x10^3/uL (0.0-0.7) 0.0 x10^3/uL (0.0-0.7) Basophils # (Auto) 0.0 x10^3/uL (0.0-0.2) 0.0 x10^3/uL (0.0-0.2) Sodium Level 135 mmol/L (136-145) 133 mmol/L (136-145) Potassium Level 3.4 mmol/L (3.5-5.1) 3.6 mmol/L (3.5-5.1) Chloride Level 95 mmol/L (98-107) 95 mmol/L (98-107) Carbon Dioxide Level 27 mmol/L (21-32) 26 mmol/L (21-32) Anion Gap 13 (6-14) 12 (6-14) Blood Urea Nitrogen 38 mg/dL (8-26) 49 mg/dL (8-26) Creatinine 9.3 mg/dL (0.7-1.3) 10.8 mg/dL (0.7-1.3) Estimated GFR (Cockcroft-Gault) 5.9 4.9 BUN/Creatinine Ratio 4 (6-20) Glucose Level 97 mg/dL (70-99) 106 mg/dL (70-99) Calcium Level 7.8 mg/dL (8.5-10.1) 7.6 mg/dL (8.5-10.1) Total Bilirubin 0.3 mg/dL (0.2-1.0) Aspartate Amino Transf (AST/SGOT) 32 U/L (15-37) Alanine Aminotransferase (ALT/SGPT) 21 U/L (16-63) Alkaline Phosphatase 64 U/L (46-116) Total Protein 7.1 g/dL (6.4-8.2) Albumin 3.1 g/dL (3.4-5.0) Albumin/Globulin Ratio 0.8 (1.0-1.7) Lactic Acid Level 0.7 mmol/L (0.4-2.0) Segmented Neutrophils % 55 % (35-66) Band Neutrophils % 29 % (0-9) Lymphocytes % 10 % (24-48) Monocytes % 3 % (0-10) Eosinophils % 2 % (0-5) Metamyelocytes % 1 % (0-0) Platelet Estimate Adequate (ADEQUATE) Laboratory Tests Test 06/01/20 18:42 White Blood Count 7.3 x10^3/uL (4.0-11.0) Red Blood Count 3.99 x10^6/uL (4.30-5.70) Hemoglobin 12.5 g/dL (13.0-17.5) Hematocrit 37.4 % (39.0-53.0) Mean Corpuscular Volume 94 fL (79-100) Mean Corpuscular Hemoglobin 31 pg (25-35) Mean Corpuscular Hemoglobin Concent 33 g/dL (31-37) Red Cell Distribution Width 15.6 % (11.5-14.5) Platelet Count 132 x10^3/uL (140-400) Neutrophils (%) (Auto) 85 % (31-73) Lymphocytes (%) (Auto) 9 % (24-48) Monocytes (%) (Auto) 6 % (0-9) Eosinophils (%) (Auto) 0 % (0-3) Basophils (%) (Auto) 0 % (0-3) Neutrophils # (Auto) 6.2 x10^3/uL (1.8-7.7) Lymphocytes # (Auto) 0.6 x10^3/uL (1.0-4.8) Monocytes # (Auto) 0.4 x10^3/uL (0.0-1.1) Eosinophils # (Auto) 0.0 x10^3/uL (0.0-0.7) Basophils # (Auto) 0.0 x10^3/uL (0.0-0.2) Segmented Neutrophils % 55 % (35-66) Band Neutrophils % 29 % (0-9) Lymphocytes % 10 % (24-48) Monocytes % 3 % (0-10) Eosinophils % 2 % (0-5) Metamyelocytes % 1 % (0-0) Platelet Estimate Adequate (ADEQUATE) Sodium Level 133 mmol/L (136-145) Potassium Level 3.6 mmol/L (3.5-5.1) Chloride Level 95 mmol/L (98-107) Carbon Dioxide Level 26 mmol/L (21-32) Anion Gap 12 (6-14) Blood Urea Nitrogen 49 mg/dL (8-26) Creatinine 10.8 mg/dL (0.7-1.3) Estimated GFR (Cockcroft-Gault) 4.9 Glucose Level 106 mg/dL (70-99) Calcium Level 7.6 mg/dL (8.5-10.1) Microbiology 05/31/20 Blood Culture - Preliminary, Resulted NO GROWTH AFTER 1 DAY Medications Current Medications Acetaminophen (Tylenol) 1,000 mg 1X ONCE PO Last administered on 06/01/20at 01:15; Start 05/31/20 at 23:30; Stop 05/31/20 at 23:31; Status DC Vancomycin HCl (Vanco Per Pharmacy) 1 each PRN DAILY PRN MC SEE COMMENTS Last administered on 06/01/20at 15:40; Start 06/01/20 at 02:00 Piperacillin Sod/ Tazobactam Sod (Zosyn Per Pharmacy) 1 each PRN DAILY PRN MC SEE COMMENTS; Start 06/01/20 at 02:00 Piperacillin Sod/ Tazobactam Sod 2.25 gm/Sodium Chloride 50 ml @ 100 mls/hr Q8HRS IV Last administered on 06/02/20at 05:48; Start 06/01/20 at 02:30 Vancomycin HCl 2 gm/Sodium Chloride 500 ml @ 250 mls/hr 1X ONCE IV Last administered on 06/01/20at 04:08; Start 06/01/20 at 03:00; Stop 06/01/20 at 04:59; Status DC Enoxaparin Sodium (Lovenox 40mg Syringe) 40 mg Q24H SQ Last administered on 06/01/20at 10:59; Start 06/01/20 at 11:00; Stop 06/02/20 at 09:41; Status DC Pantoprazole Sodium (Protonix) 40 mg DAILYAC PO ; Start 06/01/20 at 11:30; Stop 06/01/20 at 10:51; Status DC Albuterol Sulfate (Ventolin Neb Soln) 2.5 mg PRN Q4HRS PRN NEB SHORTNESS OF BREATH; Start 06/01/20 at 10:30; Stop 06/01/20 at 19:16; Status DC Acetaminophen (Tylenol) 325 mg PRN Q4HRS PO ; Start 06/01/20 at 10:30; Stop 06/01/20 at 19:16; Status DC Alprazolam (Xanax) 0.5 mg PRN Q6HRS PRN PO ANXIETY / AGITATION; Start 06/01/20 at 10:30 Docusate Sodium (Colace) 100 mg DAILY PO ; Start 06/01/20 at 11:00 Acetaminophen/ Hydrocodone Bitart (Lortab 5/325) 1 tab PRN Q6HRS PRN PO MODERATE PAIN Last administered on 06/01/20at 13:50; Start 06/01/20 at 10:30 Tamsulosin HCl (Flomax) 0.4 mg DAILY PO Last administered on 06/02/20at 09:24; Start 06/01/20 at 11:00 Trazodone HCl (Desyrel) 50 mg HS PO ; Start 06/01/20 at 21:00 Calcium Acetate (Phoslo) 2,001 mg TIDWMEALS PO Last administered on 06/02/20at 09:24; Start 06/01/20 at 12:00 Citalopram Hydrobromide (CeleXA) 20 mg DAILY PO Last administered on 06/02/20 09:24; Start 06/01/20 at 11:00 Pantoprazole Sodium (Protonix) 40 mg DAILYAC PO Last administered on 06/02/20at 09:24; Start 06/01/20 at 11:30 Trazodone HCl (Desyrel) 100 mg HS PO Last administered on 06/01/20at 20:02; Start 06/01/20 at 21:00 Vancomycin HCl (Vancomycin Random Level) 1 each 1X ONCE MC ; Start 06/02/20 at 06:00; Stop 06/02/20 at 06:01; Status DC Sodium Chloride (Normal Saline Flush) 3 ml QSHIFT PRN IV AFTER MEDS AND BLOOD DRAWS; Start 06/01/20 at 19:15 Ondansetron HCl (Zofran) 4 mg PRN Q4HRS PRN IV NAUSEA/VOMITING; Start 06/01/20 at 19:15 Acetaminophen (Tylenol) 650 mg PRN Q4HRS PRN PO TEMP OVER 100.4F OR MILD PAIN Last administered on 06/02/20at 03:09; Start 06/01/20 at 19:15 Acetaminophen (Tylenol Supp) 650 mg PRN Q4HRS PRN [place] TEMP OVER 100.4F OR MILD PAIN; Start 06/01/20 at 19:15 Docusate Sodium (Colace) 100 mg PRN BID PRN PO HARD STOOLS; Start 06/01/20 at 19:15 Albuterol Sulfate (Ventolin Neb Soln) 2.5 mg PRN Q4HRS PRN NEB SHORTNESS OF BREATH; Start 06/01/20 at 19:15 Guaifenesin (Robitussin) 200 mg PRN Q4HRS PRN PO COUGH; Start 06/01/20 at 19:15 Lorazepam (Ativan) 0.5 mg PRN Q4HRS PRN PO ANXIETY / AGITATION; Start 06/01/20 at 19:15; Status UNV Sodium Chloride 1,000 ml @ 1,000 mls/hr Q1H PRN IV hypotension; Start 06/02/20 at 09:36; Stop 06/02/20 at 15:35 Diphenhydramine HCl (Benadryl) 25 mg 1X PRN PRN IV ITCHING; Start 06/02/20 at 09:45; Stop 06/03/20 at 09:44 Diphenhydramine HCl (Benadryl) 25 mg 1X PRN PRN IV ITCHING; Start 06/02/20 at 09:45; Stop 06/03/20 at 09:44 Sodium Chloride 1,000 ml @ 400 mls/hr Q2H30M PRN IV PATENCY; Start 06/02/20 at 09:36; Stop 06/02/20 at 21:35 Info (PHARMACY MONITORING -- do not chart) 1 each PRN DAILY PRN MC SEE COMMENTS; Start 06/02/20 at 09:45 Heparin Sodium (Porcine) (Heparin Sodium) 5,000 unit Q8HRS SQ ; Start 06/02/20 at 14:00 Active Scripts Active Reported [place] 5-325 Tablet (Acetaminophen/Hydrocodone Bitart) 1 Each Tablet 1 Tab PO PRN Q6HRS PRN Tylenol (Acetaminophen) 325 Mg Tablet 1 Tab PO PRN Q4HRS Escitalopram Oxalate 10 Mg Tablet 1 Tab PO DAILY Flomax (Tamsulosin Hcl) 0.4 Mg Cap.er.24h 1 Cap PO DAILY Xanax (Alprazolam) 0.5 Mg Tablet 0.5 Mg PO PRN Q6HRS PRN Colace (Docusate Sodium) 100 Mg Capsule 100 Mg PO DAILY Trazodone Hcl 50 Mg Tablet 1-2 Tab PO HS Calcium Acetate 667 Mg Tablet 3 Cap PO TIDWMEALS Prevacid (Lansoprazole) 15 Mg Capsule. 1 Cap PO DAILY Vitals/I & O Vital Sign - Last 24 Hours 06/01/20 06/01/20 06/01/20 06/01/20 13:50 13:52 15:30 17:32 Temp 99.1 99.2 99.1 99.2 Pulse 91 86 88 Resp 20 22 18 22 B/P (MAP) 166/101 (122) 164/102 (122) 140/72 (94) Pulse Ox 96 95 95 92 O2 Delivery Room Air Room Air Room Air Room Air 06/01/20 06/01/20 06/01/20 06/02/20 19:00 20:00 23:00 03:00 Temp 99.8 99.9 100.3 99.8 99.9 100.3 Pulse 84 87 96 Resp 22 20 B/P (MAP) 154/92 (112) 129/83 (98) 134/74 (94) Pulse Ox 95 96 95 O2 Delivery Room Air Room Air Room Air Room Air 06/02/20 06/02/20 07:30 08:00 Temp 100.0 100.0 Pulse 97 Resp 16 B/P (MAP) 163/78 (106) Pulse Ox 97 O2 Delivery Room Air Room Air Intake and Output 06/01/20 06/01/20 06/02/20 15:00 23:00 07:00 Output Total 0 ml 50 ml Balance 0 ml -50 ml Justicifation of Admission Dx: Justifications for Admission: Justification of Admission Dx: Yes Comminuty Aquired Pneumonia: Med-High Risk Pt HILDA SMILEY MD Jun 02, 2020 11:11
[2020-06-02] MEDS ORDERED: traZODone 50 MG TABLET. PO PRN ×2 (12:15)
[2020-06-02 12:21] LABS: ALBUMIN 2.9 g/dL (3.4-5.0); ALBUMIN/GLOBULIN RATIO 0.7 (1.0-1.7); CALCIUM 8.1 mg/dL (8.5-10.1); POTASSIUM 3.7 mmol/L (3.5-5.1); TOTAL BILIRUBIN 0.2 mg/dL (0.2-1.0); TOTAL PROTEIN 6.9 g/dL (6.4-8.2)
[2020-06-02] MEDS: VANCOMYCIN PER PHARMACY MC PRN (13:32)
[2020-06-02] MEDS: HEPARIN for SUB-Q USE 5,000 UNIT/ML VIAL. SQ SCH ×2 (15:15→22:26)
--- NOTE | 2020-06-02 15:30 | NUR ---
SW following. Spoke with RN and reviewed chart. Pt from home with significant other with plans to return at discharge. Pt on room air. Pt on IV Vancomycin and Zosyn. Pt does out-patient dialysis on MWF at [facility] in [place], , (fax). SW to continue following as needed.
--- NOTE | 2020-06-02 15:36 | PDOC ---
Renal-Progress Notes Subjective Notes Notes NO NEW COMPLAINTS History of Present Illness Hx of present illness STABLE Vitals Vitals Vital Signs Date Time Temp Pulse Resp B/P (MAP) Pulse Ox O2 Delivery O2 Flow Rate FiO2 06/02/20 08:00 Room Air 06/02/20 07:30 100.0 97 16 163/78 (106) 97 100.0 Weight Weight [ ] I.O. Intake and Output Intake and Output 06/02/20 06:59 Intake Total 500 ml Output Total 50 ml Balance 450 ml Intake IV Total 500 ml Output Urine Total 50 ml # Voids 1 Labs Labs Laboratory Tests Test 06/01/20 18:42 06/02/20 11:45 White Blood Count 7.3 x10^3/uL (4.0-11.0) Red Blood Count 3.99 x10^6/uL (4.30-5.70) Hemoglobin 12.5 g/dL (13.0-17.5) Hematocrit 37.4 % (39.0-53.0) Mean Corpuscular Volume 94 fL (79-100) Mean Corpuscular Hemoglobin 31 pg (25-35) Mean Corpuscular Hemoglobin Concent 33 g/dL (31-37) Red Cell Distribution Width 15.6 % (11.5-14.5) Platelet Count 132 x10^3/uL (140-400) Neutrophils (%) (Auto) 85 % (31-73) Lymphocytes (%) (Auto) 9 % (24-48) Monocytes (%) (Auto) 6 % (0-9) Eosinophils (%) (Auto) 0 % (0-3) Basophils (%) (Auto) 0 % (0-3) Neutrophils # (Auto) 6.2 x10^3/uL (1.8-7.7) Lymphocytes # (Auto) 0.6 x10^3/uL (1.0-4.8) Monocytes # (Auto) 0.4 x10^3/uL (0.0-1.1) Eosinophils # (Auto) 0.0 x10^3/uL (0.0-0.7) Basophils # (Auto) 0.0 x10^3/uL (0.0-0.2) Segmented Neutrophils % 55 % (35-66) Band Neutrophils % 29 % (0-9) Lymphocytes % 10 % (24-48) Monocytes % 3 % (0-10) Eosinophils % 2 % (0-5) Metamyelocytes % 1 % (0-0) Platelet Estimate Adequate (ADEQUATE) Sodium Level 133 mmol/L (136-145) 135 mmol/L (136-145) Potassium Level 3.6 mmol/L (3.5-5.1) 3.7 mmol/L (3.5-5.1) Chloride Level 95 mmol/L (98-107) 97 mmol/L (98-107) Carbon Dioxide Level 26 mmol/L (21-32) 27 mmol/L (21-32) Anion Gap 12 (6-14) 11 (6-14) Blood Urea Nitrogen 49 mg/dL (8-26) 37 mg/dL (8-26) Creatinine 10.8 mg/dL (0.7-1.3) 8.0 mg/dL (0.7-1.3) Estimated GFR (Cockcroft-Gault) 4.9 7.0 Glucose Level 106 mg/dL (70-99) 100 mg/dL (70-99) Calcium Level 7.6 mg/dL (8.5-10.1) 8.1 mg/dL (8.5-10.1) BUN/Creatinine Ratio 5 (6-20) Total Bilirubin 0.2 mg/dL (0.2-1.0) Aspartate Amino Transf (AST/SGOT) 27 U/L (15-37) Alanine Aminotransferase (ALT/SGPT) 13 U/L (16-63) Alkaline Phosphatase 58 U/L (46-116) Total Protein 6.9 g/dL (6.4-8.2) Albumin 2.9 g/dL (3.4-5.0) Albumin/Globulin Ratio 0.7 (1.0-1.7) Random Vancomycin Level 14.4 mcg/mL Micro Micro Microbiology 06/01/20 Blood Culture - Preliminary, Resulted NO GROWTH AFTER 1 DAY Review of Systems Constitutional: yes: alert Ears/Nose/Throat: Yes: no symptom reported Pulmonary: Yes no symptom reported Cardiovascular: Yes no symptom reported Gastrointestional: Yes: diarrhea Genitourinary: Yes: no symptom reported Musculoskeletal: Yes: muscle stiffness Skin: Yes no symptom reported Psychiatric/Neurological: Yes: no symptom reported Endocrine: Yes: no symptom reported Physical Exam General Appearance: no apparent distress Skin: warm Respiratory: bilateral CTA Heart: S1S2 Abdomen: soft, bowel sounds present Genitourinary: bladder flat Extremities: pulses present Neurology: alert Assessment Assessment IMP ESRD ANEMIA PROB PNEUMONIA DORIS HTN DIARRHEA PLAN HD TODAY UF TO DW WILL FOLLOW RULE OUT DOLLY 19 NORIS JAMES MD Jun 02, 2020 15:36
[2020-06-02 15:55] VITALS: BP 144/77
[2020-06-02] MEDS ORDERED: VANCOMYCIN 750 MG in IV NORMAL SALINE 250ML 250 ML IV SCH (16:00)
--- NOTE | 2020-06-02 16:14 | NUR ---
Pharmacy Vancomycin Dosing Note S: Consulted to monitor and dose vancomycin started 06/01/20. O: KURTIS COLLINS is a 59 year old M with Pneumonia. Other Antibiotics: ZOSYN LABS: Last BUN: 37 Last Creatinine: 8.0 Creatinine Clearance: HEMODIALYSIS PATIENT Last WBC: 7.3 Tmax (past 24 hours): 100.0 Last Random level: 14.4 on 06/02/20 at 1145 Last dose given 06/01/20 at 0408 Vancomycin Dosing: Dosing Weight: Actual Target Trough: 15-20 A: Based on: RANDOM LEVEL P: 1. Continue Vancomycin 750 mg IV AFTER DIALYSIS MWF 2. Follow up Random level in 5-7 days 3. Pharmacy will continue to monitor, follow and adjust therapy as needed. QUANG WIGGINS RP, 06/02/20 [id number]
--- NOTE | 2020-06-02 16:20 | PDOC ---
PULMONARY PROGRESS NOTES Subjective Patient still short of air, increasing short of breath at times, wheezing. Vitals Vital Signs Date Time Temp Pulse Resp B/P (MAP) Pulse Ox O2 Delivery O2 Flow Rate FiO2 06/02/20 08:00 Room Air 06/02/20 07:30 100.0 97 16 163/78 (106) 97 100.0 ROS: No Nausea, No Chest Pain, No Increase Cough General: Alert Lungs: Clear Cardiovascular: S1, S2 Abdomen: Soft Neuro Exam: Alert Extremities: No Edema Skin: Warm Labs Laboratory Tests Test 05/31/20 23:30 06/01/20 06:00 06/01/20 18:42 06/02/20 11:45 White Blood Count 7.1 x10^3/uL (4.0-11.0) 7.3 x10^3/uL (4.0-11.0) Red Blood Count 3.81 x10^6/uL (4.30-5.70) 3.99 x10^6/uL (4.30-5.70) Hemoglobin 12.0 g/dL (13.0-17.5) 12.5 g/dL (13.0-17.5) Hematocrit 35.9 % (39.0-53.0) 37.4 % (39.0-53.0) Mean Corpuscular Volume 94 fL (79-100) 94 fL (79-100) Mean Corpuscular Hemoglobin 32 pg (25-35) 31 pg (25-35) Mean Corpuscular Hemoglobin Concent 33 g/dL (31-37) 33 g/dL (31-37) Red Cell Distribution Width 15.4 % (11.5-14.5) 15.6 % (11.5-14.5) Platelet Count 118 x10^3/uL (140-400) 132 x10^3/uL (140-400) Neutrophils (%) (Auto) 84 % (31-73) 85 % (31-73) Lymphocytes (%) (Auto) 11 % (24-48) 9 % (24-48) Monocytes (%) (Auto) 5 % (0-9) 6 % (0-9) Eosinophils (%) (Auto) 0 % (0-3) 0 % (0-3) Basophils (%) (Auto) 1 % (0-3) 0 % (0-3) Neutrophils # (Auto) 6.0 x10^3/uL (1.8-7.7) 6.2 x10^3/uL (1.8-7.7) Lymphocytes # (Auto) 0.8 x10^3/uL (1.0-4.8) 0.6 x10^3/uL (1.0-4.8) Monocytes # (Auto) 0.4 x10^3/uL (0.0-1.1) 0.4 x10^3/uL (0.0-1.1) Eosinophils # (Auto) 0.0 x10^3/uL (0.0-0.7) 0.0 x10^3/uL (0.0-0.7) Basophils # (Auto) 0.0 x10^3/uL (0.0-0.2) 0.0 x10^3/uL (0.0-0.2) Sodium Level 135 mmol/L (136-145) 133 mmol/L (136-145) 135 mmol/L (136-145) Potassium Level 3.4 mmol/L (3.5-5.1) 3.6 mmol/L (3.5-5.1) 3.7 mmol/L (3.5-5.1) Chloride Level 95 mmol/L (98-107) 95 mmol/L (98-107) 97 mmol/L (98-107) Carbon Dioxide Level 27 mmol/L (21-32) 26 mmol/L (21-32) 27 mmol/L (21-32) Anion Gap 13 (6-14) 12 (6-14) 11 (6-14) Blood Urea Nitrogen 38 mg/dL (8-26) 49 mg/dL (8-26) 37 mg/dL (8-26) Creatinine 9.3 mg/dL (0.7-1.3) 10.8 mg/dL (0.7-1.3) 8.0 mg/dL (0.7-1.3) Estimated GFR (Cockcroft-Gault) 5.9 4.9 7.0 BUN/Creatinine Ratio 4 (6-20) 5 (6-20) Glucose Level 97 mg/dL (70-99) 106 mg/dL (70-99) 100 mg/dL (70-99) Calcium Level 7.8 mg/dL (8.5-10.1) 7.6 mg/dL (8.5-10.1) 8.1 mg/dL (8.5-10.1) Total Bilirubin 0.3 mg/dL (0.2-1.0) 0.2 mg/dL (0.2-1.0) Aspartate Amino Transf (AST/SGOT) 32 U/L (15-37) 27 U/L (15-37) Alanine Aminotransferase (ALT/SGPT) 21 U/L (16-63) 13 U/L (16-63) Alkaline Phosphatase 64 U/L (46-116) 58 U/L (46-116) Total Protein 7.1 g/dL (6.4-8.2) 6.9 g/dL (6.4-8.2) Albumin 3.1 g/dL (3.4-5.0) 2.9 g/dL (3.4-5.0) Albumin/Globulin Ratio 0.8 (1.0-1.7) 0.7 (1.0-1.7) Lactic Acid Level 0.7 mmol/L (0.4-2.0) Segmented Neutrophils % 55 % (35-66) Band Neutrophils % 29 % (0-9) Lymphocytes % 10 % (24-48) Monocytes % 3 % (0-10) Eosinophils % 2 % (0-5) Metamyelocytes % 1 % (0-0) Platelet Estimate Adequate (ADEQUATE) Random Vancomycin Level 14.4 mcg/mL Laboratory Tests Test 06/01/20 18:42 06/02/20 11:45 White Blood Count 7.3 x10^3/uL (4.0-11.0) Red Blood Count 3.99 x10^6/uL (4.30-5.70) Hemoglobin 12.5 g/dL (13.0-17.5) Hematocrit 37.4 % (39.0-53.0) Mean Corpuscular Volume 94 fL (79-100) Mean Corpuscular Hemoglobin 31 pg (25-35) Mean Corpuscular Hemoglobin Concent 33 g/dL (31-37) Red Cell Distribution Width 15.6 % (11.5-14.5) Platelet Count 132 x10^3/uL (140-400) Neutrophils (%) (Auto) 85 % (31-73) Lymphocytes (%) (Auto) 9 % (24-48) Monocytes (%) (Auto) 6 % (0-9) Eosinophils (%) (Auto) 0 % (0-3) Basophils (%) (Auto) 0 % (0-3) Neutrophils # (Auto) 6.2 x10^3/uL (1.8-7.7) Lymphocytes # (Auto) 0.6 x10^3/uL (1.0-4.8) Monocytes # (Auto) 0.4 x10^3/uL (0.0-1.1) Eosinophils # (Auto) 0.0 x10^3/uL (0.0-0.7) Basophils # (Auto) 0.0 x10^3/uL (0.0-0.2) Segmented Neutrophils % 55 % (35-66) Band Neutrophils % 29 % (0-9) Lymphocytes % 10 % (24-48) Monocytes % 3 % (0-10) Eosinophils % 2 % (0-5) Metamyelocytes % 1 % (0-0) Platelet Estimate Adequate (ADEQUATE) Sodium Level 133 mmol/L (136-145) 135 mmol/L (136-145) Potassium Level 3.6 mmol/L (3.5-5.1) 3.7 mmol/L (3.5-5.1) Chloride Level 95 mmol/L (98-107) 97 mmol/L (98-107) Carbon Dioxide Level 26 mmol/L (21-32) 27 mmol/L (21-32) Anion Gap 12 (6-14) 11 (6-14) Blood Urea Nitrogen 49 mg/dL (8-26) 37 mg/dL (8-26) Creatinine 10.8 mg/dL (0.7-1.3) 8.0 mg/dL (0.7-1.3) Estimated GFR (Cockcroft-Gault) 4.9 7.0 Glucose Level 106 mg/dL (70-99) 100 mg/dL (70-99) Calcium Level 7.6 mg/dL (8.5-10.1) 8.1 mg/dL (8.5-10.1) BUN/Creatinine Ratio 5 (6-20) Total Bilirubin 0.2 mg/dL (0.2-1.0) Aspartate Amino Transf (AST/SGOT) 27 U/L (15-37) Alanine Aminotransferase (ALT/SGPT) 13 U/L (16-63) Alkaline Phosphatase 58 U/L (46-116) Total Protein 6.9 g/dL (6.4-8.2) Albumin 2.9 g/dL (3.4-5.0) Albumin/Globulin Ratio 0.7 (1.0-1.7) Random Vancomycin Level 14.4 mcg/mL Medications Active Scripts Medications Dose Route/Sig Max Daily Dose Days Date Category Brun[place] 5-325 Tablet (Acetaminophen/Hydrocodone Bitart) 1 Each Tablet 1 Tab PO PRN Q6HRS PRN 12/25/19 Reported Tylenol (Acetaminophen) 325 Mg Tablet 1 Tab PO PRN Q4HRS 12/25/19 Reported Escitalopram Oxalate 10 Mg Tablet 1 Tab PO DAILY 12/25/19 Reported Flomax (Tamsulosin Hcl) 0.4 Mg Cap.er.24h 1 Cap PO DAILY 12/25/19 Reported Xanax (Alprazolam) 0.5 Mg Tablet 0.5 Mg PO PRN Q6HRS PRN 09/25/19 Reported Colace (Docusate Sodium) 100 Mg Capsule 100 Mg PO DAILY 11/16/18 Reported Trazodone Hcl 50 Mg Tablet 1-2 Tab PO HS PRN 11/16/18 Reported Calcium Acetate 667 Mg Tablet 3 Cap PO TIDWMEALS 07/08/17 Reported Prevacid (Lansoprazole) 15 Mg Capsule. 1 Cap PO DAILY 07/08/17 Reported Impression . IMPRESSION: 1. Febrile illness, rule out COVID-19. 2. Abnormal chest x-ray, rule out pneumonia. 3. Asthma. 4. Obstructive sleep apnea-hypopnea syndrome. 5. End-stage renal disease, on hemodialysis. 6. Hypertension. 7. Electrolyte abnormality. 8. Morbid obesity Plan . SARS-CoV-2 pending Continue isolation Continue the same See below 1. Titrate FiO2 to keep O2 saturation 92%. 2. Follow up COVID-19 testing. The patient is airborne isolation. 3. Lovenox for DVT prophylaxis. 4. Agree with antibiotic. 5. Hemodialysis per Nephrology. 6. Monitor respiratory status very closely. 7. The findings and recommendations were discussed with the patient. FRANCA BLEVINS MD Jun 02, 2020 16:19
[2020-06-02] MEDS ORDERED: PSYLLIUM HUSK (SUGAR FREE) 1 PKT PACKET PO SCH (18:00)
[2020-06-02 19:20] VITALS: BP 134/69
[2020-06-02 23:30] VITALS: BP 160/109
[2020-06-03] MEDS: ACETAMINOPHEN 325 MG TABLET. PO PRN ×2 (00:01→09:22)
[2020-06-03 03:20] VITALS: BP 135/71
--- NOTE | 2020-06-03 04:41 | EKG ---
[facility] [address] [place] [address] Test Date: 2020-05-31 Test Time: 22:32:10 Pat Name: KURTIS COLLINS Department: Room: Gender: Material Reclaimer: : 1960 Requested By: AKANKSHA BRONSON Order Number: [id number] Reading MD: Measurements Intervals [place] Rate: 90 P: 54 CO: 164 QRS: -17 QRSD: 84 T: 15 QT: 352 QTc: 435 Interpretive Statements SINUS RHYTHM LEFTWARD AXIS R-S TRANSITION ZONE IN V LEADS DISPLACED TO THE LEFT NO SPECIFIC ECG ABNORMALITIES RI6.01 No previous ECG available for comparison
[2020-06-03] MEDS: PIPERACILLIN/TAZOBACTAM 2.25 GM in IV NORMAL SALINE 50ML 50 ML IV SCH (06:23)
[2020-06-03] MEDS: HEPARIN for SUB-Q USE 5,000 UNIT/ML VIAL. SQ SCH (06:26)
[2020-06-03 07:00] VITALS: BP 132/73
[2020-06-03] MEDS: CALCIUM ACETATE 667 MG CAPSULE PO SCH ×2 (09:22→13:06)
[2020-06-03] MEDS: PANTOPRAZOLE 40 MG TABLET.DR. PO SCH (09:23)
[2020-06-03] MEDS: TAMSULOSIN 0.4 MG CAP.ER.24H. PO SCH (09:23)
[2020-06-03] MEDS: CITALOPRAM 20 MG TABLET. PO SCH (09:24)
[2020-06-03 11:30] VITALS: BP 136/82
--- NOTE | 2020-06-03 11:48 | PDOC ---
Renal-Progress Notes Subjective Notes Notes NO NEW COMPLAINTS History of Present Illness Hx of present illness STABLE Vitals Vitals Vital Signs Date Time Temp Pulse Resp B/P (MAP) Pulse Ox O2 Delivery O2 Flow Rate FiO2 06/03/20 08:00 Room Air 06/03/20 07:00 98.4 75 19 132/73 (92) 99 98.4 Weight Weight [ ] I.O. Intake and Output Intake and Output 06/03/20 07:00 Intake Total 500 ml Balance 500 ml Intake Oral 500 ml # Voids 2 # Bowel Movements 1 Micro Micro Microbiology 06/02/20 Blood Culture - Preliminary, Resulted NO GROWTH AFTER 1 DAY Review of Systems Constitutional: yes: alert Ears/Nose/Throat: Yes: no symptom reported Pulmonary: Yes no symptom reported Cardiovascular: Yes no symptom reported Gastrointestional: Yes: diarrhea Genitourinary: Yes: no symptom reported Musculoskeletal: Yes: muscle stiffness Skin: Yes no symptom reported Psychiatric/Neurological: Yes: no symptom reported Endocrine: Yes: no symptom reported Physical Exam General Appearance: no apparent distress Skin: warm Respiratory: bilateral CTA Heart: S1S2 Abdomen: soft, bowel sounds present Genitourinary: bladder flat Extremities: pulses present Neurology: alert Assessment Assessment IMP ESRD ANEMIA PROB PNEUMONIA DORIS HTN DIARRHEA PLAN HD 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
--- NOTE | 2020-06-03 12:39 | PDOC ---
PROGRESS NOTES Chief Complaint Chief Complaint A/P: Abnormal chest x-ray, COVID 19 pneumonia. Sepsis 2/2 covid 19 Asthma. Obstructive sleep apnea-hypopnea syndrome - on BIPAP at home End-stage renal disease, on hemodialysis. Hypertension. Electrolyte abnormality. 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 has proven covid works at [employer]. went up to the floor upstairs they had three patients not wearing masks. Patient has body aches just does not feel well overall. 06/02: Temp 100.3 overnight. He is still having loose bowels. Notes he soiled his underwear. Tolerated dialysis well. Febrile to 101 F overnight. Bowels have firmed up. He states he is feeling improved O2 saturations 98% on room air, cough is very slight. He is asking if he can go home to convalesce. Vitals Vitals Vital Signs Date Time Temp Pulse Resp B/P (MAP) Pulse Ox O2 Delivery O2 Flow Rate FiO2 06/03/20 11:30 98.2 82 20 136/82 (100) 98 Room Air 98.2 Physical Exam General: Cooperative Lungs: Clear Abdomen: Soft Extremities: No cyanosis, No edema Skin: No significant lesion Comment Review of Relevant I have reviewed the following items bennie (where applicable) has been applied. Labs Laboratory Tests Test 06/01/20 18:42 06/02/20 11:45 White Blood Count 7.3 x10^3/uL (4.0-11.0) Red Blood Count 3.99 x10^6/uL (4.30-5.70) Hemoglobin 12.5 g/dL (13.0-17.5) Hematocrit 37.4 % (39.0-53.0) Mean Corpuscular Volume 94 fL (79-100) Mean Corpuscular Hemoglobin 31 pg (25-35) Mean Corpuscular Hemoglobin Concent 33 g/dL (31-37) Red Cell Distribution Width 15.6 % (11.5-14.5) Platelet Count 132 x10^3/uL (140-400) Neutrophils (%) (Auto) 85 % (31-73) Lymphocytes (%) (Auto) 9 % (24-48) Monocytes (%) (Auto) 6 % (0-9) Eosinophils (%) (Auto) 0 % (0-3) Basophils (%) (Auto) 0 % (0-3) Neutrophils # (Auto) 6.2 x10^3/uL (1.8-7.7) Lymphocytes # (Auto) 0.6 x10^3/uL (1.0-4.8) Monocytes # (Auto) 0.4 x10^3/uL (0.0-1.1) Eosinophils # (Auto) 0.0 x10^3/uL (0.0-0.7) Basophils # (Auto) 0.0 x10^3/uL (0.0-0.2) Segmented Neutrophils % 55 % (35-66) Band Neutrophils % 29 % (0-9) Lymphocytes % 10 % (24-48) Monocytes % 3 % (0-10) Eosinophils % 2 % (0-5) Metamyelocytes % 1 % (0-0) Platelet Estimate Adequate (ADEQUATE) Sodium Level 133 mmol/L (136-145) 135 mmol/L (136-145) Potassium Level 3.6 mmol/L (3.5-5.1) 3.7 mmol/L (3.5-5.1) Chloride Level 95 mmol/L (98-107) 97 mmol/L (98-107) Carbon Dioxide Level 26 mmol/L (21-32) 27 mmol/L (21-32) Anion Gap 12 (6-14) 11 (6-14) Blood Urea Nitrogen 49 mg/dL (8-26) 37 mg/dL (8-26) Creatinine 10.8 mg/dL (0.7-1.3) 8.0 mg/dL (0.7-1.3) Estimated GFR (Cockcroft-Gault) 4.9 7.0 Glucose Level 106 mg/dL (70-99) 100 mg/dL (70-99) Calcium Level 7.6 mg/dL (8.5-10.1) 8.1 mg/dL (8.5-10.1) BUN/Creatinine Ratio 5 (6-20) Total Bilirubin 0.2 mg/dL (0.2-1.0) Aspartate Amino Transf (AST/SGOT) 27 U/L (15-37) Alanine Aminotransferase (ALT/SGPT) 13 U/L (16-63) Alkaline Phosphatase 58 U/L (46-116) Total Protein 6.9 g/dL (6.4-8.2) Albumin 2.9 g/dL (3.4-5.0) Albumin/Globulin Ratio 0.7 (1.0-1.7) Random Vancomycin Level 14.4 mcg/mL Microbiology 06/02/20 Blood Culture - Preliminary, Resulted NO GROWTH AFTER 1 DAY Medications Current Medications Acetaminophen (Tylenol) 1,000 mg 1X ONCE PO Last administered on 06/01/20at 01:15; Start 05/31/20 at 23:30; Stop 05/31/20 at 23:31; Status DC Vancomycin HCl (Vanco Per Pharmacy) 1 each PRN DAILY PRN MC SEE COMMENTS Last administered on 06/02/20at 13:32; Start 06/01/20 at 02:00 Piperacillin Sod/ Tazobactam Sod (Zosyn Per Pharmacy) 1 each PRN DAILY PRN MC SEE COMMENTS; Start 06/01/20 at 02:00 Piperacillin Sod/ Tazobactam Sod 2.25 gm/Sodium Chloride 50 ml @ 100 mls/hr Q8HRS IV Last administered on 06/03/20at 06:23; Start 06/01/20 at 02:30 Vancomycin HCl 2 gm/Sodium Chloride 500 ml @ 250 mls/hr 1X ONCE IV Last administered on 06/01/20at 04:08; Start 06/01/20 at 03:00; Stop 06/01/20 at 04:59; Status DC Enoxaparin Sodium (Lovenox 40mg Syringe) 40 mg Q24H SQ Last administered on 06/01/20at 10:59; Start 06/01/20 at 11:00; Stop 06/02/20 at 09:41; Status DC Pantoprazole Sodium (Protonix) 40 mg DAILYAC PO ; Start 06/01/20 at 11:30; Stop 06/01/20 at 10:51; Status DC Albuterol Sulfate (Ventolin Neb Soln) 2.5 mg PRN Q4HRS PRN NEB SHORTNESS OF BREATH; Start 06/01/20 at 10:30; Stop 06/01/20 at 19:16; Status DC Acetaminophen (Tylenol) 325 mg PRN Q4HRS PO ; Start 06/01/20 at 10:30; Stop at 19:16; Status DC Alprazolam (Xanax) 0.5 mg PRN Q6HRS PRN PO ANXIETY / AGITATION; Start 06/01/20 at 10:30 Docusate Sodium (Colace) 100 mg DAILY PO ; Start 06/01/20 at 11:00 Acetaminophen/ Hydrocodone Bitart ([place] 5/325) 1 tab PRN Q6HRS PRN PO MODERATE PAIN Last administered on 06/01/20at 13:50; Start 06/01/20 at 10:30 Tamsulosin HCl (Flomax) 0.4 mg DAILY PO Last administered on 06/03/20at 09:23; Start 06/01/20 at 11:00 Trazodone HCl (Desyrel) 50 mg HS PO ; Start 06/01/20 at 21:00; Stop 06/02/20 at 12:05; Status DC Calcium Acetate (Phoslo) 2,001 mg TIDWMEALS PO Last administered on 06/03/20at 09:22; Start 06/01/20 at 12:00 Citalopram Hydrobromide (CeleXA) 20 mg DAILY PO Last administered on 06/03/20at 09:24; Start 06/01/20 at 11:00 Pantoprazole Sodium (Protonix) 40 mg DAILYAC PO Last administered on 06/03/20at 09:23; Start 06/01/20 at 11:30 Trazodone HCl (Desyrel) 100 mg HS PO Last administered on 06/01/20at 20:02; Start 06/01/20 at 21:00; Stop 06/02/20 at 12:05; Status DC Vancomycin HCl (Vancomycin Random Level) 1 each 1X ONCE MC Last administered on 06/02/20at 06:00; Start 06/02/20 at 06:00; Stop 06/02/20 at 06:01; Status DC Sodium Chloride (Normal Saline Flush) 3 ml QSHIFT PRN IV AFTER MEDS AND BLOOD DRAWS; Start 06/01/20 at 19:15 Ondansetron HCl (Zofran) 4 mg PRN Q4HRS PRN IV NAUSEA/VOMITING; Start 06/01/20 at 19:15 Acetaminophen (Tylenol) 650 mg PRN Q4HRS PRN PO TEMP OVER 100.4F OR MILD PAIN Last administered on 06/03/20at 09:22; Start 06/01/20 at 19:15 Acetaminophen (Tylenol Supp) 650 mg PRN Q4HRS PRN TN TEMP OVER 100.4F OR MILD PAIN; Start 06/01/20 at 19:15 Docusate Sodium (Colace) 100 mg PRN BID PRN PO HARD STOOLS; Start 06/01/20 at 19:15 Albuterol Sulfate (Ventolin Neb Soln) 2.5 mg PRN Q4HRS PRN NEB SHORTNESS OF BREATH; Start 06/01/20 at 19:15 Guaifenesin (Robitussin) 200 mg PRN Q4HRS PRN PO COUGH; Start 06/01/20 at 19:15 Lorazepam (Ativan) 0.5 mg PRN Q4HRS PRN PO ANXIETY / AGITATION; Start 06/01/20 at 19:15; Status UNV Sodium Chloride 1,000 ml @ 1,000 mls/hr Q1H PRN IV hypotension; Start 06/02/20 at 09:36; Stop 06/02/20 at 15:35; Status DC Diphenhydramine HCl (Benadryl) 25 mg 1X PRN PRN IV ITCHING; Start 06/02/20 at 09:45; Stop 06/02/20 at 19:00; Status DC Diphenhydramine HCl (Benadryl) 25 mg 1X PRN PRN IV ITCHING; Start 06/02/20 at 09:45; Stop 06/02/20 at 19:00; Status DC Sodium Chloride 1,000 ml @ 400 mls/hr Q2H30M PRN IV PATENCY; Start 06/02/20 at 09:36; Stop 06/02/20 at 21:35; Status DC Info (PHARMACY MONITORING -- do not chart) 1 each PRN DAILY PRN MC SEE COMMENTS; Start 06/02/20 at 09:45 Heparin Sodium (Porcine) (Heparin Sodium) 5,000 unit Q8HRS SQ Last administered on 06/03/20at 06:26; Start 06/02/20 at 14:00 Trazodone HCl (Desyrel) 50 mg HS PRN PO INSOMNIA; Start 06/02/20 at 12:15 Trazodone HCl (Desyrel) 100 mg HS PRN PO INSOMNIA; Start 06/02/20 at 12:15 Vancomycin HCl 750 mg/Sodium Chloride 250 ml @ 250 mls/hr QMWF IV Last administered on 06/02/20at 16:37; Start 06/02/20 at 16:00 Psyllium Hydrophilic Mucilloid (Metamucil Fiber Packet) 1 pkt QPM PO Last administered on 06/02/20at 16:37; Start 06/02/20 at 18:00 Active Scripts Active Reported [place] 5-325 Tablet (Acetaminophen/Hydrocodone Bitart) 1 Each Tablet 1 Tab PO PRN Q6HRS PRN Tylenol (Acetaminophen) 325 Mg Tablet 1 Tab PO PRN Q4HRS Escitalopram Oxalate 10 Mg Tablet 1 Tab PO DAILY Flomax (Tamsulosin Hcl) 0.4 Mg Cap.er.24h 1 Cap PO DAILY Xanax (Alprazolam) 0.5 Mg Tablet 0.5 Mg PO PRN Q6HRS PRN Colace (Docusate Sodium) 100 Mg Capsule 100 Mg PO DAILY Trazodone Hcl 50 Mg Tablet 1-2 Tab PO HS PRN Calcium Acetate 667 Mg Tablet 3 Cap PO TIDWMEALS Prevacid (Lansoprazole) 15 Mg Capsule. 1 Cap PO DAILY Vitals/I & O Vital Sign - Last 24 Hours 06/02/20 06/02/20 06/02/20 06/02/20 15:55 19:20 20:00 23:30 Temp 100.3 99.5 101.0 100.3 99.5 101.0 Pulse 94 85 94 Resp 16 20 20 B/P (MAP) 144/77 (99) 134/69 (90) 160/109 (126) Pulse Ox 98 93 94 O2 Delivery Room Air Room Air Room Air Room Air 06/03/20 06/03/20 06/03/20 06/03/20 03:20 07:00 08:00 11:30 Temp 98.8 98.4 98.2 98.8 98.4 98.2 Pulse 88 75 82 Resp 20 B/P (MAP) 135/71 (92) 132/73 (92) 136/82 (100) Pulse Ox 91 99 98 O2 Delivery Room Air Room Air Room Air Room Air Intake and Output0 06/02/20 06/02/20 06/03/20 15:00 23:00 07:00 Intake Total 300 ml 200 ml Balance 300 ml 200 ml Justicifation of Admission Dx: Justifications for Admission: Justification of Admission Dx: Yes Comminuty Aquired Pneumonia: Med-High Risk Pt HILDA SMILEY MD Jun 03, 2020 12:39
--- NOTE | 2020-06-03 12:49 | PDOC ---
PULMONARY PROGRESS NOTES Subjective Patient feels better, had fever yesterday Vitals Vital Signs Date Time Temp Pulse Resp B/P (MAP) Pulse Ox O2 Delivery O2 Flow Rate FiO2 06/03/20 11:30 98.2 82 20 136/82 (100) 98 Room Air 98.2 ROS: No Nausea, No Chest Pain, No Increase Cough General: Alert Lungs: Clear Cardiovascular: S1, S2 Abdomen: Soft Neuro Exam: Alert Extremities: No Edema Skin: Warm Labs Laboratory Tests Test 06/01/20 18:42 06/02/20 11:45 White Blood Count 7.3 x10^3/uL (4.0-11.0) Red Blood Count 3.99 x10^6/uL (4.30-5.70) Hemoglobin 12.5 g/dL (13.0-17.5) Hematocrit 37.4 % (39.0-53.0) Mean Corpuscular Volume 94 fL (79-100) Mean Corpuscular Hemoglobin 31 pg (25-35) Mean Corpuscular Hemoglobin Concent 33 g/dL (31-37) Red Cell Distribution Width 15.6 % (11.5-14.5) Platelet Count 132 x10^3/uL (140-400) Neutrophils (%) (Auto) 85 % (31-73) Lymphocytes (%) (Auto) 9 % (24-48) Monocytes (%) (Auto) 6 % (0-9) Eosinophils (%) (Auto) 0 % (0-3) Basophils (%) (Auto) 0 % (0-3) Neutrophils # (Auto) 6.2 x10^3/uL (1.8-7.7) Lymphocytes # (Auto) 0.6 x10^3/uL (1.0-4.8) Monocytes # (Auto) 0.4 x10^3/uL (0.0-1.1) Eosinophils # (Auto) 0.0 x10^3/uL (0.0-0.7) Basophils # (Auto) 0.0 x10^3/uL (0.0-0.2) Segmented Neutrophils % 55 % (35-66) Band Neutrophils % 29 % (0-9) Lymphocytes % 10 % (24-48) Monocytes % 3 % (0-10) Eosinophils % 2 % (0-5) Metamyelocytes % 1 % (0-0) Platelet Estimate Adequate (ADEQUATE) Sodium Level 133 mmol/L (136-145) 135 mmol/L (136-145) Potassium Level 3.6 mmol/L (3.5-5.1) 3.7 mmol/L (3.5-5.1) Chloride Level 95 mmol/L (98-107) 97 mmol/L (98-107) Carbon Dioxide Level 26 mmol/L (21-32) 27 mmol/L (21-32) Anion Gap 12 (6-14) 11 (6-14) Blood Urea Nitrogen 49 mg/dL (8-26) 37 mg/dL (8-26) Creatinine 10.8 mg/dL (0.7-1.3) 8.0 mg/dL (0.7-1.3) Estimated GFR (Cockcroft-Gault) 4.9 7.0 Glucose Level 106 mg/dL (70-99) 100 mg/dL (70-99) Calcium Level 7.6 mg/dL (8.5-10.1) 8.1 mg/dL (8.5-10.1) BUN/Creatinine Ratio 5 (6-20) Total Bilirubin 0.2 mg/dL (0.2-1.0) Aspartate Amino Transf (AST/SGOT) 27 U/L (15-37) Alanine Aminotransferase (ALT/SGPT) 13 U/L (16-63) Alkaline Phosphatase 58 U/L (46-116) Total Protein 6.9 g/dL (6.4-8.2) Albumin 2.9 g/dL (3.4-5.0) Albumin/Globulin Ratio 0.7 (1.0-1.7) Random Vancomycin Level 14.4 mcg/mL Medications Active Scripts Medications Dose Route/Sig Max Daily Dose Days Date Category [place] 5-325 Tablet (Acetaminophen/Hydrocodone Bitart) 1 Each Tablet 1 Tab PO PRN Q6HRS PRN 12/25/19 Reported Tylenol (Acetaminophen) 325 Mg Tablet 1 Tab PO PRN Q4HRS 12/25/19 Reported Escitalopram Oxalate 10 Mg Tablet 1 Tab PO DAILY 12/25/19 Reported Flomax (Tamsulosin Hcl) 0.4 Mg Cap.er.24h 1 Cap PO DAILY 12/25/19 Reported Xanax (Alprazolam) 0.5 Mg Tablet 0.5 Mg PO PRN Q6HRS PRN 09/25/19 Reported Colace (Docusate Sodium) 100 Mg Capsule 100 Mg PO DAILY 11/16/18 Reported Trazodone Hcl 50 Mg Tablet 1-2 Tab PO HS PRN 11/16/18 Reported Calcium Acetate 667 Mg Tablet 3 Cap PO TIDWMEALS 07/08/17 Reported Prevacid (Lansoprazole) 15 Mg Capsule. 1 Cap PO DAILY 07/08/17 Reported Impression . IMPRESSION: 1. Febrile illness, secondary to COVID-19 2. Abnormal chest x-ray, rule out pneumonia. 3. Asthma. 4. Obstructive sleep apnea-hypopnea syndrome. 5. End-stage renal disease, on hemodialysis. 6. Hypertension. 7. Electrolyte abnormality. 8. Morbid obesity Plan . Patient had fever yesterday, feels fine, on room air. SARS-CoV-2 positive, discharge home okay by me, discussed with hospitalist, quarantine at home, needs to wear N95 at dialysis FRANCA BLEVINS MD Jun 03, 2020 12:49
[2020-06-03] MEDS ORDERED: ASPI325T8 PO (12:50)
[2020-06-03] MEDS ORDERED: AMOX1TAB58 PO (12:50)
--- NOTE | 2020-06-03 12:51 | PDOC3 ---
Discharge Summary Visit Information Date of Admission: Jun 01, 2020 Date of Discharge: Jun 03, 2020 Admitting Diagnosis: Shortness of breath Final Diagnosis COVID 19 Pneumonia Brief Hospital Course Allergies Allergies Coded Allergies Type Severity Reaction Last Updated Verified No Known Drug Allergies 12/25/19 No Vital Signs Vital Signs Date Time Temp Pulse Resp B/P (MAP) Pulse Ox O2 Delivery O2 Flow Rate FiO2 06/03/20 11:30 98.2 82 20 136/82 (100) 98 Room Air 98.2 Lab Results Laboratory Tests Test 06/01/20 18:42 06/02/20 11:45 White Blood Count 7.3 x10^3/uL (4.0-11.0) Red Blood Count 3.99 x10^6/uL (4.30-5.70) Hemoglobin 12.5 g/dL (13.0-17.5) Hematocrit 37.4 % (39.0-53.0) Mean Corpuscular Volume 94 fL (79-100) Mean Corpuscular Hemoglobin 31 pg (25-35) Mean Corpuscular Hemoglobin Concent 33 g/dL (31-37) Red Cell Distribution Width 15.6 % (11.5-14.5) Platelet Count 132 x10^3/uL (140-400) Neutrophils (%) (Auto) 85 % (31-73) Lymphocytes (%) (Auto) 9 % (24-48) Monocytes (%) (Auto) 6 % (0-9) Eosinophils (%) (Auto) 0 % (0-3) Basophils (%) (Auto) 0 % (0-3) Neutrophils # (Auto) 6.2 x10^3/uL (1.8-7.7) Lymphocytes # (Auto) 0.6 x10^3/uL (1.0-4.8) Monocytes # (Auto) 0.4 x10^3/uL (0.0-1.1) Eosinophils # (Auto) 0.0 x10^3/uL (0.0-0.7) Basophils # (Auto) 0.0 x10^3/uL (0.0-0.2) Segmented Neutrophils % 55 % (35-66) Band Neutrophils % 29 % (0-9) Lymphocytes % 10 % (24-48) Monocytes % 3 % (0-10) Eosinophils % 2 % (0-5) Metamyelocytes % 1 % (0-0) Platelet Estimate Adequate (ADEQUATE) Sodium Level 133 mmol/L (136-145) 135 mmol/L (136-145) Potassium Level 3.6 mmol/L (3.5-5.1) 3.7 mmol/L (3.5-5.1) Chloride Level 95 mmol/L (98-107) 97 mmol/L (98-107) Carbon Dioxide Level 26 mmol/L (21-32) 27 mmol/L (21-32) Anion Gap 12 (6-14) 11 (6-14) Blood Urea Nitrogen 49 mg/dL (8-26) 37 mg/dL (8-26) Creatinine 10.8 mg/dL (0.7-1.3) 8.0 mg/dL (0.7-1.3) Estimated GFR (Cockcroft-Gault) 4.9 7.0 Glucose Level 106 mg/dL (70-99) 100 mg/dL (70-99) Calcium Level 7.6 mg/dL (8.5-10.1) 8.1 mg/dL (8.5-10.1) BUN/Creatinine Ratio 5 (6-20) Total Bilirubin 0.2 mg/dL (0.2-1.0) Aspartate Amino Transf (AST/SGOT) 27 U/L (15-37) Alanine Aminotransferase (ALT/SGPT) 13 U/L (16-63) Alkaline Phosphatase 58 U/L (46-116) Total Protein 6.9 g/dL (6.4-8.2) Albumin 2.9 g/dL (3.4-5.0) Albumin/Globulin Ratio 0.7 (1.0-1.7) Random Vancomycin Level 14.4 mcg/mL Brief Hospital Course Mr Jack is a 59 year old male w/ PMHx DORIS on BIPAP (), ESRD on PD who p/w two days of fever diarrhea cough fever of 101 7/ pui is concerned about coronavirus. has proven covid works at [employer]. went up to the floor upstairs they had three patients not wearing masks. Patient has body aches just does not feel well overall. 06/02: Temp 100.3 overnight. He is still having loose bowels. Notes he soiled his underwear. Tolerated dialysis well. Febrile to 101 F overnight. Bowels have firmed up. He states he is feeling improved O2 saturations 98% on room air, cough is very slight. He is asking if he can go home to convalesce. Transition to 7 days of Augmentin 500 mg daily Consults: Pulm and nephrology Problem list: Abnormal chest x-ray, COVID 19 pneumonia. Sepsis 2/2 covid 19 Asthma. Obstructive sleep apnea-hypopnea syndrome - on BIPAP at home End-stage renal disease, on hemodialysis. Hypertension. Electrolyte abnormality. 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 Diarrhea - likely COVID related Greater than 30 minutes spent on d/c Discharge Information Condition at Discharge: Improved Follow Up: Weeks (1) Disposition/Orders: D/C to Home Scheduled Acetaminophen (Tylenol) 325 Mg Tablet, 1 TAB PO PRN Q4HRS for NA, #30 (Reported) Entered as Reported by: GEO GROSS on 12/25/19 0632 Last Action: Continued on 06/01/20 1026 by LAURA HAGEN MD Calcium Acetate (Calcium Acetate) 667 Mg Tablet, 3 CAP PO TIDWMEALS for DIALYSIS PATIENTS, (Reported) Entered as Reported by: KENDELL HERNANDEZ on 07/08/17 1326 Last Action: Converted on 06/01/20 1026 by LAURA HAGEN MD Docusate Sodium (Colace) 100 Mg Capsule, 100 MG PO DAILY for stool softner, (Reported) Entered as Reported by: ORION RESENDIZ on 11/16/18 0938 Last Action: Continued on 06/01/20 1026 by LAURA HAGEN MD Escitalopram Oxalate (Escitalopram Oxalate) 10 Mg Tablet, 1 TAB PO DAILY for ANXIETY, #30 Ref 3 (Reported) Entered as Reported by: GEO GROSS on 12/25/19 0632 Last Action: Converted on 06/01/20 1026 by LAURA HAGEN MD Lansoprazole (Prevacid) 15 Mg Capsule.dr, 1 CAP PO DAILY, #30 Ref 3 (Reported) Entered as Reported by: KENDELL HERNANDEZ on 07/08/17 1323 Last Action: Converted on 06/01/20 1026 by LAURA HAGEN MD Tamsulosin Hcl (Flomax) 0.4 Mg Cap.er.24h, 1 CAP PO DAILY for FLOW, #30 Ref 11 (Reported) Entered as Reported by: GEO GROSS on 12/25/19 0632 Last Action: Continued on 06/01/20 1026 by LAURA HAGEN MD Scheduled PRN Alprazolam (Xanax) 0.5 Mg Tablet, 0.5 MG PO PRN Q6HRS PRN for ANXIETY / AGITATION, Ref 0 (Reported) Entered as Reported by: PREET ESQUIVEL on 09/25/19 1142 Last Action: Continued on 06/01/20 1026 by LAURA HAGEN MD Hydrocodone/[place] 5-325 ([place] 5-325 Tablet) 1 Each Tablet, 1 TAB PO PRN Q6HRS PRN for PAIN, Ref 0 (Reported) Entered as Reported by: Antoinette Cuevas on 12/25/19 0853 Last Action: Continued on 06/01/20 1026 by LAURA HAGEN MD Trazodone Hcl (Trazodone Hcl) 50 Mg Tablet, 1-2 TAB PO HS PRN for INSOMNIA, (Reported) Entered as Reported by: ORION RESENDIZ on 11/16/18 0938 Last Action: Edited on 06/02/20 1203 by QUANG WIGGINS RPH Justicifation of Admission Dx: Justifications for Admission: Justification of Admission Dx: Yes Comminuty Aquired Pneumonia: Med-High Risk Pt HILDA SMILEY MD Jun 03, 2020 12:51
[2020-06-03] MEDS: VANCOMYCIN PER PHARMACY MC PRN (13:26)
--- NOTE | 2020-06-03 13:26 | NUR ---
SW following. Spoke with RN and reviewed chart. Coordinated care with Dr. Brown. Pt ready for discharge home today on oral medications and room air. Pt is COVID positive. EDIE phoned and faxed discharge paperwork and COVID test results to Vale at [facility] in [place], , (fax). Vale made arrangements for pt to dialyze at the [place] location per COVID status. No further SW needs at this time.
--- NOTE | 2020-06-03 15:00 | NUR ---
Discharge Note: KURTIS COLLINS [address] Discharge instructions and discharge home medications reviewed with patient and a copy given. All questions have been answered and understanding verbalized. The following instructions and handouts were given: Take home meds as directed. Augmentin BID x 7 days. Watch out for severe shortness of breath, severe weakness, and fever. Frequent handwashing, stay at home, wear mask. Follow up with PCP as needed. Resume dialysis as scheduled. Discontinued lines and drains: peripheral IV intact, patient tolerated removal, no complications noted. Patient discharged to home via wheelchair accompanied by family members at 1445.
== END 2020-06-03 14:45 | disposition home or self-care (01) | DRG 871 ==
LOC: ER 22:16 → 6 SOUTH 06-01 02:44 → ED HOLD 06-01 03:53 → 6 SOUTH 06-01 17:07
PROVIDERS: ADMIT Internal Medicine; ATTEND Internal Medicine
PROC: 5A1D70Z Performance of Urinary Filtration, Intermittent, Less than 6 Hours Per Day (ICD-10-PCS; principal; 2020-06-02)
DX: A41.89 Other specified sepsis (principal); N18.6 End stage renal disease; E43 Unspecified severe protein-calorie malnutrition; U07.1 COVID-19; J12.89 Other viral pneumonia; I12.0 Hypertensive chronic kidney disease with stage 5 chronic kidney disease or end stage renal disease; N25.81 Secondary hyperparathyroidism of renal origin; Z68.42 Body mass index [BMI] 45.0-49.9, adult; D63.1 Anemia in chronic kidney disease; E66.01 Morbid (severe) obesity due to excess calories; E78.5 Hyperlipidemia, unspecified; G47.33 Obstructive sleep apnea (adult) (pediatric); I25.10 Atherosclerotic heart disease of native coronary artery without angina pectoris; I51.7 Cardiomegaly; J45.909 Unspecified asthma, uncomplicated; R09.02 Hypoxemia; Z82.49 Family history of ischemic heart disease and other diseases of the circulatory system; Z99.2 Dependence on renal dialysis; Z79.899 Other long term (current) drug therapy
CPT/HCPCS: 36415; 71045; 71046; 80048; 80053; 80202; 83605; 85007; 85025; 87040; 93005; 99285; J1644; J1650; J2543; J3370; J7040; J7050; G0378; J7030; U0003-CS

== ENCOUNTER 2020-06-05 16:34 | Inpatient (IN) | payer MEDICARE, OTHER ==
[~2020-06-05] VITALS: Ht 180.3 cm; Wt 153.3 kg
[~2020-06-05 16:34] MED LIST changes: +AMOX1TAB58 PO; +ASPI325T8 PO
[2020-06-05 17:20] LABS: BASO % 0 % (0-3); EOS % 0 % (0-3); HEMATOCRIT 34.9 % (39.0-53.0); HEMOGLOBIN 11.9 g/dL (13.0-17.5); LYMPH # 0.5 x10^3/uL (1.0-4.8); LYMPH % 7 % (24-48); MEAN CORPUSCULAR HEMOGLOBIN 32 pg (25-35); MEAN CORPUSCULAR HGB CONC 34 g/dL (31-37); MEAN CORPUSCULAR VOLUME 93 fL (79-100); MONO # 0.4 x10^3/uL (0.0-1.1); MONO % 6 % (0-9); NEUT # 5.9 x10^3/uL (1.8-7.7); NEUT % 86 % (31-73); PLATELET COUNT 184 x10^3/uL (140-400); RED BLOOD COUNT 3.75 x10^6/uL (4.30-5.70); WHITE BLOOD COUNT 6.9 x10^3/uL (4.0-11.0)
[2020-06-05 17:29] LABS: CALCIUM 7.7 mg/dL (8.5-10.1); CREATININE 7.9 mg/dL (0.7-1.3); GFR 7.1; POTASSIUM 3.5 mmol/L (3.5-5.1)
--- NOTE | 2020-06-05 17:32 | RAD ---
EXAM: Chest, single view. HISTORY: Shortness of air. COMPARISON: 06/01/2020 FINDINGS: A frontal view of the chest is obtained. There is stable suspected left lower lobe infiltrate superimposed on diffuse interstitial prominence. There may be a trace left pleural effusion. There is a stable prominent cardiac silhouette. There is no pneumothorax. IMPRESSION: Stable suspected left lower lobe infiltrate and possible trace left pleural effusion. Electronically signed by: Salina Henson MD (06/05/2020 5:28 PM) [id number]
[2020-06-05 17:35] LABS: ALBUMIN 2.8 g/dL (3.4-5.0); DIRECT BILIRUBIN 0.1 mg/dL (0.0-0.2); TOTAL BILIRUBIN 0.3 mg/dL (0.2-1.0); TOTAL PROTEIN 7.2 g/dL (6.4-8.2)
[2020-06-05] MEDS ORDERED: IV NORMAL SALINE 1000ML BAG 1,000 ML IV SCH (18:24)
[2020-06-05] MEDS ORDERED: PIP/TAZO PER PHARMACY MC PRN (18:30)
--- NOTE | 2020-06-05 18:38 | PDOC1 ---
History and Physical Date of Admission Date of Admission DATE: 06/05/20 TIME: 18:34 Identification/Chief Complaint Chief Complaint Shortness of breath, fevers Source Source: Patient History of Present Illness History of Present Illness Mr Jack is a 59 year old male w/ PMHx DORIS on BIPAP (), ESRD on HD who p/w two days of fever diarrhea cough fever of 101. 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 (he has been using his O2 from his home BIPAP to use daytime O2 when he became short of breath the day prior to presentation.) Has significant MALONE, rest has improved his symptoms. Still having diarrhea and he is anxious about his shortness of breath. On arrival he is febrile at 102.4. Heart rate 114. Respiratory rate 30 on 2 to 3 L nasal cannula. CBC shows hemoglobin of 11.9. White blood cell count within normal limits. Chemistry panel shows elevated creatinine consistent with patient's end-stage renal disease. proBNP 2270. Troponin within normal limits. Chest x-ray shows stable suspected lower lobe infiltrate. Patient was given IV Zosyn. Admitted for further care. Past Medical History Cardiovascular: CAD, HTN, Hyperlipidemia Pulmonary: Asthma, Other Renal/: Chronic renal failure, Other Past Surgical History Past Surgical History: Arthroscopy, Cataract Removal, Other Family History Family History: Heart Disease, Hypertension Social History Smoke: No ALCOHOL: none Drugs: None Current Medications Current Medications Current Medications Piperacillin Sod/ Tazobactam Sod (Zosyn Per Pharmacy) 1 each PRN DAILY PRN MC SEE COMMENTS; Start 06/05/20 at 18:30; Status UNV Piperacillin Sod/ Tazobactam Sod 2.25 gm/Sodium Chloride 50 ml @ 100 mls/hr 1X ONCE IV ; Start 06/05/20 at 18:45; Stop 06/05/20 at 19:14 Sodium Chloride 1,000 ml @ 100 mls/hr Q10H IV ; Start 06/05/20 at 18:24; Stop 06/05/20 at 22:23 Active Scripts Active Aspirin 325 Mg Tablet 1 Tab PO DAILY 90 Days Augmentin 500-125 Tablet (Amoxicillin/Potassium Clav) 1 Each Tablet 1 Tab PO DAILY 7 Days Reported [place] 5-325 Tablet (Acetaminophen/Hydrocodone Bitart) 1 Each Tablet 1 Tab PO PRN Q6HRS PRN Tylenol (Acetaminophen) 325 Mg Tablet 1 Tab PO PRN Q4HRS Escitalopram Oxalate 10 Mg Tablet 1 Tab PO DAILY Flomax (Tamsulosin Hcl) 0.4 Mg Cap.er.24h 1 Cap PO DAILY Xanax (Alprazolam) 0.5 Mg Tablet 0.5 Mg PO PRN Q6HRS PRN Colace (Docusate Sodium) 100 Mg Capsule 100 Mg PO DAILY Trazodone Hcl 50 Mg Tablet 1-2 Tab PO HS PRN Calcium Acetate 667 Mg Tablet 3 Cap PO TIDWMEALS Prevacid (Lansoprazole) 15 Mg Capsule.dr 1 Cap PO DAILY Allergies Allergies: Coded Allergies: No Known Drug Allergies (Unverified , 12/25/19) ROS General: YES: Chills, Fatigue, Malaise; No: Night Sweats, Appetite, Other PSYCHOLOGICAL ROS: No: Anxiety, Behavioral Disorder, Concentration difficultie, Decreased libido, Depression, Disorientation, Hallucinations, Hostility, Irr itablity, Memory difficulties, Mood Swings, Obsessive thoughts, Physical abuse, Sexual abuse, Sleep disturbances, Suicidal ideation, Other Eyes: No Blurry vision, No Decreased vision, No Double vision, No Dry eyes, No Excessive tearing, No Eye Pain, No Itchy Eyes, No Loss of vision, No Photophobia, No Scotomata, No Uses contacts, No Uses glasses, No Other HEENT: No: Heacaches, Visual Changes, Hearing change, Nasal congestion, Nasal discharge, Oral lesions, Sinus pain, Sore Throat, Epistaxis, Sneezing, Snoring, Tinnitus, Vertigo, Vocal changes, Other ALLERGY AND IMMUNOLOGY: No: Hives, Insect Bite Sensitivity, Itchy/Watery Eyes, Nasal Congestion, Post Nasal Drip, Seasonal Allergies, Other Hematological and Lymphatic: No: Bleeding Problems, Blood Clots, Blood Transfusions, Brusing, Night Sweats, Pallor, Swollen Lymph Nodes, Other ENDOCRINE: No: Breast Changes, Galactorrhea, Hair Pattern Changes, Hot Flashes, Malaise/lethargy, Mood Swings, Palpitations, Polydipsia/polyuria, Skin Changes, Temperature Intolerance, Unexpected Weight Changes, Other Breast: No New/Changing Breast Lumps, No Nipple changes, No Nipple discharge, No Other Respiratory: YES: Cough, Shortness of breath, SOB with excertion, Tachypnea; No: Hemoptysis, Orthopnea, Pleuritic Pain, Sputum Changes, Stridor, Wheezing, Other Cardiovascular: No Chest Pain, No Palpitations, No Orthopnea, No Paroxysmal Noc. Dyspnea, No Edema, No Lt Headedness, No Other Gastrointestinal: Yes Nausea, Yes Abdominal Pain, Yes Diarrhea; No Vomiting, No Constipation, No Melena, No Hematochezia, No Other Genitourinary: No Dysuria, No Frequency, No Incontinence, No Hematuria, No Retention, No Discharge, No Urgency, No Pain, No Flank Pain, No Other, No , No , No , No , No , No , No Musculoskeletal: No Gait Disturbance, No Joint Pain, No Joint Stiffness, No Joint Swelling, No Muscle Pain, No Muscular Weakness, No Pain In:, No Swelling In:, No Other Neurological: No Behavorial Changes, No Bowel/Bladder ControlChng, No Confusion, No Dizziness, No Gait Disturbance, No Headaches, No Impaired Coord/balance, No Memory Loss, No Numbness/Tingling, No Seizures, No Speech Problems, No Tremors, No Visual Changes, No Weakness, No Other Skin: No Dry Skin, No Eczema, No Hair Changes, No Lumps, No Mole Changes, No Mottling, No Nail Changes, No Pruritus, No Rash, No Skin Lesion Changes, No Other, No Acne Physical Exam General: Alert, Oriented X3, Cooperative, moderate distress HEENT: Atraumatic, PERRLA, EOMI, Mucous membr. moist/pink Lungs: Other (Bilateral rhonchi) Heart: S1S2, RRR, no thrills, no rubs, no gallops, no murmurs Abdomen: Normal bowel sounds, Soft, No tenderness, No hepatosplenomegaly, No masses Rectal Exam: not examined Extremities: No clubbing, No cyanosis, No edema, Normal pulses, No tenderness/swelling, Other (left forearm fistual good bruit) Skin: No rashes, No breakdown, No significant lesion Neuro: Normal gait, Normal speech, Strength at 5/5 X4 ext, Normal tone, Sensation intact, Cranial nerves 3-12 NL, Reflexes 2+ Psych/Mental Status: Mental status NL, Mood NL Vitals Vitals Vital Signs Date Time Temp Pulse Resp B/P (MAP) Pulse Ox O2 Delivery O2 Flow Rate FiO2 06/05/20 18:00 70 24 159/74 (102) 98 Nasal Cannula 3.0 06/05/20 16:46 102.4 102.4 Labs Labs Laboratory Tests Test 06/05/20 17:00 White Blood Count 6.9 x10^3/uL (4.0-11.0) Red Blood Count 3.75 x10^6/uL (4.30-5.70) Hemoglobin 11.9 g/dL (13.0-17.5) Hematocrit 34.9 % (39.0-53.0) Mean Corpuscular Volume 93 fL (79-100) Mean Corpuscular Hemoglobin 32 pg (25-35) Mean Corpuscular Hemoglobin Concent 34 g/dL (31-37) Red Cell Distribution Width 15.0 % (11.5-14.5) Platelet Count 184 x10^3/uL (140-400) Neutrophils (%) (Auto) 86 % (31-73) Lymphocytes (%) (Auto) 7 % (24-48) Monocytes (%) (Auto) 6 % (0-9) Eosinophils (%) (Auto) 0 % (0-3) Basophils (%) (Auto) 0 % (0-3) Neutrophils # (Auto) 5.9 x10^3/uL (1.8-7.7) Lymphocytes # (Auto) 0.5 x10^3/uL (1.0-4.8) Monocytes # (Auto) 0.4 x10^3/uL (0.0-1.1) Eosinophils # (Auto) 0.0 x10^3/uL (0.0-0.7) Basophils # (Auto) 0.0 x10^3/uL (0.0-0.2) Sodium Level 136 mmol/L (136-145) Potassium Level 3.5 mmol/L (3.5-5.1) Chloride Level 96 mmol/L (98-107) Carbon Dioxide Level 32 mmol/L (21-32) Anion Gap 8 (6-14) Blood Urea Nitrogen 26 mg/dL (8-26) Creatinine 7.9 mg/dL (0.7-1.3) Estimated GFR (Cockcroft-Gault) 7.1 Glucose Level 101 mg/dL (70-99) Calcium Level 7.7 mg/dL (8.5-10.1) Total Bilirubin 0.3 mg/dL (0.2-1.0) Direct Bilirubin 0.1 mg/dL (0.0-0.2) Aspartate Amino Transf (AST/SGOT) 55 U/L (15-37) Alanine Aminotransferase (ALT/SGPT) 34 U/L (16-63) Alkaline Phosphatase 58 U/L (46-116) Troponin I Quantitative < 0.017 ng/mL (0.000-0.055) IM-Rwe-X-Type Natriuretic Peptide 2270 pg/mL (0-124) Total Protein 7.2 g/dL (6.4-8.2) Albumin 2.8 g/dL (3.4-5.0) Lipase 587 U/L (73-393) Laboratory Tests Test 06/05/20 17:00 White Blood Count 6.9 x10^3/uL (4.0-11.0) Red Blood Count 3.75 x10^6/uL (4.30-5.70) Hemoglobin 11.9 g/dL (13.0-17.5) Hematocrit 34.9 % (39.0-53.0) Mean Corpuscular Volume 93 fL (79-100) Mean Corpuscular Hemoglobin 32 pg (25-35) Mean Corpuscular Hemoglobin Concent 34 g/dL (31-37) Red Cell Distribution Width 15.0 % (11.5-14.5) Platelet Count 184 x10^3/uL (140-400) Neutrophils (%) (Auto) 86 % (31-73) Lymphocytes (%) (Auto) 7 % (24-48) Monocytes (%) (Auto) 6 % (0-9) Eosinophils (%) (Auto) 0 % (0-3) Basophils (%) (Auto) 0 % (0-3) Neutrophils # (Auto) 5.9 x10^3/uL (1.8-7.7) Lymphocytes # (Auto) 0.5 x10^3/uL (1.0-4.8) Monocytes # (Auto) 0.4 x10^3/uL (0.0-1.1) Eosinophils # (Auto) 0.0 x10^3/uL (0.0-0.7) Basophils # (Auto) 0.0 x10^3/uL (0.0-0.2) Sodium Level 136 mmol/L (136-145) Potassium Level 3.5 mmol/L (3.5-5.1) Chloride Level 96 mmol/L (98-107) Carbon Dioxide Level 32 mmol/L (21-32) Anion Gap 8 (6-14) Blood Urea Nitrogen 26 mg/dL (8-26) Creatinine 7.9 mg/dL (0.7-1.3) Estimated GFR (Cockcroft-Gault) 7.1 Glucose Level 101 mg/dL (70-99) Calcium Level 7.7 mg/dL (8.5-10.1) Total Bilirubin 0.3 mg/dL (0.2-1.0) Direct Bilirubin 0.1 mg/dL (0.0-0.2) Aspartate Amino Transf (AST/SGOT) 55 U/L (15-37) Alanine Aminotransferase (ALT/SGPT) 34 U/L (16-63) Alkaline Phosphatase 58 U/L (46-116) Troponin I Quantitative < 0.017 ng/mL (0.000-0.055) FD-Lbe-V-Type Natriuretic Peptide 2270 pg/mL (0-124) Total Protein 7.2 g/dL (6.4-8.2) Albumin 2.8 g/dL (3.4-5.0) Lipase 587 U/L (73-393) Images Images CXR: There is stable suspected left lower lobe infiltrate superimposed on diffuse interstitial prominence. There may be a trace left pleural effusion. There is a stable prominent cardiac silhouette. There is no pneumothorax. IMPRESSION: Stable suspected left lower lobe infiltrate and possible trace left pleural effusion. VTE Prophylaxis Ordered VTE Prophylaxis Devices: No VTE Pharmacological Prophylaxi: Yes Assessment/Plan Assessment/Plan A/P: Acute hypoxic respiratory failure - 2/2 COVID 19. On 3L NCO2, will consult pulm. With worsening O2 status will consider convalescent FFP and possibly experimental remdesivir therapy Abnormal chest x-ray, COVID 19 pneumonia. Sepsis 2/2 covid 19 Asthma. Obstructive sleep apnea-hypopnea syndrome - on BIPAP 25/20 at home End-stage renal disease, [facility] Hypertension. 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
--- NOTE | 2020-06-05 18:41 | PHYS DOC ---
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 He has been discharged from the hospital after being diagnosed with COVID-19 and pneumonia he takes 3 L nasal cannula at home because of his asthma. He has not picked up his antibiotics after being discharged from the hospital for his pneumonia. He has been having fevers he is dyspneic on exertion. Location lungs. Duration constant. Worse with exertion. alleviated by rest. Review of systems negative for chest pain abdominal pain vomiting. Positive for fever cough shortness of breath. Negative for headache. All other review of systems negative. ED course: 59-year-old male presenting the emergency department today with shortness of breath with fevers and known COVID-19. On arrival he is febrile at 102.4. Heart rate 114. Respiratory rate 30 on 2 to 3 L nasal cannula. CBC shows hemoglobin of 11.9. White blood cell count within normal limits. Chemistry panel shows elevated creatinine consistent with patient's end-stage renal disease. proBNP 2270. Troponin within normal limits. Chest x-ray shows stable suspected lower lobe infiltrate. Patient was given IV Zosyn. Will admit him to the hospital. I spoke with hospitalist who accepts patient for admissio n. Heart Score: Risk Factors: Risk Factors: DM, Current or recent (<one month) smoker, HTN, HLP, family history of CAD, obesity. Risk Scores: Score 0 - 3: 2.5% MACE over next 6 weeks - Discharge Home Score 4 - 6: 20.3% MACE over next 6 weeks - Admit for Clinical Observation Score 7 - 10: 72.7% MACE over next 6 weeks - Early Invasive Strategies Current Medications: Current Medications Medications (Trade) Dose Ordered Sig/Tao Start Time Stop Time Status Last Admin Dose Admin Piperacillin Sod/ Tazobactam Sod (Zosyn Per Pharmacy) 1 each PRN DAILY PRN 06/05/20 18:30 UNV Piperacillin Sod/ Tazobactam Sod 2.25 gm/Sodium Chloride 50 ml @ 100 mls/hr 1X ONCE 06/05/20 18:45 06/05/20 19:14 Sodium Chloride 1,000 ml @ 100 mls/hr Q10H 06/05/20 18:24 06/05/20 22:23 UNV Allergies: Allergies: Allergies Coded Allergies Type Severity Reaction Last Updated Verified No Known Drug Allergies 12/25/19 No Physical Exam: PE: Constitutional: Well developed, well nourished, mildly increased work of breathing HENT: Normocephalic, atraumatic, bilateral external ears normal, oropharynx moist, no oral exudates, nose normal. [] Eyes: PERRLA, EOMI, conjunctiva normal, no discharge. [] Neck: Normal range of motion, no tenderness, supple, no stridor. [] Cardiovascular:Heart rate regular rhythm, no murmur [] Lungs & Thorax: wheezing and crackles bilaterally. Abdomen: Bowel sounds normal, soft, no tenderness, no masses, no pulsatile masses. [] Skin: Warm, dry, no erythema, no rash. [] Back: No tenderness, no CVA tenderness. [] Extremities: No tenderness, no cyanosis, no clubbing, ROM intact, no edema. [] Neurologic: Alert and oriented X 3, normal motor function, normal sensory function, no focal deficits noted. [] Psychologic: Affect normal, judgement normal, mood normal. [] Current Patient Data: Labs: Laboratory Tests Test 06/05/20 17:00 White Blood Count 6.9 x10^3/uL (4.0-11.0) Red Blood Count 3.75 x10^6/uL (4.30-5.70) L Hemoglobin 11.9 g/dL (13.0-17.5) L Hematocrit 34.9 % (39.0-53.0) L Mean Corpuscular Volume 93 fL (79-100) Mean Corpuscular Hemoglobin 32 pg (25-35) Mean Corpuscular Hemoglobin Concent 34 g/dL (31-37) Red Cell Distribution Width 15.0 % (11.5-14.5) H Platelet Count 184 x10^3/uL (140-400) Neutrophils (%) (Auto) 86 % (31-73) H Lymphocytes (%) (Auto) 7 % (24-48) L Monocytes (%) (Auto) 6 % (0-9) Eosinophils (%) (Auto) 0 % (0-3) Basophils (%) (Auto) 0 % (0-3) Neutrophils # (Auto) 5.9 x10^3/uL (1.8-7.7) Lymphocytes # (Auto) 0.5 x10^3/uL (1.0-4.8) L Monocytes # (Auto) 0.4 x10^3/uL (0.0-1.1) Eosinophils # (Auto) 0.0 x10^3/uL (0.0-0.7) Basophils # (Auto) 0.0 x10^3/uL (0.0-0.2) Platelet Estimate Pending Sodium Level 136 mmol/L (136-145) Potassium Level 3.5 mmol/L (3.5-5.1) Chloride Level 96 mmol/L (98-107) L Carbon Dioxide Level 32 mmol/L (21-32) Anion Gap 8 (6-14) Blood Urea Nitrogen 26 mg/dL (8-26) Creatinine 7.9 mg/dL (0.7-1.3) H Estimated GFR (Cockcroft-Gault) 7.1 Glucose Level 101 mg/dL (70-99) H Calcium Level 7.7 mg/dL (8.5-10.1) L Total Bilirubin 0.3 mg/dL (0.2-1.0) Direct Bilirubin 0.1 mg/dL (0.0-0.2) Aspartate Amino Transferase (AST) 55 U/L (15-37) H Alanine Aminotransferase (ALT) 34 U/L (16-63) Alkaline Phosphatase 58 U/L (46-116) Troponin I Quantitative < 0.017 ng/mL (0.000-0.055) NN-Boy-W-Type Natriuretic Peptide 2270 pg/mL (0-124) H Total Protein 7.2 g/dL (6.4-8.2) Albumin 2.8 g/dL (3.4-5.0) L Lipase 587 U/L (73-393) H Laboratory Tests 06/05/20 17:00 Laboratory Tests 06/05/20 17:00 Vital Signs: Vital Signs Date Time Temp Pulse Resp B/P (MAP) Pulse Ox O2 Delivery O2 Flow Rate FiO2 06/05/20 18:00 70 24 159/74 (102) 98 Nasal Cannula 3.0 06/05/20 16:46 102.4 102.4 EKG: EKG: [] Radiology/Procedures: Radiology/Procedures: [] Course & Med Decision Making: Course & Med Decision Making Pertinent Labs and Imaging studies reviewed. (See chart for details) [] Dragon Disclaimer: Dragon Disclaimer: This electronic medical record was generated, in whole or in part, using a voice recognition dictation system. Departure Departure Impression: Primary Impression: Renal failure Additional Impressions: Pneumonia COVID-19 Disposition: 09 ADMITTED INPATIENT Condition: STABLE Referrals: EMERITA BARR (PCP) Justicifation of Admission Dx: Justifications for Admission: Justification of Admission Dx: Yes Respiratory Failure: Severe Resp Distress Comminuty Aquired Pneumonia: Med-High Risk Pt ESTRELLITA CAR MD Jun 05, 2020 18:41
[2020-06-05] MEDS ORDERED: HYDROcodone/APAP 5/325MG 1 TAB TABLET PO PRN (18:45)
[2020-06-05] MEDS ORDERED: ACETAMINOPHEN 325 MG TABLET. PO PRN (18:45)
[2020-06-05] MEDS ORDERED: PIPERACILLIN/TAZOBACTAM 2.25 GM in IV NORMAL SALINE 50ML 50 ML IV ONE (18:45)
[2020-06-05] MEDS ORDERED: traZODone 50 MG TABLET. PO PRN (18:45)
[2020-06-05 19:47] LABS: % BANDS 23 % (0-9); % BASOS 1 % (0-3); % LYMPHS 8 % (24-48); % MONOS 5 % (0-10); % SEGS 63 % (35-66); PLT ESTIMATE ADEQUATE (ADEQUATE)
[2020-06-06] MEDS: HEPARIN for SUB-Q USE 5,000 UNIT/ML VIAL. SQ SCH ×4 (02:05→20:55)
[2020-06-06] MEDS: PIPERACILLIN/TAZOBACTAM 2.25 GM in IV NORMAL SALINE 50ML 50 ML IV SCH ×3 (02:05→20:54)
[2020-06-06 02:45] VITALS: BP 138/70
[2020-06-06 07:00] VITALS: BP 124/70
[2020-06-06] MEDS ORDERED: PANTOPRAZOLE 40 MG TABLET.DR. PO SCH (07:30)
--- NOTE | 2020-06-06 08:13 | PDOC ---
PROGRESS NOTES Chief Complaint Chief Complaint A/P: Acute hypoxic respiratory failure - 2/2 COVID 19. On 3L NCO2, will consult pulm. With worsening O2 status will consider convalescent FFP and possibly experiment al remdesivir therapy Abnormal chest x-ray, COVID 19 pneumonia. Sepsis 2/2 covid 19 Asthma. Obstructive sleep apnea-hypopnea syndrome - on BIPAP at home End-stage renal disease, on hemodialysis - TuThSa in LUE fistula Hypertension. Hypokalemia - will address at dialysis Anemia of chronic disease Severe protein calorie malnutrition - camp nurse recs appreciated Diarrhea - likely COVID related FEN - Renal diet PPX - heparin FULL CODE Dispo - inpatient 2 midnights at least History of Present Illness History of Present Illness Mr Jack is a 59 year old male w/ PMHx DORIS on BIPAP (), ESRD on HD who p/w two days of fever diarrhea cough fever of 101. 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 (he has been using his O2 from his home BIPAP to use daytime O2 when he became short of breath the day prior to presentation.) Has significant MALONE, rest has improved his symptoms. Still having diarrhea and he is anxious about his shortness of breath. On arrival he is febrile at 102.4. Heart rate 114. Respiratory rate 30 on 2 to 3 L nasal cannula. CBC shows hemoglobin of 11.9. White blood cell count within normal limits. Chemistry panel shows elevated creatinine consistent with patient's end-stage renal disease. proBNP 2270. Troponin within normal limits. Chest x-ray shows stable suspected lower lobe infiltrate. Patient was given IV Zosyn. Admitted for further care. Afebrile overnight, ferritin in 1999. D-dimer INR in PTT all elevated. He feels a little better, still on 4 L of O2. On IV Zosyn currently. Vitals Vitals Vital Signs Date Time Temp Pulse Resp B/P (MAP) Pulse Ox O2 Delivery O2 Flow Rate FiO2 06/06/20 03:22 Nasal Cannula 4.0 06/06/20 02:45 98.2 74 23 138/70 (92) 94 98.2 Physical Exam General: Alert, Oriented X3, Cooperative, moderate distress Lungs: Clear Abdomen: Normal bowel sounds, Soft, No tenderness, No hepatosplenomegaly, No masses Extremities: No clubbing, No cyanosis, No edema, Normal pulses, No tenderness/swelling, Other (left forearm fistual good bruit) Skin: No rashes, No breakdown, No significant lesion Labs LABS Laboratory Tests Test 06/05/20 17:00 White Blood Count 6.9 x10^3/uL (4.0-11.0) Red Blood Count 3.75 x10^6/uL (4.30-5.70) Hemoglobin 11.9 g/dL (13.0-17.5) Hematocrit 34.9 % (39.0-53.0) Mean Corpuscular Volume 93 fL (79-100) Mean Corpuscular Hemoglobin 32 pg (25-35) Mean Corpuscular Hemoglobin Concent 34 g/dL (31-37) Red Cell Distribution Width 15.0 % (11.5-14.5) Platelet Count 184 x10^3/uL (140-400) Neutrophils (%) (Auto) 86 % (31-73) Lymphocytes (%) (Auto) 7 % (24-48) Monocytes (%) (Auto) 6 % (0-9) Eosinophils (%) (Auto) 0 % (0-3) Basophils (%) (Auto) 0 % (0-3) Neutrophils # (Auto) 5.9 x10^3/uL (1.8-7.7) Lymphocytes # (Auto) 0.5 x10^3/uL (1.0-4.8) Monocytes # (Auto) 0.4 x10^3/uL (0.0-1.1) Eosinophils # (Auto) 0.0 x10^3/uL (0.0-0.7) Basophils # (Auto) 0.0 x10^3/uL (0.0-0.2) Segmented Neutrophils % 63 % (35-66) Band Neutrophils % 23 % (0-9) Lymphocytes % 8 % (24-48) Monocytes % 5 % (0-10) Basophils % 1 % (0-3) Platelet Estimate Adequate (ADEQUATE) Sodium Level 136 mmol/L (136-145) Potassium Level 3.5 mmol/L (3.5-5.1) Chloride Level 96 mmol/L (98-107) Carbon Dioxide Level 32 mmol/L (21-32) Anion Gap 8 (6-14) Blood Urea Nitrogen 26 mg/dL (8-26) Creatinine 7.9 mg/dL (0.7-1.3) Estimated GFR (Cockcroft-Gault) 7.1 Glucose Level 101 mg/dL (70-99) Calcium Level 7.7 mg/dL (8.5-10.1) Total Bilirubin 0.3 mg/dL (0.2-1.0) Direct Bilirubin 0.1 mg/dL (0.0-0.2) Aspartate Amino Transf (AST/SGOT) 55 U/L (15-37) Alanine Aminotransferase (ALT/SGPT) 34 U/L (16-63) Alkaline Phosphatase 58 U/L (46-116) Troponin I Quantitative < 0.017 ng/mL (0.000-0.055) YJ-Sqt-L-Type Natriuretic Peptide 2270 pg/mL (0-124) Total Protein 7.2 g/dL (6.4-8.2) Albumin 2.8 g/dL (3.4-5.0) Lipase 587 U/L (73-393) Comment Review of Relevant I have reviewed the following items bennie (where applicable) has been applied. Labs Laboratory Tests Test 06/05/20 17:00 White Blood Count 6.9 x10^3/uL (4.0-11.0) Red Blood Count 3.75 x10^6/uL (4.30-5.70) Hemoglobin 11.9 g/dL (13.0-17.5) Hematocrit 34.9 % (39.0-53.0) Mean Corpuscular Volume 93 fL (79-100) Mean Corpuscular Hemoglobin 32 pg (25-35) Mean Corpuscular Hemoglobin Concent 34 g/dL (31-37) Red Cell Distribution Width 15.0 % (11.5-14.5) Platelet Count 184 x10^3/uL (140-400) Neutrophils (%) (Auto) 86 % (31-73) Lymphocytes (%) (Auto) 7 % (24-48) Monocytes (%) (Auto) 6 % (0-9) Eosinophils (%) (Auto) 0 % (0-3) Basophils (%) (Auto) 0 % (0-3) Neutrophils # (Auto) 5.9 x10^3/uL (1.8-7.7) Lymphocytes # (Auto) 0.5 x10^3/uL (1.0-4.8) Monocytes # (Auto) 0.4 x10^3/uL (0.0-1.1) Eosinophils # (Auto) 0.0 x10^3/uL (0.0-0.7) Basophils # (Auto) 0.0 x10^3/uL (0.0-0.2) Segmented Neutrophils % 63 % (35-66) Band Neutrophils % 23 % (0-9) Lymphocytes % 8 % (24-48) Monocytes % 5 % (0-10) Basophils % 1 % (0-3) Platelet Estimate Adequate (ADEQUATE) Sodium Level 136 mmol/L (136-145) Potassium Level 3.5 mmol/L (3.5-5.1) Chloride Level 96 mmol/L (98-107) Carbon Dioxide Level 32 mmol/L (21-32) Anion Gap 8 (6-14) Blood Urea Nitrogen 26 mg/dL (8-26) Creatinine 7.9 mg/dL (0.7-1.3) Estimated GFR (Cockcroft-Gault) 7.1 Glucose Level 101 mg/dL (70-99) Calcium Level 7.7 mg/dL (8.5-10.1) Total Bilirubin 0.3 mg/dL (0.2-1.0) Direct Bilirubin 0.1 mg/dL (0.0-0.2) Aspartate Amino Transf (AST/SGOT) 55 U/L (15-37) Alanine Aminotransferase (ALT/SGPT) 34 U/L (16-63) Alkaline Phosphatase 58 U/L (46-116) Troponin I Quantitative < 0.017 ng/mL (0.000-0.055) SC-Erp-S-Type Natriuretic Peptide 2270 pg/mL (0-124) Total Protein 7.2 g/dL (6.4-8.2) Albumin 2.8 g/dL (3.4-5.0) Lipase 587 U/L (73-393) Laboratory Tests Test 06/05/20 17:00 White Blood Count 6.9 x10^3/uL (4.0-11.0) Red Blood Count 3.75 x10^6/uL (4.30-5.70) Hemoglobin 11.9 g/dL (13.0-17.5) Hematocrit 34.9 % (39.0-53.0) Mean Corpuscular Volume 93 fL (79-100) Mean Corpuscular Hemoglobin 32 pg (25-35) Mean Corpuscular Hemoglobin Concent 34 g/dL (31-37) Red Cell Distribution Width 15.0 % (11.5-14.5) Platelet Count 184 x10^3/uL (140-400) Neutrophils (%) (Auto) 86 % (31-73) Lymphocytes (%) (Auto) 7 % (24-48) Monocytes (%) (Auto) 6 % (0-9) Eosinophils (%) (Auto) 0 % (0-3) Basophils (%) (Auto) 0 % (0-3) Neutrophils # (Auto) 5.9 x10^3/uL (1.8-7.7) Lymphocytes # (Auto) 0.5 x10^3/uL (1.0-4.8) Monocytes # (Auto) 0.4 x10^3/uL (0.0-1.1) Eosinophils # (Auto) 0.0 x10^3/uL (0.0-0.7) Basophils # (Auto) 0.0 x10^3/uL (0.0-0.2) Segmented Neutrophils % 63 % (35-66) Band Neutrophils % 23 % (0-9) Lymphocytes % 8 % (24-48) Monocytes % 5 % (0-10) Basophils % 1 % (0-3) Platelet Estimate Adequate (ADEQUATE) Sodium Level 136 mmol/L (136-145) Potassium Level 3.5 mmol/L (3.5-5.1) Chloride Level 96 mmol/L (98-107) Carbon Dioxide Level 32 mmol/L (21-32) Anion Gap 8 (6-14) Blood Urea Nitrogen 26 mg/dL (8-26) Creatinine 7.9 mg/dL (0.7-1.3) Estimated GFR (Cockcroft-Gault) 7.1 Glucose Level 101 mg/dL (70-99) Calcium Level 7.7 mg/dL (8.5-10.1) Total Bilirubin 0.3 mg/dL (0.2-1.0) Direct Bilirubin 0.1 mg/dL (0.0-0.2) Aspartate Amino Transf (AST/SGOT) 55 U/L (15-37) Alanine Aminotransferase (ALT/SGPT) 34 U/L (16-63) Alkaline Phosphatase 58 U/L (46-116) Troponin I Quantitative < 0.017 ng/mL (0.000-0.055) HT-Mux-V-Type Natriuretic Peptide 2270 pg/mL (0-124) Total Protein 7.2 g/dL (6.4-8.2) Albumin 2.8 g/dL (3.4-5.0) Lipase 587 U/L (73-393) Medications Current Medications Piperacillin Sod/ Tazobactam Sod (Zosyn Per Pharmacy) 1 each PRN DAILY PRN MC SEE COMMENTS; Start 06/05/20 at 18:30 Piperacillin Sod/ Tazobactam Sod 2.25 gm/Sodium Chloride 50 ml @ 100 mls/hr 1X ONCE IV Last administered on 06/05/20at 18:42; Start 06/05/20 at 18:45; Stop 06/05/20 at 19:14; Status DC Sodium Chloride 1,000 ml @ 100 mls/hr Q10H IV Last administered on 06/05/20at 18:42; Start 06/05/20 at 18:24; Stop 06/05/20 at 22:23; Status DC Acetaminophen (Tylenol) 325 mg PRN Q4HRS PRN PO MILD PAIN / TEMP > 100.3'F; Start 06/05/20 at 18:45 Aspirin (Jaleesa Aspirin) 325 mg DAILY PO ; Start 06/06/20 at 09:00 Docusate Sodium (Colace) 100 mg DAILY PO ; Start 06/06/20 at 09:00 Acetaminophen/ Hydrocodone Bitart (Lortab 5/325) 1 tab PRN Q6HRS PRN PO PAIN; Start 06/05/20 at 18:45 Tamsulosin HCl (Flomax) 0.4 mg DAILY PO ; Start 06/06/20 at 09:00 Trazodone HCl (Desyrel) 100 mg PRN QHS PRN PO INSOMNIA; Start 06/05/20 at 18:45 Citalopram Hydrobromide (CeleXA) 20 mg DAILY PO ; Start 7/24/20 at 09:00 Pantoprazole Sodium (Protonix) 40 mg DAILYAC PO ; Start 06/06/20 at 07:30 Heparin Sodium (Porcine) (Heparin Sodium) 5,000 unit TID SQ Last administered on 06/06/20at 02:05; Start 06/05/20 at 21:00 Piperacillin Sod/ Tazobactam Sod 2.25 gm/Sodium Chloride 50 ml @ 100 mls/hr Q8H IV Last administered on 06/06/20at 02:05; Start 06/06/20 at 03:00 Pharmacy Consult (C.diff Med Screen By Rx) 1 each 1X ONCE [facility] ; Start 06/06/20 at 09:00; Stop 06/06/20 at 09:01 Active Scripts Active Aspirin 325 Mg Tablet 1 Tab PO DAILY 90 Days Augmentin 500-125 Tablet (Amoxicillin/Potassium Clav) 1 Each Tablet 1 Tab PO DAILY 7 Days Reported [place] 5-325 Tablet (Acetaminophen/Hydrocodone Bitart) 1 Each Tablet 1 Tab PO PRN Q6HRS PRN Tylenol (Acetaminophen) 325 Mg Tablet 1 Tab PO PRN Q4HRS Escitalopram Oxalate 10 Mg Tablet 1 Tab PO DAILY Flomax (Tamsulosin Hcl) 0.4 Mg Cap.er.24h 1 Cap PO DAILY Xanax (Alprazolam) 0.5 Mg Tablet 0.5 Mg PO PRN Q6HRS PRN Colace (Docusate Sodium) 100 Mg Capsule 100 Mg PO DAILY Trazodone Hcl 50 Mg Tablet 1-2 Tab PO HS PRN Calcium Acetate 667 Mg Tablet 3 Cap PO TIDWMEALS Prevacid (Lansoprazole) 15 Mg Capsule. 1 Cap PO DAILY Vitals/I & O Vital Sign - Last 24 Hours 06/05/20 06/05/20 06/05/20 06/05/20 16:46 17:00 18:00 18:30 Temp 102.4 102.4 Pulse 114 74 70 114 Resp 30 18 24 B/P (MAP) 136/82 (100) 158/93 (114) 159/74 (102) 114/110 (111) Pulse Ox 97 98 95 O2 Delivery Nasal Cannula Nasal Cannula Nasal Cannula O2 Flow Rate 2.0 3.0 3.0 3.0 06/05/20 06/05/20 06/05/20 06/05/20 19:15 19:45 20:15 20:45 Pulse 100 104 104 96 B/P (MAP) 114/77 (89) 114/70 (85) 124/70 (88) 145/84 (104) Pulse Ox 91 95 94 O2 Delivery Nasal Cannula Nasal Cannula Nasal Cannula Nasal Cannula O2 Flow Rate 3.0 3.0 3.0 3.0 06/05/20 06/05/20 06/06/20 06/06/20 21:15 21:45 02:45 03:22 Temp 98.2 98.2 Pulse 96 96 74 Resp 23 B/P (MAP) 169/87 (114) 140/85 (103) 138/70 (92) Pulse Ox 91 94 O2 Delivery Nasal Cannula Nasal Cannula Nasal Cannula Nasal Cannula O2 Flow Rate 3.0 3.0 4.0 4.0 Intake and Output 0 06/05/20 06/05/20 06/06/20 15:00 23:00 07:00 Output Total 150 ml Balance -150 ml Justicifation of Admission Dx: Justifications for Admission: Justification of Admission Dx: Yes Respiratory Failure: Severe Resp Distress Comminuty Aquired Pneumonia: Med-High Risk Pt HILDA SMILEY MD Jun 06, 2020 08:13
[2020-06-06] MEDS: ASPIRIN 325 MG TABLET PO SCH (08:49)
[2020-06-06] MEDS: CITALOPRAM 20 MG TABLET. PO SCH (08:49)
[2020-06-06] MEDS: TAMSULOSIN 0.4 MG CAP.ER.24H. PO SCH (08:49)
[2020-06-06] MEDS: DOCUSATE SODIUM 100 MG CAPSULE. PO SCH (09:00)
[2020-06-06] MEDS ORDERED: C.DIFF MED SCREEN BY RX. MC ONE (09:00)
--- NOTE | 2020-06-06 09:23 | NUR ---
Pharmacy Medication Review S: Consulted for medication review re: C.diff Risk Assessment score of 5 O: KURTIS COLLINS is a 59 year old with: Previous C.diff infection: No Previous hospitalization: Within 30 days Recent antibiotics: Within 30 days Use of gastric acid suppressor: Yes Transfer from [place]/LTAC: No Current antibiotic regimen: Current acid suppression regimen: A: Patient has been identified as having risk factors for C.diff infection as noted above. P: Antibiotic Regimen recommendation made: Patient just started on Zosyn. Probiotic ordered: Yes PPI changed to [id number]: Yes Aguila Holly [facility], 06/06/20 0945
[2020-06-06 09:42] LABS: BASO % 1 % (0-3); EOS % 1 % (0-3); HEMATOCRIT 33.1 % (39.0-53.0); LYMPH # 0.8 x10^3/uL (1.0-4.8); LYMPH % 16 % (24-48); MEAN CORPUSCULAR HEMOGLOBIN 31 pg (25-35); MEAN CORPUSCULAR HGB CONC 33 g/dL (31-37); MEAN CORPUSCULAR VOLUME 94 fL (79-100); MONO # 0.4 x10^3/uL (0.0-1.1); MONO % 8 % (0-9); NEUT # 3.9 x10^3/uL (1.8-7.7); NEUT % 75 % (31-73); PLATELET COUNT 165 x10^3/uL (140-400); RED BLOOD COUNT 3.52 x10^6/uL (4.30-5.70); RED CELL DISTRIBUTION WIDTH 15.3 % (11.5-14.5); WHITE BLOOD COUNT 5.2 x10^3/uL (4.0-11.0)
[2020-06-06 09:55] LABS: PROTHROMBIN TIME PATIENT 14.8 SEC (11.7-14.0)
[2020-06-06 10:00] LABS: D-DIMER 2.01 ug/mlFEU (0.00-0.50)
[2020-06-06 10:33] LABS: ALBUMIN 2.5 g/dL (3.4-5.0); ALBUMIN/GLOBULIN RATIO 0.6 (1.0-1.7); CALCIUM 7.4 mg/dL (8.5-10.1); CREATININE 9.5 mg/dL (0.7-1.3); GFR 5.7; POTASSIUM 3.7 mmol/L (3.5-5.1); TOTAL BILIRUBIN 0.2 mg/dL (0.2-1.0); TOTAL PROTEIN 6.5 g/dL (6.4-8.2)
[2020-06-06 11:00] VITALS: BP 115/63
--- NOTE | 2020-06-06 11:52 | PDOC ---
Renal-Progress Notes Subjective Notes Notes SOB History of Present Illness Hx of present illness JUST D/LUIS FROM [facility] AND NOW BACK WITH SOB. HAD HIS HD YESTERDAY OP Vitals Vitals Vital Signs Date Time Temp Pulse Resp B/P (MAP) Pulse Ox O2 Delivery O2 Flow Rate FiO2 06/06/20 11:00 97.2 71 20 115/63 (80) 94 Nasal Cannula 3.0 97.2 Weight Weight [ ] I.O. Intake and Output Intake and Output 06/06/20 07:00 Output Total 150 ml Balance -150 ml Output Urine Total 150 ml # Voids 1 # Bowel Movements 2 Labs Labs Laboratory Tests Test 06/05/20 17:00 06/06/20 09:15 White Blood Count 6.9 x10^3/uL (4.0-11.0) 5.2 x10^3/uL (4.0-11.0) Red Blood Count 3.75 x10^6/uL (4.30-5.70) 3.52 x10^6/uL (4.30-5.70) Hemoglobin 11.9 g/dL (13.0-17.5) 11.0 g/dL (13.0-17.5) Hematocrit 34.9 % (39.0-53.0) 33.1 % (39.0-53.0) Mean Corpuscular Volume 93 fL (79-100) 94 fL (79-100) Mean Corpuscular Hemoglobin 32 pg (25-35) 31 pg (25-35) Mean Corpuscular Hemoglobin Concent 34 g/dL (31-37) 33 g/dL (31-37) Red Cell Distribution Width 15.0 % (11.5-14.5) 15.3 % (11.5-14.5) Platelet Count 184 x10^3/uL (140-400) 165 x10^3/uL (140-400) Neutrophils (%) (Auto) 86 % (31-73) 75 % (31-73) Lymphocytes (%) (Auto) 7 % (24-48) 16 % (24-48) Monocytes (%) (Auto) 6 % (0-9) 8 % (0-9) Eosinophils (%) (Auto) 0 % (0-3) 1 % (0-3) Basophils (%) (Auto) 0 % (0-3) 1 % (0-3) Neutrophils # (Auto) 5.9 x10^3/uL (1.8-7.7) 3.9 x10^3/uL (1.8-7.7) Lymphocytes # (Auto) 0.5 x10^3/uL (1.0-4.8) 0.8 x10^3/uL (1.0-4.8) Monocytes # (Auto) 0.4 x10^3/uL (0.0-1.1) 0.4 x10^3/uL (0.0-1.1) Eosinophils # (Auto) 0.0 x10^3/uL (0.0-0.7) 0.0 x10^3/uL (0.0-0.7) Basophils # (Auto) 0.0 x10^3/uL (0.0-0.2) 0.0 x10^3/uL (0.0-0.2) Segmented Neutrophils % 63 % (35-66) Band Neutrophils % 23 % (0-9) Lymphocytes % 8 % (24-48) Monocytes % 5 % (0-10) Basophils % 1 % (0-3) Platelet Estimate Adequate (ADEQUATE) Sodium Level 136 mmol/L (136-145) 136 mmol/L (136-145) Potassium Level 3.5 mmol/L (3.5-5.1) 3.7 mmol/L (3.5-5.1) Chloride Level 96 mmol/L (98-107) 94 mmol/L (98-107) Carbon Dioxide Level 32 mmol/L (21-32) 31 mmol/L (21-32) Anion Gap 8 (6-14) 11 (6-14) Blood Urea Nitrogen 26 mg/dL (8-26) 34 mg/dL (8-26) Creatinine 7.9 mg/dL (0.7-1.3) 9.5 mg/dL (0.7-1.3) Estimated GFR (Cockcroft-Gault) 7.1 5.7 Glucose Level 101 mg/dL (70-99) 91 mg/dL (70-99) Calcium Level 7.7 mg/dL (8.5-10.1) 7.4 mg/dL (8.5-10.1) Total Bilirubin 0.3 mg/dL (0.2-1.0) 0.2 mg/dL (0.2-1.0) Direct Bilirubin 0.1 mg/dL (0.0-0.2) Aspartate Amino Transf (AST/SGOT) 55 U/L (15-37) 53 U/L (15-37) Alanine Aminotransferase (ALT/SGPT) 34 U/L (16-63) 27 U/L (16-63) Alkaline Phosphatase 58 U/L (46-116) 47 U/L (46-116) Troponin I Quantitative < 0.017 ng/mL (0.000-0.055) BI-Vzr-L-Type Natriuretic Peptide 2270 pg/mL (0-124) Total Protein 7.2 g/dL (6.4-8.2) 6.5 g/dL (6.4-8.2) Albumin 2.8 g/dL (3.4-5.0) 2.5 g/dL (3.4-5.0) Lipase 587 U/L (73-393) Prothrombin Time 14.8 SEC (11.7-14.0) Prothromb Time International Ratio 1.2 (0.8-1.1) D-Dimer (Shelley) 2.01 ug/mlFEU (0.00-0.50) BUN/Creatinine Ratio 4 (6-20) Ferritin 2949 ng/mL (26-388) Albumin/Globulin Ratio 0.6 (1.0-1.7) Review of Systems Constitutional: yes: alert, oriented Ears/Nose/Throat: Yes: no symptom reported Eyes: Yes: no symptom reported Pulmonary: Yes dyspnea Cardiovascular: Yes no symptom reported Gastrointestional: Yes: constipation Genitourinary: Yes: no symptom reported Musculoskeletal: Yes: muscle stiffness Skin: Yes no symptom reported Psychiatric/Neurological: Yes: no symptom reported Endocrine: Yes: no symptom reported Physical Exam General Appearance: no apparent distress Skin: warm Respiratory: decreased breath sounds Heart: S1S2 Abdomen: soft, bowel sounds present Genitourinary: bladder flat Extremities: pulses present Neurology: alert, oriented Assessment Assessment IMP ESRD-TTS ANEMIA COVID 19 PNEUMONIA S/P ANTIVIRAL AND CONVALESCENT SERUM PLAN 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
[2020-06-06] MEDS: LACTOBACILLUS RHAMNOSUS GG 1 CAPSULE. PO SCH ×2 (13:14→20:54)
--- NOTE | 2020-06-06 13:55 | CONS ---
DATE OF CONSULTATION: 06/06/2020 PULMONARY CONSULTATION ATTENDING PHYSICIAN: Branden Brown MD REASON FOR CONSULTATION: Respiratory failure. HISTORY OF PRESENT ILLNESS: The patient is a 59-year-old male who has a past medical history of sleep apnea and underlying morbid obesity with a BMI of 48.9. The patient has end-stage renal disease, on hemodialysis. 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 He was brought into the hospital with increased shortness of breath, requiring oxygen via nasal cannula at 5 liters. His chest x-ray revealed prominent interstitial marking and some left basal infiltrate versus atelectasis. He has a mild cough. He still has some diarrhea. No chest pain. The patient was febrile on admission. However, he has been afebrile since last 12 hours. He is down to 3 liters of oxygen. I have been asked to see him for further evaluation. PAST MEDICAL HISTORY: 1. History of CAD. 2. History of hypertension. 3. Hyperlipidemia. 4. History of end-stage renal disease, on hemodialysis. PAST SURGICAL HISTORY: 1. Arthroscopy. 2. Cataract removal. FAMILY HISTORY: Family history of heart disease and hypertension. SOCIAL HISTORY: Denies tobacco history. ALLERGIES: None. MEDICATIONS: Reviewed as listed in the MRAD including antibiotic, Zosyn. REVIEW OF SYSTEMS: A 12-point system obtained. Pertinent positives discussed in the history of present illness, otherwise noncontributory. All systems that were negative were reviewed as well. PHYSICAL EXAMINATION: VITAL SIGNS: T-max was 101, but he is afebrile, pulse ox is 94% on 3 liters. HEENT: Visual exam done. PULMONARY: He is in no obvious respiratory distress. He has no audible wheezing. ABDOMEN: He is morbidly obese. LABORATORY DATA: Labs are reviewed. White cell count 5.2, hemoglobin 11.0, and platelets are 165. BUN is 26, creatinine of 7.9. Lipase is 587. BNP is 2270. IMPRESSION: 1. Acute hypoxic respiratory failure, likely combination of COVID-19 pneumonia and congestive heart failure. 2. End-stage renal disease, on hemodialysis. 3. COVID-19 positive recently. 4. Obstructive sleep apnea/obesity hypoventilation syndrome, on BiPAP at 25/20 at home. 5. Fever, likely secondary to COVID. RECOMMENDATIONS: 1. Continue present oxygen at 3 liters. 2. BiPAP at bedtime. 3. Continue empiric antibiotic, Zosyn. 4. Heparin t.i.d. for DVT prophylaxis. 5. Monitor the clinical course. 6. We will follow inflammatory markers as clinically indicated. 7. The patient has felt better since the dialysis and I suspect that some of the dyspnea and hypoxia could be related to congestive heart failure. Discussed with RN. We will follow along with you. JULIAN TURPIN MD DR: [email or web address] JOB#: [id number] / [id number]
--- NOTE | 2020-06-06 13:56 | NUR ---
SW following. Spoke with RN and reviewed chart. Pt from home. Pt on 3l 02. Pt on IV Zosyn. Pt COVID positive. Pt is being considered for Remdesivir therapy per DOLLY. SW to continue following.
[2020-06-06 15:00] VITALS: BP 149/92
[2020-06-06 19:16] VITALS: BP 139/89
[2020-06-07 01:00] VITALS: BP 127/70
[2020-06-07] MEDS: PIPERACILLIN/TAZOBACTAM 2.25 GM in IV NORMAL SALINE 50ML 50 ML IV SCH ×3 (05:13→18:26)
[2020-06-07 05:18] VITALS: BP 136/83
[2020-06-07] MEDS ORDERED: ALPRAZolam 0.5 MG TABLET PO ONE (06:00)
[2020-06-07 07:00] VITALS: BP 122/82
--- NOTE | 2020-06-07 08:27 | PDOC ---
PROGRESS NOTES Chief Complaint Chief Complaint A/P: Acute hypoxic respiratory failure - 2/2 COVID 19. On 3L NCO2, will consult pulm. With worsening O2 status will consider convalescent FFP and possibly experiment al remdesivir therapy Abnormal chest x-ray, COVID 19 pneumonia. Sepsis 2/2 covid 19 Asthma. Obstructive sleep apnea-hypopnea syndrome - on BIPAP / at home End-stage renal disease, on hemodialysis - TuThSa in LUE fistula Hypertension. 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 (he has been using his O2 from his home BIPAP to use daytime O2 when he became short of breath the day prior to presentation.) Has significant MALONE, rest has improved his symptoms. Still having diarrhea and he is anxious about his shortness of breath. On arrival he is febrile at 102.4. Heart rate 114. Respiratory rate 30 on 2 to 3 L nasal cannula. CBC shows hemoglobin of 11.9. White blood cell count within normal limits. Chemistry panel shows elevated creatinine consistent with patie nt's end-stage renal disease. proBNP 2270. Troponin within normal limits. Chest x-ray shows stable suspected lower lobe infiltrate. Patient was given IV Zosyn. Admitted for further care. 06/06: Afebrile overnight, ferritin in 1999. D-dimer INR in PTT all elevated. He feels a little better, still on 4 L of O2. On IV Zosyn currently. Afebrile overnight now on 3 L nasal cannulated oxygen very anxious, states he takes Xanax prior to dialysis on his dialysis days. Still on IV Zosyn. Still with cough, inability to get a deep breath. Plan: Dialysis today, reassess respiratory status after, likely d/c in next 24-48 hours Vitals Vitals Vital Signs Date Time Temp Pulse Resp B/P (MAP) Pulse Ox O2 Delivery O2 Flow Rate FiO2 06/07/20 07:00 98.6 78 17 122/82 (95) 98 Nasal Cannula 4.0 98.6 Physical Exam General: Alert, Oriented X3, Cooperative, moderate distress Lungs: Clear Abdomen: Normal bowel sounds, Soft, No tenderness, No hepatosplenomegaly, No masses Extremities: No clubbing, No cyanosis, No edema, Normal pulses, No tenderness/swelling, Other (left forearm fistual good bruit) Skin: No rashes, No breakdown, No significant lesion Labs LABS Laboratory Tests Test 06/06/20 09:15 White Blood Count 5.2 x10^3/uL (4.0-11.0) Red Blood Count 3.52 x10^6/uL (4.30-5.70) Hemoglobin 11.0 g/dL (13.0-17.5) Hematocrit 33.1 % (39.0-53.0) Mean Corpuscular Volume 94 fL (79-100) Mean Corpuscular Hemoglobin 31 pg (25-35) Mean Corpuscular Hemoglobin Concent 33 g/dL (31-37) Red Cell Distribution Width 15.3 % (11.5-14.5) Platelet Count 165 x10^3/uL (140-400) Neutrophils (%) (Auto) 75 % (31-73) Lymphocytes (%) (Auto) 16 % (24-48) Monocytes (%) (Auto) 8 % (0-9) Eosinophils (%) (Auto) 1 % (0-3) Basophils (%) (Auto) 1 % (0-3) Neutrophils # (Auto) 3.9 x10^3/uL (1.8-7.7) Lymphocytes # (Auto) 0.8 x10^3/uL (1.0-4.8) Monocytes # (Auto) 0.4 x10^3/uL (0.0-1.1) Eosinophils # (Auto) 0.0 x10^3/uL (0.0-0.7) Basophils # (Auto) 0.0 x10^3/uL (0.0-0.2) Prothrombin Time 14.8 SEC (11.7-14.0) Prothromb Time International Ratio 1.2 (0.8-1.1) D-Dimer (Shelley) 2.01 ug/mlFEU (0.00-0.50) Sodium Level 136 mmol/L (136-145) Potassium Level 3.7 mmol/L (3.5-5.1) Chloride Level 94 mmol/L (98-107) Carbon Dioxide Level 31 mmol/L (21-32) Anion Gap 11 (6-14) Blood Urea Nitrogen 34 mg/dL (8-26) Creatinine 9.5 mg/dL (0.7-1.3) Estimated GFR (Cockcroft-Gault) 5.7 BUN/Creatinine Ratio 4 (6-20) Glucose Level 91 mg/dL (70-99) Calcium Level 7.4 mg/dL (8.5-10.1) Ferritin 2949 ng/mL (26-388) Total Bilirubin 0.2 mg/dL (0.2-1.0) Aspartate Amino Transf (AST/SGOT) 53 U/L (15-37) Alanine Aminotransferase (ALT/SGPT) 27 U/L (16-63) Alkaline Phosphatase 47 U/L (46-116) Total Protein 6.5 g/dL (6.4-8.2) Albumin 2.5 g/dL (3.4-5.0) Albumin/Globulin Ratio 0.6 (1.0-1.7) Comment Review of Relevant I have reviewed the following items bennie (where applicable) has been applied. Labs Laboratory Tests Test 06/05/20 17:00 06/06/20 09:15 White Blood Count 6.9 x10^3/uL (4.0-11.0) 5.2 x10^3/uL (4.0-11.0) Red Blood Count 3.75 x10^6/uL (4.30-5.70) 3.52 x10^6/uL (4.30-5.70) Hemoglobin 11.9 g/dL (13.0-17.5) 11.0 g/dL (13.0-17.5) Hematocrit 34.9 % (39.0-53.0) 33.1 % (39.0-53.0) Mean Corpuscular Volume 93 fL (79-100) 94 fL (79-100) Mean Corpuscular Hemoglobin 32 pg (25-35) 31 pg (25-35) Mean Corpuscular Hemoglobin Concent 34 g/dL (31-37) 33 g/dL (31-37) Red Cell Distribution Width 15.0 % (11.5-14.5) 15.3 % (11.5-14.5) Platelet Count 184 x10^3/uL (140-400) 165 x10^3/uL (140-400) Neutrophils (%) (Auto) 86 % (31-73) 75 % (31-73) Lymphocytes (%) (Auto) 7 % (24-48) 16 % (24-48) Monocytes (%) (Auto) 6 % (0-9) 8 % (0-9) Eosinophils (%) (Auto) 0 % (0-3) 1 % (0-3) Basophils (%) (Auto) 0 % (0-3) 1 % (0-3) Neutrophils # (Auto) 5.9 x10^3/uL (1.8-7.7) 3.9 x10^3/uL (1.8-7.7) Lymphocytes # (Auto) 0.5 x10^3/uL (1.0-4.8) 0.8 x10^3/uL (1.0-4.8) Monocytes # (Auto) 0.4 x10^3/uL (0.0-1.1) 0.4 x10^3/uL (0.0-1.1) Eosinophils # (Auto) 0.0 x10^3/uL (0.0-0.7) 0.0 x10^3/uL (0.0-0.7) Basophils # (Auto) 0.0 x10^3/uL (0.0-0.2) 0.0 x10^3/uL (0.0-0.2) Segmented Neutrophils % 63 % (35-66) Band Neutrophils % 23 % (0-9) Lymphocytes % 8 % (24-48) Monocytes % 5 % (0-10) Basophils % 1 % (0-3) Platelet Estimate Adequate (ADEQUATE) Sodium Level 136 mmol/L (136-145) 136 mmol/L (136-145) Potassium Level 3.5 mmol/L (3.5-5.1) 3.7 mmol/L (3.5-5.1) Chloride Level 96 mmol/L (98-107) 94 mmol/L (98-107) Carbon Dioxide Level 32 mmol/L (21-32) 31 mmol/L (21-32) Anion Gap 8 (6-14) 11 (6-14) Blood Urea Nitrogen 26 mg/dL (8-26) 34 mg/dL (8-26) Creatinine 7.9 mg/dL (0.7-1.3) 9.5 mg/dL (0.7-1.3) Estimated GFR (Cockcroft-Gault) 7.1 5.7 Glucose Level 101 mg/dL (70-99) 91 mg/dL (70-99) Calcium Level 7.7 mg/dL (8.5-10.1) 7.4 mg/dL (8.5-10.1) Total Bilirubin 0.3 mg/dL (0.2-1.0) 0.2 mg/dL (0.2-1.0) Direct Bilirubin 0.1 mg/dL (0.0-0.2) Aspartate Amino Transf (AST/SGOT) 55 U/L (15-37) 53 U/L (15-37) Alanine Aminotransferase (ALT/SGPT) 34 U/L (16-63) 27 U/L (16-63) Alkaline Phosphatase 58 U/L (46-116) 47 U/L (46-116) Troponin I Quantitative < 0.017 ng/mL (0.000-0.055) IY-Elk-P-Type Natriuretic Peptide 2270 pg/mL (0-124) Total Protein 7.2 g/dL (6.4-8.2) 6.5 g/dL (6.4-8.2) Albumin 2.8 g/dL (3.4-5.0) 2.5 g/dL (3.4-5.0) Lipase 587 U/L (73-393) Prothrombin Time 14.8 SEC (11.7-14.0) Prothromb Time International Ratio 1.2 (0.8-1.1) D-Dimer (Shelley) 2.01 ug/mlFEU (0.00-0.50) BUN/Creatinine Ratio 4 (6-20) Ferritin 2949 ng/mL (26-388) Albumin/Globulin Ratio 0.6 (1.0-1.7) Laboratory Tests Test 06/06/20 09:15 White Blood Count 5.2 x10^3/uL (4.0-11.0) Red Blood Count 3.52 x10^6/uL (4.30-5.70) Hemoglobin 11.0 g/dL (13.0-17.5) Hematocrit 33.1 % (39.0-53.0) Mean Corpuscular Volume 94 fL (79-100) Mean Corpuscular Hemoglobin 31 pg (25-35) Mean Corpuscular Hemoglobin Concent 33 g/dL (31-37) Red Cell Distribution Width 15.3 % (11.5-14.5) Platelet Count 165 x10^3/uL (140-400) Neutrophils (%) (Auto) 75 % (31-73) Lymphocytes (%) (Auto) 16 % (24-48) Monocytes (%) (Auto) 8 % (0-9) Eosinophils (%) (Auto) 1 % (0-3) Basophils (%) (Auto) 1 % (0-3) Neutrophils # (Auto) 3.9 x10^3/uL (1.8-7.7) Lymphocytes # (Auto) 0.8 x10^3/uL (1.0-4.8) Monocytes # (Auto) 0.4 x10^3/uL (0.0-1.1) Eosinophils # (Auto) 0.0 x10^3/uL (0.0-0.7) Basophils # (Auto) 0.0 x10^3/uL (0.0-0.2) Prothrombin Time 14.8 SEC (11.7-14.0) Prothromb Time International Ratio 1.2 (0.8-1.1) D-Dimer (Shelley) 2.01 ug/mlFEU (0.00-0.50) Sodium Level 136 mmol/L (136-145) Potassium Level 3.7 mmol/L (3.5-5.1) Chloride Level 94 mmol/L (98-107) Carbon Dioxide Level 31 mmol/L (21-32) Anion Gap 11 (6-14) Blood Urea Nitrogen 34 mg/dL (8-26) Creatinine 9.5 mg/dL (0.7-1.3) Estimated GFR (Cockcroft-Gault) 5.7 BUN/Creatinine Ratio 4 (6-20) Glucose Level 91 mg/dL (70-99) Calcium Level 7.4 mg/dL (8.5-10.1) Ferritin 2949 ng/mL (26-388) Total Bilirubin 0.2 mg/dL (0.2-1.0) Aspartate Amino Transf (AST/SGOT) 53 U/L (15-37) Alanine Aminotransferase (ALT/SGPT) 27 U/L (16-63) Alkaline Phosphatase 47 U/L (46-116) Total Protein 6.5 g/dL (6.4-8.2) Albumin 2.5 g/dL (3.4-5.0) Albumin/Globulin Ratio 0.6 (1.0-1.7) Medications Current Medications Piperacillin Sod/ Tazobactam Sod (Zosyn Per Pharmacy) 1 each PRN DAILY PRN MC SEE COMMENTS; Start 06/05/20 at 18:30 Piperacillin Sod/ Tazobactam Sod 2.25 gm/Sodium Chloride 50 ml @ 100 mls/hr 1X ONCE IV Last administered on 06/05/20at 18:42; Start 06/05/20 at 18:45; Stop 06/05/20 at 19:14; Status DC Sodium Chloride 1,000 ml @ 100 mls/hr Q10H IV Last administered on 06/05/20at 18:42; Start 06/05/20 at 18:24; Stop 06/05/20 at 22:23; Status DC Acetaminophen (Tylenol) 325 mg PRN Q4HRS PRN PO MILD PAIN / TEMP > 100.3'F; Start 06/05/20 at 18:45 Aspirin (Jaleesa Aspirin) 325 mg DAILY PO Last administered on 06/06/20at 08:49; Start 06/06/20 at 09:00 Docusate Sodium (Colace) 100 mg DAILY PO ; Start 06/06/20 at 09:00 Acetaminophen/ Hydrocodone Bitart (Lortab 5/325) 1 tab PRN Q6HRS PRN PO MODERATE PAIN; Start 06/05/20 at 18:45 Tamsulosin HCl (Flomax) 0.4 mg DAILY PO Last administered on 06/06/20at 08:49; Start 06/06/20 at 09:00 Trazodone HCl (Desyrel) 100 mg PRN QHS PRN PO INSOMNIA; Start 06/05/20 at 18:45 Citalopram Hydrobromide (CeleXA) 20 mg DAILY PO Last administered on 06/06/20at 08:49; Start 06/06/20 at 09:00 Pantoprazole Sodium (Protonix) 40 mg DAILYAC PO Last administered on 06/06/20at 08:49; Start 06/06/20 at 07:30; Stop 06/06/20 at 09:15; Status DC Heparin Sodium (Porcine) (Heparin Sodium) 5,000 unit TID SQ Last administered on 06/06/20at 20:55; Start 06/05/20 at 21:00 Piperacillin Sod/ Tazobactam Sod 2.25 gm/Sodium Chloride 50 ml @ 100 mls/hr Q8H IV Last administered on 06/07/20at 05:13; Start 06/06/20 at 03:00 Pharmacy Consult (C.diff Med Screen By Rx) 1 each 1X ONCE MC ; Start 06/06/20 at 09:00; Stop 06/06/20 at 09:01; Status DC Lactobacillus Rhamnosus (Culturelle) 1 cap BID PO Last administered on 06/06/20at 20:54; Start 06/06/20 at 09:15 Famotidine (Pepcid) 20 mg DAILY PO ; Start 06/07/20 at 09:00 Alprazolam (Xanax) 0.5 mg 1X ONCE PO Last administered on 06/07/20at 06:04; Start 06/07/20 at 06:00; Stop 06/07/20 at 06:01; Status DC Active Scripts Active Aspirin 325 Mg Tablet 1 Tab PO DAILY 90 Days Augmentin 500-125 Tablet (Amoxicillin/Potassium Clav) 1 Each Tablet 1 Tab PO DAILY 7 Days Reported Dequincy 5-325 Tablet (Acetaminophen/Hydrocodone Bitart) 1 Each Tablet 1 Tab PO PRN Q6HRS PRN Tylenol (Acetaminophen) 325 Mg Tablet 1 Tab PO PRN Q4HRS Escitalopram Oxalate 10 Mg Tablet 1 Tab PO DAILY Flomax (Tamsulosin Hcl) 0.4 Mg Cap.er.24h 1 Cap PO DAILY Xanax (Alprazolam) 0.5 Mg Tablet 0.5 Mg PO PRN Q6HRS PRN Colace (Docusate Sodium) 100 Mg Capsule 100 Mg PO DAILY Trazodone Hcl 50 Mg Tablet 1-2 Tab PO HS PRN Calcium Acetate 667 Mg Tablet 3 Cap PO TIDWMEALS Prevacid (Lansoprazole) 15 Mg Capsule.dr 1 Cap PO DAILY Vitals/I & O Vital Sign - Last 24 Hours 06/06/20 06/06/20 06/06/20 06/06/20 11:00 15:00 19:16 19:32 Temp 97.2 97.6 97.6 97.2 97.6 97.6 Pulse 71 79 68 Resp 22 B/P (MAP) 115/63 (80) 149/92 (111) 139/89 (106) Pulse Ox 94 92 100 95 O2 Delivery Nasal Cannula Nasal Cannula Nasal Cannula Nasal Cannula O2 Flow Rate 3.0 3.0 5.0 4.0 06/06/20 06/07/20 06/07/20 06/07/20 20:45 01:00 05:18 07:00 Temp 97.5 97.0 98.6 97.5 97.0 98.6 Pulse 69 87 78 Resp 22 17 B/P (MAP) 127/70 (89) 136/83 (100) 122/82 (95) Pulse Ox 97 96 98 O2 Delivery Nasal Cannula Nasal Cannula Nasal Cannula Nasal Cannula O2 Flow Rate 4.0 4.0 4.0 4.0 Intake and Output 06/06/20 06/06/20 06/07/20 15:00 23:00 07:00 Intake Total 820 ml 100 ml Balance 820 ml 100 ml Justicifation of Admission Dx: Justifications for Admission: Justification of Admission Dx: Yes Respiratory Failure: Severe Resp Distress Comminuty Aquired Pneumonia: Med-High Risk Pt HILDA SMILEY MD Jun 07, 2020 08:27
[2020-06-07] MEDS: DOCUSATE SODIUM 100 MG CAPSULE. PO SCH (08:54)
[2020-06-07] MEDS: ASPIRIN 325 MG TABLET PO SCH (08:54)
[2020-06-07] MEDS: FAMOTIDINE 20 MG TABLET. PO SCH (08:54)
[2020-06-07] MEDS: CITALOPRAM 20 MG TABLET. PO SCH (08:54)
[2020-06-07] MEDS: LACTOBACILLUS RHAMNOSUS GG 1 CAPSULE. PO SCH ×2 (08:54→20:51)
[2020-06-07] MEDS: TAMSULOSIN 0.4 MG CAP.ER.24H. PO SCH (08:54)
[2020-06-07] MEDS: HEPARIN for SUB-Q USE 5,000 UNIT/ML VIAL. SQ SCH ×3 (08:56→20:52)
--- NOTE | 2020-06-07 09:45 | PDOC ---
PULMONARY PROGRESS NOTES Subjective continues to feel better on 3 litres Vitals Vital Signs Date Time Temp Pulse Resp B/P (MAP) Pulse Ox O2 Delivery O2 Flow Rate FiO2 06/07/20 07:00 98.6 78 17 122/82 (95) 98 Nasal Cannula 4.0 98.6 General: Alert, No acute distress Lungs: Clear Cardiovascular: S1, S2 Abdomen: Soft, Other (obese) Extremities: No Edema Labs Laboratory Tests Test 06/05/20 17:00 06/06/20 09:15 White Blood Count 6.9 x10^3/uL (4.0-11.0) 5.2 x10^3/uL (4.0-11.0) Red Blood Count 3.75 x10^6/uL (4.30-5.70) 3.52 x10^6/uL (4.30-5.70) Hemoglobin 11.9 g/dL (13.0-17.5) 11.0 g/dL (13.0-17.5) Hematocrit 34.9 % (39.0-53.0) 33.1 % (39.0-53.0) Mean Corpuscular Volume 93 fL (79-100) 94 fL (79-100) Mean Corpuscular Hemoglobin 32 pg (25-35) 31 pg (25-35) Mean Corpuscular Hemoglobin Concent 34 g/dL (31-37) 33 g/dL (31-37) Red Cell Distribution Width 15.0 % (11.5-14.5) 15.3 % (11.5-14.5) Platelet Count 184 x10^3/uL (140-400) 165 x10^3/uL (140-400) Neutrophils (%) (Auto) 86 % (31-73) 75 % (31-73) Lymphocytes (%) (Auto) 7 % (24-48) 16 % (24-48) Monocytes (%) (Auto) 6 % (0-9) 8 % (0-9) Eosinophils (%) (Auto) 0 % (0-3) 1 % (0-3) Basophils (%) (Auto) 0 % (0-3) 1 % (0-3) Neutrophils # (Auto) 5.9 x10^3/uL (1.8-7.7) 3.9 x10^3/uL (1.8-7.7) Lymphocytes # (Auto) 0.5 x10^3/uL (1.0-4.8) 0.8 x10^3/uL (1.0-4.8) Monocytes # (Auto) 0.4 x10^3/uL (0.0-1.1) 0.4 x10^3/uL (0.0-1.1) Eosinophils # (Auto) 0.0 x10^3/uL (0.0-0.7) 0.0 x10^3/uL (0.0-0.7) Basophils # (Auto) 0.0 x10^3/uL (0.0-0.2) 0.0 x10^3/uL (0.0-0.2) Segmented Neutrophils % 63 % (35-66) Band Neutrophils % 23 % (0-9) Lymphocytes % 8 % (24-48) Monocytes % 5 % (0-10) Basophils % 1 % (0-3) Platelet Estimate Adequate (ADEQUATE) Sodium Level 136 mmol/L (136-145) 136 mmol/L (136-145) Potassium Level 3.5 mmol/L (3.5-5.1) 3.7 mmol/L (3.5-5.1) Chloride Level 96 mmol/L (98-107) 94 mmol/L (98-107) Carbon Dioxide Level 32 mmol/L (21-32) 31 mmol/L (21-32) Anion Gap 8 (6-14) 11 (6-14) Blood Urea Nitrogen 26 mg/dL (8-26) 34 mg/dL (8-26) Creatinine 7.9 mg/dL (0.7-1.3) 9.5 mg/dL (0.7-1.3) Estimated GFR (Cockcroft-Gault) 7.1 5.7 Glucose Level 101 mg/dL (70-99) 91 mg/dL (70-99) Calcium Level 7.7 mg/dL (8.5-10.1) 7.4 mg/dL (8.5-10.1) Total Bilirubin 0.3 mg/dL (0.2-1.0) 0.2 mg/dL (0.2-1.0) Direct Bilirubin 0.1 mg/dL (0.0-0.2) Aspartate Amino Transf (AST/SGOT) 55 U/L (15-37) 53 U/L (15-37) Alanine Aminotransferase (ALT/SGPT) 34 U/L (16-63) 27 U/L (16-63) Alkaline Phosphatase 58 U/L (46-116) 47 U/L (46-116) Troponin I Quantitative < 0.017 ng/mL (0.000-0.055) EB-Xit-T-Type Natriuretic Peptide 2270 pg/mL (0-124) Total Protein 7.2 g/dL (6.4-8.2) 6.5 g/dL (6.4-8.2) Albumin 2.8 g/dL (3.4-5.0) 2.5 g/dL (3.4-5.0) Lipase 587 U/L (73-393) Prothrombin Time 14.8 SEC (11.7-14.0) Prothromb Time International Ratio 1.2 (0.8-1.1) D-Dimer (Shelley) 2.01 ug/mlFEU (0.00-0.50) BUN/Creatinine Ratio 4 (6-20) Ferritin 2949 ng/mL (26-388) Albumin/Globulin Ratio 0.6 (1.0-1.7) Medications Active Scripts Medications Dose Route/Sig Max Daily Dose Days Date Category Aspirin 325 Mg Tablet 1 Tab PO DAILY 90 06/03/20 Rx Augmentin 500-125 Tablet (Amoxicillin/Potassium Clav) 1 Each Tablet 1 Tab PO DAILY 7 06/03/20 Rx Brick 5-325 Tablet (Acetaminophen/Hydrocodone Bitart) 1 Each Tablet 1 Tab PO PRN Q6HRS PRN 12/25/19 Reported Tylenol (Acetaminophen) 325 Mg Tablet 1 Tab PO PRN Q4HRS 12/25/19 Reported Escitalopram Oxalate 10 Mg Tablet 1 Tab PO DAILY 12/25/19 Reported Flomax (Tamsulosin Hcl) 0.4 Mg Cap.er.24h 1 Cap PO DAILY 12/25/19 Reported Xanax (Alprazolam) 0.5 Mg Tablet 0.5 Mg PO PRN Q6HRS PRN 09/25/19 Reported Colace (Docusate Sodium) 100 Mg Capsule 100 Mg PO DAILY 11/16/18 Reported Trazodone Hcl 50 Mg Tablet 1-2 Tab PO HS PRN 11/16/18 Reported Calcium Acetate 667 Mg Tablet 3 Cap PO TIDWMEALS 07/08/17 Reported Prevacid (Lansoprazole) 15 Mg Capsule. 1 Cap PO DAILY 07/08/17 Reported Impression . 1. Acute hypoxic respiratory failure, likely combination of COVID-19 pneumonia and congestive heart failure. 2. End-stage renal disease, on hemodialysis. 3. COVID-19 positive recently. 4. Obstructive sleep apnea/obesity hypoventilation syndrome, on BiPAP at 25/20 at home. 5. Fever, likely secondary to COVID. Plan . 1. Continue present oxygen at 3 liters. 2. BiPAP at bedtime. 3. Continue empiric antibiotic, Zosyn. 4. Heparin t.i.d. for DVT prophylaxis. 5. Monitor the clinical course. 6. We will follow inflammatory markers as clinically indicated. 7. The patient has felt better since the dialysis and I suspect that some of the dyspnea and hypoxia could be related to congestive heart failure. Discussed with RN. We will follow along with you. JULIAN TURPIN MD Jun 07, 2020 09:45
[2020-06-07] MEDS ORDERED: IV NORMAL SALINE 1000ML BAG 1,000 ML IV PRN ×2 (10:20)
[2020-06-07] MEDS ORDERED: ALBUMIN HUMAN 25% 200 ML IV PRN (10:30)
[2020-06-07] MEDS ORDERED: DIALYSIS PATIENT. MC PRN ×2 (10:30)
[2020-06-07 11:04] VITALS: BP 129/60
--- NOTE | 2020-06-07 12:50 | PDOC ---
SUBJECTIVE ROS Stable , on HD OBJECTIVE Vital Signs Vital Signs Date Time Temp Pulse Resp B/P (MAP) Pulse Ox O2 Delivery O2 Flow Rate FiO2 06/07/20 11:04 98.1 63 16 129/60 (83) 96 Nasal Cannula 4.0 98.1 I & 0 Intake and Output 06/07/20 07:00 Intake Total 920 ml Balance 920 ml Intake Oral 920 ml PHYSICAL EXAM Physical Exam eneral Appearance: no apparent distress Skin: warm Respiratory: decreased breath sounds Heart: S1S2 Abdomen: soft, bowel sounds present Genitourinary: bladder flat Extremities: pulses present Neurology: alert, oriented DIAGNOSIS/ASSESSMENT Assessment & Plan ESRD-TTS AT UNDER DR. YU SEEN ON HD, TOLERATING WELL, CONTINUE ORDERED, SHEILA BURNHAM ANEMIA- SUSAN NEEDED COVID 19 PNEUMONIA S/P ANTIVIRAL AND CONVALESCENT SERUM COMMENT/RELEVANT DATA Meds Current Medications Medications (Trade) Dose Ordered Sig/Tao Start Time Stop Time Status Last Admin Dose Admin Acetaminophen (Tylenol) 325 mg PRN Q4HRS PRN 06/05/20 18:45 Acetaminophen/ Hydrocodone Bitart (Lortab 5/325) 1 tab PRN Q6HRS PRN 06/05/20 18:45 Albumin Human 200 ml @ 200 mls/hr 1X PRN PRN 06/07/20 10:30 06/07/20 16:29 Alprazolam (Xanax) 0.5 mg 1X ONCE 06/07/20 06:00 06/07/20 06:01 DC 06/07/20 06:04 0.5 MG Aspirin (Jaleesa Aspirin) 325 mg DAILY 06/06/20 09:00 06/07/20 08:54 325 MG Citalopram Hydrobromide (CeleXA) 20 mg DAILY 06/06/20 09:00 06/07/20 08:54 20 MG Docusate Sodium (Colace) 100 mg DAILY 06/06/20 09:00 06/07/20 08:54 100 MG Famotidine (Pepcid) 20 mg DAILY 06/07/20 09:00 06/07/20 08:54 20 MG Heparin Sodium (Porcine) (Heparin Sodium) 2,000 unit 1X ONCE 06/07/20 10:30 06/07/20 10:32 DC Info (PHARMACY MONITORING -- do not chart) 1 each PRN DAILY PRN 06/07/20 10:30 06/07/20 10:31 DC Lactobacillus Rhamnosus (Culturelle) 1 cap BID 06/06/20 09:15 06/07/20 08:54 1 CAP Lorazepam (Ativan) 0.5 mg PRN DAILY PRN 06/08/20 06:45 Pantoprazole Sodium (Protonix) 40 mg DAILYAC 06/06/20 07:30 06/06/20 09:15 DC 06/06/20 08:49 40 MG Pharmacy Consult (C.diff Med Screen By Rx) 1 each 1X ONCE 06/06/20 09:00 06/06/20 09:01 DC Piperacillin Sod/ Tazobactam Sod (Zosyn Per Pharmacy) 1 each PRN DAILY PRN 06/05/20 18:30 Piperacillin Sod/ Tazobactam Sod 2.25 gm/Sodium Chloride 50 ml @ 100 mls/hr Q8H 06/06/20 03:00 06/07/20 10:36 100 MLS/HR Sodium Chloride 1,000 ml @ 400 mls/hr Q2H30M PRN 06/07/20 10:20 06/07/20 22:19 Tamsulosin HCl (Flomax) 0.4 mg DAILY 06/06/20 09:00 06/07/20 08:54 0.4 MG Trazodone HCl (Desyrel) 100 mg PRN QHS PRN 06/05/20 18:45 Results All relevant outside records, renal labs, imaging studies, telemetry/EKG's were reviewed. Justicifation of Admission Dx: Justifications for Admission: Justification of Admission Dx: Yes Respiratory Failure: Severe Resp Distress Comminuty Aquired Pneumonia: Med-High Risk Pt RICHY PINEDA MD Jun 07, 2020 12:50
[2020-06-07 19:51] VITALS: BP 122/73
[2020-06-07 23:48] VITALS: BP 123/81
[2020-06-08] MEDS: PIPERACILLIN/TAZOBACTAM 2.25 GM in IV NORMAL SALINE 50ML 50 ML IV SCH ×3 (02:44→17:54)
[2020-06-08 03:00] VITALS: BP 138/66
[2020-06-08] MEDS ORDERED: LORazepam 0.5 MG TABLET PO PRN (06:45)
[2020-06-08 07:49] VITALS: BP 144/82
[2020-06-08] MEDS: DOCUSATE SODIUM 100 MG CAPSULE. PO SCH (09:08)
[2020-06-08] MEDS: FAMOTIDINE 20 MG TABLET. PO SCH (09:08)
[2020-06-08] MEDS: TAMSULOSIN 0.4 MG CAP.ER.24H. PO SCH (09:08)
[2020-06-08] MEDS: LACTOBACILLUS RHAMNOSUS GG 1 CAPSULE. PO SCH ×2 (09:08→20:13)
[2020-06-08] MEDS: ASPIRIN 325 MG TABLET PO SCH (09:08)
[2020-06-08] MEDS: CITALOPRAM 20 MG TABLET. PO SCH (09:08)
[2020-06-08] MEDS: HEPARIN for SUB-Q USE 5,000 UNIT/ML VIAL. SQ SCH ×3 (09:09→20:20)
--- NOTE | 2020-06-08 09:42 | PDOC ---
[employer] PROGRESS NOTE Chief Complaint Chief Complaint A/P: Acute hypoxic respiratory failure - 2/2 COVID 19. On 3L NCO2, will consult pulm. With worsening O2 status will consider convalescent FFP and possibly experimental remdesivir therapy Abnormal chest x-ray, COVID 19 pneumonia. Sepsis 2/2 covid 19 Asthma. Obstructive sleep apnea-hypopnea syndrome - on BIPAP at home End-stage renal disease, on hemodialysis - TuThSa in LUE fistula Hypertension. 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 He was recently diagnosed with COVID 19, was discharged on room air and antibiotics (did not supervisor prep yet), but now returns requiring 3L NCO2. (he has been using his O2 from his home BIPAP to use daytime O2 when he became short of breath the day prior to presentation.) Has significant MALONE, rest has improved his symptoms. Still having diarrhea and he is anxious about his shortness of breath. On arrival he is febrile at 102.4. Heart rate 114. Respiratory rate 30 on 2 to 3 L nasal cannula. CBC shows hemoglobin of 11.9. White blood cell count within normal limits. Chemistry panel shows elevated creatinine consistent with patient's end-stage renal disease. proBNP 2270. Troponin within normal limits. Chest x-ray shows stable suspected lower lobe infiltrate. Patient was given IV Zosyn. Admitted for further care. 06/06: Afebrile overnight, ferritin in 1999. D-dimer INR in PTT all elevated. He feels a little better, still on 4 L of O2. On IV Zosyn currently. 06/07: Afebrile overnight now on 3 L nasal cannulated oxygen very anxious, states he takes Xanax prior to dialysis on his dialysis days. Still on IV Zosyn. Still with cough, inability to get a deep breath. Tolerated dialysis well Afebrile. Paroxysmal coughing this morning. Less achy today. Still in trouble getting a deep breath but overall he states he feels better, still on 4 L nasal cannulated oxygen Plan: Dialysis today, reassess respiratory status after, likely d/c in next 24-48 hours Vitals/I&O Vitals/I&O: Vital Signs Date Time Temp Pulse Resp B/P (MAP) Pulse Ox O2 Delivery O2 Flow Rate FiO2 06/08/20 07:49 96.2 80 18 144/82 (102) 95 Nasal Cannula 96.2 06/07/20 23:48 4.0 I & O 06/07/20 06/07/20 06/08/20 15:00 23:00 07:00 Intake Total 50 ml Balance 50 ml Physical Exam General: Alert, Oriented X3, Cooperative, moderate distress Lungs: Clear Abdomen: Normal bowel sounds, Soft, No tenderness, No hepatosplenomegaly, No masses Extremities: No clubbing, No cyanosis, No edema, Normal pulses, No tenderness/swelling, Other (left forearm fistual good bruit) Skin: No rashes, No breakdown, No significant lesion Comment Review of Relevant I have reviewed the following items bennie (where applicable) has been applied. Medications: Current Medications Medications (Trade) Dose Ordered Sig/Tao Route PRN Reason Start Time Stop Time Status Last Admin Dose Admin Heparin Sodium (Porcine) (Heparin Sodium) 2,000 unit 1X PRN ONCE INT CAT 06/07/20 10:30 06/07/20 10:32 DC 06/07/20 14:12 Heparin Sodium (Porcine) (Heparin Sodium) 2,000 unit 1X ONCE INT CAT 06/07/20 10:30 06/07/20 10:32 DC 06/07/20 15:40 Justicifation of Admission Dx: Justifications for Admission: Justification of Admission Dx: Yes Respiratory Failure: Severe Resp Distress Comminuty Aquired Pneumonia: Med-High Risk Pt HILDA SMILEY MD Jun 08, 2020 09:42
[2020-06-08] MEDS ORDERED: guaiFENesin DM 200MG/20MG 10 ML SYRUP PO PRN (09:45)
[2020-06-08] MEDS ORDERED: BENZONATATE 100 MG CAPSULE. PO SCH (09:45)
--- NOTE | 2020-06-08 10:50 | PDOC ---
PULMONARY PROGRESS NOTES Subjective continues to feel better on 3 litres Vitals Vital Signs Date Time Temp Pulse Resp B/P (MAP) Pulse Ox O2 Delivery O2 Flow Rate FiO2 06/08/20 07:49 96.2 80 18 144/82 (102) 95 Nasal Cannula 96.2 06/07/20 23:48 4.0 General: Alert, No acute distress Lungs: Clear Cardiovascular: S1, S2 Abdomen: Soft, Other (obese) Extremities: No Edema Medications Active Scripts Medications Dose Route/Sig Max Daily Dose Days Date Category Aspirin 325 Mg Tablet 1 Tab PO DAILY 90 06/03/20 Rx Augmentin 500-125 Tablet (Amoxicillin/Potassium Clav) 1 Each Tablet 1 Tab PO DAILY 7 06/03/20 Rx [place] 5-325 Tablet (Acetaminophen/Hydrocodone Bitart) 1 Each Tablet 1 Tab PO PRN Q6HRS PRN 12/25/19 Reported Tylenol (Acetaminophen) 325 Mg Tablet 1 Tab PO PRN Q4HRS 12/25/19 Reported Escitalopram Oxalate 10 Mg Tablet 1 Tab PO DAILY 12/25/19 Reported Flomax (Tamsulosin Hcl) 0.4 Mg Cap.er.24h 1 Cap PO DAILY 12/25/19 Reported Xanax (Alprazolam) 0.5 Mg Tablet 0.5 Mg PO PRN Q6HRS PRN 09/25/19 Reported Colace (Docusate Sodium) 100 Mg Capsule 100 Mg PO DAILY 11/16/18 Reported Trazodone Hcl 50 Mg Tablet 1-2 Tab PO HS PRN 11/16/18 Reported Calcium Acetate 667 Mg Tablet 3 Cap PO TIDWMEALS 07/08/17 Reported Prevacid (Lansoprazole) 15 Mg Capsule. 1 Cap PO DAILY 07/08/17 Reported Impression . 1. Acute hypoxic respiratory failure, likely combination of COVID-19 pneumonia and congestive heart failure. 2. End-stage renal disease, on hemodialysis. 3. COVID-19 positive recently. 4. Obstructive sleep apnea/obesity hypoventilation syndrome, on BiPAP at at home. 5. Fever, likely secondary to COVID. Plan . 1. Continue present oxygen at 3 liters. 2. BiPAP at bedtime. 3. Continue empiric antibiotic, Zosyn. 4. Heparin t.i.d. for DVT prophylaxis. 5. Monitor the clinical course. 6. We will follow inflammatory markers as clinically indicated. 7. The patient has felt better since the dialysis and I suspect that some of the dyspnea and hypoxia could be related to congestive heart failure. Discussed with RN. We will follow along with you. JULIAN TURPIN MD Jun 08, 2020 10:50
[2020-06-08 11:25] VITALS: BP 140/72
[2020-06-08] MEDS ORDERED: BENZONATATE 100 MG CAPSULE. PO PRN (13:00)
[2020-06-08 15:15] VITALS: BP 145/63
[2020-06-08 19:55] VITALS: BP 144/95
[2020-06-08 23:11] VITALS: BP 140/78
[2020-06-09] MEDS: PIPERACILLIN/TAZOBACTAM 2.25 GM in IV NORMAL SALINE 50ML 50 ML IV SCH ×2 (02:24→04:00)
[2020-06-09 03:58] VITALS: BP 140/78
[2020-06-09 07:00] VITALS: BP 147/91
[2020-06-09] MEDS: TAMSULOSIN 0.4 MG CAP.ER.24H. PO SCH (09:32)
[2020-06-09] MEDS: LACTOBACILLUS RHAMNOSUS GG 1 CAPSULE. PO SCH (09:32)
[2020-06-09] MEDS: DOCUSATE SODIUM 100 MG CAPSULE. PO SCH (09:32)
[2020-06-09] MEDS: ASPIRIN 325 MG TABLET PO SCH (09:32)
[2020-06-09] MEDS: CITALOPRAM 20 MG TABLET. PO SCH (09:32)
[2020-06-09] MEDS: FAMOTIDINE 20 MG TABLET. PO SCH (09:32)
[2020-06-09] MEDS: HEPARIN for SUB-Q USE 5,000 UNIT/ML VIAL. SQ SCH ×2 (09:35→14:00)
--- NOTE | 2020-06-09 10:51 | EKG ---
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
[2020-06-09 11:14] VITALS: BP 150/75
--- NOTE | 2020-06-09 11:28 | PDOC ---
PULMONARY PROGRESS NOTES Subjective continues to feel better on 3 litres Vitals Vital Signs Date Time Temp Pulse Resp B/P (MAP) Pulse Ox O2 Delivery O2 Flow Rate FiO2 06/09/20 11:14 97.9 74 16 150/75 (100) 97 Nasal Cannula 2.0 97.9 General: Alert, No acute distress Lungs: Clear Cardiovascular: S1, S2 Abdomen: Soft, Other (obese) Extremities: No Edema Medications Active Scripts Medications Dose Route/Sig Max Daily Dose Days Date Category Aspirin 325 Mg Tablet 1 Tab PO DAILY 90 06/03/20 Rx Augmentin 500-125 Tablet (Amoxicillin/Potassium Clav) 1 Each Tablet 1 Tab PO DAILY 7 06/03/20 Rx [place] 5-325 Tablet (Acetaminophen/Hydrocodone Bitart) 1 Each Tablet 1 Tab PO PRN Q6HRS PRN 12/25/19 Reported Tylenol (Acetaminophen) 325 Mg Tablet 1 Tab PO PRN Q4HRS 12/25/19 Reported Escitalopram Oxalate 10 Mg Tablet 1 Tab PO DAILY 12/25/19 Reported Flomax (Tamsulosin Hcl) 0.4 Mg Cap.er.24h 1 Cap PO DAILY 12/25/19 Reported Xanax (Alprazolam) 0.5 Mg Tablet 0.5 Mg PO PRN Q6HRS PRN 09/25/19 Reported Colace (Docusate Sodium) 100 Mg Capsule 100 Mg PO DAILY 11/16/18 Reported Trazodone Hcl 50 Mg Tablet 1-2 Tab PO HS PRN 11/16/18 Reported Calcium Acetate 667 Mg Tablet 3 Cap PO TIDWMEALS 07/08/17 Reported Prevacid (Lansoprazole) 15 Mg Capsule. 1 Cap PO DAILY 07/08/17 Reported Impression . 1. Acute hypoxic respiratory failure, likely combination of COVID-19 pneumonia and congestive heart failure. 2. End-stage renal disease, on hemodialysis. 3. COVID-19 positive recently. 4. Obstructive sleep apnea/obesity hypoventilation syndrome, on BiPAP at at home. 5. Fever, likely secondary to COVID. Plan . 1. Continue present oxygen at 3 liters. 2. BiPAP at bedtime. 3. Continue empiric antibiotic,on PO now 4. Heparin t.i.d. for DVT prophylaxis. 5. Monitor the clinical course. 6. We will follow inflammatory markers as clinically indicated. 7. clinically better ok with dc home . 6 min walk Discussed with RN. JULIAN TURPIN MD Jun 09, 2020 11:28
[2020-06-09] MEDS ORDERED: AMOX1TAB10 PO (12:36)
--- NOTE | 2020-06-09 12:37 | SNU/HH DC ---
DISCHARGE WITH HOME HEALTH DISCHARGE INFORMATION: Condition on Discharge: Stable CODE STATUS: Code Status: Full HOME HEALTH: Face to Face: I certify this patient is under my care and that I, or a nurse practitioner or physician's physician assistant working with me, had a face to face encounter that meets the physician face to face encounter requirements with this patient on []. Medical Complications: Other (Pneumonia) RN For Eval/Treatment: Yes Physical Therapy For: Evalulation/Treatment Speech Language Pathology For: Evaluation/Treatment Home Health Aide For: Self-care SQL SERVER CONSULTANT For: Community Resources Pt Meets Homebound Status: Poor coordination w/ amb. POST DISCHARGE ORDERS: Activity Instructions for Disc: Activity as tolerated Weight Bearing Status after Di: As tolerated DIET AFTER DISCHARGE: Cardiac Wound/Incision Care: Other, see below CHECKS AFTER DISCHARGE: Checks after discharge: Check blood press - daily TREATMENT/EQUIPMENT ORDERS: Adaptive Equipment Issued: None CERTIFICATION STATEMENT: Certification Statement: Certification Statement: Based on the above finding, I certify that this patient is confined to the home and needs intermittent custodial care, physical therapy and/or speech therapy, or continues to need occupational therapy.~ This patient is under my care, and I have initiated the establishment of the plan of care.~ This patient will be followed by myself or a community physician who will periodically review the plan of care. Home Meds Active Scripts Amoxicillin/Potassium Clav (AMOX TR-K CLV 500-125 MG TAB) 1 Each Tablet, 1 TAB PO BID for . for 7 Days, #14 TAB Prov:LEXIE TRUJILLO III DO 06/09/20 Aspirin (ASPIRIN) 325 Mg Tablet, 1 TAB PO DAILY for COVID 19 for 90 Days, #90 TAB 5 Refills Prov:HILDA SMILEY MD 06/03/20 Amoxicillin/Potassium Clav (AUGMENTIN 500-125 TABLET) 1 Each Tablet, 1 TAB PO DAILY for pneumonia for 7 Days, #7 TAB 0 Refills Prov:HILDA SMILEY MD 06/03/20 Reported Medications Hydrocodone/Apap 5-325 (NORCO 5-325 TABLET) 1 Each Tablet, 1 TAB PO PRN Q6HRS PRN for PAIN, TAB 0 Refills 12/25/19 Acetaminophen (TYLENOL) 325 Mg Tablet, 1 TAB PO PRN Q4HRS for NA, #30 TAB 12/25/19 Escitalopram Oxalate (ESCITALOPRAM OXALATE) 10 Mg Tablet, 1 TAB PO DAILY for ANXIETY, #30 TAB 3 Refills 12/25/19 Tamsulosin Hcl (FLOMAX) 0.4 Mg Cap.er.24h, 1 CAP PO DAILY for FLOW, #30 CAP 11 Refills 12/25/19 Alprazolam (XANAX) 0.5 Mg Tablet, 0.5 MG PO PRN Q6HRS PRN for ANXIETY / AGITATION, TAB 0 Refills 09/25/19 Docusate Sodium (COLACE) 100 Mg Capsule, 100 MG PO DAILY for stool softner, CAP 11/16/18 Trazodone Hcl (TRAZODONE HCL) 50 Mg Tablet, 1-2 TAB PO HS PRN for INSOMNIA, TAB 11/16/18 Calcium Acetate (CALCIUM ACETATE) 667 Mg Tablet, 3 CAP PO TIDWMEALS for DIALYSIS PATIENTS, CAP 07/08/17 Lansoprazole (PREVACID) 15 Mg Capsule.dr, 1 CAP PO DAILY, #30 CAP 3 Refills 07/08/17 LEXIE TRUJILLO III DO Jun 09, 2020 12:37
--- NOTE | 2020-06-09 12:45 | PDOC ---
Renal-Progress Notes Subjective Notes Notes NO NEW COMPLAINTS History of Present Illness Hx of present illness STABLE Vitals Vitals Vital Signs Date Time Temp Pulse Resp B/P (MAP) Pulse Ox O2 Delivery O2 Flow Rate FiO2 06/09/20 11:14 97.9 74 16 150/75 (100) 97 Nasal Cannula 2.0 97.9 Weight Weight [ ] I.O. Intake and Output Intake and Output 06/09/20 07:00 Intake Total 1100 ml Balance 1100 ml Intake Oral 1050 ml IV Total 50 ml # Voids 7 Review of Systems Constitutional: yes: alert, oriented Ears/Nose/Throat: Yes: no symptom reported Eyes: Yes: no symptom reported Pulmonary: Yes dyspnea Cardiovascular: Yes no symptom reported Gastrointestional: Yes: constipation Genitourinary: Yes: no symptom reported Musculoskeletal: Yes: muscle stiffness Skin: Yes no symptom reported Psychiatric/Neurological: Yes: no symptom reported Endocrine: Yes: no symptom reported Physical Exam General Appearance: no apparent distress Skin: warm Respiratory: decreased breath sounds Heart: S1S2 Abdomen: soft, bowel sounds present Genitourinary: bladder flat Extremities: pulses present Neurology: alert, oriented Assessment Assessment IMP ESRD-TTS ANEMIA COVID 19 PNEUMONIA S/P ANTIVIRAL AND CONVALESCENT SERUM PLAN HD TOMORROW SUSAN NEEDED SUPPORTIVE CARE WILL FOLLOW NORIS JAMES MD Jun 09, 2020 12:45
--- NOTE | 2020-06-09 15:11 | NUR ---
Discharge Note: KURTIS COLLINS [address] [place] [address] Discharge instructions and discharge home medications reviewed with Patient and a copy given. All questions have been answered and understanding verbalized. The following instructions and handouts were given: F/U WITH PCP WITHIN ONE WEEK. CONTINUE DIALYSIS SCHEDULED. EDUCATION ON HOW TO USE THE PORTABLE OXYGEN TANK WAS SHOWN TO THE PATIENT. IT WAS EXPLAINED THAT PT IS TO BE ON RA AT REST AND 2L NC WITH EXERTION. PATIENT VERBALIZED UNDERSTANDING OF THESE INSTRUCTIONS. Discontinued lines and drains: Peripheral IV intact. Patient discharged to Home or Self Care with Self via Wheelchair PT BLACK DUFFLE BAG WITH HIM AT THE TIME OF DISCHARGE. THIS RN SPOKE TO PATIENT , KENNA ([phone]) ABOUT THE DISCHARGE PLAN AND THE PLAN WITH THE HOME OXYGEN. SHE VERBALIZED UNDERSTANDING.
--- NOTE | 2020-06-09 17:23 | NUR ---
SW following. Spoke with RN and CM. Reviewed chart. Spoke with pt. Pt stated he has home 02 and a CPAP from [facility]. Pt stated no 02 tank at home. SW called Josué with [employer] who delivered a tank for transport home with . Pt stated no additional SW needs at this time.
[2020-06-09] MEDS ORDERED: AMOXICILLIN/K CLAV 500/125MG TABLET. PO SCH (21:00)
== END 2020-06-09 15:11 | disposition home health service (06) | DRG 871 ==
LOC: ER 16:34 → 6 SOUTH 18:24
PROVIDERS: ADMIT Internal Medicine; ATTEND Internal Medicine
PROC: 5A1D70Z Performance of Urinary Filtration, Intermittent, Less than 6 Hours Per Day (ICD-10-PCS; principal; 2020-06-07)
DX: A41.89 Other specified sepsis (principal); U07.1 COVID-19; J96.01 Acute respiratory failure with hypoxia; E43 Unspecified severe protein-calorie malnutrition; J12.89 Other viral pneumonia; N18.6 End stage renal disease; I13.2 Hypertensive heart and chronic kidney disease with heart failure and with stage 5 chronic kidney disease, or end stage renal disease; Z68.42 Body mass index [BMI] 45.0-49.9, adult; D63.8 Anemia in other chronic diseases classified elsewhere; E11.22 Type 2 diabetes mellitus with diabetic chronic kidney disease; E78.5 Hyperlipidemia, unspecified; E87.6 Hypokalemia; F41.8 Other specified anxiety disorders; G47.33 Obstructive sleep apnea (adult) (pediatric); I25.10 Atherosclerotic heart disease of native coronary artery without angina pectoris; I50.9 Heart failure, unspecified; J45.909 Unspecified asthma, uncomplicated; Z82.49 Family history of ischemic heart disease and other diseases of the circulatory system; Z87.891 Personal history of nicotine dependence; Z99.2 Dependence on renal dialysis; E66.01 Morbid (severe) obesity due to excess calories
CPT/HCPCS: 36415; 71045; 80048; 80053; 80076; 82728; 83690; 83880; 84484; 85007; 85025; 85379; 85610; 93005; 94618; 96365; 99285; J1644; J2543; J7030; G0378

== ENCOUNTER 2020-06-12 05:30 | Emergency (ER) | payer MEDICARE, OTHER ==
[~2020-06-12] VITALS: Ht 180.3 cm; Wt 163.6 kg
[~2020-06-12 05:30] MED LIST changes: +AMOX1TAB10 PO
--- NOTE | 2020-06-12 06:21 | PHYS DOC ---
Past Medical History Past Medical History: Asthma, Hypertension, Renal Failure Additional Past Medical Histor: dialysis catheter on left upper arm Past Surgical History: No Surgical History Additional Past Surgical Histo: PERMACATH DIALYSIS CATHETER, PD CATH Smoking Status: Never Smoker Alcohol Use: None Drug Use: None Social History Narrative: pt denies any smoking of alcohol use. General Adult EDM: Chief Complaint: SHORTNESS OF BREATH HPI: HPI: 59-year-old male past medical history of ESRD (HD), asthma on 2L NC, DORIS on BiPAP, hypertension, obesity, anemia of chronic disease, with recent admission and discharge June 05 for sepsis secondary to COVID-19 (positive test 05/31) and diarrhea, presents to the ED with complaints of " I could not sleep last night." Complains of difficulties breathing when lying flat, nausea, "not feeling well, body aches" and loose watery stools. HD is suppose to be MWF but is now on TuThSa, last HD Tuesday - needs HD today. Review of systems: Denies associated fever, chills, chest pain or pressure, nausea, vomiting, melena, hemoptysis, hematochezia, hematemesis, diaphoresis, sore throat, cough, hemoptysis, unilateral leg swelling, abdominal pain, back/flank pain, dysuria or hematuria. Allergies: Allergies: Allergies Coded Allergies Type Severity Reaction Last Updated Verified No Known Drug Allergies 12/25/19 No Physical Exam: PE: Constitutional: Well developed, well nourished, no acute distress, non-toxic appearance. [] HENT: Normocephalic, atraumatic, bilateral external ears normal, oropharynx moist, no oral exudates, nose normal. [] Eyes: EOMI, conjunctiva normal, no discharge. [] Neck: Normal range of motion, no tenderness, supple, no stridor. [] Cardiovascular: tachycardic 107 and 102, no murmur [] Lungs & Thorax: Bilateral breath sounds, scant expiratory wheezing upper lobes, 99% 2L NC Abdomen: Bowel sounds normal, soft, no tenderness, no masses, no pulsatile masses. [] bruising to lower abdomen Skin: Warm, dry, no erythema, no rash. [] Back: No tenderness, no CVA tenderness. [] Extremities: No tenderness, no cyanosis, no clubbing, ROM intact, no edema. [] thrill left forearm Neurologic: Alert and oriented X 3, normal motor function, normal sensory function, no focal deficits noted. [] Psychologic: Affect normal, judgement normal, mood normal. [] Current Patient Data: Vital Signs: tachycardic 107, 102 on my exam EKG: EKG: Sinus rhythm at 99 bpm, no axis deviation, QTC 462, no T wave inversions, no ST elevations or ST depressions Radiology/Procedures: Radiology/Procedures: IMAGING REPORT Signed PATIENT: KURTIS COLLINS: [id number] : 1960 LOCATION: ER AGE: 59 SEX: M EXAM STATUS: REG ER ORD. PHYSICIAN: MARTY MULLIGAN DO REASON: soa PROCEDURE: CHEST AP ONLY Chest AP portable at 0612: Reason for examination: Short of breath. Comparison is made to previous study dated 06/05/2020. The heart size is normal. Mediastinum is unremarkable. Lung hansen show bandlike density at the left lung base which probably reflects atelectasis. There is also probably a small left pleural effusion. Right lung field is clear. No acute bony abnormalities are seen. IMPRESSION: Bandlike density consistent with atelectasis at the left lung base with a small left pleural effusion. Electronically signed by: Brittany Damico MD (06/12/2020 6:41 AM) [id number] DICTATED and SIGNED BY: BRITTANY DAMICO MD DATE: 06/12/20 0641 [facility] [address] [place], [place] [id number] IMAGING REPORT Signed PATIENT: KURTIS COLLINS: [id number] : 1960 LOCATION: ER AGE: 59 SEX: M EXAM STATUS: REG ER ORD. PHYSICIAN: MARTY MULLIGAN DO REASON: soa, r/o pe PROCEDURE: CT ANGIOGRAPHY CHEST CT angiography chest with contrast PQRS statement: CT scans at this facility use dose reduction including either automated exposure control, iterative reconstructions, and /or weight based radiation dosing via mA and kV modification when appropriate to reduce radiation dose to as low as reasonably achievable. Contrast: 100 mL Omnipaque [address] imaging with 3-D MIP reconstructions of the pulmonary arteries were acquired. HISTORY: Shortness of breath. FINDINGS: Tortuosity thoracic aorta. There is probable fusiform aneurysm of the thoracic aorta approximate diameter of 4.5 cm somewhat obscured by respiratory motion artifact with misregistration maher of the vessel from motion. Left coronary calcified plaque. Limited contrast bolus density and respiratory motion artifact decreases sensitivity to detect peripheral lobar pulmonary artery emboli, in light of this no pulmonary artery emboli are evident. Heart size upper limits normal. Esophagus are unremarkable. Borderline enlarged mediastinal and hilar lymph nodes measuring up to 1 cm short axis diameter. Bilateral gynecomastia. Left renal upper pole demonstrates numerous cystic lesions extending outside the [id number] as present on prior CT abdomen imaging from February 2019. Miniscule volume of left pleural fluid along the posterior diaphragm and lower lobe. Left lower lobe moderate volume loss and atelectasis has increased since the prior exam no bronchial cut off evident. Extensive bilateral pulmonary nodular consolidated and groundglass opacities, and heterogeneous opacity left lower lobe with bronchograms dependent atelectasis or consolidation new from prior imaging. Bones are unremarkable IMPRESSION: 1. No pulmonary artery emboli evident. See above. 2. Extensive bilateral pulmonary consolidation and groundglass nodular opacities, as well as left lower lobe volume loss and atelectasis with lobar consolidation due to atelectasis or lobar pneumonia. The scattered opacities likely represent an infectious or inflammatory process, atypical viral infections should also be considered. Sarcoidosis would be a secondary consideration. Consider follow-up CT imaging in 3 months to document that these opacities resolve to exclude the less likely possibility of an atypical presentation of metastatic disease. 3. Fusiform aneurysm ascending thoracic aorta diameter approximately 4.5 cm. 4. Borderline mediastinal and hilar adenopathy. Electronically signed by: Radha Olmos MD (06/12/2020 7:42 AM) [id number] DICTATED and SIGNED BY: RADHA OLMOS MD DATE: 06/12/20 0742 Impression: Concern for groundglass opacities likely from COVID with lobar consolidation concerning for superimposed bacterial infection, no PE. Patient has been on Augmentin, filled for 7 days on June 03 and then again on June 09. I will change patient's antibiotics to cefpodoxime and doxycycline and prescribe an albuterol inhaler. Tachycardia resolved in the ED. Patient does have elevated leukocytosis of 12.4 but lactic acid is 0.6. Patient is sleeping comfortably in the ED, speaking in full sentences, saturating 96 to 98% on his baseline 2 L nasal cannula-is not requiring any more oxygen support. Patient reports he has not been wearing his BiPAP at night.Pt states he feels well enough to return home and I do agree that his exam supports this. Strict ed return precautions for fever, increased work of breathing, chest pain, n/v or confusion. Life threatening processes considered (respiratory failure, sepsis, pulmonary embolus, acs/angina/nstemi, aortic dissection, etc), low suspicion given hx/pe. CTA does show a thoracic aortic aneurysm. Encouraged urgent PMD follow-up in 24 to 48 hours along with outpatient pulmonology follow-up. I also encouraged compliance with the CPAP. All of patient's questions were answered and he was stable at time of discharge. Course & Med Decision Making: Course & Med Decision Making Pertinent Labs and Imaging studies reviewed. (See chart for details) [] Dragon Disclaimer: Dragon Disclaimer: This electronic medical record was generated, in whole or in part, using a voice recognition dictation system. Departure Departure Impression: Primary Impression: Pneumonia Additional Impressions: DORIS (obstructive sleep apnea) COVID-19 Thoracic aortic aneurysm without rupture Disposition: 01 HOME, SELF-CARE Condition: STABLE Referrals: EMERITA BARR (PCP) JULIAN TURPIN MD Patient Instructions: Pneumonia, Adult, Sleep Apnea Scripts Doxycycline Hyclate (DOXYCYCLINE HYCLATE) 100 Mg Capsule 1 CAP PO BID for 10 Days, #20 CAP Prov: MARTY MULLIGAN DO 06/12/20 Cefpodoxime Proxetil (CEFPODOXIME PROXETIL) 200 Mg Tablet 1 TAB PO BID, #20 TAB Prov: MARTY MULLIGAN DO 06/12/20 Albuterol Sulfate (ALBUTEROL SULFATE NEB SOLN) 2.5 Mg/3 Ml Vial.neb 1 VIAL NEB Q6HRS PRN for SHORTNESS OF BREATH, #25 VIAL Prov: MARTY MULLIGAN DO 06/12/20 Justicifation of Admission Dx: Justifications for Admission: Justification of Admission Dx: N/A Respiratory Failure: Severe Resp Distress Comminuty Aquired Pneumonia: Med-High Risk Pt MARTY MULLIGAN DO Jun 12, 2020 06:20
--- NOTE | 2020-06-12 06:44 | RAD ---
Chest AP portable at 0612: Reason for examination: Short of breath. Comparison is made to previous study dated 06/05/2020. The heart size is normal. Mediastinum is unremarkable. Lung hansen show bandlike density at the left lung base which probably reflects atelectasis. There is also probably a small left pleural effusion. Right lung field is clear. No acute bony abnormalities are seen. IMPRESSION: Bandlike density consistent with atelectasis at the left lung base with a small left pleural effusion. Electronically signed by: Brittany Ibrahim MD (06/12/2020 6:41 AM) [id number]
[2020-06-12 07:09] LABS: BASO # 0.1 x10^3/uL (0.0-0.2); BASO % 1 % (0-3); EOS # 0.2 x10^3/uL (0.0-0.7); EOS % 2 % (0-3); HEMATOCRIT 33.4 % (39.0-53.0); LYMPH # 0.8 x10^3/uL (1.0-4.8); LYMPH % 6 % (24-48); MEAN CORPUSCULAR HEMOGLOBIN 31 pg (25-35); MEAN CORPUSCULAR HGB CONC 33 g/dL (31-37); MEAN CORPUSCULAR VOLUME 94 fL (79-100); MONO # 0.9 x10^3/uL (0.0-1.1); MONO % 7 % (0-9); NEUT # 10.7 x10^3/uL (1.8-7.7); NEUT % 85 % (31-73); PLATELET COUNT 254 x10^3/uL (140-400); RED BLOOD COUNT 3.55 x10^6/uL (4.30-5.70); RED CELL DISTRIBUTION WIDTH 15.2 % (11.5-14.5); WHITE BLOOD COUNT 12.6 x10^3/uL (4.0-11.0)
[2020-06-12] MEDS ORDERED: IOHEXOL 300 MG/ML 100ML VIAL. IV ONE (07:15)
[2020-06-12] MEDS ORDERED: CONTRAST GIVEN. MC PRN (07:15)
[2020-06-12] MEDS ORDERED: IOHEXOL 350 MG/ML 100 ML VIAL. IV ONE ×2 (07:30→08:00)
--- NOTE | 2020-06-12 07:45 | RAD ---
CT angiography chest with contrast PQRS statement: CT scans at this facility use dose reduction including either automated exposure control, iterative reconstructions, and /or weight based radiation dosing via mA and kV modification when appropriate to reduce radiation dose to as low as reasonably achievable. Contrast: 100 mL Omnipaque [address] imaging with 3-D MIP reconstructions of the pulmonary arteries were acquired. HISTORY: Shortness of breath. FINDINGS: Tortuosity thoracic aorta. There is probable fusiform aneurysm of the thoracic aorta approximate diameter of 4.5 cm somewhat obscured by respiratory motion artifact with misregistration maher of the vessel from motion. Left coronary calcified plaque. Limited contrast bolus density and respiratory motion artifact decreases sensitivity to detect peripheral lobar pulmonary artery emboli, in light of this no pulmonary artery emboli are evident. Heart size upper limits normal. Esophagus are unremarkable. Borderline enlarged mediastinal and hilar lymph nodes measuring up to 1 cm short axis diameter. Bilateral gynecomastia. Left renal upper pole demonstrates numerous cystic lesions extending outside the [id number] as present on prior CT abdomen imaging from February 2019. Miniscule volume of left pleural fluid along the posterior diaphragm and lower lobe. Left lower lobe moderate volume loss and atelectasis has increased since the prior exam no bronchial cut off evident. Extensive bilateral pulmonary nodular consolidated and groundglass opacities, and heterogeneous opacity left lower lobe with bronchograms dependent atelectasis or consolidation new from prior imaging. Bones are unremarkable IMPRESSION: 1. No pulmonary artery emboli evident. See above. 2. Extensive bilateral pulmonary consolidation and groundglass nodular opacities, as well as left lower lobe volume loss and atelectasis with lobar consolidation due to atelectasis or lobar pneumonia. The scattered opacities likely represent an infectious or inflammatory process, atypical viral infections should also be considered. Sarcoidosis would be a secondary consideration. Consider follow-up CT imaging in 3 months to document that these opacities resolve to exclude the less likely possibility of an atypical presentation of metastatic disease. 3. Fusiform aneurysm ascending thoracic aorta diameter approximately 4.5 cm. 4. Borderline mediastinal and hilar adenopathy. Electronically signed by: Kelton Olmos MD (06/12/2020 7:42 AM) [id number]
[2020-06-12 08:10] LABS: CALCIUM 8.2 mg/dL (8.5-10.1); CREATININE 10.1 mg/dL (0.7-1.3); GFR 5.3; POTASSIUM 3.5 mmol/L (3.5-5.1)
--- NOTE | 2020-06-12 08:12 | EKG ---
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
[2020-06-12 08:14] LABS: ALBUMIN 2.6 g/dL (3.4-5.0); DIRECT BILIRUBIN 0.2 mg/dL (0.0-0.2); MAGNESIUM 1.8 mg/dL (1.8-2.4); TOTAL BILIRUBIN 0.5 mg/dL (0.2-1.0); TOTAL PROTEIN 6.8 g/dL (6.4-8.2)
[2020-06-12 08:46] VITALS: BP 146/78
[2020-06-12] MEDS ORDERED: ALBU2.5V5 NEB (09:05)
[2020-06-12] MEDS ORDERED: DOXY100C2 PO (09:05)
[2020-06-12] MEDS ORDERED: CEFP200T PO (09:05)
== END 2020-06-12 09:35 | disposition home or self-care (01) ==
LOC: ER 05:30
DX: J18.9 Pneumonia, unspecified organism (principal); U07.1 COVID-19; G47.33 Obstructive sleep apnea (adult) (pediatric); I71.2 Thoracic aortic aneurysm, without rupture; I12.0 Hypertensive chronic kidney disease with stage 5 chronic kidney disease or end stage renal disease; N18.6 End stage renal disease; Z99.2 Dependence on renal dialysis; E66.9 Obesity, unspecified; Z68.43 Body mass index [BMI] 50.0-59.9, adult; Z86.2 Personal history of diseases of the blood and blood-forming organs and certain disorders involving the immune mechanism
CPT/HCPCS: 36415; 71045; 71275; 80048; 80076; 82550; 83605; 83735; 83880; 84484; 85025; 87040; 93005; 99285; Q9967